=== PATIENT | male | born 1980 | race Hispanic/Latino ===

== ENCOUNTER 2017-10-07 10:11 | Inpatient (IN) | payer OTHER, MEDICAID, SELFPAY ==
[2017-10-07] VITALS (8 sets, daily range): BP systolic 117–142; BP diastolic 70–101; PULSE 75–95; RESP 16–18; TEMP 36.5–37; O2SAT 96–100; BMI 25.1
[2017-10-07 11:09] LABS: Add Manual Diff / Slide Review NO; Basophils Percent Auto 0.2 % (0-2); Hematocrit 41.3 % (41-53); Hemoglobin 14.5 g/dL (13.5-17.5); Lymphocytes Percent Auto 28.3 % (25-40); Mean Corpuscular HGB Conc 35.2 % (30-36); Mean Corpuscular Hemoglobin 31.8 PG (26-34); Mean Corpuscular Volume 90.5 fL (80-100); Monocytes Percent Auto 8.9 % (3-14); Neutrophils Absolute Auto 2800 /uL (3000-5900); Neutrophils Percent Auto 60.6 % (50-75); Platelet Count 238 X10^3/uL (150-400); Red Blood Cell Count 4.56 X10^6/uL (4.5-5.9); Red Cell Distribution Width 14.6 % (11.6-14.8); White Blood Cell Count 4.6 X10^3/uL (4.5-11.0)
[2017-10-07 11:11] LABS: INR 1.1 (0.9-1.3); Prothrombin Time 12.2 SECONDS (10.1-12.7)
[2017-10-07 11:13] LABS: PTT Partial Thromboplastin Tim 29 SECONDS (26.4-36.2)
[2017-10-07 11:15] LABS: Alanine Aminotransferase 59 IU/L (21-72); Albumin 4.3 g/dL (3.5-5.0); Albumin Globulin Ratio 1.1 (1.0-2.8); Alkaline Phosphatase 60 U/L (38-126); Aspartate Aminotransferase 73 IU/L (17-59); BUN Creatinine Ratio 15.7 (6-22); Bilirubin Total 0.4 mg/dL (0.2-1.3); Blood Urea Nitrogen 11 mg/dL (9-20); Calcium 8.6 mg/dL (8.4-10.2); Carbon Dioxide 27 mmol/L (22-32); Chloride 103 mmol/L (98-107); Estimated Glomerular Filt Rate > 60.0 mL/min (>60); Glucose 102 mg/dL (70-100); HEMOLYSIS < 15 (0-50); Lipase 55 U/L (23-300); Potassium 3.8 mmol/L (3.4-5.1); Sodium 143 mmol/L (137-145); Total Protein 8.3 g/dL (6.3-8.2)
[2017-10-07] MEDS: SODIUM CHLORIDE 0.9% 1,000 ML 1000 ML IV (11:24)
[2017-10-07] MEDS: PANTOPRAZOLE 40 MG VIAL IV (11:28)
[2017-10-07] MEDS: ONDANSETRON 4 MG/2 ML INJ IV ×2 (11:28→19:45)
[2017-10-07] MEDS: LORazepam 2 MG/ML SYRINGE IV ×4 (11:28→21:46)
[2017-10-07] MEDS: THIAMINE 100 MG in DEXTROSE 5 % IN WATER 50 ML 204 ML IV (11:37)
--- NOTE | 2017-10-07 11:59 | ED_ITS ---
HPI - Abdominal Pain General Chief Complaint: Abdominal Pain Stated Complaint: ABDOMINAL PAIN/ALCOHOL DETOX Time Seen by Provider: 10/07/17 10:20 Source: patient Mode of arrival: ambulatory Limitations: no limitations History of Present Illness HPI narrative: 37-year-old male with extensive history of alcohol abuse including DTs and seizures presents with withdrawal type symptoms and left upper quadrant pain. He denies nausea, vomiting or diarrhea. He has had no dark stool. He admits to headache with nausea and vomiting as well as generalized abdominal pain, tremors and visual hallucinations. He has been drinking heavily since the age of 19 and has currently been drinking 16 12 oz beers daily. His most recent period of sobriety was 7 months ago after detox and [place] and he was dry for 6 months until he started drinking heavily again about 1 month ago. He decided yesterday that he wanted to quit drinking and stop yesterday afternoon or evening and had 1 beer this morning to try to help his symptoms. He wants to quit, he wants detox MD complaint: abdominal pain Onset (ago): hour(s) Pain Consistency: constant Location: LUQ Severity: moderate Quality: cramping Radiation: none Migration to: no migration Relieving factors: nothing Exacerbating factors: nothing Context: other (Alcohol cessation) Associated symptoms: nausea and vomiting Related Data Home Medications Medication Instructions Recorded Confirmed No Known Home Medications 10/07/17 10/07/17 Allergies Allergy/AdvReac Type Severity Reaction Status Date / Time No Known Allergies Allergy Uncoded 08/07/17 12:42 Review of Systems Review of Systems All systems reviewed & are unremarkable except as noted in HPI and below Constitutional Reports body ache(s), Reports chills, Denies fever(s), Denies lethargy and Denies weakness Eyes Denies change in vision, Denies eye discharge, Denies irritation and Denies loss of vision ENT Ears, Nose, Mouth, and Throat: Denies change in voice, Denies neck pain, Reports disequilibrium and Denies sore throat Cardiovascular Denies chest pain, Denies irregular heart rhythm, Denies lightheadedness, Reports palpitations, Denies dyspnea, Denies dyspnea on exertion and Denies orthopnea Respiratory Denies cough, Denies dyspnea, Denies dyspnea on exertion and Denies wheezing Gastrointestinal Gastrointestinal: Reports abdominal pain, Denies change in bowel habits, Denies diarrhea, Reports nausea and Reports vomiting Genitourinary Denies hematuria, Denies flank pain, Denies urinary incontinence and Denies urinary urgency Musculoskeletal Denies neck pain Integumentary/Breasts Denies pruritus, Denies erythema, Denies rash and Denies wounds Neurologic Reports confusion, Denies loss of vision, Reports tremor(s), Reports disequilibrium and Denies weakness Psychiatric Denies anxiety, Reports confusion, Denies depression, Denies homicidal ideation and Denies suicidal ideation Endocrine Reports palpitations Hematologic/Lymphatic Denies easy bruising Allergic/Immunologic Denies wheezing PFSH Family History: Reviewed 10/07/17 by Naomi Marcum MD Social History household members: family Smoking Status: Never smoker Exam Initial Vital Signs Initial Vital Signs: Vital Signs Temperature 97.7 F 10/07/17 10:23 Pulse Rate 95 H 10/07/17 10:23 Respiratory Rate 18 10/07/17 10:23 Blood Pressure 142/101 H 10/07/17 10:23 Pulse Oximetry 96 10/07/17 10:23 Const General: cooperative, acute distress, diaphoretic and disheveled Nutritional Appearance: well nourished Orientation: alert, awake, oriented x3 and not confused [facility] Head: normocephalic and atraumatic Ears: external ears normal and TM's normal bilaterally Nose: external nose normal and No nasal discharge Face and sinus: sinuses nontender, face symmetric, no sinus tenderness and No dry mucous membranes Mouth: oral mucosae normal and moist mucous membranes Teeth and gingiva: dentition normal Throat: tonsils normal and uvula midline Eyes General: appearance normal, both eyes and all related structures Eyelids: eyelids normal Conjunctivae: conjunctivae normal Sclera: sclerae normal Pupils: PERRL EOM: EOM intact bilaterally Neck Neck: normal visual inspection, trachea midline, No lymphadenopathy, No midline deformity and No JVD Lymphatic: No lymphedema Resp Effort & Inspection: normal respiratory effort, able to speak in complete sentences, no respiratory distress and no use of accessory muscles Auscultation: clear to auscultation bilaterally, no rales, no rhonchi and no wheezes Cardio Rate: tachycardic GI Inspection: non-distended Palpation: soft, no hepatosplenomegaly, No guarding, No pulsatile mass and tender (LUQ pain) Auscultation: normal bowel sounds Back/Spine/Pelvis Back: No CVA tenderness Cervical Spine: cervical ROM normal and No pain with cervical ROM Thoracic/Lumbar Spine: thoracic and lumbar spine normal to inspection Skin General: no rashes or lesions noted, No jaundice and No petechiae Neuro General: alert, awake and oriented x3 Cognition: normal cognition Speech: speech normal Gait: normal gait Motor: tremor Sensory Exam: no sensory deficits noted Extrem General: full ROM, no clubbing, cyanosis or edema, no pedal edema and no calf tenderness Psych Appearance: disheveled Speech and Movement: agitated Mood: anxious mood Affect: irritable affect Attitude: cooperative Thought Process: normal Thought Content: hallucinations visual Other: CIWA-Ar for Alcohol Withdrawal from [facility] on 10/07/2017 All calculations should be rechecked by clinician prior to use RESULT SUMMARY: 22 points Patients with scores ?20 frequently require medication for withdrawal, and may also require admission to the ICU for observation for seizures or development of delirium tremens, and more frequent medication dosing. INPUTS: Nausea/vomiting ?> 4 = Intermittent nausea with dry heaves Tremor ?> 4 = Moderate, with patient's arms extended Paroxysmal sweats ?> 3 = (More severe symptoms) Anxiety ?> 4 = Moderately anxious, or guarded, so anxiety is inferred Agitation ?> 2 = (More severe symptoms) Tactile disturbances ?> 0 = None Auditory disturbances ?> 0 = Not present Visual disturbances ?> 3 = Moderate sensitivity Headache/fullness in head ?> 2 = Mild Orientation/clouding of sensorium ?> 0 = Oriented, can do serial additions Course Orders Ordered: ED Orders 10/07/17 10:50 Complete Blood Count AUTO DIFF Stat Comprehensive Metabolic Panel Stat Lipase Stat Partial Thromboplastin Time Stat Prothrombin Time INR Stat 10/07/17 11:01 EKG-12 Lead Stat 10/07/17 14:57 Consult to Dietitian, Adult Routine 10/08/17 05:00 Basic Metabolic Panel Routine Magnesium Routine Folic Acid (Folic Acid) 1 mg PO DAILY KAYLA Haloperidol (Haldol) 2 mg IV Q1HR PRN PRN Reason: Hallucinations Magnesium Sulfate 2 gm/ Folic Acid 1 mg/ Thiamine HCl 100 mg / Multivitamins 10 ml/ Sodium Chloride 1,015.2 mls @ 125 mls/hr IV NOW ONE Stop: 10/07/17 23:03 Last Admin: 10/07/17 17:17 Dose: 125 mls/hr Lorazepam (Ativan) 1 mg IV Q4HR PRN PRN Reason: Anxiety Last Admin: 10/07/17 15:11 Dose: 1 mg Lorazepam (Ativan) 0 mg IV CIWAPRN PRN; Protocol PRN Reason: Alcohol Withdrawal Last Admin: 10/07/17 17:49 Dose: 2 mg Morphine Sulfate (Morphine) 4 mg IV Q4H PRN PRN Reason: Pain, Severe Last Admin: 10/07/17 17:50 Dose: 4 mg Multivitamins (Tab-A-Marilou) 1 tab PO DAILY [facility] Ondansetron HCl (Zofran) 4 mg IV Q4HR PRN PRN Reason: Nausea And Vomiting Ondansetron HCl (Zofran) 4 mg IV Q6HR PRN PRN Reason: Nausea And Vomiting Ondansetron HCl (Zofran) 4 mg IV Q4HR PRN PRN Reason: Nausea And Vomiting Pantoprazole Sodium (Protonix) 40 mg IV DAILY [facility] Thiamine HCl (Vitamin B-1) 100 mg PO DAILY KAYLA Stop: 10/11/17 09:01 Discontinued Medications Thiamine HCl 100 mg/ Dextrose 51 mls @ 204 mls/hr IV NOW ONE Stop: 10/07/17 11:15 Last Infusion: 10/07/17 12:03 Dose: 0 mls/hr Admin: 10/07/17 11:37 Dose: 204 mls/hr Sodium Chloride (Normal Saline 0.9%) 1,000 mls @ 1,000 mls/hr IV BOLUS ONE Stop: 10/07/17 12:13 Last Infusion: 10/07/17 12:43 Dose: 0 mls/hr Admin: 10/07/17 11:24 Dose: 1,000 mls/hr Lorazepam (Ativan) 2 mg IV NOW ONE Stop: 10/07/17 11:15 Last Admin: 10/07/17 11:28 Dose: 2 mg Morphine Sulfate (Morphine Sulfate) 4 mg IV Q4H PRN PRN Reason: Pain, Severe Ondansetron HCl (Zofran) 4 mg IV NOW ONE Stop: 10/07/17 11:02 Last Admin: 10/07/17 11:28 Dose: 4 mg Pantoprazole Sodium (Protonix) 40 mg IV NOW ONE Stop: 10/07/17 11:15 Last Admin: 10/07/17 11:28 Dose: 40 mg Vital Signs - 8 hr 10/07/17 12:23 10/07/17 14:22 10/07/17 15:56 Temperature 97.9 F 98.5 F Pulse Rate 93 H 91 H 75 Respiratory Rate 16 18 Blood Pressure 135/89 H 128/84 H Blood Pressure [Right Arm] 135/89 H Pulse Oximetry 97 100 97 MDM - Abdominal Pain Lab Data Result diagrams: 10/07/17 10:50 10/07/17 10:50 Lab Results 10/07/17 10/07/17 10/07/17 Range/Units 10:50 10:50 10:50 WBC 4.6 (4.5-11.0) X10^3/uL RBC 4.56 (4.5-5.9) X10^6/uL Hgb 14.5 (13.5-17.5) g/dL Hct 41.3 (41-53) % MCV 90.5 (80-100) fL MCH 31.8 (26-34) PG MCHC 35.2 (30-36) % RDW 14.6 (11.6-14.8) % Plt Count 238 (150-400) X10^3/uL Neut % (Auto) 60.6 (50-75) % Lymph % (Auto) 28.3 (25-40) % [place] % (Auto) 8.9 (3-14) % Eos % (Auto) 2.0 (2-4) % Baso % (Auto) 0.2 (0-2) % Neut # (Auto) 2800 L (8342-1651) /uL PT 12.2 (10.1-12.7) SECONDS INR 1.1 (0.9-1.3) APTT 29 (26.4-36.2) SECONDS Sodium 143 (137-145) mmol/L Potassium 3.8 (3.4-5.1) mmol/L Chloride 103 (98-107) mmol/L Carbon Dioxide 27 (22-32) mmol/L BUN 11 (9-20) mg/dL Creatinine 0.70 (0.66-1.25) mg/dL Estimated GFR > 60.0 (>60) mL/min BUN/Creatinine Ratio 15.7 (6-22) Glucose 102 H (70-100) mg/dL Calcium 8.6 (8.4-10.2) mg/dL Total Bilirubin 0.4 (0.2-1.3) mg/dL AST 73 H (17-59) IU/L ALT 59 (21-72) IU/L Alkaline Phosphatase 60 (38-126) U/L Total Protein 8.3 H (6.3-8.2) g/dL Albumin 4.3 (3.5-5.0) g/dL Globulin 4.0 (1.7-4.1) g/dL Albumin/Globulin Ratio 1.1 (1.0-2.8) Lipase 55 (23-300) U/L Discharge Plan Departure Patient Disposition: Admitted As Inpatient Clinical Impression: Alcohol withdrawal Discharge Date/Time: 10/07/17 13:54 Interventions: ED Discharge Assessment Last Done: 10/07/17 13:39 Admit Date/Time: 10/07/17 13:41 Admit Provider: Naomi Marcum
[2017-10-07] MEDS: LORazepam 2 MG/ML SYRINGE 1 MG IV (15:11)
--- NOTE | 2017-10-07 15:33 | P.HP_ITS ---
History of Present Illness Date Patient Seen: 10/07/17 Time Patient Seen: 13:45 Chief complaint: Alcohol Withdrawal Narrative: 37-year-old man with history of alcohol abuse who has being drinking 12-18 beers a day in the past month. He was trying to stop alcohol drinking. His last drink was earlier this morning. He had 1 beer. He was having significant shakiness. He also had visual hallucination. He presented to the [facility] Emergency Room. His CIWA score was 20. He received IV lorazepam and thiamine. He was admitted to the medicine floor for alcohol withdrawal. He also complains of left upper quadrant abdominal pain. He rates the severity of the pain as 8/10. The pain is constant. He does have nausea and occasional vomiting. Abdominal pain has been going on for 1 day. He does have prior history of pancreatitis. His lipase at the emergency room was normal. Patient History Comment: Pancreatitis Alcohol dependency with history of withdrawal seizures, last hospitalized at [facility] for alcohol withdrawal in September of 2016 Family & Social History Family History: Reviewed 10/07/17 by Naomi Marcum MD Social History: household members family Prior Living Arrangements House Safety & Behavioral: Feels Safe in Current Yes Environment Been Physically Hurt or No Threatened By a Person Suicidal Ideation Description None Suicide Plan Description No Plan Tobacco & Substance use: Smoking Status Never smoker alcohol intake frequency 3 or more drinks per day Substance Use Type does not use Meds Home Medications Medication Instructions Recorded Confirmed Type No Known Home Medications 10/07/17 10/07/17 History Allergies Allergy/AdvReac Type Severity Reaction Status Date / Time No Known Allergies Allergy Uncoded 08/07/17 12:42 Review of Systems Constitutional Comments: Denies fevers or chills Cardiovascular Comments: He has palpitations. Denies chest pain Respiratory Comments: No shortness of breath or cough Gastrointestinal Gastrointestinal: Reports as per HPI Genitourinary Comments: No dysuria Musculoskeletal Comments: No back pain or arthralgia Neurologic Neurologic: Reports other visual disturbances Exam Vital Signs (past 8 hours): Vital Signs - 8 hr 3 10/07/17 10:23 10/07/17 12:23 10/07/17 14:22 Temperature 97.7 F 97.9 F Pulse Rate 95 H 93 H 91 H Respiratory Rate 18 16 Blood Pressure 142/101 H 135/89 H Blood Pressure [Right Arm] 135/89 H Pulse Oximetry 96 97 100 Pulse Oximetry 100 Oxygen Delivery Method Room Air Narrative Exam Narrative: GENERAL: Well-appearing, well-nourished and in no acute distress. HEENT: Head normocephalic, atraumatic. Eyes pupils equal round NECK: Supple, no JVD, CHEST: Breath sounds equal bilaterally, no wheezes rales or rhonchi. CARDIAC: Regular rhythm without murmurs, slightly tachycardic, heart rate around 100, no rubs or gallops. ABDOMEN: Soft, nontender. Normoactive bowel sounds all 4 quadrants. No guarding or rebound. EXTREMITIES: Normal range of motion, no clubbing or edema. NEUROLOGICAL: Alert and oriented; Normal muscle strength. Significant tremors in hands Psychiatric: Anxious appearing SKIN: Warm, dry, no petechiae, no rashes or lesions. Objective Labs Result Diagrams: 10/07/17 10:50 10/07/17 10:50 Labs: Laboratory Results - last 24 hr 10/07/17 10/07/17 10/07/17 10:50 10:50 10:50 WBC 4.6 RBC 4.56 Hgb 14.5 Hct 41.3 MCV 90.5 MCH 31.8 MCHC 35.2 RDW 14.6 Plt Count 238 Neut % (Auto) 60.6 Lymph % (Auto) 28.3 [place] % (Auto) 8.9 Eos % (Auto) 2.0 Baso % (Auto) 0.2 Neut # (Auto) 2800 L PT 12.2 INR 1.1 APTT 29 Sodium 143 Potassium 3.8 Chloride 103 Carbon Dioxide 27 BUN 11 Creatinine 0.70 Estimated GFR > 60.0 BUN/Creatinine Ratio 15.7 Glucose 102 H Calcium 8.6 Total Bilirubin 0.4 AST 73 H ALT 59 Alkaline Phosphatase 60 Total Protein 8.3 H Albumin 4.3 Globulin 4.0 Albumin/Globulin Ratio 1.1 Lipase 55 Assessment & Plan Plan: Assessment/Plan Narrative: 1. Acute and alcohol withdrawal with visual hallucinations: Start CIWA protocol. Use Ativan per CIWA protocol. Start thiamine and folic acid replacement. Start seizure precautions 2. Alcohol dependency: He needs alcohol treatment program. He wants to quit alcohol drinking 3. Upper abdominal pain: Possible gastritis. He does have history of pancreatitis. His lipase was normal earlier today. He received IV Protonix. We will continue IV Protonix. Continue monitor him clinically. Start clear liquid diet. Continue symptomatic control with morphine and Zofran. Quality VTE Deep Vein Thrombosis/Pulmonary Embolism Present on Admission: No
[2017-10-07] MEDS: MAGNESIUM SULFATE 2 GM, FOLIC ACID 1 MG, THIAMINE 100 MG, MULTIVITAMIN 10 ML in SODIUM ... IV (17:17)
[2017-10-07] MEDS: MORPHINE 4 MG/ML INJ IV ×2 (17:50→21:45)
--- NOTE | 2017-10-07 23:43 | PC.NURSE ---
Patient reporting intermittent nausea, abdomen pain, headache pain, pins & needles to his feel/legs, sometimes seeing things (like TV) move when I know they aren't moving. Reports anxious and really embarrased, words of support given. Moderate tremor to UE's with purposeful movement. CIWA score 21, 18 and 21, medicated with Ativan 2 mg x 3 doses since 1600. Also given Morphine 4 mg IV for c/o pain 12/06. Reports some relief from nausea and headache post med administration, able to doze intermittently. Tolerating clear liquids, no emesis. IV flushing/infusing with no difficulty, banana bag almost complete. Ambulates to BR with SBA, gait unsteady at times but he denies dizziness. Fall precautions in place, seizure pads on rails. Using call button appropriately, although when urgent gets up before staff present. Oriented to self, place, month and time but keeps thinking it is saturday. Reoriented when needed. Pt calm & appropriate. Alarm active at all times. Full patient report given to Bri OLIVEIRA.
[2017-10-08] VITALS (7 sets, daily range): BP systolic 121–141; BP diastolic 81–98; PULSE 74–95; RESP 14–16; TEMP 36.6–37.1; O2SAT 97–98; BMI 25.1
[2017-10-08] MEDS: ONDANSETRON 4 MG/2 ML INJ IV ×3 (00:24→18:23)
[2017-10-08] MEDS: LORazepam 2 MG/ML SYRINGE IV ×6 (00:25→20:21)
[2017-10-08] MEDS: MORPHINE 4 MG/ML INJ IV ×2 (01:16→09:24)
[2017-10-08 05:54] LABS: BUN Creatinine Ratio 8.6 (6-22); Blood Urea Nitrogen 6 mg/dL (9-20); Calcium 8.1 mg/dL (8.4-10.2); Carbon Dioxide 28 mmol/L (22-32); Chloride 100 mmol/L (98-107); Estimated Glomerular Filt Rate > 60.0 mL/min (>60); Glucose 87 mg/dL (70-100); HEMOLYSIS < 15 (0-50); Magnesium 2.2 mg/dL (1.6-2.3); Potassium 3.4 mmol/L (3.4-5.1); Sodium 139 mmol/L (137-145)
[2017-10-08] MEDS: FOLIC ACID 1 MG TABLET PO (10:18)
[2017-10-08] MEDS: PANTOPRAZOLE 40 MG VIAL IV (10:18)
[2017-10-08] MEDS: THIAMINE 100 MG TABLET PO (10:18)
[2017-10-08] MEDS: MULTIVITAMIN 1 TABLET 1 TAB PO (10:18)
--- NOTE | 2017-10-08 11:06 | P.PN_ITS ---
Subjective Date Patient Seen: 10/08/17 Time Patient Seen: 10:45 Interval history: Patient feels less agitated today compared to yesterday. He still has some upper abdominal pain. No nausea or vomiting. He is wondering if his diet can be advanced to full liquid diet. He had CIWA score of 4 Exam Vital Signs (past 8 hours): Vital Signs - 8 hr 3 10/08/17 04:01 10/08/17 07:17 Temperature 97.9 F 97.8 F Pulse Rate 74 Respiratory Rate 16 15 Blood Pressure 141/98 H 128/85 H Pulse Oximetry 97 98 Pulse Oximetry 98 Oxygen Delivery Method Room Air Oxygen Flow Rate 0 Narrative Exam Narrative: Gen: Young man in no acute distress. CHEST: Breath sounds equal bilaterally, no wheezes rales or rhonchi. CARDIAC: Regular rhythm without murmurs, no rubs or gallops. ABDOMEN: Soft, mild left upper quadrant tenderness. Normoactive bowel sounds all 4 quadrants. No guarding or rebound. EXTREMITIES: Normal range of motion, no clubbing or edema. NEUROLOGICAL: Alert and oriented; Normal muscle strength. Still has significant tremors in hands Psychiatric: Depressed mood, Anxious appearing SKIN: Warm, dry, no petechiae, no rashes or lesions. Objective Labs Result Diagrams: 10/07/17 10:50 10/08/17 05:14 Labs: Laboratory Results - last 24 hr 10/07/17 10/07/17 10/07/17 10:50 10:50 10:50 WBC 4.6 RBC 4.56 Hgb 14.5 Hct 41.3 MCV 90.5 MCH 31.8 MCHC 35.2 RDW 14.6 Plt Count 238 Neut % (Auto) 60.6 Lymph % (Auto) 28.3 [place] % (Auto) 8.9 Eos % (Auto) 2.0 Baso % (Auto) 0.2 Neut # (Auto) 2800 L PT 12.2 INR 1.1 APTT 29 Sodium 143 Potassium 3.8 Chloride 103 Carbon Dioxide 27 BUN 11 Creatinine 0.70 Estimated GFR > 60.0 BUN/Creatinine Ratio 15.7 Glucose 102 H Calcium 8.6 Magnesium Total Bilirubin 0.4 AST 73 H ALT 59 Alkaline Phosphatase 60 Total Protein 8.3 H Albumin 4.3 Globulin 4.0 Albumin/Globulin Ratio 1.1 Lipase 55 10/08/17 05:14 WBC RBC Hgb Hct MCV MCH MCHC RDW Plt Count Neut % (Auto) Lymph % (Auto) [place] % (Auto) Eos % (Auto) Baso % (Auto) Neut # (Auto) PT INR APTT Sodium 139 Potassium 3.4 Chloride 100 Carbon Dioxide 28 BUN 6 L Creatinine 0.70 Estimated GFR > 60.0 BUN/Creatinine Ratio 8.6 Glucose 87 Calcium 8.1 L Magnesium 2.2 Total Bilirubin AST ALT Alkaline Phosphatase Total Protein Albumin Globulin Albumin/Globulin Ratio Lipase Assessment & Plan Plan: Assessment/Plan Narrative: 1. Acute and alcohol withdrawal with visual hallucinations: Continue CIWA protocol with Ativan. Continue multivitamin, thiamine and folic acid replacement. Start seizure precautions 2. Alcohol dependency: He needs alcohol treatment program. He wants to quit alcohol drinking. 3. Upper abdominal pain: Possible gastritis. He does have history of pancreatitis. His lipase was normal on admission. Continue Protonix. We will change Protonix from IV to p.o.. Continue monitor him clinically. Continue Zofran as needed. Discontinue IV morphine. 4. Mild hypokalemia: We will give him 40 mEq of p.o. potassium chloride today. Continue monitor his electrolytes. 5. Depression and anxiety: Start Zoloft 50 mg once a day. Quality VTE Deep Vein Thrombosis/Pulmonary Embolism Present on Admission: No
[2017-10-08] MEDS: POTASSIUM CHLORIDE 20 MEQ TAB 40 MEQ PO (11:38)
--- NOTE | 2017-10-08 15:42 | CM.SWNOTE ---
Discharge Planning/Care Management Miniature Model Maker Consult Start: 10/08/17 15:34 Freq: Status: Active Protocol: Document 10/08/17 15:34 (Rec: 10/08/17 15:34 [id number]) Miniature Model Maker Consult ORTHODONTIC ASSISTANT Assessment Type Substance Abuse VOA MIS check: One evaluation appointment at [facility] on 05/08/2017. Mental Status: AxO. Flat affect. Groomed, casually dressed, appears stated age. Calm, cooperative, fair eye contact, some psychomotor slowing, no tremor or involuntary movements observed. Linear and concrete thought process. Legal: Denies. Mental Health: Denies Chemical Dependency: 37-year-old man with history of alcohol abuse who has being drinking 12-18 beers a day in the past month. Patient stated he would like to have Alcohol Detox. Family/Social: Patient resides with his supportive parents. Assessment: Patient states he has always drank alcohol since age 19, but doesn't feel it became an addiction until at 29 when he met his now ex-fiance. He was with her for 6 years. Patient reports history with IP CD in [place] for 28 days in which he did not relapse for a few months. Patient stated he also went through with detox in 04/2017 and was able to maintain sobriety till roughly a month ago. He blames his relapse on running into his ex-fiance. 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 Patient is not interested in IP CD at this time. Patient understands the resources but declined them all. Patient did state he would go back to [facility] for detox only if needed too. Plan: At this time patient is not interested in any resources but would like to complete detox. Patient stated his 3rd night of detox is always the worst and would like to be in hospital for that. Patient is aware that SW is at everyday if he wishes to talk more about options or even accept information on [facility] or brochures.
[2017-10-08] MEDS: LORazepam 2 MG/ML SYRINGE 1 MG IV (15:51)
--- NOTE | 2017-10-08 15:56 | CM.SWNOTE ---
Discharge Planning/Care Management Toll Collector Supervisor Consult Start: 10/08/17 15:34 Freq: Status: Active Protocol: Document 10/08/17 15:34 (Rec: 10/08/17 15:34 [id number]) Toll Collector Supervisor Consult REINFORCED CONCRETE INSPECTOR Assessment Type Substance Abuse Document 10/08/17 15:34 (Rec: 10/08/17 15:55 [id number]) Toll Collector Supervisor Consult REINFORCED CONCRETE INSPECTOR Assessment Type Substance Abuse Reason for REINFORCED CONCRETE INSPECTOR Referral Patient admitted for alcohol withdrawal and Pancreatitis Referred by DCP Presenting Problem Alcohol Withdrawal and Pancreatitis VOA/CMS check Yes: One evalution with [facility] 05/08/2017 Suicidal thoughts No Past Suicidal thoughts No Current Suicidal thoughts No Prior Suicide attempts No Current plan for self harm No Access to guns and weapons No Thoughts of harm to others No Past thoughts of harm to others No Current thoughts of harming others No Prior attempts to harm others No Current plan to harm others No Current Risk factors Substance abuse Marital and family difficulties Risk factor comments Patient saw ex-fiance of 6 years, roughly one month ago. Patient stated that she is a big source of his drinking. Relevant Medical History Pancreatitis Action taken Admitted to hospital 10/08/17 15:42 CM Commodities Broker Note by Pamella Avitia Discharge Planning/Care Management Toll Collector Supervisor Consult Start: 10/08/17 15:34 Freq: Status: Active Protocol: Document 10/08/17 15:34 (Rec: 10/08/17 15:34 [id number]) Toll Collector Supervisor Consult REINFORCED CONCRETE INSPECTOR Assessment Type Substance Abuse VOA MIS check: One evaluation appointment at [facility] on 05/08/2017. Mental Status: AxO. Flat affect. Groomed, casually dressed, appears stated age. Calm, cooperative, fair eye contact, some psychomotor slowing, no tremor or involuntary movements observed. Linear and concrete thought process. Legal: Denies. Mental Health: Denies Chemical Dependency: 37-year-old man with history of alcohol abuse who has being drinking 12-18 beers a day in the past month. Patient stated he would like to have Alcohol Detox. Family/Social: Patient resides with his supportive parents. Assessment: Patient states he has always drank alcohol since age 19, but doesn't feel it became an addiction until at 29 when he met his now ex-fiance. He was with her for 6 years. Patient reports history with IP CD in [place] for 28 days in which he did not relapse for a few months. Patient stated he also went through with detox in 04/2017 and was able to maintain sobriety till roughly a month ago. He blames his relapse on running into his ex-fiance. 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 Patient is not interested in IP CD at this time. Patient understands the resources but declined them all. Patient did state he would go back to [facility] for detox only if needed too. Plan: At this time patient is not interested in any resources but would like to complete detox. Patient stated his 3rd night of detox is always the worst and would like to be in hospital for that. Patient is aware that SW is at everyday if he wishes to talk more about options or even accept information on [facility] or brochures. Initialized on 10/08/17 15:42 - END OF NOTE
--- NOTE | 2017-10-08 16:47 | PC.NURSE ---
Addendum entered by Maki Lam R.N. 10/08/17 21:30: Relatively uneventful evening. Med at 2020 w/ativan w/good results. Ciwa through evening, 9 and 12. Resting quietly at this time. Call light w/in reach, bed alarm on for pt safety. Original Note: Addendum entered by Maki Lam R.N. 10/08/17 18:08: Pt awake, states he feels anxious. Ativan 1mg IV given at this time. Will assess. Original Note: Pt states he feels 'uncomfortable' some slight tremors noted. CiWa = 8, Ativan 1mg given at 1550. Pt resting quietly at this time. HL right wrist intact/patent. Seizure pads in place, bed call light w/in reach, bed alarm on for pt safety.
[2017-10-08] MEDS: SERTRALINE 50 MG TABLET PO (20:13)
[2017-10-08] MEDS: SODIUM CHLORIDE 0.9% FLUSH 10 ML IV (20:27)
[2017-10-09 01:05] VITALS: BP 133/92; PULSE 93; RESP 17; TEMP 36.9; O2SAT 97
[2017-10-09 05:26] VITALS: O2SAT 96
[2017-10-09] MEDS: LORazepam 2 MG/ML SYRINGE 1 MG IV (05:35)
[2017-10-09 05:36] VITALS: BP 133/90; PULSE 93; RESP 16; TEMP 36.6
[2017-10-09] MEDS: ONDANSETRON 4 MG/2 ML INJ IV ×2 (05:37→10:14)
[2017-10-09] MEDS: PANTOPRAZOLE 40 MG TABLET PO (06:49)
[2017-10-09 07:00] VITALS: O2SAT 97
[2017-10-09 08:50] VITALS: BP 112/69; PULSE 79; RESP 14; TEMP 36.8; O2SAT 96
[2017-10-09] MEDS: FOLIC ACID 1 MG TABLET PO (10:14)
[2017-10-09] MEDS: THIAMINE 100 MG TABLET PO (10:14)
[2017-10-09] MEDS: MULTIVITAMIN 1 TABLET 1 TAB PO (10:14)
[2017-10-09] MEDS: SODIUM CHLORIDE 0.9% FLUSH 10 ML IV ×2 (10:15→10:40)
--- NOTE | 2017-10-09 10:15 | P.DS_ITS ---
History of Present Illness Date Patient Seen: 10/09/17 Time Patient Seen: 10:13 Chief complaint: Alcohol Withdrawal Narrative: 37-year-old man with history of alcohol abuse who has being drinking 12-18 beers a day in the past month. He was trying to stop alcohol drinking. His last drink was earlier this morning. He had 1 beer. He was having significant shakiness. He also had visual hallucination. He presented to the [facility] Emergency Room. His CIWA score was 20. He received IV lorazepam and thiamine. He was admitted to the medicine floor for alcohol withdrawal. He also complains of left upper quadrant abdominal pain. He rates the severity of the pain as 8/10. The pain is constant. He does have nausea and occasional vomiting. Abdominal pain has been going on for 1 day. He does have prior history of pancreatitis. His lipase at the emergency room was normal. Discharge Providers Date of admission: 10/07/17 13:41 Primary care physician: Donal Rodgers Consults: 10/07/17 14:57 Consult to Dietitian, Adult Routine Comment: Reason For Exam: nutritional needs Discharge provider: FROILAN Scanlon Summary Discharge Diagnosis: 1. Acute alcohol withdrawal 2. Alcohol dependency 3. Possible gastritis 4. Depression and anxiety Hospital Course: This serves as a 2 day summary of the patient's hospitalization course. CIWA scores on admission were 20. He was also started on the CIWA protocol with Ativan supplementation, as needed. On the 1st day of admission he was having visual hallucinations, nausea, abdominal pain, headaches , and complaints of pins and needles to his feet and legs. He was also given IV morphine for complaints of abdominal pain, and started on Protonix as it was felt that he had possible gastritis. Mr. Lucas has a prior history of pancreatitis but his lipase in the emergency room was normal. His appetite has been poor during this hospitalization secondary to the nausea for which she was given Zofran. Throughout his hospitalization he is stated that he wants to quit drinking, but at this time does not want any inpatient or outpatient treatment plan implemented. He was also started on Zoloft for treatment of his depression and anxiety. He should be followed up with his primary care provider within 1 week. The patient is being discharged to home as this is his desire. He will be treated with outpatient medications of Zoloft for his depression, Protonix for his gastritis, Ativan for anxiety and tremors. I will also continue him on multivitamin,thiamine and folic acid for 1 month. He has been strongly encouraged to follow up with either outpatient or inpatient therapy for his alcohol dependency. Status at Discharge Functional status at discharge: independent ambulation Overall status at discharge: patient is not back to baseline Time Spent with Patient Greater than 30 minutes Exam Vital Signs (past 8 hours): Vital Signs - 8 hr 3 10/09/17 05:26 10/09/17 05:36 10/09/17 07:00 Temperature 97.9 F Pulse Rate 93 H Respiratory Rate 16 Blood Pressure 133/90 H Pulse Oximetry 96 97 3 10/09/17 08:50 Temperature 98.3 F Pulse Rate 79 Respiratory Rate 14 Blood Pressure 112/69 Pulse Oximetry 96 Pulse Oximetry 96 Oxygen Delivery Method Room Air Oxygen Flow Rate 0 Narrative Exam Narrative: Patient states he wants to leave the hospital. Const General: cooperative Nutritional Appearance: average body habitus and well nourished Orientation: alert, awake and oriented x3 HENMT Head: normal to inspection Eyes Pupils: PERRL and pupil size bilaterally (3mm) EOM: EOM intact bilaterally Neck Neck: normal visual inspection, trachea midline and supple Other: No neck vein distention or lymphadenopathy Chest Chest: normal inspection of the chest Resp Effort & Inspection: normal respiratory effort and able to speak in complete sentences Auscultation: clear to auscultation bilaterally Cardio Rate: regular rate Heart Sounds: S1 normal and S2 normal GI Inspection: normal to inspection Palpation: soft Auscultation: normal bowel sounds Other: No dysuria Back/Spine/Pelvis Back: normal to inspection Skin General: dry skin and warm Rashes: no rashes Trauma: no lacerations or abrasions Wounds: no wounds Neuro General: alert, awake and oriented x3 Cranial Nerves: CN's II-XI intact bilaterally Cognition: normal cognition Speech: speech normal Motor: muscle tone normal throughout Sensory Exam: no sensory deficits noted Other: Mild tremors upper extremities. No clonus noted. CIWA scores 4. Extrem General: normal to inspection, capillary refill normal and no pedal edema Psych Appearance: grossly normal Mental Status: mental status grossly normal Speech and Movement: speech and movement normal Mood: congruent mood Affect: normal affect Attitude: cooperative Thought Content: normal Judgment: fair Objective Labs Result Diagrams: 10/07/17 10:50 10/08/17 05:14 Discharge Plan Discharge Plan Patient Disposition: Home, Self-Care Discharge comment: Discharge home today. Provider Discharge Instructions Diet: Diet as Tolerated Activity: As tolerated Oxygen: Room air Discharge Data Primary Care Provider: Donal Rodgers Attending Provider: Naomi Marcum Admit Date/Time: 10/07/17 13:41 Quality VTE Deep Vein Thrombosis/Pulmonary Embolism Present on Admission: No
[2017-10-09] MEDS: LORazepam 2 MG/ML SYRINGE IV (10:38)
--- NOTE | 2017-10-09 13:45 | PC.NURSE ---
1335 Pt dcd to home, escorted out ambulatory per Pt request. Pt given DC instructions, prescriptions. Pt w/o tremors at dc, denies pain, nausea.
--- NOTE | 2017-10-09 14:28 | CM.DPC ---
DCP Discharge Home Per MD, pt is requesting to d/c home and finish his detox at home and pt is mostly stable. MD inquired if pt is interested in detox center, inpt tx, or outpt treatment resources and pt declined stating that he plans to d/c home with prescribed medication and start going back to AA meetings for additional support. MD wrote discharge orders for the pt home today. No further needs at this time. Plan: Patient to d/c home with prescribed meds to help with withdrawal symptoms and pt states he plans to go back to AA meeting for support and declined further CD resources. LUX Barr
== END 2017-10-09 13:35 | disposition home or self-care (01) | DRG 775 ==
LOC: ED 13:07 → AC 13:42
PROVIDERS: Admitting Provider Internal Medicine; Emergency Provider Emergency Medicine; Family Provider Family Medicine; PCP Family Medicine; Visit Provider Internal Medicine
DX: F10.231 Alcohol dependence with withdrawal delirium (principal); E87.6 Hypokalemia; F32.9 Major depressive disorder, single episode, unspecified; F41.9 Anxiety disorder, unspecified; K29.70 Gastritis, unspecified, without bleeding
CPT/HCPCS: 36415; 36591; 80048; 80053; 81003; 83690; 83735; 85025; 85610; 85730; 93005; 96361; 96365; 96375; 99283; 99284; C9113; J2060; J2270; J2405; J3475

== ENCOUNTER 2018-07-21 14:01 | Emergency (ER) | payer OTHER, MEDICAID, SELFPAY ==
[2017-10-07 14:14] VITALS: BMI 25.1
[2018-07-21 14:07] VITALS: BP 151/110; PULSE 110; RESP 18; TEMP 36.8; O2SAT 96; BMI 26.5
[2018-07-21 14:30] VITALS: BP 146/98; PULSE 96; RESP 22; O2SAT 96
--- NOTE | 2018-07-21 14:30 | DI.RAD.S_ITS ---
PROCEDURE: XR CHEST 1V INDICATIONS: fall off roof TECHNIQUE: One view of the chest was acquired. COMPARISON: None. FINDINGS: Surgical changes and devices: None. Lungs and pleura: Lungs are clear. No pleural effusions or pneumothorax. Mediastinum: Mediastinal contours appear normal. Heart size is normal. Bones and chest wall: No suspicious bony lesions. Overlying soft tissues appear unremarkable. IMPRESSION: No acute cardiopulmonary pathology. Dictated by: Caleb Nunez M.D. on 07/21/2018 at 14:55 Approved by: Caleb Nunez M.D. on 07/21/2018 at 14:55
--- NOTE | 2018-07-21 14:30 | DI.RAD.S_ITS ---
PROCEDURE: XR SHOULDER RT MIN 2V INDICATIONS: fall off roof TECHNIQUE: 3 views of the shoulder were acquired. COMPARISON: None. FINDINGS: Bones: No fractures or dislocations. No suspicious bony lesions. Visualized ribs appear intact. Soft tissues: Faint calcifications lateral to greater tuberosity of humeral head is seen. IMPRESSION: No shoulder fracture or dislocation. Faint calcification adjacent to greater tuberosity of humeral head, which may represent posttraumatic soft tissue ossification versus calcific tendinitis. Dictated by: Caleb Nunez M.D. on 07/21/2018 at 14:54 Approved by: Caleb Nunez M.D. on 07/21/2018 at 14:55
--- NOTE | 2018-07-21 14:34 | DI.CT.S_ITS ---
PROCEDURE: CT CERVICAL SPINE WO CON INDICATIONS: fall off roof TECHNIQUE: Noncontrast 3 mm thick sections acquired from the skull base to the T4 level. Sagittal and coronal reformats were then constructed. For radiation dose reduction, the following was used: automated exposure control, adjustment of mA and/or kV according to patient size. COMPARISON: [facility], CT, CT CERVICAL SPINE WITHOUT CONTRAST, 03/23/2018, 19:27. FINDINGS: Image quality: Diagnostic. Bones: The craniocervical and atlantoaxial joints are well-maintained. The odontoid is intact. The vertebral body heights and prevertebral soft tissues are within normal limits throughout the cervical spine without evidence to suggest acute compression fracture. No other fractures are evident within the cervical spine. The bone mineralization is within normal limits. Minimal/early degenerative changes of the cervical facet joints are evident. Soft tissues: No prevertebral soft tissue swelling. The imaged lung apices are clear. Imaged portions of the mediastinum are unremarkable. Otherwise, the remainder of the imaged soft tissues of the neck are within normal limits. IMPRESSION: 1. No acute osseous abnormality of the cervical spine. 2. Minimal/early degenerative changes of the cervical spine. Dictated by: Demario Douglas M.D. on 07/21/2018 at 13:58 Approved by: Demario Douglas M.D. on 07/21/2018 at 14:00
--- NOTE | 2018-07-21 14:34 | DI.CT.S_ITS ---
PROCEDURE: CT HEAD/BRAIN WO CON INDICATIONS: fall off roof TECHNIQUE: Noncontrast 4.5 mm thick angled axial sections acquired from the foramen magnum to the vertex, with coronal and sagittal reformats. For radiation dose reduction, the following was used: automated exposure control, adjustment of mA and/or kV according to patient size. COMPARISON: [facility], CT, CT HEAD WITHOUT CONTRAST, 03/23/2018, 19:27. FINDINGS: Image quality: Diagnostic. CSF spaces: Basal cisterns are patent. No extra-axial fluid collections. Ventricles are normal in size and shape. Brain: No midline shift. No intracranial masses or hemorrhage. Munoz-white matter interface is normal. Skull and face: Calvarium and visualized facial bones are intact, without suspicious lesions. Sinuses: Because of thickening versus small air fluid levels along the inferior margins of the bilateral maxillary sinuses are present. Otherwise, the imaged paranasal sinuses and mastoid air cells are clear. IMPRESSION: 1. No acute intracranial hemorrhage. 2. Mild maxillary sinus disease. Dictated by: Demario Douglas M.D. on 07/21/2018 at 14:01 Approved by: Demario Douglas M.D. on 07/21/2018 at 14:03
[2018-07-21 14:55] LABS: Alanine Aminotransferase 186 IU/L (21-72); Albumin 4.7 g/dL (3.5-5.0); Albumin Globulin Ratio 1.2 (1.0-2.8); Alkaline Phosphatase 68 U/L (38-126); Aspartate Aminotransferase 401 IU/L (17-59); BUN Creatinine Ratio 11.3 (6-22); Bilirubin Total 0.8 mg/dL (0.2-1.3); Blood Urea Nitrogen 9 mg/dL (9-20); Carbon Dioxide 28 mmol/L (22-32); Chloride 98 mmol/L (98-107); Estimated Glomerular Filt Rate > 60.0 mL/min (>60); Ethanol (ETOH) < 10 mg/dL; Globulin 3.8 g/dL (1.7-4.1); Glucose 110 mg/dL (70-100); HEMOLYSIS < 15 (0-50); Lipase 63 U/L (23-300); Potassium 3.4 mmol/L (3.4-5.1); Sodium 138 mmol/L (137-145); Total Protein 8.5 g/dL (6.3-8.2)
[2018-07-21 14:57] LABS: Add Manual Diff / Slide Review NO; Basophils Absolute Auto 0 /uL (0-100); Basophils Percent Auto 0.3 % (0-2); Eosinophils Absolute Auto 100 /uL (0-450); Eosinophils Percent Auto 2.1 % (2-4); Hematocrit 40.4 % (41-53); Hemoglobin 14.1 g/dL (13.5-17.5); Lymphocytes Absolute Auto 1100 /uL (1100-4500); Lymphocytes Percent Auto 21.4 % (25-40); Mean Corpuscular Hemoglobin 32.6 PG (26-34); Mean Corpuscular Volume 93.3 fL (80-100); Monocytes Absolute Auto 400 /uL (0-900); Monocytes Percent Auto 8.3 % (3-14); Neutrophils Absolute Auto 3600 /uL (1500-7000); Neutrophils Percent Auto 67.9 % (50-75); Platelet Count 223 X10^3/uL (150-400); Red Blood Cell Count 4.33 X10^6/uL (4.5-5.9); Red Cell Distribution Width 12.6 % (11.6-14.8); White Blood Cell Count 5.3 X10^3/uL (4.5-11.0)
[2018-07-21] MEDS: LORazepam 2 MG/ML SYRINGE 0.5 MG IV (15:12)
[2018-07-21 15:22] VITALS: BP 132/84; PULSE 95; RESP 21; O2SAT 97
[2018-07-21] MEDS: KETOROLAC 60 MG/2 ML VIAL 30 MG IV (15:25)
--- NOTE | 2018-07-21 15:46 | ED.FALL ---
HPI - Fall General Chief Complaint: Trauma Stated Complaint: ETOH withdrawls, hurt shoulder at work R side Time Seen by Provider: 07/21/18 14:30 Source: patient Mode of arrival: ambulatory Limitations: no limitations History of Present Illness HPI Narrative: Patient is a 38-year-old male who presents after falling off a 1 story roof. He is complaining of only right shoulder pain. He is going through alcohol withdrawal states that he has not had anything to drink in 2 days he feels shaky and unsteady. Denies hitting his head no neck pain or other extremity pain. Denies any other substances. MD complaint: fall Onset (ago): minute(s) Place fall occurred: work Loss of consciousness: none Prolonged down time: no Symptoms prior to fall: none Related Data Previous Rx's Medication Instructions Recorded folic acid 1 mg PO DAILY #30 tab 10/09/17 lorazepam [Ativan] 1 mg PO Q8H PRN #14 tab 10/09/17 multivitamin [Tab-A-Marilou] 1 tab PO DAILY #30 tab 10/09/17 pantoprazole [Protonix] 40 mg PO QAM #30 tab 10/09/17 sertraline [Zoloft] 50 mg PO BEDTIME #30 tab 10/09/17 thiamine HCl (vitamin B1) 100 mg PO DAILY #30 tab 10/09/17 chlordiazepoxide HCl 25 mg PO Q8H #10 cap 07/21/18 Allergies Allergy/AdvReac Type Severity Reaction Status Date / Time No Known Drug Allergies Allergy Verified 10/08/17 18:32 Review of Systems Review of Systems ROS Unobtainable: All systems reviewed & are unremarkable except as noted in HPI and below Constitutional Denies chills, Denies fever(s), Denies lethargy and Denies weakness ENT Ears, Nose, Mouth, and Throat: Denies change in voice, Denies neck pain and Denies sore throat Cardiovascular Denies chest pain, Denies irregular heart rhythm, Denies lightheadedness, Denies palpitations, Denies dyspnea, Denies dyspnea on exertion and Denies orthopnea Respiratory Denies cough, Denies dyspnea, Denies dyspnea on exertion and Denies wheezing Gastrointestinal Gastrointestinal: Denies abdominal pain, Denies change in bowel habits, Denies diarrhea, Denies nausea and Denies vomiting Genitourinary Denies hematuria, Denies flank pain, Denies urinary incontinence and Denies urinary urgency Musculoskeletal Reports as per HPI and Denies neck pain Integumentary/Breasts Denies pruritus, Denies erythema, Denies rash and Denies wounds Neurologic Reports tremor(s) and Denies weakness Comments: No LOC Endocrine Denies palpitations Allergic/Immunologic Denies wheezing Exam Initial Vital Signs Initial Vital Signs: Vital Signs Temperature 98.3 F 07/21/18 14:07 Pulse Rate 110 H 07/21/18 14:07 Respiratory Rate 18 07/21/18 14:07 Blood Pressure 151/110 H 07/21/18 14:07 Pulse Oximetry 96 07/21/18 14:07 GENERAL: Well-appearing, well-nourished and in no acute distress. HEENT: Head normocephalic,, EOMI, pupils reactive, face symmetric, moist mucous membranes, no hemotympanum, no septal hematoma NECK: Supple with slightly tender cervical C-collar placed in the ED CARDIOVASCULAR: Regular rate and rhythm without murmurs, rubs or gallops. RESPIRATORY: Breath sounds equal bilaterally, no wheezes rales or rhonchi. No crepitations, no subcutaneous air, chest is nontender, no signs of trauma ABDOMEN: Soft, nontender. Normoactive bowel sounds all 4 quadrants. No guarding or rebound. BACK: Nontender vertebrae, no step-offs, no contusions PELVIS: stable. EXTREMITIES: Normal range of motion, no clubbing or edema. Right upper extremity: Right shoulder pain no clavicle deformity neurovascularly intact Left upper extremity: Within normal limits Right lower extremity: Within normal limits Left lower extremity:Within normal limits NEUROLOGICAL: Cranial nerves II through XII grossly intact. Normal gait and speech. Small amount of tremor SKIN: Warm, dry, no petechiae, no rashes or lesions, no contusions or ecchymosis [facility] Medical History Alcoholism (Acute) Social History household members: family Smoking Status: Never smoker alcohol intake: former substance use type: does not use Social History household members: family Smoking Status: Never smoker alcohol intake: former substance use type: does not use Course Orders Ordered: ED Orders 07/21/18 14:30 XR chest 1V Stat XR shoulder RT min 2V Stat Complete Blood Count AUTO DIFF Stat Type and Screen Stat 07/21/18 14:34 CT cervical spine wo con Stat CT head/brain wo con Stat Comprehensive Metabolic Panel Stat Ethanol (ETOH) Stat Lipase Stat 07/21/18 15:15 Urine Drug Screen, Rapid Stat Discontinued Medications Ketorolac Tromethamine (Toradol) 30 mg IV NOW ONE Stop: 07/21/18 15:22 Last Admin: 07/21/18 15:25 Dose: 30 mg Lorazepam (Ativan) 0.5 mg IV NOW ONE Stop: 07/21/18 15:08 Last Admin: 07/21/18 15:12 Dose: 0.5 mg Vital Signs - 8 hr 07/21/18 14:07 07/21/18 14:30 07/21/18 15:22 Temperature 98.3 F Pulse Rate 110 H 96 H 95 H Respiratory Rate 18 22 21 Blood Pressure 151/110 H Blood Pressure [Right Arm] 146/98 H 132/84 Pulse Oximetry 96 96 97 07/21/18 16:00 07/21/18 16:22 Temperature 99.8 F H Pulse Rate 89 89 Respiratory Rate 17 20 Blood Pressure Blood Pressure [Right Arm] 129/79 130/78 Pulse Oximetry 95 97 MDM - Fall Lab Data Attestation: I reviewed the patient's lab results. Result diagrams: 07/21/18 14:30 07/21/18 14:34 Lab Results 07/21/18 07/21/18 07/21/18 Range/Units 14:30 14:30 14:34 WBC 5.3 (4.5-11.0) X10^3/uL RBC 4.33 L (4.5-5.9) X10^6/uL Hgb 14.1 (13.5-17.5) g/dL Hct 40.4 L (41-53) % MCV 93.3 (80-100) fL MCH 32.6 (26-34) PG MCHC 35.0 (30-36) % RDW 12.6 (11.6-14.8) % Plt Count 223 (150-400) X10^3/uL Neut % (Auto) 67.9 (50-75) % Lymph % (Auto) 21.4 L (25-40) % [place] % (Auto) 8.3 (3-14) % Eos % (Auto) 2.1 (2-4) % Baso % (Auto) 0.3 (0-2) % Neut # (Auto) 3600 (6587-6409) /uL Lymph # (Auto) 1100 (2833-4036) /uL [place] # (Auto) 400 (0-900) /uL Eos # (Auto) 100 (0-450) /uL Baso # (Auto) 0 (0-100) /uL Sodium 138 (137-145) mmol/L Potassium 3.4 (3.4-5.1) mmol/L Chloride 98 (98-107) mmol/L Carbon Dioxide 28 (22-32) mmol/L BUN 9 (9-20) mg/dL Creatinine 0.80 (0.66-1.25) mg/dL Estimated GFR > 60.0 (>60) mL/min BUN/Creatinine Ratio 11.3 (6-22) Glucose 110 H (70-100) mg/dL Calcium 9.0 (8.4-10.2) mg/dL Total Bilirubin 0.8 (0.2-1.3) mg/dL AST 401 H (17-59) IU/L ALT 186 H (21-72) IU/L Alkaline Phosphatase 68 (38-126) U/L Total Protein 8.5 H (6.3-8.2) g/dL Albumin 4.7 (3.5-5.0) g/dL Globulin 3.8 (1.7-4.1) g/dL Albumin/Globulin Ratio 1.2 (1.0-2.8) Lipase 63 (23-300) U/L Urine Opiates Screen (Negative) Ur Oxycodone Screen (Negative) Urine Methadone Screen (Negative) Ur Barbiturates Screen (Negative) U Tricyclic Antidepress (Negative) Ur Phencyclidine Scrn (Negative) Ur Amphetamines Screen (Negative) U Methamphetamines Scrn (Negative) Ur MDMA Scrn (Ecstasy) (Negative) U Benzodiazepines Scrn (Negative) Urine Cocaine Screen (Negative) U Marijuana (THC) Screen (Negative) Ethyl Alcohol < 10 mg/dL Blood Type A Positive Antibody Screen Negative 07/21/18 Range/Units 15:15 WBC (4.5-11.0) X10^3/uL RBC (4.5-5.9) X10^6/uL Hgb (13.5-17.5) g/dL Hct (41-53) % MCV (80-100) fL MCH (26-34) PG MCHC (30-36) % RDW (11.6-14.8) % Plt Count (150-400) X10^3/uL Neut % (Auto) (50-75) % Lymph % (Auto) (25-40) % [place] % (Auto) (3-14) % Eos % (Auto) (2-4) % Baso % (Auto) (0-2) % Neut # (Auto) (2309-9263) /uL Lymph # (Auto) (4911-2859) /uL [place] # (Auto) (0-900) /uL Eos # (Auto) (0-450) /uL Baso # (Auto) (0-100) /uL Sodium (137-145) mmol/L Potassium (3.4-5.1) mmol/L Chloride (98-107) mmol/L Carbon Dioxide (22-32) mmol/L BUN (9-20) mg/dL Creatinine (0.66-1.25) mg/dL Estimated GFR (>60) mL/min BUN/Creatinine Ratio (6-22) Glucose (70-100) mg/dL Calcium (8.4-10.2) mg/dL Total Bilirubin (0.2-1.3) mg/dL AST (17-59) IU/L ALT (21-72) IU/L Alkaline Phosphatase (38-126) U/L Total Protein (6.3-8.2) g/dL Albumin (3.5-5.0) g/dL Globulin (1.7-4.1) g/dL Albumin/Globulin Ratio (1.0-2.8) Lipase (23-300) U/L Urine Opiates Screen Negative (Negative) Ur Oxycodone Screen Negative (Negative) Urine Methadone Screen Negative (Negative) Ur Barbiturates Screen Negative (Negative) U Tricyclic Antidepress Negative (Negative) Ur Phencyclidine Scrn Negative (Negative) Ur Amphetamines Screen Negative (Negative) U Methamphetamines Scrn Negative (Negative) Ur MDMA Scrn (Ecstasy) Negative (Negative) U Benzodiazepines Scrn Negative (Negative) Urine Cocaine Screen Negative (Negative) U Marijuana (THC) Screen Negative (Negative) Ethyl Alcohol mg/dL Blood Type Antibody Screen Urine Dip Bedside Urine Glucose Negative Bedside Urine Bilirubin - Negative Bedside Urine Ketone - Negative Urine Specific [place] 1.015 Bedside Urine Occult Blood - Negative Bedside Urine pH 6.0 Bedside Urine Protein - Negative Bedside Urine Urobilinogen - Negative Bedside Urine Nitrite - Negative Bedside Urine Leukocytes - Negative Esterase Imaging Data CT scan - head: Radiologist's impression: PROCEDURE: CT HEAD/BRAIN WO CON INDICATIONS: fall off roof TECHNIQUE: Noncontrast 4.5 mm thick angled axial sections acquired from the foramen magnum to the vertex, with coronal and sagittal reformats. For radiation dose reduction, the following was used: automated exposure control, adjustment of mA and/or kV according to patient size. COMPARISON: [facility], CT, CT HEAD WITHOUT CONTRAST, 03/23/2018, 19:27. FINDINGS: Image quality: Diagnostic. CSF spaces: Basal cisterns are patent. No extra-axial fluid collections. Ventricles are normal in size and shape. Brain: No midline shift. No intracranial masses or hemorrhage. Munoz-white matter interface is normal. Skull and face: Calvarium and visualized facial bones are intact, without suspicious lesions. Sinuses: Because of thickening versus small air fluid levels along the inferior margins of the bilateral maxillary sinuses are present. Otherwise, the imaged paranasal sinuses and mastoid air cells are clear. IMPRESSION: 1. No acute intracranial hemorrhage. 2. Mild maxillary sinus disease. Dictated by: Demario Douglas M.D. on 07/21/2018 at 14:01 CT Cervical: Radiologist's impression: PROCEDURE: CT CERVICAL SPINE WO CON INDICATIONS: fall off roof TECHNIQUE: Noncontrast 3 mm thick sections acquired from the skull base to the T4 level. Sagittal and coronal reformats were then constructed. For radiation dose reduction, the following was used: automated exposure control, adjustment of mA and/or kV according to patient size. COMPARISON: [facility], CT, CT CERVICAL SPINE WITHOUT CONTRAST, 03/23/2018, 19:27. FINDINGS: Image quality: Diagnostic. Bones: The craniocervical and atlantoaxial joints are well-maintained. The odontoid is intact. The vertebral body heights and prevertebral soft tissues are within normal limits throughout the cervical spine without evidence to suggest acute compression fracture. No other fractures are evident within the cervical spine. The bone mineralization is within normal limits. Minimal/early degenerative changes of the cervical facet joints are evident. Soft tissues: No prevertebral soft tissue swelling. The imaged lung apices are clear. Imaged portions of the mediastinum are unremarkable. Otherwise, the remainder of the imaged soft tissues of the neck are within normal limits. IMPRESSION: 1. No acute osseous abnormality of the cervical spine. 2. Minimal/early degenerative changes of the cervical spine. Dictated by: Demario Douglas M.D. on 07/21/2018 at 13:58 Chest x-ray: Radiologist's impression: PROCEDURE: XR CHEST 1V INDICATIONS: fall off roof TECHNIQUE: One view of the chest was acquired. COMPARISON: None. FINDINGS: Surgical changes and devices: None. Lungs and pleura: Lungs are clear. No pleural effusions or pneumothorax. Mediastinum: Mediastinal contours appear normal. Heart size is normal. Bones and chest wall: No suspicious bony lesions. Overlying soft tissues appear unremarkable. IMPRESSION: No acute cardiopulmonary pathology. Dictated by: Caleb Nunez M.D. on 07/21/2018 at 14:55 shoulder: Radiologist's impression: PROCEDURE: XR SHOULDER RT MIN 2V INDICATIONS: fall off roof TECHNIQUE: 3 views of the shoulder were acquired. COMPARISON: None. FINDINGS: Bones: No fractures or dislocations. No suspicious bony lesions. Visualized ribs appear intact. Soft tissues: Faint calcifications lateral to greater tuberosity of humeral head is seen. IMPRESSION: No shoulder fracture or dislocation. Faint calcification adjacent to greater tuberosity of humeral head, which may represent posttraumatic soft tissue ossification versus calcific tendinitis. Dictated by: Caleb Nunez M.D. on 07/21/2018 at 14:54 MDM Narrative Medical decision making narrative: The patient has no signs of acute withdrawal syndrome. No sign of trauma he has no broken bones. He is given Librium he states that he will not be drinking anymore. He has been sober for 2 days. Discharge Plan Departure Patient Disposition: Home Clinical Impression: Alcohol withdrawal Qualifiers: Complication of substance-induced condition: uncomplicated Qualified Code(s): F10.230 - Alcohol dependence with withdrawal, uncomplicated Injury of right shoulder Qualifiers: Encounter type: initial encounter Qualified Code(s): S49.91XA - Unspecified injury of right shoulder and upper arm, initial encounter Discharge Date/Time: 07/21/18 16:26 Interventions: ED Discharge Assessment Last Done: 07/21/18 16:25 Instructions: DI for Shoulder Sprain Activity Restrictions/Additional Instructions: *You have been diagnosed with right shoulder injury, alcohol withdrawal *What to do: Increased right shoulder as tolerated, may require physical therapy *Continue to take medications as directed Librium and take as directed *Follow up with your primary care provider in 2-3 days *Return to ER if you should have increasing numbness, weakness, confusion or any new, worsening or concerning symptoms Prescriptions: New chlordiazepoxide HCl 25 mg capsule 25 mg PO Q8H Qty: 10 RF: 0 No Action multivitamin [Tab-A-Marilou] Tablet 1 tab PO DAILY Qty: 30 RF: 3 thiamine HCl (vitamin B1) 100 mg Tablet 100 mg PO DAILY Qty: 30 RF: 3 folic acid 1 mg Tablet 1 mg PO DAILY Qty: 30 RF: 3 lorazepam [Ativan] 1 mg tablet 1 mg PO Q8H PRN (Reason: alcohol withdrawal) Qty: 14 RF: 0 sertraline [Zoloft] 50 mg Tablet 50 mg PO BEDTIME Qty: 30 RF: 0 pantoprazole [Protonix] 40 mg tablet,delayed release (DR/EC) 40 mg PO QAM Qty: 30 RF: 0 Referrals: Donal Rodgers [Primary Care Provider] -
[2018-07-21 16:00] VITALS: BP 129/79; PULSE 89; RESP 17; O2SAT 95
[2018-07-21 16:22] VITALS: BP 130/78; PULSE 89; RESP 20; TEMP 37.7; O2SAT 97
[2018-07-21 16:33] LABS: Urine Tetrahydrocannabinol Negative (Negative)
[2018-07-21 16:34] LABS: Urine Amphetamines Negative (Negative); Urine Barbiturates Negative (Negative); Urine Benzodiazepines Negative (Negative); Urine Cocaine Negative (Negative); Urine MDMA Negative (Negative); Urine Methadone Negative (Negative); Urine Methamphetamines Negative (Negative); Urine Morphine/Opi cutoff 2000 Negative (Negative); Urine Oxycodone Negative (Negative); Urine Phencyclidine Negative (Negative); Urine Tricyclic Antidepressant Negative (Negative)
== END 2018-07-21 16:26 | disposition home or self-care (01) ==
PROVIDERS: Nurse Practitioner Family; Emergency Provider Emergency Medicine; Family Provider Family Medicine; PCP Family Medicine
DX: S49.91XA Unspecified injury of right shoulder and upper arm, initial encounter (principal); F10.230 Alcohol dependence with withdrawal, uncomplicated; W13.2XXA Fall from, out of or through roof, initial encounter
CPT/HCPCS: 36591; 70450; 71045; 72125; 73030; 80053; 80305; 80320; 81003; 83690; 85025; 86850; 86900; 86901; 96374; 96375; 99284; J1885; J2060

== ENCOUNTER 2018-08-15 14:32 | Emergency (ER) | payer OTHER, MEDICAID, SELFPAY ==
[2017-10-07 14:14] VITALS: BMI 25.1
[2018-08-15 14:40] VITALS: BP 157/101; PULSE 113; RESP 20; O2SAT 97
== END 2018-08-15 16:55 | disposition left against medical advice (07) ==
PROVIDERS: Emergency Provider Emergency Medicine; Family Provider Family Medicine; PCP Family Medicine
DX: Z53.21 Procedure and treatment not carried out due to patient leaving prior to being seen by health care provider (principal)
CPT/HCPCS: 99282

== ENCOUNTER 2019-03-07 10:15 | Emergency (ER) | payer OTHER, MEDICAID, SELFPAY ==
[2017-10-07 14:14] VITALS: BMI 25.1
[2019-03-07 10:28] VITALS: BP 167/107; PULSE 111; RESP 20; TEMP 36.8; O2SAT 99; BMI 28.6
--- NOTE | 2019-03-07 10:29 | ED.ALCOHOL ---
HPI - Alcohol General Chief Complaint: Toxicology Problem Stated Complaint: alcohol withdrawl/right hip injury from fall x1 dy Time Seen by Provider: 03/07/19 10:28 Source: patient and old records reviewed Mode of arrival: Ambulatory Limitations: no limitations History of Present Illness HPI narrative: Patient is a 38-year-old male with history of alcohol abuse presenting with shaking and alcohol withdrawal. He says he has not had a drink for 2 days. He has been in detox many times in the past. That is what he is requesting. He has been vomiting his abdominal pain is. He also fell down at yesterday is a contusion on his right lateral flank area. No significant pain it does not hurt when he breathes no rib pain no hip pain. MD complaint: alcohol withdrawal Last drink: days (ago) (2) Chronic alcohol use: Yes Previous visits for alcohol intoxication: Yes Associated symptoms: denies other symptoms Related Data Previous Rx's Medication Instructions Recorded folic acid 1 mg PO DAILY #30 tab 10/09/17 lorazepam [Ativan] 1 mg PO Q8H PRN #14 tab 10/09/17 multivitamin [Tab-A-Marilou] 1 tab PO DAILY #30 tab 10/09/17 pantoprazole [Protonix] 40 mg PO QAM #30 tab 10/09/17 sertraline [Zoloft] 50 mg PO BEDTIME #30 tab 10/09/17 thiamine HCl (vitamin B1) 100 mg PO DAILY #30 tab 10/09/17 chlordiazepoxide HCl 25 mg PO Q8H #10 cap 07/21/18 lorazepam [Ativan] 1 mg PO TID #6 tab 03/07/19 Allergies Allergy/AdvReac Type Severity Reaction Status Date / Time No Known Drug Allergies Allergy Verified 10/08/17 18:32 Review of Systems Review of Systems Narrative: GENERAL: Denies chills, fatigue, malaise, fever, sweats, travel HEENT: Denies sinus pain, ear pain, sore throat, difficulty swallowing, neck pain RESPIRATORY: Denies dyspnea, cough, wheezing, hemoptysis, sputum. CARDIOVASCULAR: Denies chest pain, palpitations, orthopnea, edema GASTROINTESTINAL: Denies nausea, vomiting, abdominal pain, diarrhea, constipation, melena. : Denies dysuria, frequency, incontinence, hematuria, urinary retention, flank pain. MUSCULOSKELETAL: Denies weakness, joint pain, or bony pain SKIN: No rash, no erythema, no pruritus NEUROLOGIC: + tremors shaking Denies weakness, dizziness, headache, numbness, change in speech, confusion PSYCHIATRIC: See HPI 12 point review of systems is negative except for those stated above and HPI Patient History Social History household members: family Smoking Status: Never smoker alcohol intake: former substance use type: does not use alcohol intake frequency: 3 or more drinks per day Substance Use Type: does not use Exam Initial Vital Signs Initial Vital Signs: Vital Signs Temperature 98.2 F 03/07/19 10:28 Pulse Rate 111 H 03/07/19 10:28 Respiratory Rate 20 03/07/19 10:28 Blood Pressure 167/107 H 03/07/19 10:28 Pulse Oximetry 99 03/07/19 10:28 GENERAL: Well-appearing, well-nourished and in no acute distress. HEENT: Head atraumatic,EOMI, pupils reactive, face symmetric, moist mucous membranes CARDIOVASCULAR: Regular rate and rhythm without murmurs, rubs or gallops. RESPIRATORY: Breath sounds equal bilaterally, no wheezes rales or rhonchi. ABDOMEN: Soft, nontender. Normoactive bowel sounds all 4 quadrants. No guarding or rebound. EXTREMITIES: Normal range of motion, no clubbing or edema. Neurovascularly intact NEUROLOGICAL: Alert and oriented x4.Normal gait and speech. Cranial nerves II through XII grossly intact. Minimal tremors SKIN: Right lateral contusion no erythema very mild pain to touch Course Orders Ordered: ED Orders 03/07/19 10:43 Urine Microscopic Stat 03/07/19 10:50 Comprehensive Metabolic Panel Stat Ethanol (ETOH) Stat Hepatic (Liver) Panel Stat Lipase Stat Magnesium Stat 03/07/19 10:53 Complete Blood Count AUTO DIFF Stat Urine Drug Screen, Rapid Stat 03/07/19 11:31 US abdomen limited Stat Discontinued Medications Sodium Chloride (Normal Saline 0.9%) 1,000 mls @ 1,000 mls/hr IV BOLUS ONE Stop: 03/07/19 11:39 Last Infusion: 03/07/19 12:32 Dose: 0 mls/hr Documented by: Admin: 03/07/19 10:59 Dose: 1,000 mls/hr Documented by: MESHA Lorazepam (Ativan) 2 mg IV NOW ONE Stop: 03/07/19 10:41 Last Admin: 03/07/19 10:59 Dose: 2 mg Documented by: MESHA Lorazepam (Ativan) 1 mg IV NOW ONE Stop: 03/07/19 12:44 Last Admin: 03/07/19 13:15 Dose: 1 mg Documented by: JOYCE Multivitamins (Tab-A-Marilou) 1 tab PO NOW ONE Stop: 03/07/19 10:41 Last Admin: 03/07/19 11:15 Dose: 1 tab Documented by: MESHA Ondansetron HCl (Zofran) 4 mg IV NOW ONE Stop: 03/07/19 10:41 Last Admin: 03/07/19 10:59 Dose: 4 mg Documented by: MESHA Pantoprazole Sodium (Protonix) 40 mg IV NOW ONE Stop: 03/07/19 10:41 Last Admin: 03/07/19 10:58 Dose: 40 mg Documented by: MESHA Vital Signs Vital signs: Vital Signs - 8 hr 03/07/19 10:28 03/07/19 11:14 03/07/19 12:00 Temperature 98.2 F Pulse Rate 111 H 93 H 91 H Respiratory Rate 20 18 Blood Pressure 167/107 H Blood Pressure [Right Arm] 138/92 H 127/76 Pulse Oximetry 99 100 100 03/07/19 12:41 03/07/19 13:00 03/07/19 14:28 Temperature Pulse Rate 86 105 H 88 Respiratory Rate 15 Blood Pressure Blood Pressure [Right Arm] 136/86 137/83 128/79 Pulse Oximetry 100 100 99 MDM - Alcohol Lab Data Attestation: I reviewed the patient's lab results. Result diagrams: 03/07/19 10:53 03/07/19 10:50 Labs: Lab Results 03/07/19 03/07/19 03/07/19 Range/Units 10:43 10:50 10:53 WBC 7.1 (4.5-11.0) X10^3/uL RBC 4.55 (4.5-5.9) X10^6/uL Hgb 14.7 (13.5-17.5) g/dL Hct 41.4 (41-53) % MCV 91.0 (80-100) fL MCH 32.2 (26-34) PG MCHC 35.4 (30-36) % RDW 13.0 (11.6-14.8) % Plt Count 189 (150-400) X10^3/uL Neut % (Auto) 74.1 (50-75) % Lymph % (Auto) 19.1 L (25-40) % [place] % (Auto) 6.0 (3-14) % Eos % (Auto) 0.5 L (2-4) % Baso % (Auto) 0.3 (0-2) % Neut # (Auto) 5200 (1767-8565) /uL Lymph # (Auto) 1300 (9084-5803) /uL [place] # (Auto) 400 (0-900) /uL Eos # (Auto) 0 (0-450) /uL Baso # (Auto) 0 (0-100) /uL Sodium 136 L (137-145) mmol/L Potassium 3.6 (3.4-5.1) mmol/L Chloride 100 (98-107) mmol/L Carbon Dioxide 23 (22-32) mmol/L BUN 10 (9-20) mg/dL Creatinine 0.60 L (0.66-1.25) mg/dL Estimated GFR > 60.0 (>60) mL/min BUN/Creatinine Ratio 16.7 (6-22) Glucose 133 H (70-100) mg/dL Calcium 8.1 L (8.4-10.2) mg/dL Magnesium 1.9 (1.6-2.3) mg/dL Total Bilirubin 3.1 H (0.2-1.3) mg/dL Conjugated Bilirubin 0.0 (0.0-0.3) md/dL Unconjugated Bilirubin 2.3 H (0.0-1.1) mg/dL AST 100 H (17-59) IU/L ALT 65 H (<50) IU/L Alkaline Phosphatase 109 (38-126) U/L Total Protein 8.8 H (6.3-8.2) g/dL Albumin 4.6 (3.5-5.0) g/dL Globulin 4.2 H (1.7-4.1) g/dL Albumin/Globulin Ratio 1.1 (1.0-2.8) Lipase 113 (23-300) U/L Urine RBC None seen (0-5/HPF) Urine WBC None seen (0-5/HPF) Urine Bacteria None seen (None) Ur Culture Indicated? Cult not indicated U Morph 300 ng/mL cutoff (Negative) Ur Oxycodone Screen (Negative) Urine Methadone Screen (Negative) Ur Barbiturates Screen (Negative) U Tricyclic Antidepress (Negative) Ur Phencyclidine Scrn (Negative) Ur Amphetamines Screen (Negative) U Methamphetamines Scrn (Negative) Ur MDMA Scrn (Ecstasy) (Negative) U Benzodiazepines Scrn (Negative) Urine Cocaine Screen (Negative) U Marijuana (THC) Screen (Negative) Ethyl Alcohol < 10 ( - 10) mg/dL 03/07/19 Range/Units 10:53 WBC (4.5-11.0) X10^3/uL RBC (4.5-5.9) X10^6/uL Hgb (13.5-17.5) g/dL Hct (41-53) % MCV (80-100) fL MCH (26-34) PG MCHC (30-36) % RDW (11.6-14.8) % Plt Count (150-400) X10^3/uL Neut % (Auto) (50-75) % Lymph % (Auto) (25-40) % [place] % (Auto) (3-14) % Eos % (Auto) (2-4) % Baso % (Auto) (0-2) % Neut # (Auto) (1211-1926) /uL Lymph # (Auto) (3810-6718) /uL [place] # (Auto) (0-900) /uL Eos # (Auto) (0-450) /uL Baso # (Auto) (0-100) /uL Sodium (137-145) mmol/L Potassium (3.4-5.1) mmol/L Chloride (98-107) mmol/L Carbon Dioxide (22-32) mmol/L BUN (9-20) mg/dL Creatinine (0.66-1.25) mg/dL Estimated GFR (>60) mL/min BUN/Creatinine Ratio (6-22) Glucose (70-100) mg/dL Calcium (8.4-10.2) mg/dL Magnesium (1.6-2.3) mg/dL Total Bilirubin (0.2-1.3) mg/dL Conjugated Bilirubin (0.0-0.3) md/dL Unconjugated Bilirubin (0.0-1.1) mg/dL AST (17-59) IU/L ALT (<50) IU/L Alkaline Phosphatase (38-126) U/L Total Protein (6.3-8.2) g/dL Albumin (3.5-5.0) g/dL Globulin (1.7-4.1) g/dL Albumin/Globulin Ratio (1.0-2.8) Lipase (23-300) U/L Urine RBC (0-5/HPF) Urine WBC (0-5/HPF) Urine Bacteria (None) Ur Culture Indicated? U Morph 300 ng/mL cutoff Negative (Negative) Ur Oxycodone Screen Negative (Negative) Urine Methadone Screen Negative (Negative) Ur Barbiturates Screen Negative (Negative) U Tricyclic Antidepress Negative (Negative) Ur Phencyclidine Scrn Negative (Negative) Ur Amphetamines Screen Negative (Negative) U Methamphetamines Scrn Negative (Negative) Ur MDMA Scrn (Ecstasy) Negative (Negative) U Benzodiazepines Scrn Positive H (Negative) Urine Cocaine Screen Negative (Negative) U Marijuana (THC) Screen Negative (Negative) Ethyl Alcohol ( - 10) mg/dL Urine Dip Bedside Urine Glucose Negative Bedside Urine Bilirubin - Negative Bedside Urine Ketone +/- 5 Urine Specific [place] 1.015 Bedside Urine Occult Blood - Negative Bedside Urine pH 7.0 Bedside Urine Protein +/- 15 Bedside Urine Urobilinogen 2+ 4mg Bedside Urine Nitrite - Negative Bedside Urine Leukocytes +/- 15 Esterase Imaging Data US - abdomen: Radiologist's impression: PROCEDURE: US ABDOMEN LIMITED INDICATIONS: ELEVATED BILIRUBIN; ETOH ABUSE TECHNIQUE: Real-time focused scanning was performed of the abdomen, with image documentation. COMPARISON: Renal ultrasound 12/21/18, CT and pelvis 12/16/18, upon ultrasound 12/25/16. FINDINGS: The liver demonstrates normal size. The liver demonstrates generalized increased echogenicity. This decreases ultrasound sensitivity for detection of hepatic masses. The gallbladder is prominent in size. No findings of gallstones or sludge are seen. The gallbladder wall is not thickened, measuring 3 mm or less. No specific pericholecystic fluid is seen. The sonographic Wilcox sign is negative. There is no biliary dilatation, the common bile duct measures 4 mm. The pancreas is not well-seen. IMPRESSION: The liver demonstrates increased echogenicity. This finding is nonspecific, yet it is most commonly attributed to fatty infiltration. Prominent size of the gallbladder, without additional sonographic signs of cholecystitis. Dictated by: José Miguel Pearce M.D. on 03/07/2019 at 11:28 Approved by: José Miguel Pearce M.D. on 03/07/2019 at 11:31 MDM Narrative Medical decision making narrative: The patient is has shaking initially which resolved with 2 mg of Ativan. He is noted to have elevated bilirubin ultrasound ordered no gallstones or significant abnormality has very minimal tenderness in his right upper quadrant. He is not tachycardic or hypertensive no sign of acute withdrawal. We have called multiple places for detox unavailable. At this time patient is comfortable not hallucinating or anxious no active seizures. Initial CIWA score of 13 which improved to 2. At this time patient is given a prescription for Ativan taper and discharged home. CIWA-Ar for Alcohol Withdrawal from [employer] on 03/07/2019 All calculations should be rechecked by clinician prior to use RESULT SUMMARY: 13 points Patients with scores ?9 may require medication for withdrawal. INPUTS: Nausea/vomiting ?> 2 = (More severe symptoms) Tremor ?> 3 = (More severe symptoms) Paroxysmal sweats ?> 2 = (More severe symptoms) Anxiety ?> 2 = (More severe symptoms) Agitation ?> 1 = Somewhat more activity than normal activty Tactile disturbances ?> 0 = None Auditory disturbances ?> 0 = Not present Visual disturbances ?> 0 = Not present Headache/fullness in head ?> 3 = Moderate Orientation/clouding of sensorium ?> 0 = Oriented, can do serial additions Discharge Plan Departure Patient Disposition: Home Clinical Impression: Alcohol withdrawal Qualifiers: Complication of substance-induced condition: uncomplicated Qualified Code(s): F10.230 - Alcohol dependence with withdrawal, uncomplicated Discharge Date/Time: 03/07/19 15:04 Instructions: Delirium Tremens Activity Restrictions/Additional Instructions: *You have been diagnosed with alcohol withdrawal *What to do: *Continue to take medications as directed Day 1 Ativan 3 times a day Day 2 Ativan 2 times a day Day 3 Ativan x1 *Follow up with your primary care provider in 2-3 days [and follow up with ortho, urology etc] *Return to ER if you should have [such as] [or] any new, worsening or concerning symptoms Prescriptions: New lorazepam [Ativan] 1 mg tablet 1 mg PO TID Qty: 6 RF: 0 No Action multivitamin [Tab-A-Marilou] Tablet 1 tab PO DAILY Qty: 30 RF: 3 thiamine HCl (vitamin B1) 100 mg Tablet 100 mg PO DAILY Qty: 30 RF: 3 folic acid 1 mg Tablet 1 mg PO DAILY Qty: 30 RF: 3 lorazepam [Ativan] 1 mg tablet 1 mg PO Q8H PRN (Reason: alcohol withdrawal) Qty: 14 RF: 0 sertraline [Zoloft] 50 mg Tablet 50 mg PO BEDTIME Qty: 30 RF: 0 pantoprazole [Protonix] 40 mg tablet,delayed release (DR/EC) 40 mg PO QAM Qty: 30 RF: 0 chlordiazepoxide HCl 25 mg capsule 25 mg PO Q8H Qty: 10 RF: 0 Referrals: Donal Rodgers [Primary Care Provider] -
[2019-03-07 10:45] LABS: Bacteria Urine None Seen; RBC Urine None Seen (0-5/HPF); WBC Urine None Seen (0-5/HPF)
[2019-03-07 10:56] LABS: Add Manual Diff / Slide Review NO; Basophils Absolute Auto 0 /uL (0-100); Basophils Percent Auto 0.3 % (0-2); Eosinophils Absolute Auto 0 /uL (0-450); Eosinophils Percent Auto 0.5 % (2-4); Hematocrit 41.4 % (41-53); Hemoglobin 14.7 g/dL (13.5-17.5); Lymphocytes Absolute Auto 1300 /uL (1100-4500); Lymphocytes Percent Auto 19.1 % (25-40); Mean Corpuscular HGB Conc 35.4 % (30-36); Mean Corpuscular Hemoglobin 32.2 PG (26-34); Monocytes Absolute Auto 400 /uL (0-900); Neutrophils Absolute Auto 5200 /uL (1500-7000); Neutrophils Percent Auto 74.1 % (50-75); Platelet Count 189 X10^3/uL (150-400); Red Blood Cell Count 4.55 X10^6/uL (4.5-5.9); White Blood Cell Count 7.1 X10^3/uL (4.5-11.0)
[2019-03-07] MEDS: PANTOPRAZOLE 40 MG VIAL IV (10:58)
[2019-03-07 10:59] LABS: UR Morphine/Opiate cutoff 300 Negative (Negative); Ur Creatinine Normal (Normal); Ur Specific Gravity Normal (Normal); Urine Amphetamines Negative (Negative); Urine Barbiturates Negative (Negative); Urine Benzodiazepines Positive (Negative); Urine Cocaine Negative (Negative); Urine MDMA Negative (Negative); Urine Methadone Negative (Negative); Urine Methamphetamines Negative (Negative); Urine Oxycodone Negative (Negative); Urine Phencyclidine Negative (Negative); Urine Tetrahydrocannabinol Negative (Negative); Urine Tricyclic Antidepressant Negative (Negative); Urine pH Normal (Normal)
[2019-03-07] MEDS: LORazepam 2 MG/ML INJ IV (10:59)
[2019-03-07] MEDS: ONDANSETRON 4 MG/2 ML INJ IV (10:59)
[2019-03-07] MEDS: SODIUM CHLORIDE 0.9% 1,000 ML 1000 ML IV (10:59)
[2019-03-07 11:00] LABS: Culture Indicated Urine Cult Not Indicated
[2019-03-07 11:14] VITALS: BP 138/92; PULSE 93; O2SAT 100
[2019-03-07] MEDS: MULTIVITAMIN 1 TABLET 1 TAB PO (11:15)
[2019-03-07 11:27] LABS: Alanine Aminotransferase 65 IU/L (<50); Albumin 4.6 g/dL (3.5-5.0); Albumin Globulin Ratio 1.1 (1.0-2.8); Alkaline Phosphatase 109 U/L (38-126); Aspartate Aminotransferase 100 IU/L (17-59); BUN Creatinine Ratio 16.7 (6-22); Bilirubin Total 3.1 mg/dL (0.2-1.3); Bilirubin Unconjugated 2.3 mg/dL (0.0-1.1); Blood Urea Nitrogen 10 mg/dL (9-20); Calcium 8.1 mg/dL (8.4-10.2); Carbon Dioxide 23 mmol/L (22-32); Chloride 100 mmol/L (98-107); Estimated Glomerular Filt Rate > 60.0 mL/min (>60); Ethanol (ETOH) < 10 mg/dL; Globulin 4.2 g/dL (1.7-4.1); Glucose 133 mg/dL (70-100); HEMOLYSIS 16 (0-50); Lipase 113 U/L (23-300); Magnesium 1.9 mg/dL (1.6-2.3); Potassium 3.6 mmol/L (3.4-5.1); Sodium 136 mmol/L (137-145); Total Protein 8.8 g/dL (6.3-8.2)
--- NOTE | 2019-03-07 11:31 | DI.US.S_ITS ---
PROCEDURE: US ABDOMEN LIMITED INDICATIONS: ELEVATED BILIRUBIN; ETOH ABUSE TECHNIQUE: Real-time focused scanning was performed of the abdomen, with image documentation. COMPARISON: Renal ultrasound 12/21/18, CT and pelvis 12/16/18, upon ultrasound 12/25/16. FINDINGS: The liver demonstrates normal size. The liver demonstrates generalized increased echogenicity. This decreases ultrasound sensitivity for detection of hepatic masses. The gallbladder is prominent in size. No findings of gallstones or sludge are seen. The gallbladder wall is not thickened, measuring 3 mm or less. No specific pericholecystic fluid is seen. The sonographic Wilcox sign is negative. There is no biliary dilatation, the common bile duct measures 4 mm. The pancreas is not well-seen. IMPRESSION: The liver demonstrates increased echogenicity. This finding is nonspecific, yet it is most commonly attributed to fatty infiltration. Prominent size of the gallbladder, without additional sonographic signs of cholecystitis. Dictated by: José Miguel Pearce M.D. on 03/07/2019 at 11:28 Approved by: José Miguel Pearce M.D. on 03/07/2019 at 11:31
[2019-03-07 12:00] VITALS: BP 127/76; PULSE 91; RESP 18; O2SAT 100
[2019-03-07 12:41] VITALS: BP 136/86; PULSE 86; O2SAT 100
[2019-03-07 13:00] VITALS: BP 137/83; PULSE 105; RESP 15; O2SAT 100
[2019-03-07] MEDS: LORazepam 2 MG/ML INJ 1 MG IV (13:15)
[2019-03-07 14:28] VITALS: BP 128/79; PULSE 88; O2SAT 99
== END 2019-03-07 15:04 | disposition home or self-care (01) ==
PROVIDERS: Emergency Provider Emergency Medicine; PCP Family Medicine
DX: F10.230 Alcohol dependence with withdrawal, uncomplicated (principal); E80.7 Disorder of bilirubin metabolism, unspecified
CPT/HCPCS: 36415; 76705; 80053; 80076; 80305; 80320; 81003; 81015; 83690; 83735; 85025; 96361; 96374; 96375; 96376; 99283; 99284; C9113; J2060; J2405

== ENCOUNTER 2020-01-20 18:02 | Inpatient (IN) | payer OTHER, MEDICAID, SELFPAY ==
[2017-10-07 14:14] VITALS: BMI 25.1
[2020-01-20] VITALS (8 sets, daily range): BP systolic 104–140; BP diastolic 61–86; PULSE 83–96; RESP 13–18; TEMP 36.8–37.1; O2SAT 91–96; BMI 32.5
--- NOTE | 2020-01-20 18:31 | PC.NURSE ---
2 unsuccessful attempts at IV
--- NOTE | 2020-01-20 18:34 | ED_ITS ---
HPI - Alcohol General Chief Complaint: Toxicology Problem Stated Complaint: withdrawls from alcohol Time Seen by Provider: 01/20/20 18:11 Source: patient Mode of arrival: Ambulatory Limitations: no limitations History of Present Illness HPI narrative: Patient here for alcohol withdrawals. History of alcohol drugs w ith seizures and DTs in the past. Most recently to her 4 weeks ago at [facility]. Awaiting medical records to be faxed. Patient continues to drink malt liquor daily. Last drink 1 hour ago. Has had tremors nausea and vomiting headache as well as visual hallucinations, seeing silhouettes. Denies denies fall or injury. No seizures at this time. None in the last 2 weeks. CIWA score 19. complaint: alcohol withdrawal Related Data Home Medications Medication Instructions Recorded Confirmed quetiapine 50 mg PO BEDTIME 01/20/20 01/20/20 Previous Rx's Medication Instructions Recorded multivitamin [Tab-A-Marilou] 1 tab PO DAILY #30 tab 10/09/17 sertraline [Zoloft] 50 mg PO BEDTIME #30 tab 10/09/17 Allergies Allergy/AdvReac Type Severity Reaction Status Date / Time No Known Drug Allergies Allergy Verified 10/08/17 18:32 Review of Systems Review of Systems Narrative: GENERAL: Denies chills, fatigue, malaise, fever, sweats. HEENT: Denies sinus pain, ear pain, sore throat, difficulty swallowing, dizziness. RESPIRATORY: Denies dyspnea, cough, wheezing, hemoptysis, sputum. CARDIOVASCULAR: Denies chest pain, palpitations, orthopnea, edema, GASTROINTESTINAL: Denies nausea, vomiting, abdominal pain, diarrhea, constipa tion, melena. : Denies dysuria, frequency, incontinence, hematuria, urinary retention. MUSCULOSKELETAL: denies weakness, joint pain, or bony pain SKIN: Denies rash, skin lesions NEUROLOGIC: Denies weakness, complains of headache, and tremors, denies numbness, change in speech, confusion, seizures, incoordination. PSYCHIATRIC: Denies SI or HI. Has visual and auditory hallucinations. No tangential thoughts, no flight of ideas. ROS Unobtainable: All systems reviewed & are unremarkable except as noted in HPI and below Patient History Medical History Alcoholism (Acute) Social History household members: family Smoking Status: Current some day smoker alcohol intake: current substance use type: does not use Smoking Status: Never smoker alcohol intake frequency: 3 or more drinks per day Alcohol type: beer Substance Use Type: does not use Exam Narrative Exam Narrative: GENERAL: patient appears stated age. Well-nourished, well- developed patient, in no distress, not toxic HEAD: Atraumatic. Normocephalic. EYES: Pupils equal round and reactive. Extraocular motions intact. No scleral icterus. No injection or drainage. ENT: Nose without bleeding, purulent drainage. Throat without erythema, tonsillar hypertrophy or exudate. Airway patent. NECK: Trachea midline. Non tender CARDIOVASCULAR: Regular rate and rhythm without murmurs, gallops, or rubs. RESPIRATORY: Clear to auscultation. Breath sounds equal bilaterally. No wheezes, rales, or rhonchi. GASTROINTESTINAL: Abdomen soft, non-tender, nondistended. EXTREMITIES: No edema or joint tenderness. BACK: Nontender without deformity or crepitance. No flank tenderness. NEURO: AOx4. Clear speech no facial droop SKIN: No rash or erythema of visible areas PSYCH: Not anxious, is cooperative, desires help for alcohol withdrawal. No hallucinations at this time. Initial Vital Signs Initial Vital Signs: Vital Signs Temperature 98.2 F 01/20/20 18:15 Pulse Rate 95 H 01/20/20 18:15 Respiratory Rate 18 01/20/20 18:15 Blood Pressure 130/86 01/20/20 18:15 Pulse Oximetry 96 01/20/20 18:15 Course Course Course Narrative: Patient having withdrawal symptoms. Patient desires admission. Decision to Admit Date: 01/20/20 Decision to Admit time: 20:03 Orders Ordered: ED Orders 01/20/20 18:22 Acetaminophen Stat Complete Blood Count AUTO DIFF Stat Comprehensive Metabolic Panel Stat Ethanol (ETOH) Stat Free T4, Direct Thyroxine Stat Salicylate Stat Thyroid Stimulating Hormone Stat Urine Drug Screen, Rapid Stat 01/20/20 18:36 EKG-12 Lead Stat 01/20/20 20:22 COVID19 -ED/INPAT/OR/L&D Stat Enoxaparin Sodium (Lovenox) 40 mg SUBCUT DAILY KAYLA Folic Acid (Folic Acid) 1 mg PO DAILY KAYLA Magnesium Sulfate 2 gm/ Folic Acid 1 mg/ Thiamine HCl 100 mg / Multivitamins 10 ml/ Sodium Chloride 1,015.2 mls @ 125 mls/hr IV NOW ONE Stop: 01/21/20 02:40 Last Infusion: 01/20/20 22:26 Dose: 125 mls/hr Documented by: Infusion: 01/20/20 21:57 Dose: 0 mls/hr Documented by: Admin: 01/20/20 19:21 Dose: 125 mls/hr Documented by: DONALD Sodium Chloride (Normal Saline 0.9%) 1,000 mls @ 100 mls/hr IV CONT [facility] Ibuprofen (Advil) 600 mg PO Q6HR PRN PRN Reason: Fever/Mild Pain (1-3) Ketorolac Tromethamine (Toradol) 30 mg IV Q6HR PRN PRN Reason: Pain, Severe (7-10) Stop: 01/26/20 00:07 Lorazepam (Ativan) 0 mg IV CIWAPRN PRN; Protocol PRN Reason: Alcohol Withdrawal Multivitamins (Tab-A-Marilou) 1 tab PO DAILY [facility] Naloxone HCl (Narcan) 0.2 mg IV Q2MIN PRN PRN Reason: Opiate Reversal Ondansetron HCl (Zofran) 4 mg IV Q8HR PRN PRN Reason: Nausea And Vomiting Thiamine HCl (Vitamin B-1) 100 mg PO DAILY [facility] Stop: 01/24/20 09:01 Discontinued Medications Lorazepam (Ativan) 1 mg IV NOW ONE Stop: 01/20/20 18:34 Last Admin: 01/20/20 19:20 Dose: 1 mg Documented by: DONALD Lorazepam (Ativan) 1 mg IV NOW ONE Stop: 01/20/20 21:35 Last Admin: 01/20/20 21:41 Dose: 1 mg Documented by: DONALD Ondansetron HCl (Zofran) 4 mg IV NOW ONE Stop: 01/20/20 18:35 Last Admin: 01/20/20 19:20 Dose: 4 mg Documented by: DONALD Reevaluation(s) Reevaluation #1: No seizures at this time. Patient much more calm after Ativan. Not hypertensive no seizures no altered mental status at this time Time: 20:03 Consultations Consultation #1: Spoke with Irina, hospitalist, will admit Time: 20:03 Vital Signs Vital signs: Vital Signs - 8 hr 01/20/20 18:15 01/20/20 19:47 01/20/20 19:58 Temperature 98.2 F Pulse Rate 95 H 94 H 95 H Respiratory Rate 18 Blood Pressure 130/86 126/80 Pulse Oximetry 96 92 93 01/20/20 20:00 Temperature Pulse Rate 96 H Respiratory Rate Blood Pressure 140/69 Pulse Oximetry 95 MDM - Alcohol Differential Diagnosis Differential diagnosis: Likely alcohol withdrawal delirium, alcohol intoxication and alcohol withdrawal syndrome Lab Data Attestation: I reviewed the patient's lab results. Result diagrams: 01/20/20 18:22 01/20/20 18:22 Labs: Lab Results 01/20/20 01/20/20 01/20/20 Range/Units 18:22 18:22 18:22 WBC 7.7 (4.5-11.0) X10^3/uL RBC 4.18 L (4.5-5.9) X10^6/uL Hgb 13.8 (13.5-17.5) g/dL Hct 39.5 L (41-53) % MCV 94.4 (80-100) fL MCH 33.0 (26-34) PG MCHC 35.0 (30-36) % RDW 13.4 (11.6-14.8) % Plt Count 253 (150-400) X10^3/uL Neut % (Auto) 72.9 (50-75) % Lymph % (Auto) 19.9 L (25-40) % [place] % (Auto) 4.9 (3-14) % Eos % (Auto) 1.8 L (2-4) % Baso % (Auto) 0.5 (0-2) % Neut # (Auto) 5600 (0387-2037) /uL Lymph # (Auto) 1500 (2316-7320) /uL [place] # (Auto) 400 (0-900) /uL Eos # (Auto) 100 (0-450) /uL Baso # (Auto) 0 (0-100) /uL Sodium 142 (137-145) mmol/L Potassium 4.0 (3.4-5.1) mmol/L Chloride 101 (98-107) mmol/L Carbon Dioxide 26 (22-32) mmol/L BUN 6 L (9-20) mg/dL Creatinine 0.63 L (0.66-1.25) mg/dL Estimated GFR > 60.0 (>60) mL/min BUN/Creatinine Ratio 9.5 (6-22) Glucose 143 H (70-100) mg/dL Calcium 9.3 (8.4-10.2) mg/dL Magnesium (1.6-2.3) mg/dL Total Bilirubin 0.7 (0.2-1.3) mg/dL AST 263 H (17-59) IU/L ALT 130 H (<50) IU/L Alkaline Phosphatase 97 (38-126) U/L Total Protein 10.0 H* (6.3-8.2) g/dL Albumin 4.7 (3.5-5.0) g/dL Globulin 5.3 H (1.7-4.1) g/dL Albumin/Globulin Ratio 0.9 L (1.0-2.8) Lipase (23-300) U/L TSH 2.17 (0.47-4.68) uIU/mL Free T4 1.00 (0.78-2.19) ng/dL Salicylates < 1.0 (<20) mg/dL U Opiates 300ng/mL cut (Negative) Ur Oxycodone Screen (Negative) Urine Methadone Screen (Negative) Acetaminophen < 10 L (10-30) ug/mL Ur Barbiturates Screen (Negative) U Tricyclic Antidepress (Negative) Ur Phencyclidine Scrn (Negative) Ur Amphetamines Screen (Negative) U Methamphetamines Scrn (Negative) Ur MDMA Scrn (Ecstasy) (Negative) U Benzodiazepines Scrn (Negative) Urine Cocaine Screen (Negative) U Marijuana (THC) Screen (Negative) Ethyl Alcohol 220 H ( - 10) mg/dL 01/20/20 01/20/20 Range/Units 18:22 18:22 WBC (4.5-11.0) X10^3/uL RBC (4.5-5.9) X10^6/uL Hgb (13.5-17.5) g/dL Hct (41-53) % MCV (80-100) fL MCH (26-34) PG MCHC (30-36) % RDW (11.6-14.8) % Plt Count (150-400) X10^3/uL Neut % (Auto) (50-75) % Lymph % (Auto) (25-40) % [place] % (Auto) (3-14) % Eos % (Auto) (2-4) % Baso % (Auto) (0-2) % Neut # (Auto) (2705-2093) /uL Lymph # (Auto) (1511-2226) /uL [place] # (Auto) (0-900) /uL Eos # (Auto) (0-450) /uL Baso # (Auto) (0-100) /uL Sodium (137-145) mmol/L Potassium (3.4-5.1) mmol/L Chloride (98-107) mmol/L Carbon Dioxide (22-32) mmol/L BUN (9-20) mg/dL Creatinine (0.66-1.25) mg/dL Estimated GFR (>60) mL/min BUN/Creatinine Ratio (6-22) Glucose (70-100) mg/dL Calcium (8.4-10.2) mg/dL Magnesium 2.0 (1.6-2.3) mg/dL Total Bilirubin (0.2-1.3) mg/dL AST (17-59) IU/L ALT (<50) IU/L Alkaline Phosphatase (38-126) U/L Total Protein (6.3-8.2) g/dL Albumin (3.5-5.0) g/dL Globulin (1.7-4.1) g/dL Albumin/Globulin Ratio (1.0-2.8) Lipase 76 (23-300) U/L TSH (0.47-4.68) uIU/mL Free T4 (0.78-2.19) ng/dL Salicylates (<20) mg/dL U Opiates 300ng/mL cut Negative (Negative) Ur Oxycodone Screen Negative (Negative) Urine Methadone Screen Negative (Negative) Acetaminophen (10-30) ug/mL Ur Barbiturates Screen Negative (Negative) U Tricyclic Antidepress Negative (Negative) Ur Phencyclidine Scrn Negative (Negative) Ur Amphetamines Screen Negative (Negative) U Methamphetamines Scrn Negative (Negative) Ur MDMA Scrn (Ecstasy) Negative (Negative) U Benzodiazepines Scrn Positive H (Negative) Urine Cocaine Screen Negative (Negative) U Marijuana (THC) Screen Negative (Negative) Ethyl Alcohol ( - 10) mg/dL Urine Dip Bedside Urine Glucose Negative Bedside Urine Bilirubin - Negative Bedside Urine Ketone - Negative Urine Specific [place] 1.005 Bedside Urine Occult Blood - Negative Bedside Urine pH 6.0 Bedside Urine Protein - Negative Bedside Urine Urobilinogen - Negative Bedside Urine Nitrite - Negative Bedside Urine Leukocytes - Negative Esterase ECG Data Attestation: I personally reviewed and interpreted this ECG as follows: Interpretation: Normal sinus rhythm rate [address] elevation or depression MDM Narrative Medical decision making narrative: Appropriate for admission. Patient CIWA score of 19 with symptoms of withdrawal and has past history of DTs and seizures. Discharge Plan Departure Patient Disposition: Admitted as Observation Clinical Impression: Alcohol withdrawal Qualifiers: Complication of substance-induced condition: with unspecified complication Qualified Code(s): F10.239 - Alcohol dependence with withdrawal, unspecified Discharge Date/Time: 01/20/20 21:58 Referrals: Donal Rodgers [Primary Care Provider] - Admit Date/Time: 01/20/20 20:02 Admit Provider: Lori Smith
[2020-01-20 18:52] LABS: Add Manual Diff / Slide Review NO; Basophils Absolute Auto 0 /uL (0-100); Basophils Percent Auto 0.5 % (0-2); Eosinophils Absolute Auto 100 /uL (0-450); Eosinophils Percent Auto 1.8 % (2-4); Hematocrit 39.5 % (41-53); Hemoglobin 13.8 g/dL (13.5-17.5); Lymphocytes Absolute Auto 1500 /uL (1100-4500); Lymphocytes Percent Auto 19.9 % (25-40); Mean Corpuscular Volume 94.4 fL (80-100); Monocytes Absolute Auto 400 /uL (0-900); Monocytes Percent Auto 4.9 % (3-14); Neutrophils Absolute Auto 5600 /uL (1500-7000); Neutrophils Percent Auto 72.9 % (50-75); Platelet Count 253 X10^3/uL (150-400); Red Blood Cell Count 4.18 X10^6/uL (4.5-5.9); Red Cell Distribution Width 13.4 % (11.6-14.8); White Blood Cell Count 7.7 X10^3/uL (4.5-11.0)
[2020-01-20 19:06] LABS: UR Morphine/Opiate cutoff 300 Negative (Negative); Ur Creatinine Normal (Normal); Ur Specific Gravity Normal (Normal); Urine Amphetamines Negative (Negative); Urine Barbiturates Negative (Negative); Urine Benzodiazepines Positive (Negative); Urine Cocaine Negative (Negative); Urine MDMA Negative (Negative); Urine Methadone Negative (Negative); Urine Methamphetamines Negative (Negative); Urine Oxycodone Negative (Negative); Urine Phencyclidine Negative (Negative); Urine Tetrahydrocannabinol Negative (Negative); Urine Tricyclic Antidepressant Negative (Negative); Urine pH Normal (Normal)
[2020-01-20] MEDS: LORazepam 2 MG/ML INJ 1 MG IV ×2 (19:20→21:41)
[2020-01-20] MEDS: ONDANSETRON 4 MG/2 ML INJ IV (19:20)
[2020-01-20] MEDS: MAGNESIUM SULFATE 2 GM, FOLIC ACID 1 MG, THIAMINE 100 MG, MULTIVITAMIN 10 ML in SODIUM ... IV (19:21)
[2020-01-20 19:23] LABS: Acetaminophen < 10 ug/mL (10-30); Alanine Aminotransferase 130 IU/L (<50); Albumin 4.7 g/dL (3.5-5.0); Albumin Globulin Ratio 0.9 (1.0-2.8); Alkaline Phosphatase 97 U/L (38-126); Aspartate Aminotransferase 263 IU/L (17-59); BUN Creatinine Ratio 9.5 (6-22); Bilirubin Total 0.7 mg/dL (0.2-1.3); Blood Urea Nitrogen 6 mg/dL (9-20); Calcium 9.3 mg/dL (8.4-10.2); Carbon Dioxide 26 mmol/L (22-32); Chloride 101 mmol/L (98-107); Estimated Glomerular Filt Rate > 60.0 mL/min (>60); Ethanol (ETOH) 220 mg/dL; Globulin 5.3 g/dL (1.7-4.1); Glucose 143 mg/dL (70-100); Salicylate < 1.0 mg/dL (<20); Sodium 142 mmol/L (137-145)
[2020-01-20 19:25] LABS: HEMOLYSIS 75 (0-50)
--- NOTE | 2020-01-20 19:45 | PC.NURSE ---
Pt states, I am too drunk. Has hx of DT's. Assisted with IV start, Pt able to hold arm still, held an extensive conversation during IV start. Very oriented to situation and time. Pleasant and cooperative with this RN.
[2020-01-20 20:40] LABS: COVID19 -Nasal RAPID Negative (Negative)
[2020-01-20 20:52] LABS: Thyroid Stimulating Hormone 2.17 uIU/mL (0.47-4.68)
--- NOTE | 2020-01-20 22:21 | PC.NURSE ---
2200- Patient arrived to room 231. Patient is admitted for ETOH withdrawl. Patient is alert and can follow commands. Patient verbalizes feeling anxious, tremulous, has a headache, and reports having some hallucinations but none currently. Patient is cooperative with care. IVF infusing per order at 125cc/hr. Patient oriented to his room, advised to remain in bed and or call for assist if he needs to get oob. Patient verbalizes understanding. Last drink was today. Will monitor closely.
[2020-01-21] VITALS (13 sets, daily range): BP systolic 106–138; BP diastolic 65–91; PULSE 75–84; RESP 10–26; TEMP 36.3–37.6; O2SAT 93–97
[2020-01-21 00:28] LABS: Lipase 76 U/L (23-300)
[2020-01-21] MEDS: ONDANSETRON 4 MG/2 ML INJ IV ×3 (00:39→18:26)
[2020-01-21] MEDS: KETOROLAC 30 MG/ML VIAL IV ×3 (00:39→20:57)
[2020-01-21] MEDS: LORazepam 2 MG/ML INJ IV ×4 (00:40→05:53)
[2020-01-21] MEDS: HYDROMORPHONE 2 MG INJ 1 MG IV (02:17)
--- NOTE | 2020-01-21 02:48 | PC.NURSE ---
Addendum entered by Anel Johnston R.N. 01/21/20 05:30: Orders received for Dilaudid 2 mg IV Q3H for pain. Addendum entered by Anel Johnston R.N. 01/21/20 05:25: Pt continues to C/O pain 8-9/10 to left abd and headache. Pt states pain down to 7/10 with Dilaudid 1 mg. Continues to be tremulous, and having visual and auditory hallucinations. Zofran relieved nausea for short period of time. Lori MCGOVERN notified of patients continued complaint of headache and left side abd pain 8-9/10. Discussed that patient has had Lorazepam approximately every two hours with continued symptoms. Last CIWA 18. Original Note: Pt is alert and oriented x3. Pt C/O L side abd pain and headache 8-9/10. Medicated with Toradol with no relief within an hour. Irina MCGOVERN notified. Dilaudid ordered and given per EMAR. Pt medicated for C/O nausea and Zofran given with relief. Pt has been medicated for CIWA 17 2 mg/with Lorazepam
--- NOTE | 2020-01-21 02:50 | P.HP_ITS ---
History of Present Illness History of Present Illness Date Patient Seen: 01/20/20 Time Patient Seen: 23:30 Chief complaint: Alcohol withdrawal Narrative: Ishmael Lucas is a 39-year-old male with no stated medical history except for depression who presented to the emergency department in alcohol withdrawal. He was seen and admitted at [facility] for the same on January 04 then apparently left against medical advice on January 12. At that time he was found to have early developing acute pancreatitis with diverticulitis seen on CT. He has also been seen here at [facility] in 2017 and 2018. He does state he has a history of depression and anxiety. He self medicates alcohol and is currently stating that his pancreas and liver hurts. He has once prior gone into inpatient rehab with a 3 year period of sobriety afterwards. He states that currently he is having sweats, slow urinary stream, has alternating diarrhea and constipation, and is actively hallucinating both visually and auditory. He denies shortness of breath or chest pain. Patient presented afebrile, blood pressure 114/82, heart rate 79, respiratory rate of 12, oxygen saturation 97% on room air, he weighs 99.7 kg with a BMI of 32.5. WBC is 7.7, RBC 4.18, hemoglobin 13.8, hematocrit 39.5, platelet count of 253, coag studies are pending, sodium 142, potassium 4.0, chloride 101, bicarb 26, creatinine 0.63, BUN of 6, with a GFR of greater than 60, his glucose is 1 43, calcium 9.3, magnesium 2.0, total bilirubin is 0.7, AST 263, ALT 130, alk- phos 97, total protein is 10, no BUN is 4.7, globulin 5.3, is a normal lipase 76, TSH is 2.17, free T4 is 1, he had presence of alcohol and benzodiazepine in his urine and his alcohol level was elevated at 220. COVID-19 was negative Patient History Medical History (Updated 01/21/20 @ 03:09 by FROILAN Gómez) Alcohol withdrawal (Acute) Alcoholism (Acute) Anxiety (Acute) Depression (Acute) Surgical History (Updated 01/21/20 @ 03:10 by FROILAN Gómez) No history of previous surgery (Chronic) Family & Social History Family History (Updated 01/21/20 @ 03:10 by FROILAN Gómez) Other No significant past medical history Social History: household members family Prior Living Arrangements Apartment/Condo Safety & Behavioral: Feels Safe in Current Yes Environment Been Physically Hurt or No Threatened By a Person Suicidal Ideation Description None Suicide Plan Description No Plan Tobacco & Substance use: Tobacco type cannabis/marijuana Smoking Status Current some day smoker alcohol intake current alcohol intake frequency 6 pack of 24 oz 8% beers daily Substance Use Type does not use,marijuana Meds Home Medications and Allergies Home Medications Medication Instructions Recorded Confirmed Type multivitamin [Tab-A-Marilou] 1 tab PO DAILY #30 tab 10/09/17 01/20/20 Rx sertraline [Zoloft] 50 mg PO BEDTIME #30 tab 10/09/17 01/20/20 Rx quetiapine 50 mg PO BEDTIME 01/20/20 01/20/20 History Allergies Allergy/AdvReac Type Severity Reaction Status Date / Time No Known Drug Allergies Allergy Verified 10/08/17 18:32 Review of Systems Review of Systems ROS: Yes All systems reviewed with the patient and are negative except as otherwise documented Exam Vital Signs (past 8 hours): - 01/20/20 19:47 01/20/20 19:58 01/20/20 20:00 Temperature Pulse Rate 94 H 95 H 96 H Respiratory Rate Blood Pressure 126/80 140/69 Pulse Oximetry 92 93 95 01/20/20 20:30 01/20/20 21:00 01/20/20 21:30 Temperature Pulse Rate 90 92 H 93 H Respiratory Rate 13 13 15 Blood Pressure 123/71 121/73 127/71 Pulse Oximetry 91 91 95 01/20/20 22:00 01/21/20 00:08 01/21/20 01:00 Temperature 98.7 F 97.8 F Pulse Rate 83 83 79 Respiratory Rate 16 14 20 Blood Pressure 104/61 125/75 125/75 Pulse Oximetry 95 97 01/21/20 02:20 Temperature Pulse Rate 79 Respiratory Rate 12 Blood Pressure 114/82 Pulse Oximetry Oxygen Delivery Method Room Air Narrative Exam Narrative: Gen: Alert, oriented, well-developed 39 y.o. male, mildly lethargic HEENT: normocephalic, atraumatic, conjunctiva clear, sclera non-icteric, oral mucosa pink and moist Neck: supple, full ROM, no JVD, trachea is midline Resp: Lungs CTA, non-labored breathing CV: RRR, no murmur or rubs Abd: soft, non-tender, normoactive BTs Skin: no lesions or rashes, dry and intact Neuro: Alert and oriented X 4 w/no focal deficits. Speech clear and coherent. Extremities: moves all 4 extremities, is ambulatory, negative [place]?s sign Psyche: anxious Objective Labs Result Diagrams: 01/20/20 18:22 01/20/20 18:22 Labs: Laboratory Results - last 24 hr 01/20/20 01/20/20 01/20/20 18:22 18:22 18:22 WBC 7.7 RBC 4.18 L Hgb 13.8 Hct 39.5 L MCV 94.4 MCH 33.0 MCHC 35.0 RDW 13.4 Plt Count 253 Neut % (Auto) 72.9 Lymph % (Auto) 19.[address] [place] % (Auto) 4.9 Eos % (Auto) 1.8 L Baso % (Auto) 0.5 Neut # (Auto) 5600 Lymph # (Auto) 1500 [place] # (Auto) 400 Eos # (Auto) 100 Baso # (Auto) 0 Sodium 142 Potassium 4.0 Chloride 101 Carbon Dioxide 26 BUN 6 L Creatinine 0.63 L Estimated GFR > 60.0 BUN/Creatinine Ratio 9.5 Glucose 143 H Calcium 9.3 Magnesium Total Bilirubin 0.7 AST 263 H ALT 130 H Alkaline Phosphatase 97 Total Protein 10.0 H* Albumin 4.7 Globulin 5.3 H Albumin/Globulin Ratio 0.9 L Lipase TSH 2.17 Free T4 1.00 Salicylates < 1.0 U Opiates 300ng/mL cut Ur Oxycodone Screen Urine Methadone Screen Acetaminophen < 10 L Ur Barbiturates Screen U Tricyclic Antidepress Ur Phencyclidine Scrn Ur Amphetamines Screen U Methamphetamines Scrn Ur MDMA Scrn (Ecstasy) U Benzodiazepines Scrn Urine Cocaine Screen U Marijuana (THC) Screen Ethyl Alcohol 220 H COVID-19 PCR 01/20/20 01/20/20 01/20/20 18:22 18:22 20:22 WBC RBC Hgb Hct MCV MCH MCHC RDW Plt Count Neut % (Auto) Lymph % (Auto) [place] % (Auto) Eos % (Auto) Baso % (Auto) Neut # (Auto) Lymph # (Auto) [place] # (Auto) Eos # (Auto) Baso # (Auto) Sodium Potassium Chloride Carbon Dioxide BUN Creatinine Estimated GFR BUN/Creatinine Ratio Glucose Calcium Magnesium 2.0 Total Bilirubin AST ALT Alkaline Phosphatase Total Protein Albumin Globulin Albumin/Globulin Ratio Lipase 76 TSH Free T4 Salicylates U Opiates 300ng/mL cut Negative Ur Oxycodone Screen Negative Urine Methadone Screen Negative Acetaminophen Ur Barbiturates Screen Negative U Tricyclic Antidepress Negative Ur Phencyclidine Scrn Negative Ur Amphetamines Screen Negative U Methamphetamines Scrn Negative Ur MDMA Scrn (Ecstasy) Negative U Benzodiazepines Scrn Positive H Urine Cocaine Screen Negative U Marijuana (THC) Screen Negative Ethyl Alcohol COVID-19 PCR Negative Assessment & Plan Assessment & Plan narrative: Ishmael Lucas is 39-year-old impaired male will be admitted inpatient for active alcohol withdrawal with a presenting CIWA score of 19. He will be admitted to the ICU for further management of alcohol withdrawal and seizure prevention. Alcohol withdrawal with a CIWA score of 19 acute, present on admission -after he arrive to the floor his CIWA is now 17 -Ativan as needed per CIWA protocol -Dilaudid 1 mg IV as needed for pain -he has a high risk of an Against Medical Advice discharge given that he did the same at [facility] during his last hospitalization. -his liver enzymes seem to have worsened since he was at [facility] 2 weeks ago and I have ordered an acute hepatitis panel Suspected pancreatitis given previous hospitalization at [facility] -I have ordered a CT with contrast of the abdomen and pelvis to see if there has been any progression of what it initially been thought to be a mild panc reatitis -PT INR is pending -lipase is normal at this time however the was not one done while he was at [facility] -initiate folic acid, multivitamin and thiamine p.o. tomorrow Severe depression, acute, present on admission -continue home dose of sertraline 50 mg p.o. daily and quetiapine 50 mg p.o. da gurdeep VTE prophylaxis: Wells risk score: 0 Enoxaparin 40 mg subQ daily Consults: none Patient is admitted under inpatient status with expected length of stay greater than 2 midnights due to severity of presenting symptoms, risk of adverse event, and complexity of treatment plan. FEN: Currently receiving a banana bag, NPO except meds, CMP and magnesium in the am. Dispo: unknown at this time. He would like to go into inpatient rehab Code Status: Full code as discussed with patient Scores Wells' Criteria for PE Clinical signs and symptoms of DVT: No PE is #1 Dx or equally likely: No Heart rate > 100: No Immobilization at least 3 days or surg in previous 4 weeks: No History of PE or DVT: No Hemoptysis: No Malignancy w/Treatment within 6 months or palliative: No Wells' PE Score total: 0 Quality VTE Deep Vein Thrombosis/Pulmonary Embolism Present on Admission: No
[2020-01-21] MEDS: SODIUM CHLORIDE 0.9% 1,000 ML 100 ML IV ×3 (03:25→22:29)
[2020-01-21 04:29] LABS: Add Manual Diff / Slide Review NO; Basophils Absolute Auto 0 /uL (0-100); Basophils Percent Auto 0.4 % (0-2); Eosinophils Absolute Auto 200 /uL (0-450); Eosinophils Percent Auto 3.5 % (2-4); Hematocrit 37.3 % (41-53); Hemoglobin 12.7 g/dL (13.5-17.5); Lymphocytes Absolute Auto 1200 /uL (1100-4500); Lymphocytes Percent Auto 23.6 % (25-40); Mean Corpuscular HGB Conc 34.1 % (30-36); Mean Corpuscular Hemoglobin 32.3 PG (26-34); Mean Corpuscular Volume 94.9 fL (80-100); Monocytes Absolute Auto 300 /uL (0-900); Monocytes Percent Auto 5.2 % (3-14); Neutrophils Absolute Auto 3400 /uL (1500-7000); Neutrophils Percent Auto 67.3 % (50-75); Platelet Count 221 X10^3/uL (150-400); Red Blood Cell Count 3.93 X10^6/uL (4.5-5.9); Red Cell Distribution Width 13.4 % (11.6-14.8); White Blood Cell Count 5.1 X10^3/uL (4.5-11.0)
[2020-01-21 04:32] LABS: INR 1.2 (0.9-1.3); Prothrombin Time 13.8 SECONDS (10.1-12.7)
[2020-01-21 04:39] LABS: Alanine Aminotransferase 113 IU/L (<50); Albumin 4.3 g/dL (3.5-5.0); Alkaline Phosphatase 92 U/L (38-126); Aspartate Aminotransferase 236 IU/L (17-59); BUN Creatinine Ratio 10.8 (6-22); Bilirubin Total 0.5 mg/dL (0.2-1.3); Blood Urea Nitrogen 7 mg/dL (9-20); Calcium 8.3 mg/dL (8.4-10.2); Carbon Dioxide 27 mmol/L (22-32); Chloride 106 mmol/L (98-107); Estimated Glomerular Filt Rate > 60.0 mL/min (>60); Globulin 4.1 g/dL (1.7-4.1); Glucose 115 mg/dL (70-100); HEMOLYSIS < 15 (0-50); Magnesium 2.5 mg/dL (1.6-2.3); Sodium 142 mmol/L (137-145); Total Protein 8.4 g/dL (6.3-8.2)
[2020-01-21] MEDS: HYDROMORPHONE 2 MG INJ IV (05:56)
--- NOTE | 2020-01-21 09:01 | DI.CT.S_ITS ---
PROCEDURE: CT ABDOMEN PELVIS W CON INDICATIONS: recent hx of pancreatitis TECHNIQUE: After the administration of intravenous contrast, 5 mm thick sections acquired from the diaphragm to the symphysis. 5 mm coronal and sagittal reformats were acquired. For radiation dose reduction, the following was used: automated exposure control, adjustment of mA and/or kV according to patient size. COMPARISON: [facility], CT, CT ABD PELVIS W CON, 09/22/2015, 12:14. [facility], CT, ABD/PELVIS W/CON (PNL), 10/15/2011, 18:07. [facility], CT, CT ABDOMEN PELVIS WITH CONTRAST, 03/10/2018, 12:44. [facility], CT, CT ABDOMEN PELVIS WITH CONTRAST, 02/20/2018, 10:27. [facility], CT, CT ABDOMEN PELVIS WITH CONTRAST, 12/23/2017, 21:19. [facility], CT, CT CHEST ABDOMEN PELVIS WITH CONTRAST, 03/23/2018, 19:27. [facility], CT, CT ABDOMEN PELVIS WITH CONTRAST, 12/16/2018, 1:00. [facility], CT, CT ABDOMEN PELVIS WITH CONTRAST, 03/13/2019, 20:13. [facility], CT, CT ABDOMEN PELVIS WITH CONTRAST, 01/05/2020, 20:06. FINDINGS: Image quality: Excellent. ABDOMEN: Lung bases: Mild dependent atelectasis at lung bases. Heart size is normal. There is gynecomastia. Solid organs: There is narrowing and decreased enhancement in the pancreatic body appears unchanged. There is severe and inhomogeneous hepatic steatosis. Liver is normal in size and enhancement. Gallbladder is mildly distended. Biliary system is non dilated. Pancreas enhances normally. Spleen is normal in size and enhancement. No adrenal nodules. Kidneys demonstrate normal size and enhancement, without hydronephrosis. Peritoneum and bowel: Bowel loops demonstrate normal wall thickness and caliber. There are scattered diverticula in colon. No findings to suggest acute diverticulitis. No free fluid or air. Nodes and vessels: No retroperitoneal or mesenteric adenopathy by size criteria. Aorta and inferior vena cava are normal in size. Miscellaneous: No ventral hernias. PELVIS: Genitourinary: Bladder wall thickness is normal. Miscellaneous: No inguinal hernias or adenopathy. Bones: No suspicious bony lesions. No vertebral body compression fractures. IMPRESSION: 1. There is narrowing and focal decreased enhancement involving the pancreatic body, unchanged in appearance since 2016, most likely sequelae of pancreatitis. No definitive mass is visualized. 2. Severe hepatic steatosis. 3. Diverticulosis without diverticulitis. Dictated by: Arlyn Garza M.D. on 01/21/2020 at 10:21 Approved by: Arlyn Garza M.D. on 01/21/2020 at 11:15
[2020-01-21] MEDS: THIAMINE 100 MG TABLET PO (09:59)
[2020-01-21] MEDS: MULTIVITAMIN 1 TABLET 1 TAB PO (09:59)
[2020-01-21] MEDS: ENOXAPARIN 40 MG/0.4 ML SYRINGE SUBCUT (09:59)
[2020-01-21] MEDS: FOLIC ACID 1 MG TABLET PO (09:59)
[2020-01-21] MEDS: chlordiazePOXIDE 25 MG CAPSULE 50 MG PO ×2 (11:09→16:54)
[2020-01-21] MEDS: LORazepam 1 MG TABLET PO ×3 (12:04→20:57)
--- NOTE | 2020-01-21 12:50 | PM.PN.1 ---
Subjective Subjective Date Patient Seen: 01/21/20 Interval history: Ishmael Lucas is a 39-year-old male with past medical history significant for depression, anxiety, and alcohol abuse with history of alcohol withdrawal, delirium tremens and seizure who presented to the ED intoxicated and requesting to be treated for alcohol withdrawal. The patient is resting in bed comfortably. He is mildly sedated. He complains of epigastric abdominal pain and reports his ?liver and pancreas hurt.? He is requesting specifically IV pain medication for his pancreas and liver pain and states he would rather have IV ativan rather than PO for his alcohol. withdrawal. He reports he wants to quit drinking alcohol and is requesting inpatient alcohol treatment when medically stable. He endorses tactile sensation/formication, visual hallucinations, and nausea. The patient is not exhibiting tremors, anxiety, agitation, active hallucinations, seizure activity and does not appear nauseous. His last CIWA score was 10. Plan to start Librium taper. He does not appear to be significant alcohol withdrawal currently. He has no other complaints and denies headache, chest pain, shortness of breath, vomiting, dysuria, diarrhea or constipation. He is voiding without difficulty. He is up ambulating with assistance. Exam Vital Signs (past 8 hours): - 01/21/20 12:00 01/21/20 12:45 01/21/20 16:00 Temperature 97.3 F L 98.0 F Pulse Rate 82 79 78 Respiratory Rate 10 L 10 L 16 Blood Pressure 116/79 133/91 H 134/89 Pulse Oximetry 93 96 Oxygen Delivery Method Room Air Oxygen Flow Rate 0 Narrative Exam Narrative: General: Middle-aged male sitting in bed and in no acute distress, well-developed, well-nourished, appropriately interactive. HEENT: Normocephalic, atraumatic. External ears without defect. Pupils equal, round, and reactive to light. Anicteric sclerae, moist conjunctivae, and no lid lag. Oropharynx free of erythema and cobble stoning with moist mucosa. Neck: Supple with full range of motion. No lymphadenopathy or thyromegaly. Cardiovascular: Regular rate and rhythm without murmurs, rubs, or gallops appreciated Pulmonary: Clear to auscultation bilaterally without crackles, wheezes, or rhonchi. Normal respiratory effort with no use of accessory muscles. Abdomen: Soft, mild tenderness in epigastrium, nondistended, bowel sounds present. Hepatosplenomegaly present. Extremities: No clubbing, cyanosis, or edema. Skin: Normal temperature, turgor, and texture; no rash, ulcers, or subcutaneous nodules appreciated. Neurological: Cranial nerves grossly intact. Psychiatric: Mildly somnolent but arousable. Depressed mood and flat affect. Mild horizontal nystagmus. Alert and oriented to person, place, and time. Poor insight. Objective Labs Result Diagrams: 01/21/20 04:00 01/21/20 04:00 Labs: Laboratory Results - last 24 hr 01/20/20 01/20/20 01/20/20 18:22 18:22 18:22 WBC 7.7 RBC 4.18 L Hgb 13.8 Hct 39.5 L MCV 94.4 MCH 33.0 MCHC 35.0 RDW 13.4 Plt Count 253 Neut % (Auto) 72.9 Lymph % (Auto) 19.9 L [place] % (Auto) 4.9 Eos % (Auto) 1.8 L Baso % (Auto) 0.5 Neut # (Auto) 5600 Lymph # (Auto) 1500 [place] # (Auto) 400 Eos # (Auto) 100 Baso # (Auto) 0 PT INR Sodium 142 Potassium 4.0 Chloride 101 Carbon Dioxide 26 BUN 6 L Creatinine 0.63 L Estimated GFR > 60.0 BUN/Creatinine Ratio 9.5 Glucose 143 H Calcium 9.3 Magnesium Total Bilirubin 0.7 AST 263 H ALT 130 H Alkaline Phosphatase 97 Total Protein 10.0 H* Albumin 4.7 Globulin 5.3 H Albumin/Globulin Ratio 0.9 L Lipase TSH 2.17 Free T4 1.00 Salicylates < 1.0 U Opiates 300ng/mL cut Ur Oxycodone Screen Urine Methadone Screen Acetaminophen < 10 L Ur Barbiturates Screen U Tricyclic Antidepress Ur Phencyclidine Scrn Ur Amphetamines Screen U Methamphetamines Scrn Ur MDMA Scrn (Ecstasy) U Benzodiazepines Scrn Urine Cocaine Screen U Marijuana (THC) Screen Ethyl Alcohol 220 H COVID-19 PCR 01/20/20 01/20/20 01/20/20 18:22 18:22 20:22 WBC RBC Hgb Hct MCV MCH MCHC RDW Plt Count Neut % (Auto) Lymph % (Auto) [place] % (Auto) Eos % (Auto) Baso % (Auto) Neut # (Auto) Lymph # (Auto) [place] # (Auto) Eos # (Auto) Baso # (Auto) PT INR Sodium Potassium Chloride Carbon Dioxide BUN Creatinine Estimated GFR BUN/Creatinine Ratio Glucose Calcium Magnesium 2.0 Total Bilirubin AST ALT Alkaline Phosphatase Total Protein Albumin Globulin Albumin/Globulin Ratio Lipase 76 TSH Free T4 Salicylates U Opiates 300ng/mL cut Negative Ur Oxycodone Screen Negative Urine Methadone Screen Negative Acetaminophen Ur Barbiturates Screen Negative U Tricyclic Antidepress Negative Ur Phencyclidine Scrn Negative Ur Amphetamines Screen Negative U Methamphetamines Scrn Negative Ur MDMA Scrn (Ecstasy) Negative U Benzodiazepines Scrn Positive H Urine Cocaine Screen Negative U Marijuana (THC) Screen Negative Ethyl Alcohol COVID-19 PCR Negative 01/21/20 01/21/20 01/21/20 04:00 04:00 04:00 WBC 5.1 RBC 3.93 L Hgb 12.7 L Hct 37.3 L MCV 94.9 MCH 32.3 MCHC 34.1 RDW 13.4 Plt Count 221 Neut % (Auto) 67.3 Lymph % (Auto) 23.6 L [place] % (Auto) 5.2 Eos % (Auto) 3.5 Baso % (Auto) 0.4 Neut # (Auto) 3400 Lymph # (Auto) 1200 [place] # (Auto) 300 Eos # (Auto) 200 Baso # (Auto) 0 PT 13.8 H INR 1.2 Sodium 142 Potassium 4.0 Chloride 106 Carbon Dioxide 27 BUN 7 L Creatinine 0.65 L Estimated GFR > 60.0 BUN/Creatinine Ratio 10.8 Glucose 115 H Calcium 8.3 L Magnesium 2.5 H Total Bilirubin 0.5 AST 236 H ALT 113 H Alkaline Phosphatase 92 Total Protein 8.4 H Albumin 4.3 Globulin 4.1 Albumin/Globulin Ratio 1.0 Lipase TSH Free T4 Salicylates U Opiates 300ng/mL cut Ur Oxycodone Screen Urine Methadone Screen Acetaminophen Ur Barbiturates Screen U Tricyclic Antidepress Ur Phencyclidine Scrn Ur Amphetamines Screen U Methamphetamines Scrn Ur MDMA Scrn (Ecstasy) U Benzodiazepines Scrn Urine Cocaine Screen U Marijuana (THC) Screen Ethyl Alcohol COVID-19 PCR Assessment & Plan Assessment & Plan narrative: Ishmael Lucas is a 39-year-old male with past medical history significant for depression, anxiety, and alcohol abuse with history of alcohol withdrawal, delirium tremens and seizure who presented to the ED intoxicated and requesting to be treated for alcohol withdrawal. 1. Acute alcohol withdrawal in setting of chronic alcohol dependence, present on admission. Active. -Patient's last drink of alcohol was 1 hour prior to admission. Patient reports history of alcohol withdrawal, delirium tremens and alcohol withdrawal seizure. The patient reports he would like to stop drinking and receive inpatient alcohol treatment. -Initial CIWA score 19. Continue CIWA protocol with lorazepam as needed per CIWA score. Started Librium 50 mg every 6 hours and will plan to slowly titrate down over the next several days. Continue multivitamin daily, folic acid 1 mg daily and thiamine 100 mg daily. Continue seizure precautions. -Received banana bag and continue normal saline at 100 mL/hr. -Patient is high risk of leaving Against Medical Advice discharge given recently leaving [facility] Against Medical Advice during his last hospitalization. -Consulted WORK CHECKER and appreciate her time and recommendations. 2. Severe alcohol induced steatohepatitis, acute on chronic, present on admission. Active. -Initial LFTs total bilirubin 0.5, AST 263, ALT 130, and alkaline phosphatase 97. LFTs improving with abstinence from alcohol. -Continue to monitor LFTs daily. 3. Ruled out pancreatitis. -CT abdomen and pelvis with contrast demonstrated focal decreased enhancement involving pancreatic body unchanged appearance since 2016 most likely sequelae of pancreatitis. No definitive visualized mass. -Lipase normal at 76. 4. Depression and anxiety, present on admission. Stable. -Continue home sertraline 50 mg daily and quetiapine 50 mg daily. Code status: Full code VTE prophylaxis: Enoxaparin Disposition: Patient likely to discharge in several days once alcohol withdrawal treated and stable possibly to inpatient alcohol treatment facility. Quality VTE Deep Vein Thrombosis/Pulmonary Embolism Present on Admission: No
--- NOTE | 2020-01-21 13:07 | PC.NURSE ---
Addendum entered by Flex Leal R.N. 01/21/20 15:20: Please note that f/u VS post ativan administration for CIWA 10 was delayed due to patient request. He asked me to leave the room while he was on an important phone call. Original Note: Rec'd pt sitting up at edge of bed. Drowsy, Oriented x4 and making his needs known with somewhat slurred speech. He drifts to sleep mid sentence and is noted to snore RR 8-12/shallow SPO2 91%. Pt easily awakens to verbal stimuli but does not sustain eye opening. He reports left abd pain around my liver and pancreas. Subjectively, pt endorses anxiety, tremors, hallucination, headache, nausea. Reviewed assessment findings with Dr. Noyola on rounds. Orders received for librium taper. Pt was given toradol/zofran for c/o abd pain and nausea. Still noted to be quite somnolent and slept after receiving meds. Pt awoke and reported withdrawal symptoms. Administered PO librium as ordered. Pt placed call light on ~ 1200. I am exhibiting alcohol withdrawal symptoms. Pt states he is tremulous, seeing lights, experiencing anxiety and headache. He is also requesting food. Educated to clear liquid diet. Administered PO ativan. Pt asks Why am I getting a pill now instead of a shot? Explained rationale for PO ativan given clear liquid diet and able to take PO meds without significant nausea. No emesis. Pt now reports nausea but is agreeable to PO ativan at this time. He is requesting pain medication for left abd pain which he rates 9/10 and describes as pokey. Reviewed with Dr. Noyola via phone who initially instructed to monitor but on f/u call rec'd verbal order for PO oxycodone. Educated pt to med regimen and administered oxycodone. Bed alarm, seizure precautions, call light use reinforced and in easy reach.
[2020-01-21] MEDS: OXYCODONE IR 5 MG TABLET PO ×2 (13:29→18:26)
[2020-01-21] MEDS: PANTOPRAZOLE 40 MG TABLET PO (13:29)
--- NOTE | 2020-01-21 17:07 | CM.SWNOTE ---
PREPRESS PROOFER assessment/note PREPRESS PROOFER - Mingle Operator Assessment PREPRESS PROOFER - Mingle Operator Assessment Start: 01/21/20 16:51 Freq: Status: Active Protocol: Document 01/21/20 16:51 JOHN (Rec: 01/21/20 17:07 JONH [id number]) PREPRESS PROOFER/Mingle Operator Assessment Time Spent with Patient Start date 01/21/20 Visit Start Time 16:00 End date 01/21/20 Visit End Time 16:45 Total time Care Management spent on 45 patient visit-in minutes Substance Abuse Screening Include Onset, Duration, Intensity Presenting Problem Patient is hospitalized after presenting to ED for ETOH and detox. Patient had ETOH of 220 mg/dL upon presentation to ED previous evening. Patient does have hx of seizures due to detox. Patient reports starting his drinking in the morning My parents are having coffee and I'll have a beer, sometimes continues throughout the day, with the bulk of his drinking occurring during evening hours . Patient reports drinking between 5 and 14 beers daily. Patient denies regular use of any other substances, states he had 1 joint the other day, but did not like it. Precipitating Event(s) Patient has been seen at [facility] earlier in month due to ETOH/ detox, and pancreatitis. Patient reports he came to ED previous evening because he has had enough. Patient Strengths Patient uses humor during assessment, and is polite throughout meeting. Patient is insightful about his current needs for recovery, and motivated to discontinue his alcohol use. Current Behavioral Health Provider(s) None. Patient reports he had Include Facility, Provider, Ph. # an appointment with a counselor through [facility] in April,, butt hat he did not make this appointment. Family Hx of Behavioral Abuse None reported. Rehab Facilities? ((Date(s), Location(s) Patient attended treatment for ) alcohol use in 2009 at [facility] in [place], [place]. History of Withdrawal? Seizures? Patient does experience severe withdrawal symptoms including anxiety, feeling itchy, seizures, and tremors. Longest Period of Sobriety Patient was sober for 3 years after completing inpatient treatment in 2009. 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 Patient and his ex- got a divorce 2 years prior, and patient describes life since the divorce as hell. Patient currently lives in a room in his parents' house and states that they are sick of me being drunk all the time. 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 Patient reports he finds the job easy. Legal Concerns Legal Matters - Outstanding Issues None reported. Mental Status Orientation (Person/Place/Time) Oriented x3 Stated Mood bad Affect (Congruent with Mood?) euthymic, stable, full range, appropriately congruent with mood. Thought Content - Specify/Describe Patient endorses audio Obsessions, Delusions, Hallucinations hallucinations in the form of voices during assessment. Patient reports the voices are not malicious or commanding. Patient denies obsessions, paranoia or delusions. Patient denies hallucinations when not experiencing withdrawals Thought Processes (Gcobheq-Haivitby-Ukrp Coherent, goal directed Fhbamkcm-Zgbufmmd-Vcqoprwvpq- Tqofwuueisgbbx-Sjrniml-Ztacqaopgkwy- Thought Blocking) Speech (Ksqxkw-Mumb-Ggedczg-Rapid-Soft- Slight slurring Loud-Pressured) Motor (Xvavkb-Ozpzophyy-Sxwv-Other) slow Insight (Txqn-Nivm-Ifox/Limited) Good Judgement (Iape-Nitj-Qsyi/Limited) Good Impulse Control (Adequate-Impaired) Adequate Memory (Sjdrkccgt-Jbpxby-Ikwmmr, Intact x3 Impaired-Intact) Concentration (Intact-Impaired) Intact Attention (Intact-Impaired) Intact Behavior (Appropriate-Inappropriate) Appropriate Additional Comment Patient calm, polite, and cooperative throughout visit. Risk Assessment Suicidal Ideation (Plan) No Homicidal Ideation (Plan) No Comment Patient actively denies SI/HI. Patient states he has no plan to kill himself and does not want to kill himself, but does endorse sometimes wanting to go to sleep and not wake up . Intervention Intervention ED PREPRESS PROOFER meets with patient in room 231. PREPRESS PROOFER and patient discuss patient's alcohol use. Patient states he wants to go to inpatient treatment after leaving , and explains to PREPRESS PROOFER the steps he is going to take to accomplish this. Patient is familiar with [facility] assessment process for accessing treatment, and is planning to attend AA meetings to help him stay sober while waiting for inpatient. Plan RA Plan Care Management team to follow patient during stay at ED to offer additional support and resources as needed. LUX Higuera
--- NOTE | 2020-01-21 17:26 | PC.NURSE ---
Addendum entered by Karissa Dowell R.N. 01/21/20 19:07: 1900- I want to see the doctor now, Patient advised that the doctors were in report and would see him after they were done. Patient states he is withdrawing bad and shaking. Will monitor. Addendum entered by Karissa Dowell R.N. 01/21/20 18:30: 1830- Patient medicated for pain. Patient when observed is resting quietly in bed, hands folded on his abdomen. When asked to give his pain level he states it is 10 plus. Why are you just giving me pills? I explained again that his clinical findings do not warrant IV medication at this time. Patient is angry and says he doesn't want to feel his withdrawl symptoms. Patient advised that over medicating him is not an option. Will monitor. Original Note: [id number]- Patient states he would rather have the IV medication for his withdrawl symptoms. I explained that he was being medicated based on his assessment score and he is not scoring at a level that requires IV. Patient is unhappy with this and expressed that he wants to not feel the withdrawl. I explained that medicating him to the point of oversedation was not an option. Will monitor.
[2020-01-21] MEDS: QUETIAPINE 25 MG TABLET 50 MG PO (20:50)
[2020-01-21] MEDS: SERTRALINE 50 MG TABLET PO (20:50)
[2020-01-22 00:02] VITALS: BP 112/74; PULSE 86; RESP 12; TEMP 37.2; O2SAT 98
[2020-01-22] MEDS: chlordiazePOXIDE 25 MG CAPSULE 50 MG PO ×2 (00:10→05:12)
[2020-01-22] MEDS: LORazepam 1 MG TABLET PO ×2 (00:10→06:29)
[2020-01-22 00:50] VITALS: BP 121/74; PULSE 80; RESP 12
[2020-01-22 03:36] LABS: HBsAg Screen Negative (Negative); Hepatitis A Antibody IgM Negative (Negative); Hepatitis B Core Antibody IgM Negative (Negative); Hepatitis C Antibody <0.1 s/co ratio (0.0-0.9)
[2020-01-22] MEDS: OXYCODONE IR 5 MG TABLET PO (04:18)
[2020-01-22] MEDS: ONDANSETRON 4 MG/2 ML INJ IV (04:18)
[2020-01-22 04:43] VITALS: BP 132/86; PULSE 83; RESP 11; TEMP 36.5; O2SAT 97
[2020-01-22] MEDS: PANTOPRAZOLE 40 MG TABLET PO (06:21)
--- NOTE | 2020-01-22 06:41 | PC.NURSE ---
sterile process tech note: Patient medicated throughout the shift x2 for CIWA scores of 10 & 9. Patient also requesting PRN oxycodone for abdominal pain (patient states it is his liver and pancreas hurting). Patient slept well, voiding and tolerating clear liquids. Patient with VSS and afebrile throughout the night. Patient currently resting in bed, on RA, IVF infusing. No distress noted.
[2020-01-22 07:00] VITALS: BP 132/86; PULSE 73; RESP 13
[2020-01-22 08:00] VITALS: BP 123/78; PULSE 80; RESP 16; TEMP 37; O2SAT 96
[2020-01-22] MEDS: ENOXAPARIN 40 MG/0.4 ML SYRINGE SUBCUT (08:29)
[2020-01-22] MEDS: MULTIVITAMIN 1 TABLET 1 TAB PO (08:29)
[2020-01-22] MEDS: FOLIC ACID 1 MG TABLET PO (08:30)
[2020-01-22] MEDS: THIAMINE 100 MG TABLET PO (08:31)
[2020-01-22 08:36] LABS: Alanine Aminotransferase 112 IU/L (<50); Albumin 3.9 g/dL (3.5-5.0); Alkaline Phosphatase 97 U/L (38-126); Aspartate Aminotransferase 281 IU/L (17-59); BUN Creatinine Ratio 7.5 (6-22); Bilirubin Total 0.8 mg/dL (0.2-1.3); Blood Urea Nitrogen 5 mg/dL (9-20); Calcium 7.7 mg/dL (8.4-10.2); Carbon Dioxide 28 mmol/L (22-32); Chloride 104 mmol/L (98-107); Estimated Glomerular Filt Rate > 60.0 mL/min (>60); Glucose 119 mg/dL (70-100); HEMOLYSIS < 15 (0-50); Potassium 3.6 mmol/L (3.4-5.1); Sodium 140 mmol/L (137-145); Total Protein 7.9 g/dL (6.3-8.2)
[2020-01-22] MEDS: SODIUM CHLORIDE 0.9% 1,000 ML 100 ML IV (08:38)
--- NOTE | 2020-01-22 09:37 | PC.NURSE ---
Pt states he would like to leave the hospital today. He states that is abdominal pain is much better and feels he can handle any residual etoh w/d symptoms at home. His CIWA is currently 0 and only notable for some mild anxiety. He is requesting a work excuse. He states he has to bring it to his work by 1100 today to keep his job. Discussed ETOH treatment goals with pt who states he has an appointment next week at [facility] in to assist him in finding inpatient treatment. He is not interested in seeking inpatient treatment directly from hospital as he already has this appt set up. Spoke with Dr. Noyola and reported pt request as well as assessment findings. Plan is for pt to dc today with librium taper.
--- NOTE | 2020-01-22 09:43 | PM.DS.1 ---
History of Present Illness History of Present Illness Date Patient Seen: 01/21/20 Chief complaint: Alcohol withdrawal Narrative: Written by Lori MCGOVERN: Ishmael Lucas is a 39-year-old male with no stated medical history except for depression who presented to the emergency department in alcohol withdrawal. He was seen and admitted at [facility] for the same on January 04 then apparently left against medical advice on January 12. At that time he was found to have early developing acute pancreatitis with diverticulitis seen on CT. He has also been seen here at [facility] in 2017 and 2018. He does state he has a history of depression and anxiety. He self medicates alcohol and is currently stating that his pancreas and liver hurts. He has once prior gone into inpatient rehab with a 3 year period of sobriety afterwards. He states that currently he is having sweats, slow urinary stream, has alternating diarrhea and constipation, and is actively hallucinating both visually and auditory. He denies shortness of breath or chest pain. Patient presented afebrile, blood pressure 114/82, heart rate 79, respiratory rate of 12, oxygen saturation 97% on room air, he weighs 99.7 kg with a BMI of 32.5. WBC is 7.7, RBC 4.18, hemoglobin 13.8, hematocrit 39.5, platelet count of 253, coag studies are pending, sodium 142, potassium 4.0, chloride 101, bicarb 26, creatinine 0.63, BUN of 6, with a GFR of greater than 60, his glucose is 143, calcium 9.3, magnesium 2.0, total bilirubin is 0.7, AST 263, ALT 130, alk-phos 97, total protein is 10, no BUN is 4.7, globulin 5.3, is a normal lipase 76, TSH is 2.17, free T4 is 1, he had presence of alcohol and benzodiazepine in his urine and his alcohol level was elevated at 220. COVID-19 was negative. Discharge Providers Provider Date of admission: 01/20/20 20:02 Discharge Date: 01/22/20 Primary care physician: Donal Rodgers Consults: 01/21/20 11:29 Consult to Dietitian, Adult Routine Comment: Reason For Exam: EtOH Discharge provider: Funmi Noyola DO Summary Hospital Course Discharge Diagnosis: 1. Acute alcohol withdrawal in setting of chronic alcohol dependence, present on admission. Resolving. 2. Severe alcohol induced steatohepatitis, acute on chronic, present on admission. Improving. 3. Ruled out pancreatitis. 4. Depression and anxiety, present on admission. Stable. Hospital Course: Ishmael Lucas is a 39-year-old male with past medical history significant for depression, anxiety, and alcohol abuse with history of alcohol withdrawal, delirium tremens and seizure who presented to the ED intoxicated and requesting to be treated for alcohol withdrawal. 1. Acute alcohol withdrawal in setting of chronic alcohol dependence, present on admission. Resolving. -Patient's last drink of alcohol was 1 hour prior to admission. Patient reports history of alcohol withdrawal, delirium tremens and alcohol withdrawal seizure. The patient reports he would like to stop drinking and receive inpatient alcohol treatment. -Initial CIWA score 19. Continued CIWA protocol with lorazepam as needed per CIWA score. CIWA scores slowly decreased with current CIWA 1. Continued Librium 50 mg every 6 hours then decreased to 50 mg twice daily today. Discharge with short Librium taper 01/22 25 mg twice daily and 01/23 25 mg daily then stop. Continued multivitamin daily, folic acid 1 mg daily and thiamine 100 mg daily. Continue seizure precautions. -Received banana bag and continued IV fluid hydration with normal saline at 100 mL/hr until adequately hydrated then discontinued. -Consulted [facility] and provided resources regarding inpatient and outpatient alcohol treatment. 2. Severe alcohol induced steatohepatitis, acute on chronic, present on admission. Improving. -Initial LFTs total bilirubin 0.5, AST 263, ALT 130, and alkaline phosphatase 97. LFTs improving with abstinence from alcohol. -Continued to monitor LFTs daily. 3. Ruled out pancreatitis. -CT abdomen and pelvis with contrast demonstrated focal decreased enhancement involving pancreatic body unchanged appearance since 2016 most likely sequelae of pancreatitis. No definitive visualized mass. -Lipase normal at 76. -Discontinued IV and PO pain medications. 4. Depression and anxiety, present on admission. Stable. -Continued home sertraline 50 mg daily and quetiapine 50 mg daily. Exam Vital Signs (past 8 hours): - 01/22/20 04:43 01/22/20 07:00 01/22/20 08:00 Temperature 97.7 F 98.6 F Pulse Rate 83 73 80 Respiratory Rate 11 L 13 16 Blood Pressure 132/86 132/86 123/78 Pulse Oximetry 97 96 Oxygen Delivery Method Room Air Oxygen Flow Rate 0 Narrative Exam Narrative: General: Middle-aged male sitting in bed and in no acute distress, well-developed, well-nourished, appropriately interactive. HEENT: Normocephalic, atraumatic. External ears without defect. Pupils equal, round, and reactive to light. Anicteric sclerae, moist conjunctivae, and no lid lag. Oropharynx free of erythema and cobble stoning with moist mucosa. Neck: Supple with full range of motion. No lymphadenopathy or thyromegaly. Cardiovascular: Regular rate and rhythm without murmurs, rubs, or gallops appreciated Pulmonary: Clear to auscultation bilaterally without crackles, wheezes, or rhonchi. Normal respiratory effort with no use of accessory muscles. Abdomen: Soft, nontender, mild distension, bowel sounds present. Hepatosplenomegaly present. Extremities: No clubbing, cyanosis, or edema. Skin: Normal temperature, turgor, and texture; no rash, ulcers, or subcutaneous nodules appreciated. Neurological: Cranial nerves grossly intact. Psychiatric: Mildly somnolent but arousable. Depressed mood and flat affect. Mild horizontal nystagmus. Alert and oriented to person, place, and time. Poor insight. Objective Labs Result Diagrams: 01/21/20 04:00 01/22/20 08:16 Labs: Laboratory Results - last 24 hr 01/21/20 01/22/20 04:00 08:16 Sodium 140 Potassium 3.6 Chloride 104 Carbon Dioxide 28 BUN 5 L Creatinine 0.67 Estimated GFR > 60.0 BUN/Creatinine Ratio 7.5 Glucose 119 H Calcium 7.7 L Magnesium 2.0 Total Bilirubin 0.8 AST 281 H ALT 112 H Alkaline Phosphatase 97 Total Protein 7.9 Albumin 3.9 Globulin 4.0 Albumin/Globulin Ratio 1.0 Hepatitis A IgM Ab Negative Hep Bs Antigen Negative Hep B Core IgM Ab Negative Hepatitis C Antibody <0.1 Hep C Ab Signal/Cutoff Comment Discharge Plan Discharge Plan Patient Disposition: Home Discharge comment: You are being discharged home. You have been treated for alcohol withdrawal. You were prescribed Librium taper over the next 3 days to finish treatment. Please abstain from alcohol indefinitely. You have also been prescribed thiamine 100 mg daily and folic acid 1 mg daily which are depleted when you drink alcohol excessively. You have been prescribed Protonix 40 mg daily to help heal inflammation of the GI tract caused by alcohol use. Please follow-up with your primary care physician, Dr. Rodgers, next week at your scheduled appointment regarding your hospitalization. You were provided a work use letter. Discharge orders & Medications Prescriptions: New thiamine HCl (vitamin B1) [Vitamin B-1] 100 mg Tablet 100 mg PO DAILY Qty: 30 RF: 0 folic acid 1 mg Tablet 1 mg PO DAILY Qty: 30 RF: 0 chlordiazepoxide HCl 25 mg Capsule 50 mg PO BID Qty: 5 RF: 0 pantoprazole 40 mg Tablet,Delayed Release (Dr/Ec) 40 mg PO 0700 Qty: 30 RF: 0 Continued multivitamin [Tab-A-Marilou] Tablet 1 tab PO DAILY Qty: 30 RF: 3 sertraline [Zoloft] 50 mg Tablet 50 mg PO BEDTIME Qty: 30 RF: 0 quetiapine 50 mg Tablet 50 mg PO BEDTIME RF: 0 Follow up/Referrals: Donal Rodgers [Primary Care Provider] - As previously scheduled Diet/Activity/Treatments Diet: Diet as Tolerated and Regular Activity: Activity as tolerated Visit Report/Discharge Packet Instructions: Alcohol and Stress: There are Safer Ways to Susan, Delirium Tremens, Alcohol Use Disorder, Chlordiazepoxide Discharge Data Primary Care Provider: Donal Rodgers Quality VTE Deep Vein Thrombosis/Pulmonary Embolism Present on Admission: No
--- NOTE | 2020-01-22 09:50 | DIET.PN ---
Dietary Progress Note Assessment: 39y M admitted for acute etoh withdrawl c abd px referred to nutrition for sobriety nutrition education. HT: 175.2cm WT: 99.7kg BMI: 32.5 Pt very drowsy when visiting to do education, this RD kept it brief and to the point. Interventions: 1. Discussed importance of maintaining structured intake of 3 meals per day to ensure adequate nourishment and to support structured sobriety plan. Encouraged pt to consume protein (lean meats, beans) with each meal to support immune system and tissue repair. Emphasized drinking plenty of fresh water to stay hydrated. Diet Order: general
--- NOTE | 2020-01-22 10:41 | PC.NURSE ---
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 Reviewed d/c material, medications. Provided education regarding etoh abuse, s/s of etoh w/d, when to seek emergency medical treatment, importance of keeping f/u appt. Reviewed librium taper schedule, dose, side effects. Pt verbalizes understanding. He dressed himself and gathered all his belongings. He was escorted by [facility] to ER entrance and requested to wait on the bench for his friend to pick him up at 1035.
== END 2020-01-22 10:35 | disposition home or self-care (01) | DRG 775 ==
LOC: ED 20:03 → ICU 01-21 02:50 → AC 01-21 12:59
PROVIDERS: Internal Medicine; Admitting Provider Nurse Practitioner Family; Emergency Provider Emergency Medicine; PCP Family Medicine; Referring Provider Emergency Medicine; Visit Provider Nurse Practitioner Family
DX: F10.239 Alcohol dependence with withdrawal, unspecified (principal); F32.9 Major depressive disorder, single episode, unspecified; K70.10 Alcoholic hepatitis without ascites; F41.9 Anxiety disorder, unspecified; F17.210 Nicotine dependence, cigarettes, uncomplicated; Z11.59 Encounter for screening for other viral diseases
CPT/HCPCS: 36415; 74177; 80053; 80074; 80305; 80320; 80329; 81003; 82962; 83690; 83735; 84439; 84443; 85025; 85610; 87635; 93005; 93010; 96361; 96374; 96375; 96376; 99284; G0480; J1170; J1650; J1885; J2060; J2405; J3475; Q9967

== ENCOUNTER 2020-06-17 17:07 | Emergency (ER) | payer OTHER, MEDICAID, SELFPAY ==
[2020-01-20 20:07] VITALS: BMI 32.5
[2020-06-17] VITALS (9 sets, daily range): BP systolic 104–139; BP diastolic 60–80; PULSE 90–99; RESP 11–20; TEMP 37; O2SAT 92–96; BMI 29.9
--- NOTE | 2020-06-17 19:28 | ED_ITS ---
HPI - General Adult General Chief complaint: Toxicology Problem Stated complaint: ETOH withdrawals, says needs a detox Time Seen by Provider: 06/17/20 19:24 Source: patient Mode of arrival: Ambulatory Limitations: no limitations History of Present Illness HPI narrative: Patient is a 39-year-old male with a history of alcohol abuse. He states he has been drinking on a daily basis for the past year. He states that 1 year ago he did spend some time in a inpatient rehab but as soon as he got out he started drinking again. He does drink on a daily basis. His last drink was approximately 5 hours prior to arrival here in the ER. He states he has withdrawn from alcohol in the past to include shakes. He does states he has had 2 seizures in the past he denies any other drug abuse. Has a history of depression and reflux disease and takes medications for this. He states he does have a inpatient rehab bed available to him on Saturday but he needs detox. Related Data Home Medications Medication Instructions Recorded Confirmed quetiapine 50 mg PO BEDTIME 01/20/20 01/20/20 Previous Rx's Medication Instructions Recorded multivitamin [Tab-A-Marilou] 1 tab PO DAILY #30 tab 10/09/17 sertraline [Zoloft] 50 mg PO BEDTIME #30 tab 10/09/17 chlordiazepoxide HCl 50 mg PO BID #5 cap 01/22/20 folic acid 1 mg PO DAILY #30 tab 01/22/20 pantoprazole 40 mg PO 0700 #30 tab 01/22/20 thiamine HCl (vitamin B1) [Vitamin 100 mg PO DAILY #30 tab 01/22/20 B-1] lorazepam [Ativan] 1 mg PO Q4-6H PRN #6 tab 06/18/20 Allergies Allergy/AdvReac Type Severity Reaction Status Date / Time No Known Drug Allergies Allergy Verified 06/17/20 17:29 Review of Systems Constitutional Constitutional: Denies fever(s) and Denies headache(s) ENT Ears, Nose, Mouth, and Throat: Denies headache(s) Cardiovascular Cardiovascular: Denies chest pain and Denies dyspnea Respiratory Respiratory: Denies dyspnea Gastrointestinal Gastrointestinal: Denies abdominal pain and Denies nausea Integumentary/Breasts Skin/Breast: Denies rash Neurologic Neurologic: Denies headache(s) and Denies seizure-like activity Psychiatric Psychiatric: Denies anxiety Hematologic/Lymphatic On Anticoagulants: No Patient History Medical History Alcohol withdrawal Alcoholism Anxiety Depression Surgical History (Updated 01/21/20 @ 03:10 by FROILAN Gómez) No history of previous surgery Family History (Updated 01/21/20 @ 03:10 by FROILAN Gómez) Other No significant past medical history Social History household members: family Smoking Status: Current some day smoker alcohol intake: current substance use type: does not use Smoking Status: Current some day smoker alcohol intake frequency: 3 or more drinks per day Alcohol type: beer Substance Use Type: does not use Exam Initial Vital Signs Initial Vital Signs: Vital Signs Temperature 98.6 F 06/17/20 17:27 Pulse Rate 99 H 06/17/20 17:27 Respiratory Rate 12 06/17/20 17:27 Blood Pressure 139/80 06/17/20 17:27 Pulse Oximetry 96 06/17/20 17:27 Const General: cooperative, comfortable and well developed Limitations: mental status not altered [facility] Head: normal to inspection and normocephalic Resp Effort & Inspection: normal respiratory effort Auscultation: clear to auscultation bilaterally Cardio Rate: regular rate Rhythm: regular rhythm GI Inspection: non-distended Palpation: soft Skin Lesions: no lesions Rashes: no rashes Neuro General: patient alert and patient awake Cognition: normal cognition Speech: speech normal Extrem General: capillary refill normal Psych Appearance: grossly normal and well kempt Scores GCS Trini coma scale eye opening: Spontaneous Trini coma scale verbal response: Orientated Trini coma scale motor response: Obey commands Trini coma scale total score: 15 Course Orders Ordered: Discontinued Medications Magnesium Sulfate 2 gm/ Folic Acid 1 mg/ Thiamine HCl 100 mg / Multivitamins 10 ml/ Sodium Chloride 1,015.2 mls @ 125 mls/hr IV NOW ONE Stop: 06/18/20 03:36 Last Infusion: 06/18/20 04:10 Dose: 0 mls/hr Documented by: Admin: 06/17/20 20:09 Dose: 125 mls/hr Documented by: FER Lorazepam (Lorazepam 2 Mg/Ml Inj) 1 mg IV NOW ONE Stop: 06/18/20 02:57 Last Admin: 06/18/20 03:01 Dose: 1 mg Documented by: FER Ondansetron HCl (Ondansetron 4 Mg/2 Ml Inj) 4 mg IV NOW ONE Stop: 06/17/20 20:43 Last Admin: 06/17/20 20:48 Dose: 4 mg Documented by: FER Ondansetron HCl (Ondansetron 4 Mg/2 Ml Inj) 4 mg IV NOW ONE Stop: 06/18/20 04:10 Last Admin: 06/18/20 04:16 Dose: 4 mg Documented by: FER Phenobarbital (Phenobarbital 65 Mg/Ml Vial) 130 mg IV NOW ONE Stop: 06/17/20 19:30 Last Admin: 06/17/20 20:09 Dose: 130 mg Documented by: FER Phenobarbital (Phenobarbital 65 Mg/Ml Vial) 130 mg IV NOW ONE Stop: 06/18/20 05:28 Last Admin: 06/18/20 05:37 Dose: 130 mg Documented by: Vital Signs Vital signs: Vital Signs - 8 hr 06/17/20 22:30 06/17/20 23:00 06/17/20 23:30 Pulse Rate 91 H 90 90 Respiratory Rate 14 13 15 Blood Pressure 105/67 106/71 107/67 Pulse Oximetry 93 92 93 06/18/20 00:00 06/18/20 00:30 06/18/20 01:00 Pulse Rate 94 H 94 H 92 H Respiratory Rate 16 15 27 H Blood Pressure 120/73 111/75 120/80 Pulse Oximetry 94 94 94 06/18/20 01:30 06/18/20 02:00 06/18/20 02:30 Pulse Rate 94 H 93 H 94 H Respiratory Rate 33 H 15 15 Blood Pressure 121/78 120/79 130/83 Pulse Oximetry 94 94 95 06/18/20 03:00 06/18/20 03:30 06/18/20 04:00 Pulse Rate 96 H 94 H 97 H Respiratory Rate 20 18 20 Blood Pressure 134/90 123/82 Pulse Oximetry 95 93 94 06/18/20 04:17 06/18/20 04:30 06/18/20 05:00 Pulse Rate 98 H 97 H 101 H Respiratory Rate 14 16 15 Blood Pressure 131/86 124/80 118/79 Pulse Oximetry 95 93 95 06/18/20 05:30 06/18/20 06:00 Pulse Rate 100 H 95 H Respiratory Rate 16 17 Blood Pressure 126/81 Pulse Oximetry 95 95 Medical Decision Making Lab Data Lab results reviewed: Yes I reviewed the patient's lab results. Result diagrams: 06/17/20 20:05 06/17/20 20:05 Labs: Lab Results 06/17/20 06/17/20 06/17/20 Range/Units 20:05 20:05 20:05 WBC 6.8 (4.5-11.0) X10^3/uL RBC 3.97 L (4.5-5.9) X10^6/uL Hgb 12.4 L (13.5-17.5) g/dL Hct 36.5 L (41-53) % MCV 91.9 (80-100) fL MCH 31.1 (26-34) PG MCHC 33.9 (30-36) % RDW 14.1 (11.6-14.8) % Plt Count 149 L (150-400) X10^3/uL Neut % (Auto) 71.7 (50-75) % Lymph % (Auto) 19.6 L (25-40) % Kenton % (Auto) 6.4 (3-14) % Eos % (Auto) 2.0 (2-4) % Baso % (Auto) 0.3 (0-2) % Neut # (Auto) 4900 (7788-7495) /uL Lymph # (Auto) 1300 (0986-3960) /uL Kenton # (Auto) 400 (0-900) /uL Eos # (Auto) 100 (0-450) /uL Baso # (Auto) 0 (0-100) /uL Sodium 138 (137-145) mmol/L Potassium 3.4 (3.4-5.1) mmol/L Chloride 101 (98-107) mmol/L Carbon Dioxide 25 (22-32) mmol/L BUN 5 L (9-20) mg/dL Creatinine 0.50 L (0.66-1.25) mg/dL Estimated GFR > 60.0 (>60) mL/min BUN/Creatinine Ratio 10.0 (6-22) Glucose 192 H (70-100) mg/dL Calcium 8.7 (8.4-10.2) mg/dL Total Bilirubin 0.6 (0.2-1.3) mg/dL AST 107 H (17-59) IU/L ALT 48 (<50) IU/L Alkaline Phosphatase 146 H (38-126) U/L Total Protein 9.3 H (6.3-8.2) g/dL Albumin 4.3 (3.5-5.0) g/dL Globulin 5.0 H (1.7-4.1) g/dL Albumin/Globulin Ratio 0.9 L (1.0-2.8) Lipase 508 H (23-300) U/L U Opiates 300ng/mL cut (Negative) Ur Oxycodone Screen (Negative) Urine Methadone Screen (Negative) Ur Barbiturates Screen (Negative) U Tricyclic Antidepress (Negative) Ur Phencyclidine Scrn (Negative) Ur Amphetamines Screen (Negative) U Methamphetamines Scrn (Negative) Ur MDMA Scrn (Ecstasy) (Negative) U Benzodiazepines Scrn (Negative) Urine Cocaine Screen (Negative) U Marijuana (THC) Screen (Negative) Ethyl Alcohol 156 H ( - 10) mg/dL SARS-CoV-2 (PCR) Negative (Negative) 06/17/20 Range/Units 21:04 WBC (4.5-11.0) X10^3/uL RBC (4.5-5.9) X10^6/uL Hgb (13.5-17.5) g/dL Hct (41-53) % MCV (80-100) fL MCH (26-34) PG MCHC (30-36) % RDW (11.6-14.8) % Plt Count (150-400) X10^3/uL Neut % (Auto) (50-75) % Lymph % (Auto) (25-40) % Kenton % (Auto) (3-14) % Eos % (Auto) (2-4) % Baso % (Auto) (0-2) % Neut # (Auto) (7153-8841) /uL Lymph # (Auto) (8193-6795) /uL Kenton # (Auto) (0-900) /uL Eos # (Auto) (0-450) /uL Baso # (Auto) (0-100) /uL Sodium (137-145) mmol/L Potassium (3.4-5.1) mmol/L Chloride (98-107) mmol/L Carbon Dioxide (22-32) mmol/L BUN (9-20) mg/dL Creatinine (0.66-1.25) mg/dL Estimated GFR (>60) mL/min BUN/Creatinine Ratio (6-22) Glucose (70-100) mg/dL Calcium (8.4-10.2) mg/dL Total Bilirubin (0.2-1.3) mg/dL AST (17-59) IU/L ALT (<50) IU/L Alkaline Phosphatase (38-126) U/L Total Protein (6.3-8.2) g/dL Albumin (3.5-5.0) g/dL Globulin (1.7-4.1) g/dL Albumin/Globulin Ratio (1.0-2.8) Lipase (23-300) U/L U Opiates 300ng/mL cut Negative (Negative) Ur Oxycodone Screen Negative (Negative) Urine Methadone Screen Negative (Negative) Ur Barbiturates Screen Negative (Negative) U Tricyclic Antidepress Negative (Negative) Ur Phencyclidine Scrn Negative (Negative) Ur Amphetamines Screen Negative (Negative) U Methamphetamines Scrn Negative (Negative) Ur MDMA Scrn (Ecstasy) Negative (Negative) U Benzodiazepines Scrn Positive H (Negative) Urine Cocaine Screen Negative (Negative) U Marijuana (THC) Screen Negative (Negative) Ethyl Alcohol ( - 10) mg/dL SARS-CoV-2 (PCR) (Negative) MDM Narrative Medical decision making narrative: Patient has been in the emergency department for several hours and his highest CIWA score has been 11. His most recent score was 6. Patient has not seizure activity. Patient is medically cleared. Patient did have positive benzodiazepines in his UDS and he states that he took Librium yesterday from a prior prescription. Patient is alert and oriented x3. He has very minimal objective withdrawal symptoms. We did discuss the case with [facility] who did a phone interview with the patient who accepts him for detox. Will sent with a prescription for Ativan. I did discuss this with the patient and he agrees with plan of care.. Discharge Plan Departure Patient Disposition: Home Clinical Impression: Alcoholic intoxication, Alcohol withdrawal Instructions: DI for Alcohol Use Disorder Activity Restrictions/Additional Instructions: No driving for the next 24 hours or in the future if you drink alcohol. The prescription that you were given is to be used only under the care of the [facility] during your alcohol detox treatment. Prescriptions: New lorazepam [Ativan] 1 mg tablet 1 mg PO Q4-6H PRN (Reason: alcohol withdrawal) Qty: 6 RF: 0 No Action multivitamin [Tab-A-Marilou] Tablet 1 tab PO DAILY Qty: 30 RF: 3 sertraline [Zoloft] 50 mg Tablet 50 mg PO BEDTIME Qty: 30 RF: 0 quetiapine 50 mg Tablet 50 mg PO BEDTIME RF: 0 thiamine HCl (vitamin B1) [Vitamin B-1] 100 mg Tablet 100 mg PO DAILY Qty: 30 RF: 0 folic acid 1 mg Tablet 1 mg PO DAILY Qty: 30 RF: 0 chlordiazepoxide HCl 25 mg Capsule 50 mg PO BID Qty: 5 RF: 0 pantoprazole 40 mg Tablet,Delayed Release (Dr/Ec) 40 mg PO 0700 Qty: 30 RF: 0 Referrals: Donal Rodgers MD [Primary Care Provider] -
[2020-06-17] MEDS: MAGNESIUM SULFATE 2 GM, FOLIC ACID 1 MG, THIAMINE 100 MG, MULTIVITAMIN 10 ML in SODIUM ... IV (20:09)
[2020-06-17] MEDS: PHENobarbital 65 MG/ML VIAL 130 MG IV (20:09)
[2020-06-17 20:14] LABS: Add Manual Diff / Slide Review NO; Basophils Absolute Auto 0 /uL (0-100); Basophils Percent Auto 0.3 % (0-2); Eosinophils Absolute Auto 100 /uL (0-450); Hematocrit 36.5 % (41-53); Hemoglobin 12.4 g/dL (13.5-17.5); Lymphocytes Absolute Auto 1300 /uL (1100-4500); Lymphocytes Percent Auto 19.6 % (25-40); Mean Corpuscular HGB Conc 33.9 % (30-36); Mean Corpuscular Hemoglobin 31.1 PG (26-34); Mean Corpuscular Volume 91.9 fL (80-100); Monocytes Absolute Auto 400 /uL (0-900); Monocytes Percent Auto 6.4 % (3-14); Neutrophils Absolute Auto 4900 /uL (1500-7000); Neutrophils Percent Auto 71.7 % (50-75); Platelet Count 149 X10^3/uL (150-400); Red Blood Cell Count 3.97 X10^6/uL (4.5-5.9); Red Cell Distribution Width 14.1 % (11.6-14.8); White Blood Cell Count 6.8 X10^3/uL (4.5-11.0)
[2020-06-17 20:25] LABS: Alanine Aminotransferase 48 IU/L (<50); Albumin 4.3 g/dL (3.5-5.0); Albumin Globulin Ratio 0.9 (1.0-2.8); Alkaline Phosphatase 146 U/L (38-126); Aspartate Aminotransferase 107 IU/L (17-59); Bilirubin Total 0.6 mg/dL (0.2-1.3); Blood Urea Nitrogen 5 mg/dL (9-20); Calcium 8.7 mg/dL (8.4-10.2); Carbon Dioxide 25 mmol/L (22-32); Chloride 101 mmol/L (98-107); Estimated Glomerular Filt Rate > 60.0 mL/min (>60); Ethanol (ETOH) 156 mg/dL; Glucose 192 mg/dL (70-100); HEMOLYSIS < 15 (0-50); Lipase 508 U/L (23-300); Potassium 3.4 mmol/L (3.4-5.1); Sodium 138 mmol/L (137-145); Total Protein 9.3 g/dL (6.3-8.2)
[2020-06-17 20:46] LABS: COVID19 -Nasal RAPID Negative (Negative)
[2020-06-17] MEDS: ONDANSETRON 4 MG/2 ML INJ IV (20:48)
[2020-06-17 21:15] LABS: Ur Creatinine Normal (Normal); Ur Specific Gravity Normal (Normal); Urine Tetrahydrocannabinol Negative (Negative); Urine pH Normal (Normal)
[2020-06-17 21:16] LABS: UR Morphine/Opiate cutoff 300 Negative (Negative); Urine Amphetamines Negative (Negative); Urine Barbiturates Negative (Negative); Urine Benzodiazepines Positive (Negative); Urine Cocaine Negative (Negative); Urine MDMA Negative (Negative); Urine Methadone Negative (Negative); Urine Methamphetamines Negative (Negative); Urine Oxycodone Negative (Negative); Urine Phencyclidine Negative (Negative); Urine Tricyclic Antidepressant Negative (Negative)
[2020-06-18] VITALS (17 sets, daily range): BP systolic 111–134; BP diastolic 73–90; PULSE 92–101; RESP 14–33; O2SAT 93–95
[2020-06-18] MEDS: LORazepam 2 MG/ML INJ 1 MG IV (03:01)
[2020-06-18] MEDS: ONDANSETRON 4 MG/2 ML INJ IV (04:16)
[2020-06-18] MEDS: PHENobarbital 65 MG/ML VIAL 130 MG IV (05:37)
--- NOTE | 2020-06-18 06:14 | PC.NURSE ---
Talked to [facility], pt accepted at this time.
== END 2020-06-18 08:01 | disposition home or self-care (01) ==
PROVIDERS: Emergency Provider Emergency Medicine; PCP Family Medicine
DX: F10.229 Alcohol dependence with intoxication, unspecified (principal); F10.239 Alcohol dependence with withdrawal, unspecified; Y90.6 Blood alcohol level of 120-199 mg/100 ml; Z20.822 Contact with and (suspected) exposure to COVID-19
CPT/HCPCS: 36415; 80053; 80305; 80320; 83690; 85025; 87635; 96361; 96374; 96375; 96376; 99281; 99284; C9803; J2060; J2405; J2560; J3475

== ENCOUNTER 2020-09-13 13:54 | Inpatient (IN) | payer OTHER, MEDICAID, SELFPAY ==
[2020-01-20 20:07] VITALS: BMI 32.5
[2020-09-13] VITALS (10 sets, daily range): BP systolic 117–151; BP diastolic 90–109; PULSE 110–120; RESP 18–20; TEMP 37–37.7; O2SAT 94–96; BMI 35.6
--- NOTE | 2020-09-13 16:01 | PM.HP.1 ---
History of Present Illness History of Present Illness Date Patient Seen: 09/13/20 Time Patient Seen: 16:01 Chief complaint: ETOH WITHDRAWAL Narrative: This is a 40-year-old male with a past medical history of alcohol abuse with severe features including DTs and prior seizures, pancreatitis, and anxiety depression who initially presented to the [facility] Emergency Room after being directed there when he attempted to go to inpatient alcohol rehab. When trying to check in after trying to stop alcohol he reported sweatiness, anxiety, tremors, and sensations of things crawling on his skin. He currently denies any hallucinations or seizures. He states he drinks about 12 beers a day, but no hard liquor. He denies any other substance use. His last admission to [facility] was last year. His last presentation to [facility] appears to be in December. At [facility] he received approximately 10 mg of Ativan and 50 mg of Librium. There were no available beds near so the patient was transferred to [facility] as a direct admission for alcohol withdrawal. Upon arrival to the hospital floor, the patient was mildly tachycardic, mildly hypertensive, and had an initial CIWA score of 16. He does complain of mild nausea and mild abdominal pain, but is currently hungry Laboratory evaluation at [facility] shows a negative urinalysis, negative urine drug screen, negative COVID-19 testing. CBC shows a WBC of 5.0, hemoglobin of 12.5, hematocrit 36.8, and platelet count of 106. Chemistries showed a lactate of 1.9, negative alcohol level, negative troponin, sodium was 133, potassium 3.3, chloride 95, CO2 26, glucose was 226, creatinine was 0.85. Lipase was not checked. His total protein was 9.7 with an albumin of 3.6, T bili was 1.2, alk-phos was 107, ALT 49, AST 88 EKG showed at [facility] states sinus tachycardia with no evidence of acute ischemia. CT scan of his abdomen showed no acute abnormality except for severe diffuse fatty infiltration of the liver and splenomegaly and diverticulosis. Patient History Medical History (Updated 09/13/20 @ 16:26 by Nelson Grace DO) Alcohol withdrawal Alcoholism Anxiety Depression Pancreatitis Surgical History No history of previous surgery Family & Social History Family History Other No significant past medical history Social History: household members family Tobacco & Substance use: Tobacco type cannabis/marijuana Smoking Status Reports Former alcohol intake current alcohol intake frequency 3 or more drinks per day Substance Use Type does not use Meds Home Medications and Allergies Home Medications Medication Instructions Recorded Confirmed Type multivitamin [Tab-A-Marilou] 1 tab PO DAILY #30 tab 10/09/17 01/20/20 Rx sertraline [Zoloft] 50 mg PO BEDTIME #30 tab 10/09/17 01/20/20 Rx quetiapine 50 mg PO BEDTIME 01/20/20 01/20/20 History chlordiazepoxide HCl 50 mg PO BID #5 cap 01/22/20 Rx folic acid 1 mg PO DAILY #30 tab 01/22/20 Rx pantoprazole 40 mg PO 0700 #30 tab 01/22/20 Rx thiamine HCl (vitamin B1) [Vitamin 100 mg PO DAILY #30 tab 01/22/20 Rx B-1] lorazepam [Ativan] 1 mg PO Q4-6H PRN #6 tab 06/18/20 Rx Allergies Allergy/AdvReac Type Severity Reaction Status Date / Time No Known Drug Allergies Allergy Verified 06/17/20 17:29 Review of Systems Review of Systems Narrative: All other systems reviewed with the patient and are negative unless otherwise stated. Exam Vital Signs (past 8 hours): - 09/13/20 15:56 Temperature 99.9 F H Pulse Rate 119 H Respiratory Rate 20 Blood Pressure 144/92 H Pulse Oximetry 94 Narrative Exam Narrative: GENERAL APPEARANCE: Well developed, well nourished, mildly anxious appearing and mildly diaphoretic SKIN: Inspection of the skin reveals no rashes, ulcerations or petechiae. HEENT: Normocephalic atraumatic, extraocular muscles are intact, oropharynx is clear and mucous membranes are moist, neck is supple without adenopathy NECK: Supple and symmetric. There was no thyroid enlargement, and no tenderness, or masses were felt. CHEST: Normal AP diameter and normal contour without any kyphoscoliosis. LUNGS: Auscultation of the lungs revealed no wheezes, rhonchi, or rales. CARDIOVASCULAR: Tachycardic rate and regular rhythm without any murmurs, gallops, rubs. Peripheral pulses were 2+ and symmetric. ABDOMEN: Soft, but mildly distended and minimally tender in the epigastrium. MUSCULOSKELETAL: There was no tenderness or effusions noted. Muscle strength and tone were normal. EXTREMITIES: No cyanosis, clubbing or edema. NEUROLOGIC: Alert and oriented x 3. Normal affect. Gait was normal. Strength is +5/5 in the Upper Extremities and Lower Extremities Bilaterally. Sensation to touch was normal. + tremulousness and tongue fasciculations. Assessment & Plan Assessment & Plan narrative: Ishmael Lucas is a 40-year-old male with past medical history significant for depression, anxiety, and alcohol abuse with history of alcohol withdrawal, delirium tremens and seizure who is admitted with alcohol withdrawal. 1. Acute alcohol withdrawal in setting of chronic alcohol dependence, present on admission. Active. -Patient's last drink of alcohol was 2 days prior to admission. Patient reports history of alcohol withdrawal, delirium tremens and alcohol withdrawal seizure. The patient reports he would like to stop drinking and receive inpatient alcohol treatment. -Initial CIWA score 16 here. Continue CIWA protocol with lorazepam as needed per CIWA score. Started librium q6 hours, mild improvement with 4 mg ativan soon after admission here and will give phenobarbitol 130 mg x1 given continued symptoms. -Continue NS @ 150. MVI, folate, thiamine ordered. -MOBILE HOME INSTALLER consultation 2. Alcohol induced steatohepatitis, acute on chronic, present on admission. Active. -Continue to monitor LFTs daily, only mildly elevated at [facility]. 3. Rule out pancreatitis. -Patient reports mild abdominal pain, has history of pancreatitis, but is hungry. No lipase at [facility], will check here. CT abdomen at [facility] without pancreatic inflammation. 4. Depression and anxiety, present on admission. Stable. -Continue home medications 5. Hypokalemia, acute, present on admission - low potassium repleted at [facility], will recheck and replete as needed. Code status: Full code VTE prophylaxis: Enoxaparin Disposition: Patient likely to discharge in several days once alcohol withdrawal treated and stable possibly to inpatient alcohol treatment facility. He is admitted as an inpatient as his stay is expected to exceed two midnights. COVID-19 COVID-19 status: Negative Result date/Date tested (Pos, Neg/Pending): 09/13/20
[2020-09-13] MEDS: ONDANSETRON 4 MG ODT PO ×2 (16:06→21:15)
[2020-09-13] MEDS: chlordiazePOXIDE 25 MG CAPSULE 50 MG PO ×3 (16:06→23:31)
[2020-09-13] MEDS: LORazepam 2 MG/ML INJ 4 MG IV (16:07)
[2020-09-13] MEDS: THIAMINE 100 MG TABLET PO (16:11)
[2020-09-13] MEDS: SODIUM CHLORIDE 0.9% 1,000 ML 150 ML IV ×2 (16:22→22:21)
[2020-09-13] MEDS: PHENobarbital 65 MG/ML VIAL 130 MG IV (16:39)
[2020-09-13] MEDS: LORazepam 2 MG/ML INJ IV ×4 (18:23→23:31)
[2020-09-13 19:08] LABS: Alanine Aminotransferase 41 IU/L (<50); Albumin 4.2 g/dL (3.5-5.0); Albumin Globulin Ratio 0.9 (1.0-2.8); Alkaline Phosphatase 107 U/L (38-126); Aspartate Aminotransferase 116 IU/L (17-59); BUN Creatinine Ratio 12.7 (6-22); Bilirubin Total 1.2 mg/dL (0.2-1.3); Bilirubin Unconjugated 0.9 mg/dL (0.0-1.1); Blood Urea Nitrogen 7 mg/dL (9-20); Calcium 8.8 mg/dL (8.4-10.2); Carbon Dioxide 24 mmol/L (22-32); Chloride 97 mmol/L (98-107); Estimated Glomerular Filt Rate > 60.0 mL/min (>60); Globulin 4.8 g/dL (1.7-4.1); Glucose 281 mg/dL (70-100); HEMOLYSIS 24 (0-50); Lipase 294 U/L (23-300); Potassium 4.4 mmol/L (3.4-5.1); Sodium 131 mmol/L (137-145)
[2020-09-13 19:09] LABS: Cholesterol 159 mg/dL (140-199); HDL Cholesterol 33 mg/dL (40-60); LDL Cholesterol Calculated 79 mg/dL (<100); Triglycerides 234 mg/dL (35-150)
[2020-09-13] MEDS: LORazepam 1 MG TABLET PO (19:11)
[2020-09-13] MEDS: SERTRALINE 50 MG TABLET PO (20:51)
[2020-09-13] MEDS: QUETIAPINE 25 MG TABLET 50 MG PO (20:51)
--- NOTE | 2020-09-13 21:50 | PC.NURSE ---
Admit/Evening Shift Note- Patient arrive via EMS from [facility]. Patient able to walker fwith steady gait from stretcher to bed without assistance. Patient alert and oriented and able to make needs known to staff. Admit questions done, medications reviewed, physical assessment done, and skin check completed. Patient oriented to bed and bed controls, room, lights, phone, menu, bathroom, and call paulson/tv remote. Patient agrees to call for assistance. Bed alarm activated. Safety measures in place. Call Paulson and phoen within reach. Will continue to monitor.
[2020-09-13] MEDS: ACETAMINOPHEN 325 MG TABLET 650 MG PO (22:21)
[2020-09-14] VITALS (19 sets, daily range): BP systolic 130–151; BP diastolic 87–108; PULSE 87–114; RESP 14–22; TEMP 36.2–37.3; O2SAT 94–97
[2020-09-14] MEDS: LORazepam 2 MG/ML INJ IV ×5 (00:36→22:10)
[2020-09-14] MEDS: SODIUM CHLORIDE 0.9% 1,000 ML 150 ML IV (05:08)
[2020-09-14 06:03] LABS: Alanine Aminotransferase 39 IU/L (<50); Albumin 3.9 g/dL (3.5-5.0); Albumin Globulin Ratio 0.8 (1.0-2.8); Alkaline Phosphatase 100 U/L (38-126); Aspartate Aminotransferase 93 IU/L (17-59); Bilirubin Total 1.1 mg/dL (0.2-1.3); Blood Urea Nitrogen 9 mg/dL (9-20); Calcium 8.5 mg/dL (8.4-10.2); Carbon Dioxide 26 mmol/L (22-32); Chloride 102 mmol/L (98-107); Estimated Glomerular Filt Rate > 60.0 mL/min (>60); Globulin 4.7 g/dL (1.7-4.1); Glucose 204 mg/dL (70-100); HEMOLYSIS 20 (0-50); Magnesium 1.9 mg/dL (1.6-2.3); Potassium 3.8 mmol/L (3.4-5.1); Sodium 136 mmol/L (137-145); Total Protein 8.6 g/dL (6.3-8.2)
[2020-09-14 06:06] LABS: Basophils Absolute Auto 0 /uL (0-100); Basophils Percent Auto 0.4 % (0-2); Eosinophils Absolute Auto 100 /uL (0-450); Eosinophils Percent Auto 2.7 % (2-4); Hematocrit 37.4 % (41-53); Hemoglobin 12.6 g/dL (13.5-17.5); Lymphocytes Absolute Auto 800 /uL (1100-4500); Lymphocytes Percent Auto 22.9 % (25-40); Mean Corpuscular HGB Conc 33.7 % (30-36); Mean Corpuscular Hemoglobin 31.2 PG (26-34); Mean Corpuscular Volume 92.6 fL (80-100); Monocytes Absolute Auto 300 /uL (0-900); Monocytes Percent Auto 8.5 % (3-14); Neutrophils Absolute Auto 2400 /uL (1500-7000); Neutrophils Percent Auto 65.5 % (50-75); Red Blood Cell Count 4.03 X10^6/uL (4.5-5.9); Red Cell Distribution Width 14.4 % (11.6-14.8); White Blood Cell Count 3.7 X10^3/uL (4.5-11.0)
[2020-09-14 06:30] LABS: Add Manual Diff / Slide Review SLIDE REVIEW
[2020-09-14 06:38] LABS: Platelet Count 46 X10^3/uL (150-400); Platelet Estimate Decreased on smear; RBC Morphology Normal Morphology
[2020-09-14 06:40] LABS: Platelet Morphology Comment FEW GIANT PLATELETS
--- NOTE | 2020-09-14 06:42 | PC.NURSE ---
Nurse went into to give pts scheduled librium and protonics prior to shift change and pt was too groggy to take PO meds, Nurse sat pt up and spoke to him several times, pt opened his eyes and sat up and then immediately went back to snoring, vitals stable, after several tries meds were not given and passed on to day shift waisted meds with 2nd nurse per protocol
--- NOTE | 2020-09-14 07:47 | PC.NURSE ---
Per international manager nurse patient was too sleepy with snoring to wake up and take his pills safely this morning. webfocus developer nurse reports she attempted but held at this time. Will continue to follow.
--- NOTE | 2020-09-14 09:29 | P.PN_ITS ---
Subjective Subjective Date Patient Seen: 09/14/20 Time Patient Seen: 09:29 Interval history: This is a 40-year-old male admitted with alcohol withdrawal. Yesterday he was given 4 mg of Ativan and 130 mg of phenobarb. This morning, the patient complains of shakiness and anxiety but falls asleep quite easily. He is arousable to voice. He has had no vomiting, has no complaints of abdominal pain or chest pain this morning. He is tolerating a diet. Glucose is mildly elevated at 204 this morning and will check an A1c. Exam Vital Signs (past 8 hours): - 09/14/20 01:35 09/14/20 01:39 09/14/20 05:15 Temperature 97.6 F Pulse Rate 104 H 87 Respiratory Rate 20 16 Blood Pressure 151/108 H 139/88 Pulse Oximetry 97 97 09/14/20 06:38 Temperature Pulse Rate Respiratory Rate Blood Pressure Pulse Oximetry 97 Oxygen Delivery Method Room Air Oxygen Flow Rate 0 Narrative Exam Narrative: GENERAL APPEARANCE: Well developed, well nourished, asleep but arousable to voice. SKIN: Inspection of the skin reveals no rashes, ulcerations or petechiae. HEENT: Normocephalic atraumatic, extraocular muscles are intact, oropharynx is clear and mucous membranes are moist, neck is supple without adenopathy NECK: Supple and symmetric. There was no thyroid enlargement, and no tenderness, or masses were felt. CHEST: Normal AP diameter and normal contour without any kyphoscoliosis. LUNGS: Auscultation of the lungs revealed no wheezes, rhonchi, or rales. CARDIOVASCULAR: Regular rate and regular rhythm without any murmurs, gallops, rubs. Peripheral pulses were 2+ and symmetric. ABDOMEN: Soft, non distended, nontender MUSCULOSKELETAL: There was no tenderness or effusions noted. Muscle strength and tone were normal. EXTREMITIES: No cyanosis, clubbing or edema. NEUROLOGIC: Arousable to voice, falls asleep easily. oriented x 3 Strength is +5/5 in the Upper Extremities and Lower Extremities Bilaterally. Sensation to touch was normal. no tongue fasciculations, forced tremulousness. No resting tremor. Objective Labs Result Diagrams: 09/14/20 05:17 09/14/20 05:17 Labs: Laboratory Results - last 24 hr 09/13/20 09/13/2021 18:25 18:25 05:17 WBC 3.7 L RBC 4.03 L Hgb 12.6 L Hct 37.4 L MCV 92.6 MCH 31.2 MCHC 33.7 RDW 14.4 Plt Count 46 L Neut % (Auto) 65.5 Lymph % (Auto) 22.9 L Isabela % (Auto) 8.5 Eos % (Auto) 2.7 Baso % (Auto) 0.4 Neut # (Auto) 2400 Lymph # (Auto) 800 L Isabela # (Auto) 300 Eos # (Auto) 100 Baso # (Auto) 0 Platelet Estimate Decreased on smear Plt Morphology Comment Few giant platelets RBC Morphology Normal morphology Sodium 131 L Potassium 4.4 Chloride 97 L Carbon Dioxide 24 BUN 7 L Creatinine 0.55 L Estimated GFR > 60.0 BUN/Creatinine Ratio 12.7 Glucose 281 H Calcium 8.8 Magnesium Total Bilirubin 1.2 Conjugated Bilirubin 0.0 Unconjugated Bilirubin 0.9 AST 116 H ALT 41 Alkaline Phosphatase 107 Total Protein 9.0 H Albumin 4.2 Globulin 4.8 H Albumin/Globulin Ratio 0.9 L Triglycerides 234 H Cholesterol 159 LDL Cholesterol, Calc 79 HDL Cholesterol 33 L Lipase 294 09/14/20 05:17 WBC RBC Hgb Hct MCV MCH MCHC RDW Plt Count Neut % (Auto) Lymph % (Auto) Isabela % (Auto) Eos % (Auto) Baso % (Auto) Neut # (Auto) Lymph # (Auto) Isabela # (Auto) Eos # (Auto) Baso # (Auto) Platelet Estimate Plt Morphology Comment RBC Morphology Sodium 136 L Potassium 3.8 Chloride 102 Carbon Dioxide 26 BUN 9 Creatinine 0.53 L Estimated GFR > 60.0 BUN/Creatinine Ratio 17.0 Glucose 204 H Calcium 8.5 Magnesium 1.9 Total Bilirubin 1.1 Conjugated Bilirubin Unconjugated Bilirubin AST 93 H ALT 39 Alkaline Phosphatase 100 Total Protein 8.6 H Albumin 3.9 Globulin 4.7 H Albumin/Globulin Ratio 0.8 L Triglycerides Cholesterol LDL Cholesterol, Calc HDL Cholesterol Lipase [facility] Medical History (Updated 09/13/20 @ 16:26 by Nelson Grace DO) Alcohol withdrawal Alcoholism Anxiety Depression Pancreatitis Surgical History No history of previous surgery Family History Other No significant past medical history Social History household members: family Smoking Status: Current some day smoker alcohol intake: current substance use type: does not use Assessment & Plan Assessment & Plan narrative: Ishmael Lucas is a 40-year-old male with past medical history significant for depression, anxiety, and alcohol abuse with history of alcohol withdrawal, delirium tremens and seizure who is admitted with alcohol withdrawal. 1. Acute alcohol withdrawal in setting of chronic alcohol dependence, present on admission. Active. -Patient's last drink of alcohol was 2 days prior to admission. Patient reports history of alcohol withdrawal, delirium tremens and alcohol withdrawal seizure. The patient reports he would like to stop drinking and receive inpatient alcohol treatment. -Initial CIWA score 16 here. mild improvement on admission with 4 mg ativan soon after admission and then gave phenobarbitol 130 mg x1 with marked improvement. -Continue CIWA protocol with lorazepam as needed per CIWA score. Started librium q6 hours and will decrease to q8 today given somnolence this AM. -Continue NS @ 150. MVI, folate, thiamine ordered. -HOOP FLARING MACHINE OPERATOR consultation 2. Alcohol induced steatohepatitis, acute on chronic, present on admission. Active. -Continue to monitor LFTs daily, only mildly elevated at [facility] and improved today. 3. Ruled out pancreatitis. -Patient reports mild abdominal pain, has history of pancreatitis, but is hungry. Lipase was 294, no evidence of pancreatic inflammation on CT at [facility]. 4. Depression and anxiety, present on admission. Stable. -Continue home medications 5. Hypokalemia, acute, present on admission - low potassium repleted at [facility], now normal. Will continue to follow.0 Code status: Full code VTE prophylaxis: Enoxaparin Disposition: Anticipate discharge to inpatient rehab ideally when stable from alcohol withdrawal perspective, probably in 2-3 days. COVID-19 COVID-19 status: Negative Quality VTE Deep Vein Thrombosis/Pulmonary Embolism Present on Admission: No
[2020-09-14] MEDS: ONDANSETRON 4 MG ODT PO ×2 (09:54→17:10)
[2020-09-14] MEDS: ENOXAPARIN 40 MG/0.4 ML SYRINGE SUBCUT (09:54)
[2020-09-14] MEDS: PANTOPRAZOLE DR 40 MG TABLET PO (09:54)
[2020-09-14] MEDS: chlordiazePOXIDE 25 MG CAPSULE 50 MG PO ×2 (13:41→21:30)
[2020-09-14] MEDS: LORazepam 1 MG TABLET PO (15:55)
--- NOTE | 2020-09-14 17:32 | CM.DANOTE ---
DCP/Brief Assessment: Reviewed chart. Patient is a 40yr old male transferred to .. from [facility] for alcohol detox. PCP listed is at [place] (Dr. Mansfield). Primary payor is 1)[facility]. Met with patient this AM with provider and RN. Patient reports that he is in active detox. Patient believes that he has bed at [facility] once medical detox completed. CAMPUS RECRUITING INTERN placed call to [facility] and left message requesting call back. Provider reports that patient can d/c within the next 24-48hrs if PCN agreeable to Librium taper? If not provider reports patient will most likely need extra day for medical detox. P: CAMPUS RECRUITING INTERN to follow up on 09-15-20 re: whether or not patient has bed at [facility]? Message left today. LUX Fernandez Discharge Planning/Care Management CM Discharge Assessment Start: 09/14/20 17:27 Freq: Status: Active Protocol: Document 09/14/20 17:27 KJS (Rec: 09/14/20 17:32 KJS [id number]) Discharge Planning Assessment Assigned Mat Sewer LUX Fernandez Contact Information None listed Advance Directives? No History Provided By Patient,Medical Record Prior Living Arrangements Apartment/Condo Household Members family Independent with ADL's Yes Is patient alert and oriented? Yes Patient/Family Preference Drug/Alcohol Rehab Comment Patient requesting bed at [facility] after medical detox completed. CAMPUS RECRUITING INTERN left vm message with N today. Patient transferred from [facility] for ETOH detox. Discharge Plan Drug Rehabilitation Transportation Arrangement TBD Additional Comment Patient seen by ED CAMPUS RECRUITING INTERN within the last year (please see notes for details). Review Status In Process Next Review Type Continued Stay Review
[2020-09-14] MEDS: ACETAMINOPHEN 325 MG TABLET 650 MG PO (20:49)
[2020-09-14] MEDS: SERTRALINE 50 MG TABLET PO (21:30)
[2020-09-14] MEDS: SODIUM CHLORIDE 0.9% FLUSH 10 ML IV (21:30)
[2020-09-15] VITALS (18 sets, daily range): BP systolic 128–152; BP diastolic 85–105; PULSE 97–114; RESP 16–21; TEMP 36.3–37.4; O2SAT 94–97
[2020-09-15] MEDS: LORazepam 2 MG/ML INJ IV ×4 (00:39→14:25)
[2020-09-15] MEDS: ONDANSETRON 4 MG ODT PO ×2 (00:40→17:20)
--- NOTE | 2020-09-15 00:45 | PC.NURSE ---
When nurse went into do assessment at begining of shift, pt was lying comfortably in bed, with no visual tremors, pt reports that he is having tremors and back ache, head ache and requested ativan, original CIWA score was 7 and then as nurse was finishing assessment, the pt got up to use the bathroom and said he thought he might throw up, so CIWA score went up to 10 and 1mg IV ativan was administered per protocol along with zofran prn per order, pt agreeable and now lying comfortably in bed.
[2020-09-15] MEDS: PANTOPRAZOLE DR 40 MG TABLET PO (06:18)
[2020-09-15] MEDS: chlordiazePOXIDE 25 MG CAPSULE 50 MG PO (06:18)
--- NOTE | 2020-09-15 06:41 | PC.NURSE ---
Nurse went in to give morning meds and assess CIWA. Nurse and aid found bottles of medication in room prescribed to pt, one bottle on top of open bag at chair next to bed and the other bottle at bedside table. Nurse asked pt if he has taken any today or last night and pt denied taking any. Sertraline 50mg and Quetapine 50mg bottles both taken to charge nurse to send to pharmacy, pt agreeable and notified that bottles will be returned to pt at discharge. Upon morning assessment, pt had beading sweat over face and pt complains of head ache 8/10 pain and nausea real bad, slight tremors noticed with raise of hand, not at rest and pt states that he does see things on and off. CIWA score =11 and 2mg Iv ativan was administered at about 0640. pt lying comfortably in bed.
[2020-09-15 06:43] LABS: Alanine Aminotransferase 51 IU/L (<50); Albumin 4.2 g/dL (3.5-5.0); Albumin Globulin Ratio 0.9 (1.0-2.8); Alkaline Phosphatase 111 U/L (38-126); Aspartate Aminotransferase 136 IU/L (17-59); BUN Creatinine Ratio 19.6 (6-22); Bilirubin Total 0.9 mg/dL (0.2-1.3); Blood Urea Nitrogen 10 mg/dL (9-20); Calcium 8.7 mg/dL (8.4-10.2); Carbon Dioxide 26 mmol/L (22-32); Chloride 101 mmol/L (98-107); Estimated Glomerular Filt Rate > 60.0 mL/min (>60); Globulin 4.8 g/dL (1.7-4.1); Glucose 177 mg/dL (70-100); HEMOLYSIS 31 (0-50); Magnesium 2.1 mg/dL (1.6-2.3); Sodium 134 mmol/L (137-145)
[2020-09-15 06:48] LABS: Hemoglobin A1C% w Est Avg Glu 8.6 % (4.0-6.0)
[2020-09-15] MEDS: MULTIVITAMIN 1 TABLET 1 TAB PO (09:39)
[2020-09-15] MEDS: FOLIC ACID 1 MG TABLET PO (09:39)
[2020-09-15] MEDS: THIAMINE 100 MG TABLET PO (09:39)
[2020-09-15] MEDS: SODIUM CHLORIDE 0.9% FLUSH 10 ML IV ×3 (09:52→21:09)
[2020-09-15 11:37] LABS: Lipase 629 U/L (23-300)
--- NOTE | 2020-09-15 13:16 | CM.DPNOTE ---
DCP Note Reviewed chart. Placed call to PCN and spoke w/Lexus P# [phone] f# [phone]. Communicated throughout the morning about Qs from Dr Grace- can patient DC on Librium taper and prn ativan? Faxed med list to PCN for review. Librium taper was okay but ativan prn was being reviewed. Lexus explained that patient's bed date was scheduled 09.13.20 and patient still had a bed secured upon DC, however, [facility] does not do weekend admissions. Later spoke w/TEE Robins who explained patient's medical status had changed, possible pancreatitis flare, and patient would not DC today. Updated Lexus at N. Patient not feeling per RN so held bedside visit for now. Following closely for coordination of DCP JW
[2020-09-15] MEDS: chlordiazePOXIDE 25 MG CAPSULE PO ×2 (13:37→21:09)
--- NOTE | 2020-09-15 14:37 | P.PN_ITS ---
Subjective Subjective Date Patient Seen: 09/15/20 Time Patient Seen: 14:37 Interval history: This is a 40-year-old male admitted with alcohol withdrawal. He was a bit more alert this morning after decreasing his Librium taper yesterday. This morning he complained of epigastric pain radiating to the back with his morning meal. Lipase was checked and it was elevated compared to admission. His A1c also returned at 8.6. His diet was reduced to clear liquids. He still complains of anxiety, is sleeping much of the day, mild nausea. Exam Vital Signs (past 8 hours): - 09/15/20 08:00 09/15/20 10:00 09/15/20 10:14 Temperature 97.4 F L Pulse Rate 114 H Respiratory Rate 18 Blood Pressure 143/88 H 152/97 H Pulse Oximetry 96 96 09/15/20 10:16 09/15/20 13:24 Temperature 97.5 F L Pulse Rate 114 H 107 H Respiratory Rate 16 18 Blood Pressure 152/97 H 137/85 Pulse Oximetry 95 Oxygen Delivery Method Room Air Oxygen Flow Rate 0 Narrative Exam Narrative: GENERAL APPEARANCE: Well developed, well nourished, asleep but more alert and awake after arousal. SKIN: Inspection of the skin reveals no rashes, ulcerations or petechiae. HEENT: Normocephalic atraumatic, extraocular muscles are intact, oropharynx is clear and mucous membranes are moist, neck is supple without adenopathy NECK: Supple and symmetric. There was no thyroid enlargement, and no tenderness, or masses were felt. CHEST: Normal AP diameter and normal contour without any kyphoscoliosis. LUNGS: Auscultation of the lungs revealed no wheezes, rhonchi, or rales. CARDIOVASCULAR: Regular rate and regular rhythm without any murmurs, gallops, rubs. Peripheral pulses were 2+ and symmetric. ABDOMEN: Soft, mildly tender epigastrium, non-distended. MUSCULOSKELETAL: There was no tenderness or effusions noted. Muscle strength and tone were normal. EXTREMITIES: No cyanosis, clubbing or edema. NEUROLOGIC: Arousable to voice and more alert today, oriented x 3 Strength is +5/5 in the Upper Extremities and Lower Extremities Bilaterally. Sensation to touch was normal. no tongue fasciculations, seemingly intentional tremulousness. No resting tremor. Objective Labs Result Diagrams: 09/14/20 05:17 09/15/20 06:16 Labs: Laboratory Results - last 24 hr 09/15/20 09/15/20 09/15/20 06:16 06:16 06:16 Sodium 134 L Potassium 4.0 Chloride 101 Carbon Dioxide 26 BUN 10 Creatinine 0.51 L Estimated GFR > 60.0 BUN/Creatinine Ratio 19.6 Glucose 177 H Hemoglobin A1c 8.6 H Calcium 8.7 Magnesium 2.1 Total Bilirubin 0.9 AST 136 H ALT 51 H Alkaline Phosphatase 111 Total Protein 9.0 H Albumin 4.2 Globulin 4.8 H Albumin/Globulin Ratio 0.9 L Lipase 629 H D [facility] Medical History (Updated 09/13/20 @ 16:26 by Nelson Grace DO) Alcohol withdrawal Alcoholism Anxiety Depression Pancreatitis Surgical History No history of previous surgery Family History Other No significant past medical history Social History household members: family Smoking Status: Current some day smoker alcohol intake: current substance use type: does not use Assessment & Plan Assessment & Plan narrative: Ishmael Lucas is a 40-year-old male with past medical history significant for depression, anxiety, and alcohol abuse with history of alcohol withdrawal, delirium tremens and seizure who is admitted with alcohol withdrawal. 1. Acute alcohol withdrawal in setting of chronic alcohol dependence, present on admission. Active. -Patient's last drink of alcohol was 2 days prior to admission. Patient reports history of alcohol withdrawal, delirium tremens and alcohol withdrawal seizure. The patient reports he would like to stop drinking and receive inpatient alcohol treatment. -Initial CIWA score 16 here. mild improvement on admission with 4 mg ativan soon after admission and then gave phenobarbitol 130 mg x1 with marked improvement. -Continue CIWA protocol with lorazepam as needed per CIWA score. Started librium q6 hours and now tapered to q12. -Continue MVI, folate, thiamine ordered. -QUANTITATIVE STRATEGY ANALYST consultation appreciated. 2. Alcohol induced steatohepatitis, acute on chronic, present on admission. Active. -Continue to monitor LFTs daily, only mildly elevated at [facility]. Slightly increased today will check US as noted below. 3. Acute pancreatitis. -Patient reports worsening pain today with meals. Repeat lipase at 629. Triglycerides 234. Sertraline has been reported as possible cause of pancreatitis (isolated case report), however this is highly unlikely. Probably alcoholic induced however has not had any etoh for now 5 days and did not present with pancreatitis symptoms. - will eval with RUQ US given LFT increase. Previous ultrasound without gallstones. - CLD and pain control today. Restart low fat diet likely tomorrow if improved. 4. Depression and anxiety, present on admission. Stable. -Continue home medications 5. Hypokalemia, acute, present on admission, resolved - low potassium repleted at [facility], now normal. Will continue to follow. 6. Type 2 DM, new diagnosis, present on admission - A1c 8.6%. Will start lantus 5 tonight with sliding scale coverage. Discharge on oral metformin. Code status: Full code VTE prophylaxis: Enoxaparin Disposition: Anticipate discharge to inpatient rehab ideally when stable from alcohol withdrawal perspective. If unable to discharge tomorrow, plan would have to be for Saturday as they do not accept admissions on weekends. Quality VTE Deep Vein Thrombosis/Pulmonary Embolism Present on Admission: No
--- NOTE | 2020-09-15 14:40 | DI.US.S_ITS ---
PROCEDURE: US ABDOMEN LIMITED INDICATIONS: ETOH; ACUTE PANCREATITIS TECHNIQUE: Real-time focused scanning was performed of the abdomen, with image documentation. COMPARISON: [facility], , US ABDOMEN LIMITED, 03/07/2019, 12:01. FINDINGS: Hepatomegaly is present the liver measures 23.0 cm length. Echogenic echotexture without discrete lesion. Main portal vein measures 14 mm and appears patent. Gallbladder unremarkable. No gallbladder wall thickening. No sonographic Wilcox sign. No bile duct dilatation. The pancreas is obscured by shadowing bowel gas. IMPRESSION: Pancreas not sonographically visible therefore not evaluated. Hepatomegaly. Coarse echogenic liver suggesting diffuse hepatocellular disease/fatty infiltration. Please correlate with LFTs. Dictated by: Flex Smith M.D. on 09/15/2020 at 17:20 Approved by: Flex Smith M.D. on 09/15/2020 at 17:22
--- NOTE | 2020-09-15 15:30 | PC.NURSE ---
Addendum entered by Aruna Rodriguez R.N. 09/15/20 19:22: 1820:Called into patients room by patient, again requesting IV ativan. Notified Dr Grace that patient is requesting IV ativan specifically and asked for orders regarding administration d/t patients stated complaints are inconsistent with presentation. New orders for IV ativan to be discontinued. 1920: went to perform 2 hr post PO ativan CIWA scale, patient appears to be resting comfortably. In JUN CIWA reassessment, score is a 0 d/t patient sleeping. Addendum entered by Aruna Rodriguez R.N. 09/15/20 17:32: Called into patients room at patient's request to discuss medications. Patient wanted to know when he could get more ativan. Educated patient to patient that it was dependent on CIWA assessment and patient reported I'm ready, educated patient that assessment was already taking place to which patient replied oh. Educated patient the difference between oral ativan and IV ativan and its function and dosing schedule. Patient requesting IV ativan because it's quicker and feels better. Educated patient that preference of onset of medication by the patient is not a valid reason when nursing staff chooses between IV and PO ativan. Educated patient that tapering of ativan is necessary part of recovery prior to discharge to rehab facility. Patient acknowledge all teaching, asked questions throughout and verbalized understanding. CIWA at time of assessment was 8, medicated per JUN. Original Note: Shift note: 1530: went to assess patient for CIWA protocol and patient appears to be resting comfortably.
[2020-09-15] MEDS: INSULIN LISPRO 100 UNIT/ML 3ML VIAL SUBCUT (16:55)
[2020-09-15] MEDS: LORazepam 1 MG TABLET PO (17:20)
[2020-09-15] MEDS: ACETAMINOPHEN 325 MG TABLET 650 MG PO (18:27)
[2020-09-15] MEDS: INSULIN GLARGINE 100 UNIT/ML 3ML PEN SUBCUT (21:09)
[2020-09-15] MEDS: SERTRALINE 50 MG TABLET PO (21:09)
[2020-09-16] MEDS: ONDANSETRON 4 MG ODT PO ×2 (00:01→06:12)
[2020-09-16] MEDS: ACETAMINOPHEN 325 MG TABLET 650 MG PO ×2 (00:02→06:12)
[2020-09-16 01:00] VITALS: O2SAT 97
[2020-09-16 04:33] VITALS: BP 133/81; PULSE 100; RESP 18; TEMP 36.4; O2SAT 95
--- NOTE | 2020-09-16 04:36 | PC.NURSE ---
Patient had 2-3 on CIWA scoring. No ativan given. Did c/o slight nausea, received zofran. Received tylenol for generalized abdominal pain. Spoke with provider and inquired about possible po ativan prn for CIWA less than 8 score. No order at this time. Stated do not check blood glucose during the middle of the night.
[2020-09-16 05:00] VITALS: O2SAT 95
[2020-09-16] MEDS: chlordiazePOXIDE 25 MG CAPSULE PO (06:10)
[2020-09-16] MEDS: PANTOPRAZOLE DR 40 MG TABLET PO (06:10)
[2020-09-16 06:30] LABS: Add Manual Diff / Slide Review NO; Basophils Absolute Auto 0 /uL (0-100); Basophils Percent Auto 0.2 % (0-2); Eosinophils Absolute Auto 200 /uL (0-450); Eosinophils Percent Auto 2.8 % (2-4); Hemoglobin 12.9 g/dL (13.5-17.5); Lymphocytes Absolute Auto 1000 /uL (1100-4500); Lymphocytes Percent Auto 16.5 % (25-40); Mean Corpuscular HGB Conc 33.9 % (30-36); Mean Corpuscular Hemoglobin 31.1 PG (26-34); Mean Corpuscular Volume 91.8 fL (80-100); Monocytes Absolute Auto 500 /uL (0-900); Monocytes Percent Auto 8.2 % (3-14); Neutrophils Absolute Auto 4200 /uL (1500-7000); Neutrophils Percent Auto 72.3 % (50-75); Platelet Count 87 X10^3/uL (150-400); Red Blood Cell Count 4.13 X10^6/uL (4.5-5.9); Red Cell Distribution Width 14.4 % (11.6-14.8); White Blood Cell Count 5.8 X10^3/uL (4.5-11.0)
[2020-09-16 06:44] LABS: Alanine Aminotransferase 54 IU/L (<50); Albumin 4.2 g/dL (3.5-5.0); Albumin Globulin Ratio 0.9 (1.0-2.8); Alkaline Phosphatase 108 U/L (38-126); Aspartate Aminotransferase 125 IU/L (17-59); BUN Creatinine Ratio 17.3 (6-22); Blood Urea Nitrogen 9 mg/dL (9-20); Calcium 8.6 mg/dL (8.4-10.2); Carbon Dioxide 25 mmol/L (22-32); Chloride 101 mmol/L (98-107); Estimated Glomerular Filt Rate > 60.0 mL/min (>60); Globulin 4.9 g/dL (1.7-4.1); Glucose 164 mg/dL (70-100); HEMOLYSIS 43 (0-50); Magnesium 2.2 mg/dL (1.6-2.3); Potassium 3.3 mmol/L (3.4-5.1); Sodium 137 mmol/L (137-145); Total Protein 9.1 g/dL (6.3-8.2)
[2020-09-16 08:00] VITALS: BP 141/98; PULSE 97; RESP 20; TEMP 36.7; O2SAT 95
[2020-09-16] MEDS: THIAMINE 100 MG TABLET PO (08:26)
[2020-09-16] MEDS: INSULIN LISPRO 100 UNIT/ML 3ML VIAL SUBCUT (08:26)
[2020-09-16] MEDS: FOLIC ACID 1 MG TABLET PO (08:26)
[2020-09-16] MEDS: MULTIVITAMIN 1 TABLET 1 TAB PO (08:26)
[2020-09-16] MEDS: SODIUM CHLORIDE 0.9% FLUSH 10 ML IV (08:27)
--- NOTE | 2020-09-16 10:24 | PM.DS.1 ---
History of Present Illness History of Present Illness Date Patient Seen: 09/16/20 Time Patient Seen: 10:24 Chief complaint: ETOH WITHDRAWAL Narrative: This is a 40-year-old male with a past medical history of alcohol abuse with severe features including DTs and prior seizures, pancreatitis, and anxiety depression who initially presented to the [facility] Emergency Room after being directed there when he attempted to go to inpatient alcohol rehab. When trying to check in after trying to stop alcohol he reported sweatiness, anxiety, tremors, and sensations of things crawling on his skin. He currently denies any hallucinations or seizures. He states he drinks about 12 beers a day, but no hard liquor. He denies any other substance use. His last admission to [facility] was last year. His last presentation to [facility] appears to be in December. At [facility] he received approximately 10 mg of Ativan and 50 mg of Librium. There were no available beds near so the patient was transferred to [facility] as a direct admission for alcohol withdrawal. Upon arrival to the hospital floor, the patient was mildly tachycardic, mildly hypertensive, and had an initial CIWA score of 16. He does complain of mild nausea and mild abdominal pain, but is currently hungry Laboratory evaluation at [facility] shows a negative urinalysis, negative urine drug screen, negative COVID-19 testing. CBC shows a WBC of 5.0, hemoglobin of 12.5, hematocrit 36.8, and platelet count of 106. Chemistries showed a lactate of 1.9, negative alcohol level, negative troponin, sodium was 133, potassium 3.3, chloride 95, CO2 26, glucose was 226, creatinine was 0.85. Lipase was not checked. His total protein was 9.7 with an albumin of 3.6, T bili was 1.2, alk-phos was 107, ALT 49, AST 88 EKG showed at [facility] states sinus tachycardia with no evidence of acute ischemia. CT scan of his abdomen showed no acute abnormality except for severe diffuse fatty infiltration of the liver and splenomegaly and diverticulosis. Discharge Providers Provider Date of admission: 09/13/20 13:54 Discharge Date: 09/16/20 Primary care physician: Donal Rodgers MD Discharge provider: Nelson Grace DO Summary Hospital Course Hospital Course: Ishmael Lucas is a 40-year-old male with past medical history significant for depression, anxiety, and alcohol abuse with history of alcohol withdrawal, delirium tremens and seizure who is admitted with alcohol withdrawal. 1. Acute alcohol withdrawal in setting of chronic alcohol dependence, present on admission. Active. -Patient's last drink of alcohol was 2 days prior to admission. Patient reports history of alcohol withdrawal, delirium tremens and alcohol withdrawal seizure. The patient reports he would like to stop drinking and receive inpatient alcohol treatment. -Initial CIWA score 16 here. mild improvement on admission with 4 mg ativan soon after admission and then gave phenobarbitol 130 mg x1 with marked improvement. -Continued CIWA protocol with lorazepam as needed per CIWA score. Started librium q6 hours and now tapered to q12. As an outpatient in alcoholic rehab will continue librium taper x2 more doses, continue ativan 2 mg PO q4hr prn, prescribed 20 tabs. Please note that patient told nursing staff he liked the feeling of IV ativan and was requesting IV ativan from nursing staff. He was also noted to be feigning symptoms of withdrawal (shaking, anxiety, etc) in attempts to increase his CIWA score. -Continue MVI, folate, thiamine ordered. -SERVICE ADMINISTRATOR consultation appreciated. 2. Alcohol induced steatohepatitis, acute on chronic, present on admission. Active. -Continued to monitor with stable transaminase levels. Abdominal ultrasound and CT imaging showing steatosis only. 3. Acute pancreatitis. -Patient reports worsening pain today with meals on HD#2, improved with reducing diet to clears and tolerated low fat breakfast. Repeat lipase at 629 on HD#2 up from <300 on admission. Triglycerides 234. Sertraline has been reported as possible cause of pancreatitis (isolated case report), however this is highly unlikely. Probably alcoholic induced however has not had any etoh for now 5 days and did not present with pancreatitis symptoms. - Abdominal ultrasound without gallstones. 4. Depression and anxiety, present on admission. Stable. -Continue home medications 5. Hypokalemia, acute, present on admission, resolved - low potassium repleted at [facility], now normal. 6. Type 2 DM, new diagnosis, present on admission - A1c 8.6%. Started lantus 5 units with sliding scale coverage. Discharge on oral metformin. PCP follow up recommended for continued titration. 7. Thrombocytopenia, acute on chronic - Plt dropped to <50 with subsequent improvemnt to near baseline around 100. no bleeding noted. likely due to etoh use Exam Vital Signs (past 8 hours): - 09/16/20 04:33 09/16/20 05:00 09/16/20 08:00 Temperature 97.5 F L 98.1 F Pulse Rate 100 H 97 H Respiratory Rate 18 20 Blood Pressure 133/81 141/98 H Pulse Oximetry 95 95 95 Oxygen Delivery Method Room Air Oxygen Flow Rate 0 Narrative Exam Narrative: GENERAL APPEARANCE: Well developed, well nourished, asleep but more alert and awake after arousal. SKIN: Inspection of the skin reveals no rashes, ulcerations or petechiae. HEENT: Normocephalic atraumatic, extraocular muscles are intact, oropharynx is clear and mucous membranes are moist, neck is supple without adenopathy NECK: Supple and symmetric. There was no thyroid enlargement, and no tenderness, or masses were felt. CHEST: Normal AP diameter and normal contour without any kyphoscoliosis. LUNGS: Auscultation of the lungs revealed no wheezes, rhonchi, or rales. CARDIOVASCULAR: Regular rate and regular rhythm without any murmurs, gallops, rubs. Peripheral pulses were 2+ and symmetric. ABDOMEN: Soft, non-tender, non-distended. MUSCULOSKELETAL: There was no tenderness or effusions noted. Muscle strength and tone were normal. EXTREMITIES: No cyanosis, clubbing or edema. NEUROLOGIC: Arousable to voice and more alert today, oriented x 3 Strength is +5/5 in the Upper Extremities and Lower Extremities Bilaterally. Sensation to touch was normal. no tongue fasciculations, seemingly intentional tremulousness. No resting tremor. Objective Labs Result Diagrams: 09/16/20 06:02 09/16/20 06:02 Labs: Laboratory Results - last 24 hr 09/15/20 09/16/20 09/16/20 06:16 06:02 06:02 WBC 5.8 RBC 4.13 L Hgb 12.9 L Hct 38.0 L MCV 91.8 MCH 31.1 MCHC 33.9 RDW 14.4 Plt Count 87 L Neut % (Auto) 72.3 Lymph % (Auto) 16.5 L Harris % (Auto) 8.2 Eos % (Auto) 2.8 Baso % (Auto) 0.2 Neut # (Auto) 4200 Lymph # (Auto) 1000 L Harris # (Auto) 500 Eos # (Auto) 200 Baso # (Auto) 0 Sodium 137 Potassium 3.3 L Chloride 101 Carbon Dioxide 25 BUN 9 Creatinine 0.52 L Estimated GFR > 60.0 BUN/Creatinine Ratio 17.3 Glucose 164 H Calcium 8.6 Magnesium 2.2 Total Bilirubin 1.0 AST 125 H ALT 54 H Alkaline Phosphatase 108 Total Protein 9.1 H Albumin 4.2 Globulin 4.9 H Albumin/Globulin Ratio 0.9 L Lipase 629 H D PFSH Medical History (Updated 09/13/20 @ 16:26 by Nelson Grace DO) Alcohol withdrawal Alcoholism Anxiety Depression Pancreatitis Surgical History No history of previous surgery Family History Other No significant past medical history Social History household members: family Smoking Status: Current some day smoker alcohol intake: current substance use type: does not use Discharge Plan Discharge Plan Patient Disposition: Home Provider Discharge Comment: You were admitted to the hospital with alcohol withdrawal and mild pancreatitis. Please follow a low fat diet. You are being discharged to inpatient rehab with as needed ativan. 2 more doses of librium as well prescribed. You have a new diagnosis of diabtetes. You are being started on a daily medication. Please follow up with a primary care provider for continued medications as there may need to be adjustments as an outpatient. Discharge orders & Medications Prescriptions: New chlordiazepoxide HCl 25 mg capsule 25 mg PO Q12H 1 Days Qty: 2 RF: 0 lorazepam 2 mg tablet 2 mg PO Q4HR PRN (Reason: alcohol withdrawal) 7 Days Qty: 20 RF: 0 metformin 500 mg tablet 500 mg PO BID 30 Days Qty: 60 RF: 0 Continued sertraline [Zoloft] 50 mg Tablet 50 mg PO BEDTIME Qty: 30 RF: 0 quetiapine 50 mg Tablet 50 mg PO BEDTIME RF: 0 thiamine HCl (vitamin B1) [Vitamin B-1] 100 mg Tablet 100 mg PO DAILY Qty: 30 RF: 0 pantoprazole 40 mg Tablet,Delayed Release (Dr/Ec) 40 mg PO 0700 Qty: 30 RF: 0 Follow up/Referrals: Donal Rodgers MD [Primary Care Provider] - Diet/Activity/Treatments Diet: Diet as Tolerated and Low-fat Diet comment: Low fat diet for pancreatitis Activity: As tolerated Discharge Data Primary Care Provider: Donal Rodgers Quality VTE Deep Vein Thrombosis/Pulmonary Embolism Present on Admission: No MIPS - Admit I confirm the patient?s Advance Care Plan is present, Code status is documented, Surrogate decision maker is in patient?s record [If Yes, STOP here]: Yes MIPS - DC The patient has current or prior documentation of left ventricular ejection fraction (LVEF) less than 40%, or moderate or severely depressed left ventricular systolic function.: No
[2020-09-16 13:00] VITALS: O2SAT 97
[2020-09-16 13:30] LABS: COVID19 -Nasal RAPID Negative (Negative)
--- NOTE | 2020-09-17 08:33 | CM.SWNOTE ---
RIM TURNING MACHINE OPERATOR Note- Late Entry According to Dr Grace, patient medically ready to DC 5.21.21. Patient agreeable to discharging to [facility]. However, according to TEE Cruz, patient had been asking to go home so I can buy a new glucometer. This RIM TURNING MACHINE OPERATOR educated RN: Patient will DC from and be secured a taxi directly to [facility], no stops. Placed call to Lexus at [facility] yesterday morning, LM. Placed another call at approx. 1300 and spoke w/Lexus re: coordination of this DC. Lexus alerted this RIM TURNING MACHINE OPERATOR that I received an email from our provider yesterday stating patient needs to be off IV meds, and po ativan and librium which was contradictory to the information she had provided on . Requested a doc to doc to discuss, and Lexus suggested Dr Grace contact FROILAN Gonzalez by email at [email or web address]. No contact number provided Discussed w/Dr Grace who suggested patient could DC w/o ativan and librium and stressed that patient was medically stable to DC. Updated Lexus who agreed that patient could come yesterday afternoon for admission. Meanwhile, this RIM TURNING MACHINE OPERATOR awaiting f/u from [facility] transport to schedule a taxi to [facility]. Patient's Rx for Metoprolol was sent to [facility] so that he could p/u and take with him. Entered patient's room to update on progress and patient was agitated, patient wanted to go home to get $ in order to buy a new glucometer, patient discussed his new dx of Diabetes. This RIM TURNING MACHINE OPERATOR suggested he could go w/o this device for now and ask for help in obtaining once he was at [facility]; reminded patient that he was at risk of losing his bed date if he did not admit to [facility] today. Patient continued to be agitated and stated I have been waiting to leave for 3 hours, I am just going to leave patient told this RIM TURNING MACHINE OPERATOR he would get his Rx from [facility] and have one of my brothers give me a ride (to [facility]). This RIM TURNING MACHINE OPERATOR strongly encouraged patient to wait for a secured taxi ride from to [facility] to assist in goal of sobriety and ALBINO treatment...patient refused. TEE Cruz updated and patient was given DC instructions for home DC KAREN Yang placed call to [facility] transport to update and this RIM TURNING MACHINE OPERATOR placed call to Lexus at [facility], had to LM updating on above. [phone]: Checked a msg from FROILAN Gonzalez this AM and she explained that she wanted to see this patient off his librium and ativan x24 hrs to confirm he was safe enough for admission to [facility]. P# [phone]. LUX Cisneros
== END 2020-09-16 13:43 | disposition other institution (70) | DRG 775 ==
PROVIDERS: Admitting Provider Internal Medicine; PCP Family Medicine; Referring Provider Internal Medicine; Visit Provider Internal Medicine
DX: F10.239 Alcohol dependence with withdrawal, unspecified (principal); E87.6 Hypokalemia; K70.10 Alcoholic hepatitis without ascites; K85.20 Alcohol induced acute pancreatitis without necrosis or infection; D69.59 Other secondary thrombocytopenia; F41.9 Anxiety disorder, unspecified; F32.9 Major depressive disorder, single episode, unspecified; K76.0 Fatty (change of) liver, not elsewhere classified; E11.9 Type 2 diabetes mellitus without complications; Z20.822 Contact with and (suspected) exposure to COVID-19
CPT/HCPCS: 36415; 76705; 80048; 80053; 80061; 80076; 82962; 83036; 83690; 83735; 85025; 87635; C9803; J1650; J1815; J2060; J2560

== ENCOUNTER 2022-01-10 10:27 | Inpatient (IN) | payer OTHER, MEDICAID, SELFPAY ==
[2020-09-13 16:16] VITALS: BMI 35.6
[2022-01-10] VITALS (14 sets, daily range): BP systolic 120–169; BP diastolic 76–99; PULSE 73–117; RESP 16–22; TEMP 36.2–36.8; O2SAT 92–99; BMI 28.5
[2022-01-10] MEDS: ONDANSETRON 4 MG ODT SL (11:09)
[2022-01-10] MEDS: HYDROMORPHONE 1 MG INJ IM (11:09)
[2022-01-10 12:02] LABS: Add Manual Diff / Slide Review NO; Basophils Absolute Auto 0 /uL (0-100); Basophils Percent Auto 0.2 % (0-2); Eosinophils Absolute Auto 0 /uL (0-450); Eosinophils Percent Auto 0.6 % (2-4); Hematocrit 34.2 % (41-53); Lymphocytes Absolute Auto 400 /uL (1100-4500); Lymphocytes Percent Auto 8.4 % (25-40); Mean Corpuscular HGB Conc 35.1 % (30-36); Mean Corpuscular Hemoglobin 31.3 PG (26-34); Mean Corpuscular Volume 89.1 fL (80-100); Monocytes Absolute Auto 500 /uL (0-900); Monocytes Percent Auto 8.8 % (3-14); Neutrophils Absolute Auto 4300 /uL (1500-7000); Platelet Count 133 X10^3/uL (150-400); Red Blood Cell Count 3.84 X10^6/uL (4.5-5.9); Red Cell Distribution Width 14.1 % (11.6-14.8); White Blood Cell Count 5.3 X10^3/uL (4.5-11.0)
[2022-01-10 12:13] LABS: Alanine Aminotransferase 23 IU/L (<50); Albumin 3.7 g/dL (3.5-5.0); Albumin Globulin Ratio 0.8 (1.0-2.8); Alkaline Phosphatase 85 U/L (38-126); Aspartate Aminotransferase 31 IU/L (17-59); BUN Creatinine Ratio 14.8 (6-22); Bilirubin Total 1.2 mg/dL (0.2-1.3); Blood Urea Nitrogen 8 mg/dL (9-20); Calcium 8.7 mg/dL (8.4-10.2); Carbon Dioxide 26 mmol/L (22-32); Chloride 100 mmol/L (98-107); Estimated Glomerular Filt Rate > 60 mL/min (>60); Globulin 4.7 g/dL (1.7-4.1); Glucose 169 mg/dL (70-100); HEMOLYSIS < 15 (0-50); Lipase 1925 U/L (23-300); Potassium 3.3 mmol/L (3.4-5.1); Sodium 139 mmol/L (137-145); Total Protein 8.4 g/dL (6.3-8.2)
[2022-01-10 12:18] LABS: INR 1.5 (0.9-1.3); Prothrombin Time 16.9 SECONDS (10.1-12.7)
[2022-01-10 12:20] LABS: PTT Partial Thromboplastin Tim 29 SECONDS (26-36)
--- NOTE | 2022-01-10 12:53 | ED.ABDPAIN ---
HPI - Abdominal Pain General Chief Complaint: Abdominal Pain Stated Complaint: Pancreatitis flare up x 5 days Time Seen by Provider: 01/10/22 11:36 Source: patient Mode of arrival: Ambulatory History of Present Illness HPI narrative: Patient is a 41-year-old male history of pancreatitis presenting today with pancreatitis, he says he actually was seen and evaluated at [facility] last week about 6 days ago for the same. He said his lipase was 900 at the time he was given home prescriptions. He went home he took the medication he was unable to keep any fluids down he feels like his pain has gone worse. He was a hard IV stick and he was given a shot of Dilaudid which has seemed to help. He is no longer vomiting. However pain seems to be worse. He does have a history of alcohol abuse. He knows that he is trying to stop. Related Data Home Medications Medication Instructions Recorded Confirmed quetiapine 50 mg tablet 50 mg PO BEDTIME 01/20/20 01/10/22 clonidine HCl 0.2 mg tablet 0.2 mg PO DAILY 01/10/22 01/10/22 Previous Rx's Medication Instructions Recorded sertraline 50 mg tablet (Zoloft) 50 mg PO BEDTIME #30 tabs 10/09/17 Allergies Allergy/AdvReac Type Severity Reaction Status Date / Time No Known Drug Allergies Allergy Verified 01/10/22 10:47 Review of Systems Review of Systems Narrative: GENERAL: Denies chills, fatigue, malaise, fever, sweats, travel HEENT: Denies sinus pain, ear pain, sore throat, difficulty swallowing, neck pain RESPIRATORY: Denies dyspnea, cough, wheezing, hemoptysis, sputum. CARDIOVASCULAR: Denies chest pain, palpitations, orthopnea, edema GASTROINTESTINAL: See HPI : Denies dysuria, frequency, incontinence, hematuria, urinary retention, flank pain. MUSCULOSKELETAL: Denies weakness, joint pain, or bony pain SKIN: No rash, no erythema, no pruritus NEUROLOGIC: Denies weakness, dizziness, headache, numbness, change in speech, confusion PSYCHIATRIC: No concerning psychosocial issues. 12 point review of systems is negative except for those stated above and HPI Patient History Medical History Alcohol withdrawal Alcoholism Anxiety Depression Pancreatitis Surgical History No history of previous surgery Family History Other No significant past medical history Social History household members: family Smoking Status: Never smoker alcohol intake: current substance use type: does not use Smoking Status: Never smoker alcohol intake frequency: 3 or more drinks per day Alcohol type: beer Substance Use Type: does not use Exam Initial Vital Signs Initial Vital Signs: Vital Signs Temperature 98.2 F 01/10/22 10:43 Pulse Rate 117 H 01/10/22 10:43 Respiratory Rate 22 01/10/22 10:43 Blood Pressure 169/99 H 01/10/22 10:43 Pulse Oximetry 98 01/10/22 10:43 Oxygen Delivery Method 01/10/22 10:43 GENERAL: Alert pleasant 41-year-old male and in no acute distress. HEENT: Head atraumatic,EOMI, pupils reactive, face symmetric, moist mucous membranes CARDIOVASCULAR: Regular rate and rhythm without murmurs, rubs or gallops. RESPIRATORY: Breath sounds equal bilaterally, no wheezes rales or rhonchi. ABDOMEN: Tender periumbilical no distension minimal guarding no right upper quadrant pain EXTREMITIES: Normal range of motion, no clubbing or edema. Neurovascularly intact NEUROLOGICAL: Alert and oriented x4.Normal gait and speech. SKIN: Warm, dry, no laceration, no petechiae, no rashes or lesions. Course Orders Ordered: ED Orders 01/10/22 10:48 EKG-12 Lead Stat 01/10/22 11:45 Complete Blood Count AUTO DIFF Stat Comprehensive Metabolic Panel Stat Lipase Stat Partial Thromboplastin Time Stat Prothrombin Time INR Stat 01/10/22 12:56 Ictotest Urine Stat Urinalysis and Microscopic Stat 01/10/22 13:16 COVID19 -Nasal RAPID/Pre-Proc Stat Enoxaparin Sodium (Enoxaparin 40 Mg/0.4 Ml Syringe) 40 mg SUBCUT DAILY KAYLA Hydromorphone HCl (Hydromorphone 1 Mg Inj) 1 mg IV Q3H PRN PRN Reason: Pain, Severe (7-10) Last Admin: 01/10/22 16:32 Dose: 1 mg Documented By: BT Lactated Ringer's (Lactated Ringers) 1,000 mls @ 250 mls/hr IV CONT KAYLA Last Admin: 01/10/22 16:31 Dose: 250 mls/hr Documented By: FLAKITA Ondansetron HCl (Ondansetron 4 Mg/2 Ml Inj) 4 mg IV Q6HR PRN PRN Reason: Nausea And Vomiting Quetiapine Fumarate (Quetiapine 25 Mg Tablet) 50 mg PO BEDTIME KAYLA Sertraline HCl (Sertraline 50 Mg Tablet) 50 mg PO BEDTIME KAYLA Discontinued Medications Hydromorphone HCl (Hydromorphone 1 Mg Inj) 1 mg IM NOW ONE Stop: 01/10/22 11:03 Last Admin: 01/10/22 11:09 Dose: 1 mg Documented By: DMITRY Hydromorphone HCl (Hydromorphone 1 Mg Inj) 1 mg IV NOW ONE Stop: 01/10/22 13:59 Last Admin: 01/10/22 14:00 Dose: 1 mg Documented By: JADON Sodium Chloride (Normal Saline 0.9%) 1,000 mls @ 1,000 mls/hr IV BOLUS ONE Stop: 01/10/22 12:01 Last Infusion: 01/10/22 14:10 Dose: 0 mls/hr Documented By: Admin: 01/10/22 13:08 Dose: 1,000 mls/hr Documented By: JADON Sodium Chloride (Normal Saline 0.9%) 1,000 mls @ 1,000 mls/hr IV BOLUS ONE Stop: 01/10/22 16:39 Last Infusion: 01/10/22 15:59 Dose: 1,000 mls/hr Documented By: Admin: 01/10/22 15:42 Dose: 1,000 mls/hr Documented By: AMANDEEP Ondansetron HCl (Ondansetron 4 Mg/2 Ml Inj) 4 mg IV NOW ONE Stop: 01/10/22 10:49 Last Admin: 01/10/22 11:08 Dose: Not Given Documented By: DMITRY Ondansetron HCl (Ondansetron 4 Mg Odt) 4 mg SL NOW ONE Stop: 01/10/22 11:03 Last Admin: 01/10/22 11:09 Dose: 4 mg Documented By: DMITRY Ondansetron HCl (Ondansetron 4 Mg/2 Ml Inj) 4 mg IV NOW ONE Stop: 01/10/22 14:05 Last Admin: 01/10/22 14:09 Dose: 4 mg Documented By: JADON Phenobarbital (Phenobarbital 65 Mg/Ml Vial) 130 mg IV NOW ONE Stop: 01/10/22 15:45 Last Admin: 01/10/22 15:51 Dose: 130 mg Documented By: [facility] Vital Signs Vital signs: Vital Signs - 8 hr 01/10/22 12:57 01/10/22 12:58 01/10/22 12:58 Pulse Rate 96 H 92 H Blood Pressure 133/83 Pulse Oximetry 97 96 01/10/22 13:00 01/10/22 13:00 01/10/22 13:30 Pulse Rate 97 H Blood Pressure 140/88 131/81 Pulse Oximetry 97 01/10/22 13:30 01/10/22 14:00 01/10/22 14:01 Pulse Rate 85 88 Blood Pressure Pulse Oximetry 95 97 92 01/10/22 14:30 01/10/22 14:30 01/10/22 14:57 Pulse Rate 82 77 Blood Pressure 128/81 Pulse Oximetry 95 95 01/10/22 15:00 01/10/22 15:01 01/10/22 15:30 Pulse Rate 76 Blood Pressure 131/80 132/90 Pulse Oximetry 96 01/10/22 15:30 Pulse Rate 77 Blood Pressure Pulse Oximetry 97 MDM - Abdominal Pain Lab Data Result diagrams: 01/10/22 11:45 01/10/22 11:45 Labs: Lab Results 01/10/22 01/10/22 01/10/22 Range/Units 11:45 11:45 11:45 WBC 5.3 (4.5-11.0) X10^3/uL RBC 3.84 L (4.5-5.9) X10^6/uL Hgb 12.0 L (13.5-17.5) g/dL Hct 34.2 L (41-53) % MCV 89.1 (80-100) fL MCH 31.3 (26-34) PG MCHC 35.1 (30-36) % RDW 14.1 (11.6-14.8) % Plt Count 133 L (150-400) X10^3/uL Neut % (Auto) 82.0 H (50-75) % Lymph % (Auto) 8.4 L (25-40) % [place] % (Auto) 8.8 (3-14) % Eos % (Auto) 0.6 L (2-4) % Baso % (Auto) 0.2 (0-2) % Neut # (Auto) 4300 (0309-7080) /uL Lymph # (Auto) 400 L (1240-1286) /uL [place] # (Auto) 500 (0-900) /uL Eos # (Auto) 0 (0-450) /uL Baso # (Auto) 0 (0-100) /uL PT 16.9 H (10.1-12.7) SECONDS INR 1.5 H (0.9-1.3) APTT 29 (26-36) SECONDS Sodium 139 (137-145) mmol/L Potassium 3.3 L (3.4-5.1) mmol/L Chloride 100 (98-107) mmol/L Carbon Dioxide 26 (22-32) mmol/L BUN 8 L (9-20) mg/dL Creatinine 0.54 L (0.66-1.25) mg/dL Estimated GFR > 60 (>60) mL/min BUN/Creatinine Ratio 14.8 (6-22) Glucose 169 H (70-100) mg/dL Calcium 8.7 (8.4-10.2) mg/dL Total Bilirubin 1.2 (0.2-1.3) mg/dL AST 31 (17-59) IU/L ALT 23 (<50) IU/L Alkaline Phosphatase 85 (38-126) U/L Total Protein 8.4 H (6.3-8.2) g/dL Albumin 3.7 (3.5-5.0) g/dL Globulin 4.7 H (1.7-4.1) g/dL Albumin/Globulin Ratio 0.8 L (1.0-2.8) Lipase 1925 H (23-300) U/L Urine Color Urine Appearance Urine pH (4.5-8.0) Ur Specific [place] (1.000-1.035) Urine Protein (Negative) Urine Glucose (UA) (Negative) g/dL Urine Ketones (NEGATIVE) Urine Occult Blood (Negative) Urine Nitrate (Negative) Urine Bilirubin (NEGATIVE) Ur Bilirubin Confirm (Negative) Urine Urobilinogen (0.2) E.U./dL Ur Leukocyte Esterase (NEGATIVE) Urine RBC (0-5/HPF) Urine WBC (0-5/HPF) Amorphous Sediment Urine Bacteria (None) Urine Mucus (Negative) Ur Culture Indicated? SARS-CoV-2 (PCR) (Negative) 01/10/22 01/10/22 Range/Units 12:56 13:16 WBC (4.5-11.0) X10^3/uL RBC (4.5-5.9) X10^6/uL Hgb (13.5-17.5) g/dL Hct (41-53) % MCV (80-100) fL MCH (26-34) PG MCHC (30-36) % RDW (11.6-14.8) % Plt Count (150-400) X10^3/uL Neut % (Auto) (50-75) % Lymph % (Auto) (25-40) % [place] % (Auto) (3-14) % Eos % (Auto) (2-4) % Baso % (Auto) (0-2) % Neut # (Auto) (9391-8688) /uL Lymph # (Auto) (9120-7749) /uL [place] # (Auto) (0-900) /uL Eos # (Auto) (0-450) /uL Baso # (Auto) (0-100) /uL PT (10.1-12.7) SECONDS INR (0.9-1.3) APTT (26-36) SECONDS Sodium (137-145) mmol/L Potassium (3.4-5.1) mmol/L Chloride (98-107) mmol/L Carbon Dioxide (22-32) mmol/L BUN (9-20) mg/dL Creatinine (0.66-1.25) mg/dL Estimated GFR (>60) mL/min BUN/Creatinine Ratio (6-22) Glucose (70-100) mg/dL Calcium (8.4-10.2) mg/dL Total Bilirubin (0.2-1.3) mg/dL AST (17-59) IU/L ALT (<50) IU/L Alkaline Phosphatase (38-126) U/L Total Protein (6.3-8.2) g/dL Albumin (3.5-5.0) g/dL Globulin (1.7-4.1) g/dL Albumin/Globulin Ratio (1.0-2.8) Lipase (23-300) U/L Urine Color Yellow Urine Appearance Clear Urine pH 7.0 (4.5-8.0) Ur Specific [place] 1.010 (1.000-1.035) Urine Protein 1+ H (Negative) Urine Glucose (UA) Trace H (Negative) g/dL Urine Ketones 1+ H (NEGATIVE) Urine Occult Blood Negative (Negative) Urine Nitrate Negative (Negative) Urine Bilirubin 1+ H (NEGATIVE) Ur Bilirubin Confirm Negative (Negative) Urine Urobilinogen 2.0 H (0.2) E.U./dL Ur Leukocyte Esterase Trace H (NEGATIVE) Urine RBC None seen (0-5/HPF) Urine WBC None seen (0-5/HPF) Amorphous Sediment 1+ Urine Bacteria None seen (None) Urine Mucus 1+ H (Negative) Ur Culture Indicated? Cult not indicated SARS-CoV-2 (PCR) Negative (Negative) MDM Narrative Medical decision making narrative: Patient does have pancreatitis lipase is more elevated today at 1900 He was already given prescriptions for home treatment and that seems to have failed. He is extremely hard IV start I was able to do a peripheral IV ultrasound guided. He is having pain he is not actually vomiting here in the ED. However was previously sent home with medications and has not been able to keep things down. Blood work is overall reassuring not significantly dehydrated, potassium minimally low at 3.3. He is given IV fluids. He has no right upper quadrant pain no elevated bilirubin or liver enzymes. He does have an elevated INR of 1.5 probably from alcohol abuse. He also states that he is having some hallucinations now. At this time the patient has failed outpatient treatment he is having some mild hallucination possible alcohol withdrawal in mild pancreatitis. Dr. Rosenberg accepts patient Discharge Plan Departure Patient Disposition: Admitted as Observation Clinical Impression: Pancreatitis Admit Date/Time: 01/10/22 15:57 Admit Provider: Keysha Rosenberg
[2022-01-10] MEDS: SODIUM CHLORIDE 0.9% 1,000 ML 1000 ML IV ×2 (13:08→15:42)
[2022-01-10 13:09] LABS: Appearance Urine UA CLEAR; Bilirubin Urine UA 1+ (NEGATIVE); Color Urine UA YELLOW; Glucose Urine UA TRACE g/dL (Negative); Ketones Urine UA 1+ (NEGATIVE); Leukocyte Esterase Urine UA TRACE (NEGATIVE); Nitrite Urine UA NEGATIVE (Negative); Occult Blood Urine UA NEGATIVE (Negative); Protein Urine UA 1+ (Negative)
[2022-01-10 13:15] LABS: Ictotest Urine Negative (Negative)
[2022-01-10 13:43] LABS: Amorphous Sediment Urine 1+; RBC Urine None Seen (0-5/HPF); WBC Urine None Seen (0-5/HPF)
[2022-01-10 13:44] LABS: Bacteria Urine None Seen; Culture Indicated Urine Cult Not Indicated; Mucus Urine 1+ (Negative)
[2022-01-10] MEDS: HYDROMORPHONE 1 MG INJ IV ×3 (14:00→19:46)
[2022-01-10 14:08] LABS: COVID19 -Nasal RAPID Negative (Negative)
[2022-01-10] MEDS: ONDANSETRON 4 MG/2 ML INJ IV ×2 (14:09→19:55)
[2022-01-10] MEDS: PHENobarbital 65 MG/ML VIAL 130 MG IV (15:51)
--- NOTE | 2022-01-10 16:21 | PM.HP.1 ---
History of Present Illness History of Present Illness Chief complaint: Pancreatitis flare up x 5 days Narrative: 41yo male with an extensive hx of EtOH abuse/dependence that presents with abd pain. He reports this is an achy, dull pain that is mostly located to the epigastrum, and radiates to his back. He states this is just like when he's had pancreatitis in the past. He's aware that this is EtOH-related and that he needs to stop imbibing EtOH in order to get better. Associated sxs include nausea, decreased PO intake. The patient admits to drinking a 12-pack of 8.1% malt liquor daily. His last drink was January 04. The patient denies any EtOH withdrawal symptoms. He denies needing to be intubated in the past for EtOH withdrawal. However, he does endorse having had withdrawal seizures in the past, a long time ago. He went through a divorce 2 years ago, and he states that's when his drinking really picked up. He denies smoking tobacco, using illicit drugs, or any new medications. He endorses taking Seroquel and Zoloft daily, and was prescribed colnidine recently, but states his BP always normalizes when he stops drinking EtOH. He denies any abd surgical hx. He denies any relevant family hx. 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 Patient History Medical History Alcohol withdrawal Alcoholism Anxiety Depression Pancreatitis Surgical History No history of previous surgery Family & Social History Family History Other No significant past medical history Social History: household members family Safety & Behavioral: Feels Safe in Current Yes Environment Been Physically Hurt or No Threatened By a Person Tobacco & Substance use: Tobacco type cannabis/marijuana Smoking Status Never smoker alcohol intake current alcohol intake frequency 3 or more drinks per day Substance Use Type marijuana Meds Home Medications and Allergies Home Medications Medication Instructions Recorded Confirmed Type sertraline 50 mg tablet (Zoloft) 50 mg PO BEDTIME #30 tabs 10/09/17 01/10/22 Rx quetiapine 50 mg tablet 50 mg PO BEDTIME 01/20/20 01/10/22 History clonidine HCl 0.2 mg tablet 0.2 mg PO DAILY 01/10/22 01/10/22 History Allergies Allergy/AdvReac Type Severity Reaction Status Date / Time No Known Drug Allergies Allergy Verified 01/10/22 10:47 Review of Systems Constitutional Comments: Denies fever/chills, night sweats, weight loss. Eyes Comments: Denies vision changes. ENT Comments: Denies rhinorrhea, sinus pain. Cardiovascular Comments: Denies CP, palpitations, peripheral edema. Respiratory Comments: Denies SOB, cough. Gastrointestinal Comments: Endorses abd pain, nausea. Denies emesis, diarrhea. Integumentary/Breasts Comments: Denies any skin changes. Neurologic Comments: Denies tremulousness, seizure-like sxs. Exam Vital Signs (past 8 hours): - 01/10/22 10:43 01/10/22 12:57 01/10/22 12:58 Temperature 98.2 F Pulse Rate 117 H 96 H 92 H Respiratory Rate 22 Blood Pressure 169/99 H Pulse Oximetry 98 97 96 Oxygen Delivery Method Room Air Oxygen Flow Rate 01/10/22 12:58 01/10/22 13:00 01/10/22 13:00 Temperature Pulse Rate 97 H Respiratory Rate Blood Pressure 133/83 140/88 Pulse Oximetry 97 Oxygen Delivery Method Oxygen Flow Rate 01/10/22 13:30 01/10/22 13:30 01/10/22 14:00 Temperature Pulse Rate 85 Respiratory Rate Blood Pressure 131/81 Pulse Oximetry 95 97 Oxygen Delivery Method Oxygen Flow Rate 01/10/22 14:01 01/10/22 14:30 01/10/22 14:30 Temperature Pulse Rate 88 82 Respiratory Rate Blood Pressure 128/81 Pulse Oximetry 92 95 Oxygen Delivery Method Oxygen Flow Rate 01/10/22 14:57 01/10/22 15:00 01/10/22 15:01 Temperature Pulse Rate 77 76 Respiratory Rate Blood Pressure 131/80 Pulse Oximetry 95 96 Oxygen Delivery Method Oxygen Flow Rate 01/10/22 15:30 01/10/22 15:30 01/10/22 16:15 Temperature 97.7 F Pulse Rate 77 77 Respiratory Rate 16 Blood Pressure 132/90 128/85 Pulse Oximetry 97 97 Oxygen Delivery Method Oxygen Flow Rate 0 Oxygen Delivery Method Room Air Oxygen Flow Rate 0 Const Other: Patient laying in bed comfortably upon my entering the room, in no apparent acute distress. Eyes Other: No scleral icterus appreciated. Resp Other: Clear to auscultation bilaterally. Cardio Other: RRR, with normal S1 and S2, and no extra heart sounds or murmurs appreciated. GI Other: Soft, slightly distended, not tympanitic, with tenderness to palpation diffusely with moderate pressure, bowel sounds present. Skin Other: No grossly abnormal skin changes noted. Neuro Other: No tremulousness appreciated. Extrem Other: No peripheral edema noted, with palpable dorsalis pedis pulses bilaterally. Objective Labs Result Diagrams: 01/10/22 11:45 01/10/22 11:45 Labs: Laboratory Results - last 24 hr 01/10/22 01/10/22 01/10/22 11:45 11:45 11:45 WBC 5.3 RBC 3.84 L Hgb 12.0 L Hct 34.2 L MCV 89.1 MCH 31.3 MCHC 35.1 RDW 14.1 Plt Count 133 L Neut % (Auto) 82.0 H Lymph % (Auto) 8.4 L [place] % (Auto) 8.8 Eos % (Auto) 0.6 L Baso % (Auto) 0.2 Neut # (Auto) 4300 Lymph # (Auto) 400 L [place] # (Auto) 500 Eos # (Auto) 0 Baso # (Auto) 0 PT 16.9 H INR 1.5 H APTT 29 Sodium 139 Potassium 3.3 L Chloride 100 Carbon Dioxide 26 BUN 8 L Creatinine 0.54 L Estimated GFR > 60 BUN/Creatinine Ratio 14.8 Glucose 169 H Calcium 8.7 Total Bilirubin 1.2 AST 31 ALT 23 Alkaline Phosphatase 85 Total Protein 8.4 H Albumin 3.7 Globulin 4.7 H Albumin/Globulin Ratio 0.8 L Lipase 1925 H Urine Color Urine Appearance Urine pH Ur Specific [place] Urine Protein Urine Glucose (UA) Urine Ketones Urine Occult Blood Urine Nitrate Urine Bilirubin Ur Bilirubin Confirm Urine Urobilinogen Ur Leukocyte Esterase Urine RBC Urine WBC Amorphous Sediment Urine Bacteria Urine Mucus Ur Culture Indicated? SARS-CoV-2 (PCR) 01/10/22 01/10/22 12:56 13:16 WBC RBC Hgb Hct MCV MCH MCHC RDW Plt Count Neut % (Auto) Lymph % (Auto) [place] % (Auto) Eos % (Auto) Baso % (Auto) Neut # (Auto) Lymph # (Auto) [place] # (Auto) Eos # (Auto) Baso # (Auto) PT INR APTT Sodium Potassium Chloride Carbon Dioxide BUN Creatinine Estimated GFR BUN/Creatinine Ratio Glucose Calcium Total Bilirubin AST ALT Alkaline Phosphatase Total Protein Albumin Globulin Albumin/Globulin Ratio Lipase Urine Color Yellow Urine Appearance Clear Urine pH 7.0 Ur Specific [place] 1.010 Urine Protein 1+ H Urine Glucose (UA) Trace H Urine Ketones 1+ H Urine Occult Blood Negative Urine Nitrate Negative Urine Bilirubin 1+ H Ur Bilirubin Confirm Negative Urine Urobilinogen 2.0 H Ur Leukocyte Esterase Trace H Urine RBC None seen Urine WBC None seen Amorphous Sediment 1+ Urine Bacteria None seen Urine Mucus 1+ H Ur Culture Indicated? Cult not indicated SARS-CoV-2 (PCR) Negative Assessment & Plan Assessment & Plan narrative: Assessment: 1. Pancreatitis, moderate, acute, likely EtOH-related 2. Hx of EtOH dependence, chronic 3. Severe hepatic steatosis, likely secondary to EtOH 4. Hypokalemia, likely EtOH-related 5. Thrombocytopenia, likely EtOH-related bone marrow suppression 6. Elevated INR, likely due to nutritional vitamin K deficiency 7. Hx of anxiety disorder Plan: 1. IV lactated ringer's at 250 cc/hr. NPO for now, although patient can have clear liquids, if tolerated. IV Dilaudid for pain control. No need for abdominal imaging for now. 2. Patient reports drinking 12-pack of 8.1% malt liquor daily. Last drink on January 04. Denies any hx of needing intubation for EtOH withdrawals. 3. As demonstrated by imaging at this institution and outside hospitals. Patient extensively counseled on need to stop drinking EtOH. 4. IV lactated ringer's should help with slightly low potassium. 5. No signs of bleeding currently, and hemodynamically stable. Will continue to monitor. 6. No indication to give vitamin K for now. Nutrition consult in place. 7. Will continue home sertraline 50 mg daily, and quetiapine 50 mg nightly. VTE prophylaxis: Lovenox 40 mg daily Code Status: Full Code I confirm that the patient's advance care plan is present, code status is documented and listed in the patient's medical record. I have utilized all available immediate resources to obtain, update, or review the patient's current medications. Time Spent With Patient Critical Care time: I spent a total of [] minutes of critical care time on this patient's care today; this time is exclusive of procedural time. Quality VTE Deep Vein Thrombosis/Pulmonary Embolism Present on Admission: No MIPS - Admit I confirm the patient?s Advance Care Plan is present, Code status is documented, Surrogate decision maker is in patient?s record [If Yes, STOP here]: Yes
[2022-01-10] MEDS: LACTATED RINGERS 1,000 ML 250 ML IV ×2 (16:31→20:47)
[2022-01-10] MEDS: SERTRALINE 50 MG TABLET PO (20:01)
[2022-01-10] MEDS: QUETIAPINE 25 MG TABLET 50 MG PO (20:01)
[2022-01-11] MEDS: LACTATED RINGERS 1,000 ML 250 ML IV ×6 (00:50→20:55)
[2022-01-11] MEDS: HYDROMORPHONE 1 MG INJ IV ×5 (00:55→19:50)
[2022-01-11 04:00] VITALS: BP 130/83; PULSE 71; RESP 16; TEMP 36.6; O2SAT 100
[2022-01-11] MEDS: ONDANSETRON 4 MG/2 ML INJ IV ×2 (06:23→22:00)
[2022-01-11 07:58] LABS: BUN Creatinine Ratio 10.2 (6-22); Blood Urea Nitrogen 5 mg/dL (9-20); Calcium 7.9 mg/dL (8.4-10.2); Carbon Dioxide 23 mmol/L (22-32); Chloride 104 mmol/L (98-107); Cholesterol 86 mg/dL (140-199); Estimated Glomerular Filt Rate > 60 mL/min (>60); Glucose 122 mg/dL (70-100); HDL Cholesterol 16 mg/dL (40-60); HEMOLYSIS 30 (0-50); LDL Cholesterol Calculated 50 mg/dL (<100); Magnesium 1.6 mg/dL (1.6-2.3); Sodium 137 mmol/L (137-145); Triglycerides 98 mg/dL (35-150)
[2022-01-11 08:25] VITALS: BP 129/89; PULSE 77; RESP 16; TEMP 36.3; O2SAT 98
[2022-01-11 08:36] LABS: Add Manual Diff / Slide Review NO; Basophils Absolute Auto 0 /uL (0-100); Basophils Percent Auto 0.7 % (0-2); Eosinophils Absolute Auto 100 /uL (0-450); Eosinophils Percent Auto 2.1 % (2-4); Hematocrit 32.7 % (41-53); Hemoglobin 11.4 g/dL (13.5-17.5); Lymphocytes Absolute Auto 1000 /uL (1100-4500); Lymphocytes Percent Auto 22.4 % (25-40); Mean Corpuscular HGB Conc 34.9 % (30-36); Mean Corpuscular Hemoglobin 31.1 PG (26-34); Mean Corpuscular Volume 89.1 fL (80-100); Monocytes Absolute Auto 300 /uL (0-900); Monocytes Percent Auto 7.7 % (3-14); Neutrophils Absolute Auto 3100 /uL (1500-7000); Neutrophils Percent Auto 67.1 % (50-75); Platelet Count 144 X10^3/uL (150-400); Red Blood Cell Count 3.67 X10^6/uL (4.5-5.9); White Blood Cell Count 4.5 X10^3/uL (4.5-11.0)
[2022-01-11] MEDS: ENOXAPARIN 40 MG/0.4 ML SYRINGE SUBCUT (08:58)
--- NOTE | 2022-01-11 09:13 | PC.NURSE ---
Patient complains of MARUQEZ, Diaphoresis, tremor, hallucinations, nausea, mild itching, mild auditory sensitivity, CIWA 19, notified MD. Patients last drink was 01/04, 7 days ago and was given Phenobarbitol IV in ED on 01/10/22 at 1551. Patient reports he is still having withdraw symptoms and has a hx of detoxing, I am aware of how my body feels. MD at bedside.
[2022-01-11 12:10] VITALS: BP 133/82; PULSE 73; RESP 16; TEMP 36.2; O2SAT 97
--- NOTE | 2022-01-11 13:47 | PM.PN.1 ---
Subjective Subjective Interval history: Patient reports improved abd pain, and is tolerating some PO intake, clear liquids. Exam Vital Signs (past 8 hours): - 01/11/22 08:25 01/11/22 07:00 01/11/22 12:10 Temperature 97.3 F L 97.1 F L Pulse Rate 77 73 Respiratory Rate 16 16 Blood Pressure 129/89 133/82 Pulse Oximetry 98 97 Oxygen Delivery Method Room Air Oxygen Flow Rate 0 0 Oxygen Delivery Method Room Air Oxygen Flow Rate 0 Const Other: Patient laying in bed comfortably upon my entering the room, in no apparent acute distress. Eyes Other: No scleral icterus appreciated. Resp Other: Clear to auscultation bilaterally. Cardio Other: RRR, with normal S1 and S2, and no extra heart sounds or murmurs appreciated. GI Other: Soft, slightly distended, not tympanitic, with tenderness to palpation diffusely with moderate pressure, bowel sounds present. Skin Other: No grossly abnormal skin changes noted. Neuro Other: Faint hand tremor appreciated. Extrem Other: No peripheral edema noted, with palpable dorsalis pedis pulses bilaterally. Objective Labs Result Diagrams: 01/11/22 08:19 01/11/22 06:52 Labs: Laboratory Results - last 24 hr 01/10/22 01/11/22 01/11/22 13:16 06:52 08:19 WBC 4.5 RBC 3.67 L Hgb 11.4 L Hct 32.7 L MCV 89.1 MCH 31.1 MCHC 34.9 RDW 14.0 Plt Count 144 L Neut % (Auto) 67.1 Lymph % (Auto) 22.4 L [place] % (Auto) 7.7 Eos % (Auto) 2.1 Baso % (Auto) 0.7 Neut # (Auto) 3100 Lymph # (Auto) 1000 L [place] # (Auto) 300 Eos # (Auto) 100 Baso # (Auto) 0 Sodium 137 Potassium 4.0 Chloride 104 Carbon Dioxide 23 BUN 5 L Creatinine 0.49 L Estimated GFR > 60 BUN/Creatinine Ratio 10.2 Glucose 122 H Calcium 7.9 L Magnesium 1.6 Triglycerides 98 Cholesterol 86 L LDL Cholesterol, Calc 50 HDL Cholesterol 16 L SARS-CoV-2 (PCR) Negative [facility] Medical History Alcohol withdrawal Alcoholism Anxiety Depression Pancreatitis Surgical History No history of previous surgery Family History Other No significant past medical history Social History household members: family Smoking Status: Never smoker alcohol intake: current substance use type: does not use Assessment & Plan Assessment & Plan narrative: Assessment: 1. Pancreatitis, moderate, acute, likely EtOH-related 2. Hx of EtOH dependence, chronic, possible withdrawal 3. Severe hepatic steatosis, likely secondary to EtOH 4. Hypokalemia, likely EtOH-related 5. Thrombocytopenia, likely EtOH-related bone marrow suppression 6. Elevated INR, likely due to nutritional vitamin K deficiency 7. Hx of anxiety disorder Plan: 1. IV lactated ringer's at 250 cc/hr. Patient can have clear liquids, if tolerated, and advance as tolerated. IV Dilaudid for pain control. No need for abdominal imaging for now. 2. Patient reports drinking 12-pack of 8.1% malt liquor daily. Last drink on January 04. Denies any hx of needing intubation for EtOH withdrawals. [facility] protocol on-board. 3. As demonstrated by imaging at this institution and outside hospitals. Patient extensively counseled on need to stop drinking EtOH. 4. IV lactated ringer's should help with slightly low potassium. 5. No signs of bleeding currently, and hemodynamically stable. Will continue to monitor. 6. No indication to give vitamin K for now. Nutrition consult in place. 7. Will continue home sertraline 50 mg daily, and quetiapine 50 mg nightly. VTE prophylaxis: Lovenox 40 mg daily Code Status: Full Code Time Spent With Patient Critical Care time: I spent a total of [] minutes of critical care time on this patient's care today; this time is exclusive of procedural time. Quality VTE Deep Vein Thrombosis/Pulmonary Embolism Present on Admission: No
--- NOTE | 2022-01-11 15:53 | CM.DANOTE ---
Initial DCP Assessment Note Pt is a 41 yo male, resident of [place], presents with a pancreatitis flare up x 5 days, hx ETOH abuse, current everyday use and placed on CIWA protocol; 19 at 0900 this morning PCP: Ana Maria Payer: David [employer] Reviewed chart, pt discussed in multidisciplinary rounds this morning. 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 No History Provided By Patient,Medical Record Has Patient been admitted in last 30 No days? Prior Living Arrangements House Household Members family Comment Parents Type of transporation used prior to Drives own vehicle admit Independent with ADL's Yes Is patient alert and oriented? 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
[2022-01-11 16:30] VITALS: BP 131/94; PULSE 81; RESP 16; TEMP 36.4; O2SAT 98
--- NOTE | 2022-01-11 17:11 | DIET.CONS2 ---
Dietary Inpatient Consultation Note Admission Date: 01/10/2022 15:57 41y M admitted c etoh pancreatitis referred to nutrition for pancreatitis MNT. Pt states he has not had a flare in quite some time, states this one was definitely etoh related. Pt tolerating clear liquids, had general diet meal with only small amount of pain. Discussed MNT for pancreatitis including avoiding etoh and following low fat diet until inflammation subsides. Pt understands information and agrees to plan. Pt unhappy with pain associated c this condition, not interested in repeating it. Diet: 01/11/22 Lunch General (Regular) Diet Diet Modifications: low fat Nutrition Percent Meal Consumed 100% 01/11/22 10:00 Percent Meal Consumed 100% 01/10/22 18:00 Electronically Signed by: Stacy Osborne 01/11/22 17:11 Clinical Dietitian [address] [address]
[2022-01-11] MEDS: QUETIAPINE 25 MG TABLET 50 MG PO (20:53)
[2022-01-11] MEDS: SERTRALINE 50 MG TABLET PO (20:53)
[2022-01-11] MEDS: LORazepam 2 MG/ML INJ IV (20:53)
[2022-01-11 21:18] VITALS: BP 141/95; PULSE 90; RESP 16; TEMP 36.4; O2SAT 100
[2022-01-11 21:20] VITALS: BP 141/95; PULSE 90; RESP 16
[2022-01-12] MEDS: LACTATED RINGERS 1,000 ML 250 ML IV ×2 (01:31→05:26)
[2022-01-12] MEDS: HYDROMORPHONE 1 MG INJ IV ×2 (01:48→07:01)
[2022-01-12 04:09] VITALS: BP 125/88; PULSE 77; RESP 16; TEMP 36.7; O2SAT 96
[2022-01-12 07:43] VITALS: BP 128/79; PULSE 78; RESP 16; TEMP 36.6; O2SAT 97
[2022-01-12 07:55] LABS: BUN Creatinine Ratio 13.1 (6-22); Blood Urea Nitrogen 8 mg/dL (9-20); Carbon Dioxide 30 mmol/L (22-32); Chloride 97 mmol/L (98-107); Estimated Glomerular Filt Rate > 60 mL/min (>60); Glucose 136 mg/dL (70-100); HEMOLYSIS < 15 (0-50); Magnesium 1.7 mg/dL (1.6-2.3); Potassium 3.6 mmol/L (3.4-5.1); Sodium 139 mmol/L (137-145)
[2022-01-12 08:08] LABS: Add Manual Diff / Slide Review NO; Basophils Absolute Auto 0 /uL (0-100); Basophils Percent Auto 0.5 % (0-2); Eosinophils Absolute Auto 100 /uL (0-450); Hematocrit 33.2 % (41-53); Hemoglobin 11.6 g/dL (13.5-17.5); Lymphocytes Absolute Auto 800 /uL (1100-4500); Lymphocytes Percent Auto 26.4 % (25-40); Mean Corpuscular HGB Conc 34.9 % (30-36); Mean Corpuscular Hemoglobin 31.3 PG (26-34); Mean Corpuscular Volume 89.8 fL (80-100); Monocytes Absolute Auto 300 /uL (0-900); Monocytes Percent Auto 9.3 % (3-14); Neutrophils Absolute Auto 1800 /uL (1500-7000); Neutrophils Percent Auto 60.8 % (50-75); Platelet Count 145 X10^3/uL (150-400)
[2022-01-12] MEDS: ENOXAPARIN 40 MG/0.4 ML SYRINGE SUBCUT (08:20)
[2022-01-12] MEDS: MULTIVITAMIN 1 TABLET 1 TAB PO (08:20)
[2022-01-12] MEDS: THIAMINE 100 MG TABLET PO (08:20)
[2022-01-12] MEDS: FOLIC ACID 1 MG TABLET PO (08:20)
[2022-01-12] MEDS: LORazepam 1 MG TABLET PO (08:21)
[2022-01-12] MEDS: ONDANSETRON 4 MG/2 ML INJ IV (08:28)
[2022-01-12 09:20] VITALS: BP 147/88; PULSE 98; RESP 20
[2022-01-12 10:02] VITALS: BP 146/88; PULSE 86
[2022-01-12] MEDS: OXYCODONE IR 5 MG TABLET PO (10:22)
--- NOTE | 2022-01-12 10:54 | PC.NURSE ---
Pt. is a&o,ambulatory on discharge. Coordinator informed and ok with pt. being discharge without ride but pt. will take the bus.
--- NOTE | 2022-01-12 10:57 | CM.DPNOTE ---
DC Note Patient discharged from the hospital this morning; states no need for ETOH/ALBINO resources. Spoke w/ RN Coordinator Brian as patient was leaving; patient eager to leave the hospital and states he will take the bus to get home Patient is A+Ox4, ambulating independently, steady, so this FEED IN WORKER suggested patient be allowed to take the bus home if that is what he has chosen JW
--- NOTE | 2022-01-12 16:52 | P.DS_ITS ---
History of Present Illness History of Present Illness Chief complaint: Pancreatitis flare up x 5 days Narrative: Per admitting provider: 41yo male with an extensive hx of EtOH abuse/dependence that presents with abd pain. He reports this is an achy, dull pain that is mostly located to the epigastrum, and radiates to his back. He states this is just like when he's had pancreatitis in the past. He's aware that this is EtOH-related and that he needs to stop imbibing EtOH in order to get better. Associated sxs include nausea, decreased PO intake. The patient admits to drinking a 12-pack of 8.1% malt liquor daily. His last drink was January 04. The patient denies any EtOH withdrawal symptoms. He denies needing to be intubated in the past for EtOH withdrawal. However, he does endorse having had withdrawal seizures in the past, a long time ago. He went through a divorce 2 years ago, and he states that's when his drinking really picked up. He denies smoking tobacco, using illicit drugs, or any new medications. He endorses taking Seroquel and Zoloft daily, and was prescribed colnidine recently, but states his BP always normalizes when he stops drinking EtOH. He denies any abd surgical hx. He denies any relevant family hx. 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 Discharge Providers Provider Date of admission: 01/10/22 15:57 Discharge Date: 01/12/22 Primary care physician: Donal Rodgers MD Consults: 01/10/22 16:18 Consult to Dietitian, Adult Routine Comment: Reason For Exam: Pancreatitis diet education Discharge provider: Juan Villalobos MD Summary Hospital Course Discharge Diagnosis: 1. Acute pancreatitis 2. Alcohol depdendence and abuse 3. Hepatic steatosis 4. Thrombocytopenia 5. Anxiety disorder Hospital Course: Mr. Lucas was admitted with abdominal pain from acute pancreatitis from alcohol use. His last drink was a week prior to arrival. He was feeling anxious in the hospital and improved with benzos. As he was over a week out from his last alcoholic drink he was at low risk of severe alcoholic withdrawal. His diet was advanced and he was able to tolerate regular diet. He was encouraged to abstain from alcohol. He was seen by social work, he declined rehab, and wanted to go to AA meetings. He declined medication to reduce alcohol cravings. Exam Vital Signs (past 8 hours): - 01/12/22 10:02 01/12/22 09:20 Pulse Rate 86 98 H Respiratory Rate 20 Blood Pressure 146/88 H 147/88 H Oxygen Delivery Method Room Air Oxygen Flow Rate 0 Narrative Exam Narrative: GEN: no acute distress CV: regular rate and rhythm PULM: clear ABD: soft, nontender Objective Labs Result Diagrams: 01/12/22 06:58 01/12/22 06:58 Labs: Laboratory Results - last 24 hr 01/12/22 01/12/22 06:58 06:58 WBC 3.0 L RBC 3.70 L Hgb 11.6 L Hct 33.2 L MCV 89.8 MCH 31.3 MCHC 34.9 RDW 14.0 Plt Count 145 L Neut % (Auto) 60.8 Lymph % (Auto) 26.4 Sioux % (Auto) 9.3 Eos % (Auto) 3.0 Baso % (Auto) 0.5 Neut # (Auto) 1800 Lymph # (Auto) 800 L Sioux # (Auto) 300 Eos # (Auto) 100 Baso # (Auto) 0 Sodium 139 Potassium 3.6 Chloride 97 L Carbon Dioxide 30 BUN 8 L Creatinine 0.61 L Estimated GFR > 60 BUN/Creatinine Ratio 13.1 Glucose 136 H Calcium 9.0 Magnesium 1.7 PFSH Medical History Alcohol withdrawal Alcoholism Anxiety Depression Pancreatitis Surgical History No history of previous surgery Family History Other No significant past medical history Social History household members: family Smoking Status: Never smoker alcohol intake: current substance use type: does not use Discharge Plan Discharge Plan Patient Disposition: Home Provider Discharge Comment: Mr. Lucas came in to the hospital with abdominal pain. He had pancreatitis and improved with treatment. He should avoid alcohol as this caused the pancreatitis. Discharge orders & Medications Prescriptions: New folic acid 1 mg Tablet 1 mg PO DAILY Qty: 30 0RF thiamine mononitrate (vit B1) 100 mg Tablet 100 mg PO DAILY Qty: 30 0RF multivitamin with folic acid [Tab-A-Marilou] 400 mcg Tablet 1 tab PO DAILY Qty: 30 0RF chlordiazepoxide HCl 25 mg capsule 25 mg PO TID Qty: 6 0RF Rx Instructions: Take 3 pills day 1, 2 pills day 2, 1 pill day 3 oxycodone 5 mg tablet 5 mg PO Q6H PRN (Reason: pain) Qty: 10 0RF Continued sertraline [Zoloft] 50 mg Tablet 50 mg PO BEDTIME Qty: 30 0RF clonidine HCl 0.2 mg tablet 0.2 mg PO DAILY quetiapine 50 mg Tablet 50 mg PO BEDTIME Follow up/Referrals: Donal Rodgers MD [Primary Care Provider] - Discharge Data Primary Care Provider: Donal Rodgers Quality VTE Deep Vein Thrombosis/Pulmonary Embolism Present on Admission: No
== END 2022-01-12 10:54 | disposition home or self-care (01) | DRG 282 ==
LOC: ED 15:15 → AC 16:00
PROVIDERS: Admitting Provider Student in an Organized Health Care Education/Training Program; Emergency Provider Emergency Medicine; PCP Family Medicine; Referring Provider Emergency Medicine; Visit Provider Student in an Organized Health Care Education/Training Program
DX: K85.20 Alcohol induced acute pancreatitis without necrosis or infection (principal); F10.20 Alcohol dependence, uncomplicated; K76.0 Fatty (change of) liver, not elsewhere classified; K70.9 Alcoholic liver disease, unspecified; E87.6 Hypokalemia; D69.59 Other secondary thrombocytopenia; F41.9 Anxiety disorder, unspecified; F32.A Depression, unspecified; Z20.822 Contact with and (suspected) exposure to COVID-19
CPT/HCPCS: 36415; 80048; 80053; 80061; 81001; 83690; 83735; 85025; 85610; 85730; 87635; 93005; 96372; 96374; 96375; 99284; C9803; J1170; J1650; J2060; J2405; J2560

== ENCOUNTER 2022-02-17 12:44 | Inpatient (IN) | payer OTHER, MEDICAID, SELFPAY ==
[2022-01-10 16:03] VITALS: BMI 28.5
[2022-02-17] VITALS (17 sets, daily range): BP systolic 144–187; BP diastolic 92–104; PULSE 71–102; RESP 13–28; TEMP 36.2; O2SAT 94–99; BMI 30.5
--- NOTE | 2022-02-17 12:52 | ED_ITS ---
HPI - Abdominal Pain <DO Mercedes Garrison Last Filed: 02/24/22 07:06> General Chief Complaint: Toxicology Problem Stated Complaint: Abd pain, alcohol withdraw Time Seen by Provider: 02/17/22 12:52 History of Present Illness HPI narrative: 41-year-old male with history of extensive alcohol use including prior withdrawals, DTs and even seizures with recent hospitalization for pancreatitis presents with a chief complaint of a few days of severe epigastric pain with radiation to his back. He has nausea but denies any vomiting. He states that his pain is quite severe and is worsened by eating, drinking and moving and improves with rest. He states it is sharp and stabbing and reminds him of prior episodes of pancreatitis. He does have an outpatient bed for detox set up for Saturday. He states his last drink was night. He is got a mild headache, abdominal pain and some nausea feels slightly agitated but denies any tremors, auditory or visual hallucinations, unexplained sweating or other concerning symptoms. He drinks 4-24 oz cans of 8-10% beer daily Related Data Home Medications Medication Instructions Recorded Confirmed quetiapine 50 mg tablet 50 mg PO BEDTIME 01/20/20 02/18/22 clonidine HCl 0.2 mg tablet 0.2 mg PO DAILY PRN Anxiety 01/10/22 02/18/22 sertraline 50 mg tablet (Zoloft) 50 mg PO DAILY 02/18/22 02/18/22 Allergies Allergy/AdvReac Type Severity Reaction Status Date / Time No Known Drug Allergies Allergy Verified 02/17/22 12:57 Review of Systems <DO Mercedes Garrison Last Filed: 02/24/22 07:06> Review of Systems Narrative: GENERAL: See HPI HEENT: Denies sinus pain, ear pain, sore throat, difficulty swallowing, dizziness. RESPIRATORY: Denies dyspnea, cough, wheezing, hemoptysis, sputum. CARDIOVASCULAR: Denies chest pain, palpitations, orthopnea, edema, GASTROINTESTINAL: See HPI : Denies dysuria, frequency, incontinence, hematuria, urinary retention. MUSCULOSKELETAL: denies weakness, joint pain, or bony pain SKIN: Denies rash, skin lesions, or other NEUROLOGIC: See HPI PSYCHIATRIC: No concerning psychosocial issues. 12 point review of systems is negative except for those stated above Patient History <DO Mercedes Garrison Last Filed: 02/24/22 07:06> Medical History Alcohol withdrawal Alcoholism Anxiety Depression Pancreatitis Surgical History No history of previous surgery Family History (Updated 02/18/22 @ 15:24 by Nelson Grace DO) Mother No significant past medical history Father Alcohol abuse Social History household members: family Smoking Status: Never smoker alcohol intake: current substance use type: does not use Smoking Status: Never smoker alcohol intake frequency: 3 or more drinks per day Alcohol type: beer Substance Use Type: marijuana Exam <Hu Fairchild DO - Last Filed: 02/24/22 07:06> Narrative Exam Narrative: GENERAL: [41] year old patient appears stated age. Well-developed patient, in mild distress. HEAD: Atraumatic. Normocephalic. EYES: Pupils equal round and reactive. Extraocular motions intact. No scleral icterus. No injection or drainage. ENT: Nose without bleeding, purulent drainage. Throat without erythema, tonsillar hypertrophy or exudate. Airway patent. NECK: Trachea midline. Non tender CARDIOVASCULAR: Regular rate and rhythm without murmurs, gallops, or rubs. RESPIRATORY: Clear to auscultation. Breath sounds equal bilaterally. No wheezes, rales, or rhonchi. GASTROINTESTINAL: Abdomen soft, significant epigastric tenderness, nondistended. EXTREMITIES: No edema or joint tenderness. BACK: Nontender without deformity or crepitance. No flank tenderness. NEURO: AOx3. Cranial nerves 2-12 grossly intact, patient is speaking clearly with steady gait, no obvious tremors SKIN: No rash or erythema of visible areas Initial Vital Signs Initial Vital Signs: Vital Signs Temperature 97.2 F L 02/17/22 12:57 Pulse Rate 85 02/17/22 12:57 Respiratory Rate 20 02/17/22 12:57 Blood Pressure 144/93 H 02/17/22 12:57 Pulse Oximetry 98 02/17/22 12:57 Oxygen Delivery Method 02/17/22 12:57 <Edin Tapia DO - Last Filed: 02/18/22 18:20> Initial Vital Signs Initial Vital Signs: Vital Signs Temperature 97.2 F L 02/17/22 12:57 Pulse Rate 85 02/17/22 12:57 Respiratory Rate 20 02/17/22 12:57 Blood Pressure 144/93 H 02/17/22 12:57 Pulse Oximetry 98 02/17/22 12:57 Oxygen Delivery Method 02/17/22 12:57 <Pily Lara, DO - Last Filed: 02/18/22 14:36> Initial Vital Signs Initial Vital Signs: Vital Signs Temperature 97.2 F L 02/17/22 12:57 Pulse Rate 85 02/17/22 12:57 Respiratory Rate 20 02/17/22 12:57 Blood Pressure 144/93 H 02/17/22 12:57 Pulse Oximetry 98 02/17/22 12:57 Oxygen Delivery Method 02/17/22 12:57 Course <Hu Fairchild, DO - Last Filed: 02/24/22 07:06> Orders Ordered: Discontinued Medications Chlordiazepoxide HCl (Chlordiazepoxide 25 Mg Capsule) 50 mg PO Q6H PENDING SALE TO [facility] Last Admin: 02/19/22 12:49 Dose: 50 mg Documented By: Admin: 02/19/22 06:41 Dose: 50 mg Documented By: Admin: 02/19/22 00:49 Dose: 50 mg Documented By: Admin: 02/18/22 18:50 Dose: 50 mg Documented By: Admin: 02/18/22 13:42 Dose: 50 mg Documented By: BT Chlordiazepoxide HCl (Chlordiazepoxide 25 Mg Capsule) 50 mg PO Q8H PENDING SALE TO [facility] Last Admin: 02/20/22 08:07 Dose: 50 mg Documented By: Admin: 02/20/22 00:14 Dose: 50 mg Documented By: Admin: 02/19/22 17:21 Dose: 50 mg Documented By: LDV Clonidine HCl (Clonidine 0.1 Mg Tablet) 0.2 mg PO DAILY PRN PRN Reason: Anxiety Last Admin: 02/19/22 09:50 Dose: 0.2 mg Documented By: LDV Al Hydrox/Mg Hydrox/Simethicone 20 ml/ Lidocaine HCl 15 ml 0 ml PO NOW ONE Stop: 02/17/22 14:29 Last Admin: 02/17/22 15:22 Dose: 35 ml Documented By: BT Enoxaparin Sodium (Enoxaparin 40 Mg/0.4 Ml Syringe) 40 mg SUBCUT DAILY PENDING SALE TO [facility] Last Admin: 02/20/22 08:07 Dose: Not Given Documented By: Admin: 02/19/22 09:48 Dose: 40 mg Documented By: LDV Folic Acid (Folic Acid 1 Mg Tablet) 1 mg PO DAILY PENDING SALE TO [facility] Last Admin: 02/19/22 09:48 Dose: 1 mg Documented By: Admin: 02/18/22 11:40 Dose: 1 mg Documented By: FLAKITA Hydromorphone HCl (Hydromorphone 0.5 Mg Inj) 0.5 mg IV NOW ONE Stop: 02/17/22 12:58 Last Admin: 02/17/22 14:10 Dose: 0.5 mg Documented By: FLAKITA Hydromorphone HCl (Hydromorphone 0.5 Mg Inj) 0.5 mg IV NOW ONE Stop: 02/17/22 15:50 Last Admin: 02/17/22 16:05 Dose: 0.5 mg Documented By: FLAKITA Hydromorphone HCl (Hydromorphone 0.5 Mg Inj) 0.5 mg IV NOW ONE Stop: 02/17/22 19:06 Last Admin: 02/17/22 19:32 Dose: 0.5 mg Documented By: DELVIN Hydromorphone HCl (Hydromorphone 1 Mg Inj) 1 mg IV NOW ONE Stop: 02/17/22 21:45 Last Admin: 02/17/22 21:51 Dose: 1 mg Documented By: DELVIN Hydromorphone HCl (Hydromorphone 0.5 Mg Inj) 0.5 mg IV Q2HR PRN PRN Reason: Pain, Mild (1-3) Last Admin: 02/18/22 13:42 Dose: 0.5 mg Documented By: Admin: 02/18/22 11:40 Dose: 0.5 mg Documented By: Admin: 02/18/22 08:51 Dose: 0.5 mg Documented By: Admin: 02/18/22 06:44 Dose: 0.5 mg Documented By: MLKeturah Admin: 02/18/22 03:37 Dose: 0.5 mg Documented By: MLKeturah Admin: 02/18/22 00:49 Dose: 0.5 mg Documented By: DELVIN Hydromorphone HCl (Hydromorphone 1 Mg Inj) 1 mg IV Q4H PRN PRN Reason: Breakthrough Pain Last Admin: 02/19/22 12:50 Dose: 1 mg Documented By: Admin: 02/19/22 08:45 Dose: 1 mg Documented By: Admin: 02/19/22 05:05 Dose: 1 mg Documented By: Admin: 02/18/22 21:46 Dose: 1 mg Documented By: AMH Hydromorphone HCl (Hydromorphone 1 Mg Inj) 0.5 mg IV Q2H PRN PRN Reason: Breakthrough Pain Hydromorphone HCl (Hydromorphone 0.5 Mg Inj) 0.5 mg IV Q2H PRN PRN Reason: Breakthrough Pain Last Admin: 02/20/22 11:55 Dose: 0.5 mg Documented By: Admin: 02/20/22 09:39 Dose: 0.5 mg Documented By: Admin: 02/20/22 06:36 Dose: 0.5 mg Documented By: Admin: 02/20/22 03:16 Dose: 0.5 mg Documented By: Admin: 02/20/22 00:14 Dose: 0.5 mg Documented By: AGDeana Admin: 02/19/22 22:12 Dose: 0.5 mg Documented By: Admin: 02/19/22 20:43 Dose: 0.5 mg Documented By: AGeDana Admin: 02/19/22 18:27 Dose: 0.5 mg Documented By: Admin: 02/19/22 15:44 Dose: 0.5 mg Documented By: Admin: 02/19/22 14:03 Dose: 0.5 mg Documented By: ELANV Sodium Chloride (Normal Saline 0.9%) 1,000 mls @ 1,000 mls/hr IV BOLUS ONE Stop: 02/17/22 13:55 Last Infusion: 02/17/22 16:06 Dose: 0 mls/hr Documented By: Admin: 02/17/22 14:09 Dose: 1,000 mls/hr Documented By: BT Sodium Chloride (Normal Saline 0.9%) 1,000 mls @ 1,000 mls/hr IV BOLUS ONE Stop: 02/17/22 20:04 Last Infusion: 02/17/22 21:24 Dose: 0 mls/hr Documented By: Admin: 02/17/22 20:00 Dose: 1,000 mls/hr Documented By: KH Sodium Chloride (Normal Saline 0.9%) 1,000 mls @ 200 mls/hr IV CONT KAYLA Last Admin: 02/20/22 04:27 Dose: 200 mls/hr Documented By: Infusion: 02/19/22 23:27 Dose: 200 mls/hr Documented By: Admin: 02/19/22 18:27 Dose: 200 mls/hr Documented By: Infusion: 02/19/22 17:52 Dose: 200 mls/hr Documented By: Admin: 02/19/22 12:52 Dose: 200 mls/hr Documented By: Infusion: 02/19/22 10:42 Dose: 200 mls/hr Documented By: Admin: 02/19/22 05:42 Dose: 200 mls/hr Documented By: Infusion: 02/19/22 05:42 Dose: 200 mls/hr Documented By: Admin: 02/19/22 00:49 Dose: 200 mls/hr Documented By: Infusion: 02/19/22 00:49 Dose: 200 mls/hr Documented By: Admin: 02/18/22 20:00 Dose: 200 mls/hr Documented By: Infusion: 02/18/22 20:00 Dose: 200 mls/hr Documented By: Infusion: 02/18/22 17:41 Dose: 200 mls/hr Documented By: Infusion: 02/18/22 14:54 Dose: 0 mls/hr Documented By: Admin: 02/18/22 13:48 Dose: 200 mls/hr Documented By: Infusion: 02/18/22 04:57 Dose: 0 mls/hr Documented By: Admin: 02/17/22 21:51 Dose: 125 mls/hr Documented By: KH Magnesium Sulfate (Magnesium Sulfate) 2 gm in 50 mls @ 25 mls/hr IV NOW ONE Stop: 02/19/22 11:12 Last Admin: 02/19/22 09:54 Dose: 25 mls/hr Documented By: LDV Co-signed By: CLL Lorazepam (Lorazepam 2 Mg/Ml Inj) 1 mg IV NOW ONE Stop: 02/17/22 20:30 Last Admin: 02/17/22 20:34 Dose: 1 mg Documented By: DELVIN Lorazepam (Lorazepam 2 Mg/Ml Inj) 1 mg IV NOW ONE Stop: 02/17/22 23:57 Last Admin: 02/18/22 00:01 Dose: 1 mg Documented By: ALL Lorazepam (Lorazepam 2 Mg/Ml Inj) 1 mg IV NOW ONE Stop: 02/18/22 07:55 Last Admin: 02/18/22 08:26 Dose: 1 mg Documented By: RAFIA Lorazepam (Lorazepam 2 Mg/Ml Inj) 0 mg IV CIWAPRN PRN; Protocol PRN Reason: Alcohol Withdrawal Last Admin: 02/20/22 08:07 Dose: 1 mg Documented By: Admin: 02/20/22 04:33 Dose: 2 mg Documented By: Admin: 02/20/22 01:46 Dose: 2 mg Documented By: Admin: 02/19/22 22:12 Dose: 2 mg Documented By: Admin: 02/19/22 17:21 Dose: 2 mg Documented By: Admin: 02/19/22 13:40 Dose: 2 mg Documented By: Admin: 02/19/22 09:58 Dose: 2 mg Documented By: Admin: 02/19/22 07:54 Dose: 2 mg Documented By: Admin: 02/19/22 03:01 Dose: 2 mg Documented By: Admin: 02/18/22 23:26 Dose: 2 mg Documented By: Admin: 02/18/22 19:56 Dose: 2 mg Documented By: EARNESTINE Lorazepam (Lorazepam 1 Mg Tablet) 0 mg PO CIWAPRN PRN; Protocol PRN Reason: Alcohol Withdrawal Metoclopramide HCl (Metoclopramide 10 Mg/2 Ml Inj) 10 mg IV Q6HR PRN PRN Reason: Nausea And Vomiting Last Admin: 02/19/22 16:11 Dose: 10 mg Documented By: JOHNNA Multivitamins (Multivitamin 1 Tablet) 1 tab PO DAILY KAYLA Last Admin: 02/19/22 09:48 Dose: 1 tab Documented By: Admin: 02/18/22 11:40 Dose: 1 tab Documented By: BT Naloxone HCl (Naloxone 0.4 Mg/Ml Vial) 0.2 mg IV Q2MIN PRN PRN Reason: Opiate Reversal Ondansetron HCl (Ondansetron 4 Mg/2 Ml Inj) 4 mg IV NOW ONE Stop: 02/17/22 12:57 Last Admin: 02/17/22 14:10 Dose: 4 mg Documented By: BT Ondansetron HCl (Ondansetron 4 Mg/2 Ml Inj) 4 mg IV NOW ONE Stop: 02/18/22 03:38 Last Admin: 02/18/22 03:40 Dose: 4 mg Documented By: MLM Ondansetron HCl (Ondansetron 4 Mg/2 Ml Inj) 4 mg IV Q6HR PRN PRN Reason: Nausea And Vomiting Last Admin: 02/20/22 09:39 Dose: 4 mg Documented By: Admin: 02/19/22 20:48 Dose: 4 mg Documented By: Admin: 02/19/22 12:53 Dose: 4 mg Documented By: Admin: 02/19/22 05:38 Dose: 4 mg Documented By: Admin: 02/18/22 23:20 Dose: 4 mg Documented By: Admin: 02/18/22 17:06 Dose: 4 mg Documented By: Admin: 02/18/22 08:54 Dose: 4 mg Documented By: RAFIA Oxycodone HCl (Oxycodone Ir 5 Mg Tablet) 5 mg PO Q3H PRN PRN Reason: Pain, Moderate (4-6) Oxycodone HCl (Oxycodone Ir 10 Mg Tablet) 10 mg PO Q3H PRN PRN Reason: Pain, Severe (7-10) Last Admin: 02/19/22 03:01 Dose: 10 mg Documented By: Admin: 02/18/22 23:20 Dose: 10 mg Documented By: Admin: 02/18/22 19:29 Dose: 10 mg Documented By: Admin: 02/18/22 16:20 Dose: 10 mg Documented By: Pantoprazole Sodium (Pantoprazole 40 Mg Vial) 40 mg IV NOW ONE Stop: 02/17/22 12:57 Last Admin: 02/17/22 14:10 Dose: 40 mg Documented By: BT Potassium Chloride (Potassium Chloride 20 Meq Tab) 40 meq PO NOW ONE Stop: 02/19/22 09:14 Last Admin: 02/19/22 09:58 Dose: 40 meq Documented By: LDV Quetiapine Fumarate (Quetiapine 25 Mg Tablet) 50 mg PO BEDTIME PENDING SALE TO [facility] Sertraline HCl (Sertraline 50 Mg Tablet) 50 mg PO DAILY PENDING SALE TO [facility] Last Admin: 02/19/22 09:50 Dose: 50 mg Documented By: LDV Sodium Chloride (Sodium Chloride 0.9% Flush) 10 ml IV BID PENDING SALE TO [facility] Last Admin: 02/20/22 08:07 Dose: 10 ml Documented By: Admin: 02/19/22 20:44 Dose: 10 ml Documented By: Admin: 02/19/22 09:01 Dose: 10 ml Documented By: LDV Sodium Chloride (Sodium Chloride 0.9% Flush) 10 ml IV PRN PRN PRN Reason: Flush Thiamine HCl (Thiamine 100 Mg Tablet) 100 mg PO DAILY PENDING SALE TO [facility] Stop: 02/21/22 09:01 Last Admin: 02/20/22 08:07 Dose: 100 mg Documented By: Admin: 02/19/22 09:48 Dose: 100 mg Documented By: Admin: 02/18/22 11:41 Dose: 100 mg Documented By: BT Vital Signs Vital signs: Vital Signs - 8 hr 02/18/22 11:12 02/18/22 11:13 02/18/22 11:13 Pulse Rate 102 H 95 H Respiratory Rate 20 Blood Pressure 173/94 H Pulse Oximetry 97 99 02/18/22 11:30 02/18/22 11:47 02/18/22 11:47 Pulse Rate 88 90 Respiratory Rate Blood Pressure 165/96 H Pulse Oximetry 97 97 02/18/22 12:00 02/18/22 12:00 02/18/22 12:30 Pulse Rate 92 H Respiratory Rate Blood Pressure 159/91 H 163/95 H Pulse Oximetry 94 02/18/22 12:30 02/18/22 13:00 02/18/22 13:00 Pulse Rate 91 H 85 Respiratory Rate Blood Pressure 166/96 H Pulse Oximetry 96 96 <Edin Tapia DO - Last Filed: 02/18/22 18:20> Orders Ordered: Discontinued Medications Chlordiazepoxide HCl (Chlordiazepoxide 25 Mg Capsule) 50 mg PO Q6H PENDING SALE TO [facility] Last Admin: 02/19/22 12:49 Dose: 50 mg Documented By: Admin: 02/19/22 06:41 Dose: 50 mg Documented By: Admin: 02/19/22 00:49 Dose: 50 mg Documented By: Admin: 02/18/22 18:50 Dose: 50 mg Documented By: Admin: 02/18/22 13:42 Dose: 50 mg Documented By: FLAKITA Chlordiazepoxide HCl (Chlordiazepoxide 25 Mg Capsule) 50 mg PO Q8H PENDING SALE TO [facility] Last Admin: 02/20/22 08:07 Dose: 50 mg Documented By: Admin: 02/20/22 00:14 Dose: 50 mg Documented By: Admin: 02/19/22 17:21 Dose: 50 mg Documented By: LDV Clonidine HCl (Clonidine 0.1 Mg Tablet) 0.2 mg PO DAILY PRN PRN Reason: Anxiety Last Admin: 02/19/22 09:50 Dose: 0.2 mg Documented By: JOHNNA Al Hydrox/Mg Hydrox/Simethicone 20 ml/ Lidocaine HCl 15 ml 0 ml PO NOW ONE Stop: 02/17/22 14:29 Last Admin: 02/17/22 15:22 Dose: 35 ml Documented By: FLAKITA Enoxaparin Sodium (Enoxaparin 40 Mg/0.4 Ml Syringe) 40 mg SUBCUT DAILY PENDING SALE TO [facility] Last Admin: 02/20/22 08:07 Dose: Not Given Documented By: LDCaden Admin: 02/19/22 09:48 Dose: 40 mg Documented By: JOHNNA Folic Acid (Folic Acid 1 Mg Tablet) 1 mg PO DAILY PENDING SALE TO [facility] Last Admin: 02/19/22 09:48 Dose: 1 mg Documented By: Admin: 02/18/22 11:40 Dose: 1 mg Documented By: FLAKITA Hydromorphone HCl (Hydromorphone 0.5 Mg Inj) 0.5 mg IV NOW ONE Stop: 02/17/22 12:58 Last Admin: 02/17/22 14:10 Dose: 0.5 mg Documented By: FLAKITA Hydromorphone HCl (Hydromorphone 0.5 Mg Inj) 0.5 mg IV NOW ONE Stop: 02/17/22 15:50 Last Admin: 02/17/22 16:05 Dose: 0.5 mg Documented By: FLAKITA Hydromorphone HCl (Hydromorphone 0.5 Mg Inj) 0.5 mg IV NOW ONE Stop: 02/17/22 19:06 Last Admin: 02/17/22 19:32 Dose: 0.5 mg Documented By: KH Hydromorphone HCl (Hydromorphone 1 Mg Inj) 1 mg IV NOW ONE Stop: 02/17/22 21:45 Last Admin: 02/17/22 21:51 Dose: 1 mg Documented By: DELVIN Hydromorphone HCl (Hydromorphone 0.5 Mg Inj) 0.5 mg IV Q2HR PRN PRN Reason: Pain, Mild (1-3) Last Admin: 02/18/22 13:42 Dose: 0.5 mg Documented By: Admin: 02/18/22 11:40 Dose: 0.5 mg Documented By: Admin: 02/18/22 08:51 Dose: 0.5 mg Documented By: Admin: 02/18/22 06:44 Dose: 0.5 mg Documented By: MLKeturah Admin: 02/18/22 03:37 Dose: 0.5 mg Documented By: Admin: 02/18/22 00:49 Dose: 0.5 mg Documented By: DELVIN Hydromorphone HCl (Hydromorphone 1 Mg Inj) 1 mg IV Q4H PRN PRN Reason: Breakthrough Pain Last Admin: 02/19/22 12:50 Dose: 1 mg Documented By: Admin: 02/19/22 08:45 Dose: 1 mg Documented By: Admin: 02/19/22 05:05 Dose: 1 mg Documented By: Admin: 02/18/22 21:46 Dose: 1 mg Documented By: EARNESTINE Hydromorphone HCl (Hydromorphone 1 Mg Inj) 0.5 mg IV Q2H PRN PRN Reason: Breakthrough Pain Hydromorphone HCl (Hydromorphone 0.5 Mg Inj) 0.5 mg IV Q2H PRN PRN Reason: Breakthrough Pain Last Admin: 02/20/22 11:55 Dose: 0.5 mg Documented By: Admin: 02/20/22 09:39 Dose: 0.5 mg Documented By: Admin: 02/20/22 06:36 Dose: 0.5 mg Documented By: Admin: 02/20/22 03:16 Dose: 0.5 mg Documented By: Admin: 02/20/22 00:14 Dose: 0.5 mg Documented By: Admin: 02/19/22 22:12 Dose: 0.5 mg Documented By: Admin: 02/19/22 20:43 Dose: 0.5 mg Documented By: Admin: 02/19/22 18:27 Dose: 0.5 mg Documented By: Admin: 02/19/22 15:44 Dose: 0.5 mg Documented By: Admin: 02/19/22 14:03 Dose: 0.5 mg Documented By: LDV Sodium Chloride (Normal Saline 0.9%) 1,000 mls @ 1,000 mls/hr IV BOLUS ONE Stop: 02/17/22 13:55 Last Infusion: 02/17/22 16:06 Dose: 0 mls/hr Documented By: Admin: 02/17/22 14:09 Dose: 1,000 mls/hr Documented By: BT Sodium Chloride (Normal Saline 0.9%) 1,000 mls @ 1,000 mls/hr IV BOLUS ONE Stop: 02/17/22 20:04 Last Infusion: 02/17/22 21:24 Dose: 0 mls/hr Documented By: Admin: 02/17/22 20:00 Dose: 1,000 mls/hr Documented By: KH Sodium Chloride (Normal Saline 0.9%) 1,000 mls @ 200 mls/hr IV CONT KAYLA Last Admin: 02/20/22 04:27 Dose: 200 mls/hr Documented By: Infusion: 02/19/22 23:27 Dose: 200 mls/hr Documented By: Admin: 02/19/22 18:27 Dose: 200 mls/hr Documented By: Infusion: 02/19/22 17:52 Dose: 200 mls/hr Documented By: Admin: 02/19/22 12:52 Dose: 200 mls/hr Documented By: Infusion: 02/19/22 10:42 Dose: 200 mls/hr Documented By: Admin: 02/19/22 05:42 Dose: 200 mls/hr Documented By: Infusion: 02/19/22 05:42 Dose: 200 mls/hr Documented By: Admin: 02/19/22 00:49 Dose: 200 mls/hr Documented By: Infusion: 02/19/22 00:49 Dose: 200 mls/hr Documented By: Admin: 02/18/22 20:00 Dose: 200 mls/hr Documented By: Infusion: 02/18/22 20:00 Dose: 200 mls/hr Documented By: Infusion: 02/18/22 17:41 Dose: 200 mls/hr Documented By: Infusion: 02/18/22 14:54 Dose: 0 mls/hr Documented By: Admin: 02/18/22 13:48 Dose: 200 mls/hr Documented By: Infusion: 02/18/22 04:57 Dose: 0 mls/hr Documented By: Admin: 02/17/22 21:51 Dose: 125 mls/hr Documented By: DELVIN Magnesium Sulfate (Magnesium Sulfate) 2 gm in 50 mls @ 25 mls/hr IV NOW ONE Stop: 02/19/22 11:12 Last Admin: 02/19/22 09:54 Dose: 25 mls/hr Documented By: JOHNNA Co-signed By: MARVIN Lorazepam (Lorazepam 2 Mg/Ml Inj) 1 mg IV NOW ONE Stop: 02/17/22 20:30 Last Admin: 02/17/22 20:34 Dose: 1 mg Documented By: DELVIN Lorazepam (Lorazepam 2 Mg/Ml Inj) 1 mg IV NOW ONE Stop: 02/17/22 23:57 Last Admin: 02/18/22 00:01 Dose: 1 mg Documented By: ALL Lorazepam (Lorazepam 2 Mg/Ml Inj) 1 mg IV NOW ONE Stop: 02/18/22 07:55 Last Admin: 02/18/22 08:26 Dose: 1 mg Documented By: RAFIA Lorazepam (Lorazepam 2 Mg/Ml Inj) 0 mg IV CIWAPRN PRN; Protocol PRN Reason: Alcohol Withdrawal Last Admin: 02/20/22 08:07 Dose: 1 mg Documented By: Admin: 02/20/22 04:33 Dose: 2 mg Documented By: Admin: 02/20/22 01:46 Dose: 2 mg Documented By: Admin: 02/19/22 22:12 Dose: 2 mg Documented By: Admin: 02/19/22 17:21 Dose: 2 mg Documented By: Admin: 02/19/22 13:40 Dose: 2 mg Documented By: Admin: 02/19/22 09:58 Dose: 2 mg Documented By: Admin: 02/19/22 07:54 Dose: 2 mg Documented By: Admin: 02/19/22 03:01 Dose: 2 mg Documented By: Admin: 02/18/22 23:26 Dose: 2 mg Documented By: Admin: 02/18/22 19:56 Dose: 2 mg Documented By: AMH Lorazepam (Lorazepam 1 Mg Tablet) 0 mg PO CIWAPRN PRN; Protocol PRN Reason: Alcohol Withdrawal Metoclopramide HCl (Metoclopramide 10 Mg/2 Ml Inj) 10 mg IV Q6HR PRN PRN Reason: Nausea And Vomiting Last Admin: 02/19/22 16:11 Dose: 10 mg Documented By: JOHNNA Multivitamins (Multivitamin 1 Tablet) 1 tab PO DAILY KAYLA Last Admin: 02/19/22 09:48 Dose: 1 tab Documented By: Admin: 02/18/22 11:40 Dose: 1 tab Documented By: FALKITA Naloxone HCl (Naloxone 0.4 Mg/Ml Vial) 0.2 mg IV Q2MIN PRN PRN Reason: Opiate Reversal Ondansetron HCl (Ondansetron 4 Mg/2 Ml Inj) 4 mg IV NOW ONE Stop: 02/17/22 12:57 Last Admin: 02/17/22 14:10 Dose: 4 mg Documented By: BT Ondansetron HCl (Ondansetron 4 Mg/2 Ml Inj) 4 mg IV NOW ONE Stop: 02/18/22 03:38 Last Admin: 02/18/22 03:40 Dose: 4 mg Documented By: MLKeturah Ondansetron HCl (Ondansetron 4 Mg/2 Ml Inj) 4 mg IV Q6HR PRN PRN Reason: Nausea And Vomiting Last Admin: 02/20/22 09:39 Dose: 4 mg Documented By: Admin: 02/19/22 20:48 Dose: 4 mg Documented By: Admin: 02/19/22 12:53 Dose: 4 mg Documented By: Admin: 02/19/22 05:38 Dose: 4 mg Documented By: Admin: 02/18/22 23:20 Dose: 4 mg Documented By: Admin: 02/18/22 17:06 Dose: 4 mg Documented By: Admin: 02/18/22 08:54 Dose: 4 mg Documented By: RAFIA Oxycodone HCl (Oxycodone Ir 5 Mg Tablet) 5 mg PO Q3H PRN PRN Reason: Pain, Moderate (4-6) Oxycodone HCl (Oxycodone Ir 10 Mg Tablet) 10 mg PO Q3H PRN PRN Reason: Pain, Severe (7-10) Last Admin: 02/19/22 03:01 Dose: 10 mg Documented By: Admin: 02/18/22 23:20 Dose: 10 mg Documented By: Admin: 02/18/22 19:29 Dose: 10 mg Documented By: Admin: 02/18/22 16:20 Dose: 10 mg Documented By: Pantoprazole Sodium (Pantoprazole 40 Mg Vial) 40 mg IV NOW ONE Stop: 02/17/22 12:57 Last Admin: 02/17/22 14:10 Dose: 40 mg Documented By: BT Potassium Chloride (Potassium Chloride 20 Meq Tab) 40 meq PO NOW ONE Stop: 02/19/22 09:14 Last Admin: 02/19/22 09:58 Dose: 40 meq Documented By: JOHNNA Quetiapine Fumarate (Quetiapine 25 Mg Tablet) 50 mg PO BEDTIME PENDING SALE TO [facility] Sertraline HCl (Sertraline 50 Mg Tablet) 50 mg PO DAILY PENDING SALE TO [facility] Last Admin: 02/19/22 09:50 Dose: 50 mg Documented By: JOHNNA Sodium Chloride (Sodium Chloride 0.9% Flush) 10 ml IV BID PENDING SALE TO [facility] Last Admin: 02/20/22 08:07 Dose: 10 ml Documented By: Admin: 02/19/22 20:44 Dose: 10 ml Documented By: Admin: 02/19/22 09:01 Dose: 10 ml Documented By: LDV Sodium Chloride (Sodium Chloride 0.9% Flush) 10 ml IV PRN PRN PRN Reason: Flush Thiamine HCl (Thiamine 100 Mg Tablet) 100 mg PO DAILY KAYLA Stop: 02/21/22 09:01 Last Admin: 02/20/22 08:07 Dose: 100 mg Documented By: Admin: 02/19/22 09:48 Dose: 100 mg Documented By: Admin: 02/18/22 11:41 Dose: 100 mg Documented By: BT Vital Signs Vital signs: Vital Signs - 8 hr 02/18/22 11:12 02/18/22 11:13 02/18/22 11:13 Pulse Rate 102 H 95 H Respiratory Rate 20 Blood Pressure 173/94 H Pulse Oximetry 97 99 02/18/22 11:30 02/18/22 11:47 02/18/22 11:47 Pulse Rate 88 90 Respiratory Rate Blood Pressure 165/96 H Pulse Oximetry 97 97 02/18/22 12:00 02/18/22 12:00 02/18/22 12:30 Pulse Rate 92 H Respiratory Rate Blood Pressure 159/91 H 163/95 H Pulse Oximetry 94 02/18/22 12:30 02/18/22 13:00 02/18/22 13:00 Pulse Rate 91 H 85 Respiratory Rate Blood Pressure 166/96 H Pulse Oximetry 96 96 <Pily Lara, DO - Last Filed: 02/18/22 14:36> Orders Ordered: Discontinued Medications Chlordiazepoxide HCl (Chlordiazepoxide 25 Mg Capsule) 50 mg PO Q6H PENDING SALE TO [facility] Last Admin: 02/19/22 12:49 Dose: 50 mg Documented By: Admin: 02/19/22 06:41 Dose: 50 mg Documented By: Admin: 02/19/22 00:49 Dose: 50 mg Documented By: Admin: 02/18/22 18:50 Dose: 50 mg Documented By: Admin: 02/18/22 13:42 Dose: 50 mg Documented By: BT Chlordiazepoxide HCl (Chlordiazepoxide 25 Mg Capsule) 50 mg PO Q8H PENDING SALE TO [facility] Last Admin: 02/20/22 08:07 Dose: 50 mg Documented By: Admin: 02/20/22 00:14 Dose: 50 mg Documented By: Admin: 02/19/22 17:21 Dose: 50 mg Documented By: LDV Clonidine HCl (Clonidine 0.1 Mg Tablet) 0.2 mg PO DAILY PRN PRN Reason: Anxiety Last Admin: 02/19/22 09:50 Dose: 0.2 mg Documented By: LDV Al Hydrox/Mg Hydrox/Simethicone 20 ml/ Lidocaine HCl 15 ml 0 ml PO NOW ONE Stop: 02/17/22 14:29 Last Admin: 02/17/22 15:22 Dose: 35 ml Documented By: BT Enoxaparin Sodium (Enoxaparin 40 Mg/0.4 Ml Syringe) 40 mg SUBCUT DAILY PENDING SALE TO [facility] Last Admin: 02/20/22 08:07 Dose: Not Given Documented By: Admin: 02/19/22 09:48 Dose: 40 mg Documented By: JOHNNA Folic Acid (Folic Acid 1 Mg Tablet) 1 mg PO DAILY KAYLA Last Admin: 02/19/22 09:48 Dose: 1 mg Documented By: Admin: 02/18/22 11:40 Dose: 1 mg Documented By: FLAKITA Hydromorphone HCl (Hydromorphone 0.5 Mg Inj) 0.5 mg IV NOW ONE Stop: 02/17/22 12:58 Last Admin: 02/17/22 14:10 Dose: 0.5 mg Documented By: FLAKITA Hydromorphone HCl (Hydromorphone 0.5 Mg Inj) 0.5 mg IV NOW ONE Stop: 02/17/22 15:50 Last Admin: 02/17/22 16:05 Dose: 0.5 mg Documented By: FLAKITA Hydromorphone HCl (Hydromorphone 0.5 Mg Inj) 0.5 mg IV NOW ONE Stop: 02/17/22 19:06 Last Admin: 02/17/22 19:32 Dose: 0.5 mg Documented By: DELVIN Hydromorphone HCl (Hydromorphone 1 Mg Inj) 1 mg IV NOW ONE Stop: 02/17/22 21:45 Last Admin: 02/17/22 21:51 Dose: 1 mg Documented By: DELVIN Hydromorphone HCl (Hydromorphone 0.5 Mg Inj) 0.5 mg IV Q2HR PRN PRN Reason: Pain, Mild (1-3) Last Admin: 02/18/22 13:42 Dose: 0.5 mg Documented By: Admin: 02/18/22 11:40 Dose: 0.5 mg Documented By: Admin: 02/18/22 08:51 Dose: 0.5 mg Documented By: Admin: 02/18/22 06:44 Dose: 0.5 mg Documented By: Admin: 02/18/22 03:37 Dose: 0.5 mg Documented By: Admin: 02/18/22 00:49 Dose: 0.5 mg Documented By: DELVIN Hydromorphone HCl (Hydromorphone 1 Mg Inj) 1 mg IV Q4H PRN PRN Reason: Breakthrough Pain Last Admin: 02/19/22 12:50 Dose: 1 mg Documented By: Admin: 02/19/22 08:45 Dose: 1 mg Documented By: Admin: 02/19/22 05:05 Dose: 1 mg Documented By: Admin: 02/18/22 21:46 Dose: 1 mg Documented By: AMH Hydromorphone HCl (Hydromorphone 1 Mg Inj) 0.5 mg IV Q2H PRN PRN Reason: Breakthrough Pain Hydromorphone HCl (Hydromorphone 0.5 Mg Inj) 0.5 mg IV Q2H PRN PRN Reason: Breakthrough Pain Last Admin: 02/20/22 11:55 Dose: 0.5 mg Documented By: Admin: 02/20/22 09:39 Dose: 0.5 mg Documented By: Admin: 02/20/22 06:36 Dose: 0.5 mg Documented By: Admin: 02/20/22 03:16 Dose: 0.5 mg Documented By: Admin: 02/20/22 00:14 Dose: 0.5 mg Documented By: Admin: 02/19/22 22:12 Dose: 0.5 mg Documented By: Admin: 02/19/22 20:43 Dose: 0.5 mg Documented By: Admin: 02/19/22 18:27 Dose: 0.5 mg Documented By: Admin: 02/19/22 15:44 Dose: 0.5 mg Documented By: Admin: 02/19/22 14:03 Dose: 0.5 mg Documented By: LDV Sodium Chloride (Normal Saline 0.9%) 1,000 mls @ 1,000 mls/hr IV BOLUS ONE Stop: 02/17/22 13:55 Last Infusion: 02/17/22 16:06 Dose: 0 mls/hr Documented By: Admin: 02/17/22 14:09 Dose: 1,000 mls/hr Documented By: BT Sodium Chloride (Normal Saline 0.9%) 1,000 mls @ 1,000 mls/hr IV BOLUS ONE Stop: 02/17/22 20:04 Last Infusion: 02/17/22 21:24 Dose: 0 mls/hr Documented By: Admin: 02/17/22 20:00 Dose: 1,000 mls/hr Documented By: KH Sodium Chloride (Normal Saline 0.9%) 1,000 mls @ 200 mls/hr IV CONT KAYLA Last Admin: 02/20/22 04:27 Dose: 200 mls/hr Documented By: Infusion: 02/19/22 23:27 Dose: 200 mls/hr Documented By: Admin: 02/19/22 18:27 Dose: 200 mls/hr Documented By: Infusion: 02/19/22 17:52 Dose: 200 mls/hr Documented By: Admin: 02/19/22 12:52 Dose: 200 mls/hr Documented By: Infusion: 02/19/22 10:42 Dose: 200 mls/hr Documented By: Admin: 02/19/22 05:42 Dose: 200 mls/hr Documented By: Infusion: 02/19/22 05:42 Dose: 200 mls/hr Documented By: Admin: 02/19/22 00:49 Dose: 200 mls/hr Documented By: Infusion: 02/19/22 00:49 Dose: 200 mls/hr Documented By: Admin: 02/18/22 20:00 Dose: 200 mls/hr Documented By: Infusion: 02/18/22 20:00 Dose: 200 mls/hr Documented By: Infusion: 02/18/22 17:41 Dose: 200 mls/hr Documented By: Infusion: 02/18/22 14:54 Dose: 0 mls/hr Documented By: Admin: 02/18/22 13:48 Dose: 200 mls/hr Documented By: Infusion: 02/18/22 04:57 Dose: 0 mls/hr Documented By: Admin: 02/17/22 21:51 Dose: 125 mls/hr Documented By: DELVIN Magnesium Sulfate (Magnesium Sulfate) 2 gm in 50 mls @ 25 mls/hr IV NOW ONE Stop: 02/19/22 11:12 Last Admin: 02/19/22 09:54 Dose: 25 mls/hr Documented By: LDV Co-signed By: MARVIN Lorazepam (Lorazepam 2 Mg/Ml Inj) 1 mg IV NOW ONE Stop: 02/17/22 20:30 Last Admin: 02/17/22 20:34 Dose: 1 mg Documented By: DELVIN Lorazepam (Lorazepam 2 Mg/Ml Inj) 1 mg IV NOW ONE Stop: 02/17/22 23:57 Last Admin: 02/18/22 00:01 Dose: 1 mg Documented By: ALL Lorazepam (Lorazepam 2 Mg/Ml Inj) 1 mg IV NOW ONE Stop: 02/18/22 07:55 Last Admin: 02/18/22 08:26 Dose: 1 mg Documented By: RAFIA Lorazepam (Lorazepam 2 Mg/Ml Inj) 0 mg IV CIWAPRN PRN; Protocol PRN Reason: Alcohol Withdrawal Last Admin: 02/20/22 08:07 Dose: 1 mg Documented By: Admin: 02/20/22 04:33 Dose: 2 mg Documented By: Admin: 02/20/22 01:46 Dose: 2 mg Documented By: Admin: 02/19/22 22:12 Dose: 2 mg Documented By: Admin: 02/19/22 17:21 Dose: 2 mg Documented By: Admin: 02/19/22 13:40 Dose: 2 mg Documented By: Admin: 02/19/22 09:58 Dose: 2 mg Documented By: Admin: 02/19/22 07:54 Dose: 2 mg Documented By: Admin: 02/19/22 03:01 Dose: 2 mg Documented By: Admin: 02/18/22 23:26 Dose: 2 mg Documented By: Admin: 02/18/22 19:56 Dose: 2 mg Documented By: EARNESTINE Lorazepam (Lorazepam 1 Mg Tablet) 0 mg PO CIWAPRN PRN; Protocol PRN Reason: Alcohol Withdrawal Metoclopramide HCl (Metoclopramide 10 Mg/2 Ml Inj) 10 mg IV Q6HR PRN PRN Reason: Nausea And Vomiting Last Admin: 02/19/22 16:11 Dose: 10 mg Documented By: JOHNNA Multivitamins (Multivitamin 1 Tablet) 1 tab PO DAILY KAYLA Last Admin: 02/19/22 09:48 Dose: 1 tab Documented By: Admin: 02/18/22 11:40 Dose: 1 tab Documented By: FLAKITA Naloxone HCl (Naloxone 0.4 Mg/Ml Vial) 0.2 mg IV Q2MIN PRN PRN Reason: Opiate Reversal Ondansetron HCl (Ondansetron 4 Mg/2 Ml Inj) 4 mg IV NOW ONE Stop: 02/17/22 12:57 Last Admin: 02/17/22 14:10 Dose: 4 mg Documented By: BT Ondansetron HCl (Ondansetron 4 Mg/2 Ml Inj) 4 mg IV NOW ONE Stop: 02/18/22 03:38 Last Admin: 02/18/22 03:40 Dose: 4 mg Documented By: MLKeturah Ondansetron HCl (Ondansetron 4 Mg/2 Ml Inj) 4 mg IV Q6HR PRN PRN Reason: Nausea And Vomiting Last Admin: 02/20/22 09:39 Dose: 4 mg Documented By: Admin: 02/19/22 20:48 Dose: 4 mg Documented By: Admin: 02/19/22 12:53 Dose: 4 mg Documented By: Admin: 02/19/22 05:38 Dose: 4 mg Documented By: Admin: 02/18/22 23:20 Dose: 4 mg Documented By: Admin: 02/18/22 17:06 Dose: 4 mg Documented By: Admin: 02/18/22 08:54 Dose: 4 mg Documented By: RAFIA Oxycodone HCl (Oxycodone Ir 5 Mg Tablet) 5 mg PO Q3H PRN PRN Reason: Pain, Moderate (4-6) Oxycodone HCl (Oxycodone Ir 10 Mg Tablet) 10 mg PO Q3H PRN PRN Reason: Pain, Severe (7-10) Last Admin: 02/19/22 03:01 Dose: 10 mg Documented By: Admin: 02/18/22 23:20 Dose: 10 mg Documented By: Admin: 02/18/22 19:29 Dose: 10 mg Documented By: Admin: 02/18/22 16:20 Dose: 10 mg Documented By: Pantoprazole Sodium (Pantoprazole 40 Mg Vial) 40 mg IV NOW ONE Stop: 02/17/22 12:57 Last Admin: 02/17/22 14:10 Dose: 40 mg Documented By: BT Potassium Chloride (Potassium Chloride 20 Meq Tab) 40 meq PO NOW ONE Stop: 02/19/22 09:14 Last Admin: 02/19/22 09:58 Dose: 40 meq Documented By: LDV Quetiapine Fumarate (Quetiapine 25 Mg Tablet) 50 mg PO BEDTIME KAYLA Sertraline HCl (Sertraline 50 Mg Tablet) 50 mg PO DAILY KAYLA Last Admin: 02/19/22 09:50 Dose: 50 mg Documented By: LDV Sodium Chloride (Sodium Chloride 0.9% Flush) 10 ml IV BID KAYLA Last Admin: 02/20/22 08:07 Dose: 10 ml Documented By: Admin: 02/19/22 20:44 Dose: 10 ml Documented By: Admin: 02/19/22 09:01 Dose: 10 ml Documented By: LDV Sodium Chloride (Sodium Chloride 0.9% Flush) 10 ml IV PRN PRN PRN Reason: Flush Thiamine HCl (Thiamine 100 Mg Tablet) 100 mg PO DAILY KAYLA Stop: 02/21/22 09:01 Last Admin: 02/20/22 08:07 Dose: 100 mg Documented By: Admin: 02/19/22 09:48 Dose: 100 mg Documented By: Admin: 02/18/22 11:41 Dose: 100 mg Documented By: BT Consultations Consultation #1: Dr. Vaughan, gastroenterology [facility]. Reviewed patient's findings, labs as well as MRCP they state if patient is dropping hemoglobin consider hemorrhagic pancreatitis but if stable does not require transfer. Would recommend [facility] as outpatient for follow up Time: 13:06 Consultation #2: Dr. Grace, hospitalist accepts for inpatient after review with GI. Time: 13:07 Vital Signs Vital signs: Vital Signs - 8 hr 02/18/22 11:12 02/18/22 11:13 02/18/22 11:13 Pulse Rate 102 H 95 H Respiratory Rate 20 Blood Pressure 173/94 H Pulse Oximetry 97 99 02/18/22 11:30 02/18/22 11:47 02/18/22 11:47 Pulse Rate 88 90 Respiratory Rate Blood Pressure 165/96 H Pulse Oximetry 97 97 02/18/22 12:00 02/18/22 12:00 02/18/22 12:30 Pulse Rate 92 H Respiratory Rate Blood Pressure 159/91 H 163/95 H Pulse Oximetry 94 02/18/22 12:30 02/18/22 13:00 02/18/22 13:00 Pulse Rate 91 H 85 Respiratory Rate Blood Pressure 166/96 H Pulse Oximetry 96 96 MDM - Abdominal Pain <Hu Fairchild DO - Last Filed: 02/24/22 07:06> Lab Data Result diagrams: 02/20/22 07:15 02/20/22 07:15 Labs: Lab Results 02/17/22 02/17/22 02/17/22 Range/Units 13:30 13:35 13:35 WBC 6.1 (4.5-11.0) X10^3/uL RBC 3.91 L (4.5-5.9) X10^6/uL Hgb 12.1 L (13.5-17.5) g/dL Hct 35.4 L (41-53) % MCV 90.6 (80-100) fL MCH 31.0 (26-34) PG MCHC 34.2 (30-36) % RDW 15.0 H (11.6-14.8) % Plt Count 129 L (150-400) X10^3/uL Neut % (Auto) 80.8 H (50-75) % Lymph % (Auto) 10.8 L (25-40) % Tyrrell % (Auto) 7.4 (3-14) % Eos % (Auto) 0.8 L (2-4) % Baso % (Auto) 0.2 (0-2) % Neut # (Auto) 5000 (2980-6857) /uL Lymph # (Auto) 700 L (2902-4431) /uL Tyrrell # (Auto) 500 (0-900) /uL Eos # (Auto) 0 (0-450) /uL Baso # (Auto) 0 (0-100) /uL PT (10.1-12.7) SECONDS INR (0.9-1.3) Sodium (137-145) mmol/L Potassium (3.4-5.1) mmol/L Chloride (98-107) mmol/L Carbon Dioxide (22-32) mmol/L BUN (9-20) mg/dL Creatinine (0.66-1.25) mg/dL Estimated GFR (>60) mL/min BUN/Creatinine Ratio (6-22) Glucose (70-100) mg/dL Calcium (8.4-10.2) mg/dL Magnesium (1.6-2.3) mg/dL Total Bilirubin (0.2-1.3) mg/dL AST (17-59) IU/L ALT (<50) IU/L Alkaline Phosphatase (38-126) U/L Total Protein (6.3-8.2) g/dL Albumin (3.5-5.0) g/dL Globulin (1.7-4.1) g/dL Albumin/Globulin Ratio (1.0-2.8) Lipase (23-300) U/L Urine RBC None seen (0-5/HPF) Urine WBC 0-1/hpf (0-5/HPF) Amorphous Sediment 1+ Urine Bacteria None seen (None) Urine Mucus 1+ H (Negative) Ur Culture Indicated? Specimen cultured Ethyl Alcohol < 10 ( - 10) mg/dL SARS-CoV-2 (PCR) (Negative) 02/17/22 02/17/22 02/17/22 Range/Units 13:35 13:35 15:25 WBC (4.5-11.0) X10^3/uL RBC (4.5-5.9) X10^6/uL Hgb (13.5-17.5) g/dL Hct (41-53) % MCV (80-100) fL MCH (26-34) PG MCHC (30-36) % RDW (11.6-14.8) % Plt Count (150-400) X10^3/uL Neut % (Auto) (50-75) % Lymph % (Auto) (25-40) % Tyrrell % (Auto) (3-14) % Eos % (Auto) (2-4) % Baso % (Auto) (0-2) % Neut # (Auto) (1143-6076) /uL Lymph # (Auto) (9311-7764) /uL Tyrrell # (Auto) (0-900) /uL Eos # (Auto) (0-450) /uL Baso # (Auto) (0-100) /uL PT 16.1 H (10.1-12.7) SECONDS INR 1.4 H (0.9-1.3) Sodium 138 (137-145) mmol/L Potassium 3.4 (3.4-5.1) mmol/L Chloride 101 (98-107) mmol/L Carbon Dioxide 25 (22-32) mmol/L BUN 9 (9-20) mg/dL Creatinine 0.55 L (0.66-1.25) mg/dL Estimated GFR > 60 (>60) mL/min BUN/Creatinine Ratio 16.4 (6-22) Glucose 165 H (70-100) mg/dL Calcium 8.7 (8.4-10.2) mg/dL Magnesium 1.7 (1.6-2.3) mg/dL Total Bilirubin 1.3 (0.2-1.3) mg/dL AST 33 (17-59) IU/L ALT 25 (<50) IU/L Alkaline Phosphatase 94 (38-126) U/L Total Protein 9.2 H (6.3-8.2) g/dL Albumin 4.0 (3.5-5.0) g/dL Globulin 5.2 H (1.7-4.1) g/dL Albumin/Globulin Ratio 0.8 L (1.0-2.8) Lipase 176 (23-300) U/L Urine RBC (0-5/HPF) Urine WBC (0-5/HPF) Amorphous Sediment Urine Bacteria (None) Urine Mucus (Negative) Ur Culture Indicated? Ethyl Alcohol ( - 10) mg/dL SARS-CoV-2 (PCR) Negative (Negative) Point of care testing: Urine Dip Bedside Urine Glucose Negative Bedside Urine Bilirubin + 1 Bedside Urine Ketone +/- 5 Urine Specific Beatty 1.03 Bedside Urine Occult Blood - Negative Bedside Urine pH 6 Bedside Urine Protein ++ 100 Bedside Urine Urobilinogen +/- 1mg Bedside Urine Leukocytes +/- [address] scan - abdomen/pelvis: Radiologist's Impression: [address] [id number] ReportSigned Patient: Milly Woods#: [id number]: 02/10/1943cct:[id number]/Sex: 79 / FDate of Service: 02/17/22Loc: EDAccession Number: [id number] Procedure: XR chest 1V Ordering Provider: Hu Fairchild D.O. PROCEDURE: XR CHEST 1V INDICATIONS: chest pain TECHNIQUE: One view of the chest was acquired. COMPARISON: None. FINDINGS: Surgical changes and devices: None. Lungs and pleura: Lungs are clear. No pleural effusions or pneumothorax. Mediastinum: Mediastinal contours appear normal. Heart size is normal. Bones and chest wall: No suspicious bony lesions. Overlying soft tissues appear unremarkable. IMPRESSION: No acute cardiopulmonary disease. Dictated by: Nilsa Chahal M.D. on 02/17/2022 at 16:18 Approved by: Nilsa Chahal M.D. on 02/17/2022 at 16:19 <Edin Tapia, DO - Last Filed: 02/18/22 18:20> Lab Data Labs: Lab Results 02/17/22 02/17/22 02/17/22 Range/Units 13:30 13:35 13:35 WBC 6.1 (4.5-11.0) X10^3/uL RBC 3.91 L (4.5-5.9) X10^6/uL Hgb 12.1 L (13.5-17.5) g/dL Hct 35.4 L (41-53) % MCV 90.6 (80-100) fL MCH 31.0 (26-34) PG MCHC 34.2 (30-36) % RDW 15.0 H (11.6-14.8) % Plt Count 129 L (150-400) X10^3/uL Neut % (Auto) 80.8 H (50-75) % Lymph % (Auto) 10.8 L (25-40) % Tyrrell % (Auto) 7.4 (3-14) % Eos % (Auto) 0.8 L (2-4) % Baso % (Auto) 0.2 (0-2) % Neut # (Auto) 5000 (7295-3210) /uL Lymph # (Auto) 700 L (0023-6830) /uL Tyrrell # (Auto) 500 (0-900) /uL Eos # (Auto) 0 (0-450) /uL Baso # (Auto) 0 (0-100) /uL PT (10.1-12.7) SECONDS INR (0.9-1.3) Sodium (137-145) mmol/L Potassium (3.4-5.1) mmol/L Chloride (98-107) mmol/L Carbon Dioxide (22-32) mmol/L BUN (9-20) mg/dL Creatinine (0.66-1.25) mg/dL Estimated GFR (>60) mL/min BUN/Creatinine Ratio (6-22) Glucose (70-100) mg/dL Calcium (8.4-10.2) mg/dL Magnesium (1.6-2.3) mg/dL Total Bilirubin (0.2-1.3) mg/dL AST (17-59) IU/L ALT (<50) IU/L Alkaline Phosphatase (38-126) U/L Total Protein (6.3-8.2) g/dL Albumin (3.5-5.0) g/dL Globulin (1.7-4.1) g/dL Albumin/Globulin Ratio (1.0-2.8) Lipase (23-300) U/L Urine RBC None seen (0-5/HPF) Urine WBC 0-1/hpf (0-5/HPF) Amorphous Sediment 1+ Urine Bacteria None seen (None) Urine Mucus 1+ H (Negative) Ur Culture Indicated? Specimen cultured Ethyl Alcohol < 10 ( - 10) mg/dL SARS-CoV-2 (PCR) (Negative) 02/17/22 02/17/22 02/17/22 Range/Units 13:35 13:35 15:25 WBC (4.5-11.0) X10^3/uL RBC (4.5-5.9) X10^6/uL Hgb (13.5-17.5) g/dL Hct (41-53) % MCV (80-100) fL MCH (26-34) PG MCHC (30-36) % RDW (11.6-14.8) % Plt Count (150-400) X10^3/uL Neut % (Auto) (50-75) % Lymph % (Auto) (25-40) % Tyrrell % (Auto) (3-14) % Eos % (Auto) (2-4) % Baso % (Auto) (0-2) % Neut # (Auto) (6721-0070) /uL Lymph # (Auto) (2431-9761) /uL Tyrrell # (Auto) (0-900) /uL Eos # (Auto) (0-450) /uL Baso # (Auto) (0-100) /uL PT 16.1 H (10.1-12.7) SECONDS INR 1.4 H (0.9-1.3) Sodium 138 (137-145) mmol/L Potassium 3.4 (3.4-5.1) mmol/L Chloride 101 (98-107) mmol/L Carbon Dioxide 25 (22-32) mmol/L BUN 9 (9-20) mg/dL Creatinine 0.55 L (0.66-1.25) mg/dL Estimated GFR > 60 (>60) mL/min BUN/Creatinine Ratio 16.4 (6-22) Glucose 165 H (70-100) mg/dL Calcium 8.7 (8.4-10.2) mg/dL Magnesium 1.7 (1.6-2.3) mg/dL Total Bilirubin 1.3 (0.2-1.3) mg/dL AST 33 (17-59) IU/L ALT 25 (<50) IU/L Alkaline Phosphatase 94 (38-126) U/L Total Protein 9.2 H (6.3-8.2) g/dL Albumin 4.0 (3.5-5.0) g/dL Globulin 5.2 H (1.7-4.1) g/dL Albumin/Globulin Ratio 0.8 L (1.0-2.8) Lipase 176 (23-300) U/L Urine RBC (0-5/HPF) Urine WBC (0-5/HPF) Amorphous Sediment Urine Bacteria (None) Urine Mucus (Negative) Ur Culture Indicated? Ethyl Alcohol ( - 10) mg/dL SARS-CoV-2 (PCR) Negative (Negative) Point of care testing: Urine Dip Bedside Urine Glucose Negative Bedside Urine Bilirubin + 1 Bedside Urine Ketone +/- 5 Urine Specific Beatty 1.03 Bedside Urine Occult Blood - Negative Bedside Urine pH 6 Bedside Urine Protein ++ 100 Bedside Urine Urobilinogen +/- 1mg Bedside Urine Leukocytes +/- 15 Esterase MDM Narrative Medical decision making narrative: Dr tapia: overnight 02/17-02/18 received turned over. Reviewed patient's history and physical exam. Introduce myself to the patient. Plan is for an MRI in the morning to further evaluate his pancreas. If MRI shows no indication for transfer the patient will be admitted for acute pancreatitis. Care turned over to day provider to obtain MRI and disposition. <Pily Lara, DO - Last Filed: 02/18/22 14:36> Lab Data Labs: Lab Results 02/17/22 02/17/22 02/17/22 Range/Units 13:30 13:35 13:35 WBC 6.1 (4.5-11.0) X10^3/uL RBC 3.91 L (4.5-5.9) X10^6/uL Hgb 12.1 L (13.5-17.5) g/dL Hct 35.4 L (41-53) % MCV 90.6 (80-100) fL MCH 31.0 (26-34) PG MCHC 34.2 (30-36) % RDW 15.0 H (11.6-14.8) % Plt Count 129 L (150-400) X10^3/uL Neut % (Auto) 80.8 H (50-75) % Lymph % (Auto) 10.8 L (25-40) % Tyrrell % (Auto) 7.4 (3-14) % Eos % (Auto) 0.8 L (2-4) % Baso % (Auto) 0.2 (0-2) % Neut # (Auto) 5000 (7957-7862) /uL Lymph # (Auto) 700 L (8083-8209) /uL Tyrrell # (Auto) 500 (0-900) /uL Eos # (Auto) 0 (0-450) /uL Baso # (Auto) 0 (0-100) /uL PT (10.1-12.7) SECONDS INR (0.9-1.3) Sodium (137-145) mmol/L Potassium (3.4-5.1) mmol/L Chloride (98-107) mmol/L Carbon Dioxide (22-32) mmol/L BUN (9-20) mg/dL Creatinine (0.66-1.25) mg/dL Estimated GFR (>60) mL/min BUN/Creatinine Ratio (6-22) Glucose (70-100) mg/dL Calcium (8.4-10.2) mg/dL Magnesium (1.6-2.3) mg/dL Total Bilirubin (0.2-1.3) mg/dL AST (17-59) IU/L ALT (<50) IU/L Alkaline Phosphatase (38-126) U/L Total Protein (6.3-8.2) g/dL Albumin (3.5-5.0) g/dL Globulin (1.7-4.1) g/dL Albumin/Globulin Ratio (1.0-2.8) Lipase (23-300) U/L Urine RBC None seen (0-5/HPF) Urine WBC 0-1/hpf (0-5/HPF) Amorphous Sediment 1+ Urine Bacteria None seen (None) Urine Mucus 1+ H (Negative) Ur Culture Indicated? Specimen cultured Ethyl Alcohol < 10 ( - 10) mg/dL SARS-CoV-2 (PCR) (Negative) 02/17/22 02/17/22 02/17/22 Range/Units 13:35 13:35 15:25 WBC (4.5-11.0) X10^3/uL RBC (4.5-5.9) X10^6/uL Hgb (13.5-17.5) g/dL Hct (41-53) % MCV (80-100) fL MCH (26-34) PG MCHC (30-36) % RDW (11.6-14.8) % Plt Count (150-400) X10^3/uL Neut % (Auto) (50-75) % Lymph % (Auto) (25-40) % Tyrrell % (Auto) (3-14) % Eos % (Auto) (2-4) % Baso % (Auto) (0-2) % Neut # (Auto) (9408-7937) /uL Lymph # (Auto) (8314-9467) /uL Tyrrell # (Auto) (0-900) /uL Eos # (Auto) (0-450) /uL Baso # (Auto) (0-100) /uL PT 16.1 H (10.1-12.7) SECONDS INR 1.4 H (0.9-1.3) Sodium 138 (137-145) mmol/L Potassium 3.4 (3.4-5.1) mmol/L Chloride 101 (98-107) mmol/L Carbon Dioxide 25 (22-32) mmol/L BUN 9 (9-20) mg/dL Creatinine 0.55 L (0.66-1.25) mg/dL Estimated GFR > 60 (>60) mL/min BUN/Creatinine Ratio 16.4 (6-22) Glucose 165 H (70-100) mg/dL Calcium 8.7 (8.4-10.2) mg/dL Magnesium 1.7 (1.6-2.3) mg/dL Total Bilirubin 1.3 (0.2-1.3) mg/dL AST 33 (17-59) IU/L ALT 25 (<50) IU/L Alkaline Phosphatase 94 (38-126) U/L Total Protein 9.2 H (6.3-8.2) g/dL Albumin 4.0 (3.5-5.0) g/dL Globulin 5.2 H (1.7-4.1) g/dL Albumin/Globulin Ratio 0.8 L (1.0-2.8) Lipase 176 (23-300) U/L Urine RBC (0-5/HPF) Urine WBC (0-5/HPF) Amorphous Sediment Urine Bacteria (None) Urine Mucus (Negative) Ur Culture Indicated? Ethyl Alcohol ( - 10) mg/dL SARS-CoV-2 (PCR) Negative (Negative) Point of care testing: Urine Dip Bedside Urine Glucose Negative Bedside Urine Bilirubin + 1 Bedside Urine Ketone +/- 5 Urine Specific Beatty 1.03 Bedside Urine Occult Blood - Negative Bedside Urine pH 6 Bedside Urine Protein ++ 100 Bedside Urine Urobilinogen +/- 1mg Bedside Urine Leukocytes +/- 15 Esterase MDM Narrative Medical decision making narrative: Dr tapia: overnight 02/17-02/18 received turned over. Reviewed patient's history and physical exam. Introduce myself to the patient. Plan is for an MRI in the morning to further evaluate his pancreas. If MRI shows no indication for transfer the patient will be admitted for acute pancreatitis. Care turned over to day provider to obtain MRI and disposition. 02/18/22 [facility] 0755: Patient seen and evaluated independently by myself. Patient was turned over by Dr. Tapia to myself. Patient is having a little bit of withdrawal feeling a little shaky. He is not have any vomiting. He states he has had seizures and hallucinations in the past. He states last drink was . Had CT which showed recurrent pancreatitis changes with increased prominence and hyper attenuating pancreatic mass involving the lateral head and uncinate process may be residual dermal tissue in presence of diffusely hypoenhancing pancreas. Areas gradually increased in prominence over several studies some evidence of developing portal hypertension and, hepatosplenomegaly and mild hepatic steatosis with reactive inflammation of distal stomach, duodenum and gallbladder. Reportedly Dr. Fairchild from yesterday's day shift had discussed with the hospitalist they asked to have us obtain an MR pancreatic protocol to evaluate if patient needs transfer versus can stay here locally for admission. Patient has had multiple doses of pain medication overnight, altho ugh he is quite alert and appropriate in the room. Spoke with MR cerna who states they should have availability this morning, updated patient. Spoke with gastroenterology who recommends endoscopic ultrasound as outpatient, if he is dropping hemoglobin would evaluate for hemorrhagic pancreatitis which might necessitate transfer but this seems unlikely based on patient's vitals and labs. Spoke with Dr. Azul in the hospitalist who accepts for inpatient. Patient has been tolerating orals he recommends adding Librium on top of his as needed Ativan. Patient has not had any hallucinations, no seizure activity CIWA has been between 6 and 8 in the department. Discharge Plan Departure Patient Disposition: Admitted As Inpatient Clinical Impression: Pancreatitis, Alcohol abuse with withdrawal Admit Date/Time: 02/18/22 13:24 Admit Provider: Nelson Grace
--- NOTE | 2022-02-17 12:57 | DI.US.S_ITS ---
PROCEDURE: US ABDOMEN LIMITED INDICATIONS: severe epigastric pain with radiation to back TECHNIQUE: Real-time focused scanning was performed of the abdomen, with image documentation. COMPARISON: None. FINDINGS: The gallbladder is distended and contains some dependent sludge. The wall is measured normal thickness at 1.6 mm. There is no pericholecystic fluid, however there was a sonographic Wilcox sign. The common duct is normal caliber at 5.9 mm. There is no visible intrahepatic biliary dilatation. The visible liver is at the upper limits of normal in size measuring 18.1 cm and demonstrates slight pa renchymal hyperechogenicity.. the pancreas was not well seen. The visible portion of the kidney is within normal limits and there is no free fluid in Briscoe's pouch. IMPRESSION: 1. There is a distended, tender gallbladder containing sludge. An obstructing stone is not visible. Acalculous cholecystitis may be present although there is also no wall thickening. 2. Possible mild hepatic steatosis. 3. Pancreas was not well seen by ultrasound. If there is continued concern for pancreatitis, CT imaging is recommended. Dictated by: Nilsa Chahal M.D. on 02/17/2022 at 13:24 Approved by: Nilsa Chahal M.D. on 02/17/2022 at 13:26
[2022-02-17 13:51] LABS: Add Manual Diff / Slide Review NO; Basophils Absolute Auto 0 /uL (0-100); Basophils Percent Auto 0.2 % (0-2); Eosinophils Absolute Auto 0 /uL (0-450); Eosinophils Percent Auto 0.8 % (2-4); Hematocrit 35.4 % (41-53); Hemoglobin 12.1 g/dL (13.5-17.5); Lymphocytes Absolute Auto 700 /uL (1100-4500); Lymphocytes Percent Auto 10.8 % (25-40); Mean Corpuscular HGB Conc 34.2 % (30-36); Mean Corpuscular Volume 90.6 fL (80-100); Monocytes Absolute Auto 500 /uL (0-900); Monocytes Percent Auto 7.4 % (3-14); Neutrophils Absolute Auto 5000 /uL (1500-7000); Neutrophils Percent Auto 80.8 % (50-75); Platelet Count 129 X10^3/uL (150-400); Red Blood Cell Count 3.91 X10^6/uL (4.5-5.9); White Blood Cell Count 6.1 X10^3/uL (4.5-11.0)
[2022-02-17 13:58] LABS: INR 1.4 (0.9-1.3); Prothrombin Time 16.1 SECONDS (10.1-12.7)
[2022-02-17 14:03] LABS: Alanine Aminotransferase 25 IU/L (<50); Albumin Globulin Ratio 0.8 (1.0-2.8); Alkaline Phosphatase 94 U/L (38-126); Aspartate Aminotransferase 33 IU/L (17-59); BUN Creatinine Ratio 16.4 (6-22); Bilirubin Total 1.3 mg/dL (0.2-1.3); Blood Urea Nitrogen 9 mg/dL (9-20); Calcium 8.7 mg/dL (8.4-10.2); Carbon Dioxide 25 mmol/L (22-32); Chloride 101 mmol/L (98-107); Estimated Glomerular Filt Rate > 60 mL/min (>60); Ethanol (ETOH) < 10 mg/dL; Globulin 5.2 g/dL (1.7-4.1); Glucose 165 mg/dL (70-100); HEMOLYSIS 17 (0-50); Lipase 176 U/L (23-300); Magnesium 1.7 mg/dL (1.6-2.3); Potassium 3.4 mmol/L (3.4-5.1); Sodium 138 mmol/L (137-145); Total Protein 9.2 g/dL (6.3-8.2)
[2022-02-17] MEDS: SODIUM CHLORIDE 0.9% 1,000 ML 1000 ML IV ×2 (14:09→20:00)
[2022-02-17] MEDS: HYDROMORPHONE 0.5 MG INJ IV ×3 (14:10→19:32)
[2022-02-17] MEDS: PANTOPRAZOLE 40 MG VIAL IV (14:10)
[2022-02-17] MEDS: ONDANSETRON 4 MG/2 ML INJ IV (14:10)
--- NOTE | 2022-02-17 14:28 | DI.CT.S_ITS ---
PROCEDURE: CT ABDOMEN PELVIS W CON INDICATIONS: severe upper abdominal pain TECHNIQUE: After the administration of intravenous contrast, axial sections acquired from the lung bases to the pubic symphysis. Coronal and sagittal reformats were performed. For radiation dose reduction, the following was used: automated exposure control, adjustment of mA and/or kV according to patient size. COMPARISON: [facility], CT, CT ABDOMEN PELVIS WITH CONTRAST, 04/17/2021, 18:50[facility], CT, CT ABDOMEN PELVIS WITH CONTRAST, 08/24/2021, 1:41. FINDINGS: Image quality: Excellent. Lung bases: Clear lung bases. Mild symmetric gynecomastia. Heart: No significant findings. ABDOMEN: Liver: Hepatomegaly and mild hepatic steatosis. No suspicious mass. There is recanalization of the umbilical vein. Gallbladder: Distended. No calcifications. Mild wall thickening in the fundus, likely reactive. Biliary ducts: Nondilated. Pancreas: Mild enlargement of pancreas and diffuse moderate peripancreatic inflammation extending to the david hepatis and along the lesser curvature of the stomach. The tail is diminutive. The head and uncinate process are relatively enlarged. And there is a relatively hyperdense mass in the pancreatic head and uncinate process as seen on prior exam. A small cyst in the uncinate process has decreased size, potentially a prior pseudocyst. Spleen: Diffusely enlarged measuring 17.5 cm in length. Adrenal Glands: No masses. Kidneys and Ureters: Symmetric enhancement. No nephrolithiasis or hydronephrosis. No hydroureter. There is slight symmetric prominence of the collecting systems bilaterally. Stomach and Bowel: The stomach is decompressed. Diffuse mural edema and haziness involving the gastric antrum and duodenum. No duodenal dilatation. Small bowel is otherwise decompressed. There is diverticular disease in the descending and sigmoid colon. Peritoneum: There is trace fluid in the pelvis. Inflammation and fascial thickening layer dependently along the pararenal fascia Ventral Wall: No hernias. Abdominal Nodes: Numerous small retroperitoneal lymph nodes are present. There are several peripancreatic. No suspicious abdominal masses. Vessels: Aorta and vena cava are normal. The splenic vein and portal vein are enlarged but patent. There is attenuation of the superior mesenteric vein and there are early upper abdominal varices. PELVIS: Pelvic Organs: Mild prostatomegaly. Bladder: No wall thickening. Pelvic Nodes: No enlarged lymph nodes. Miscellaneous: No hernias are seen. Bones: Unremarkable. IMPRESSION: 1. Recurrent acute pancreatitis. 2. Increased prominence relatively hyperattenuating pancreatic mass involving the lateral head and uncinate process. This otherwise may be residual normal pancreatic tissue in the presence of diffusely hypoenhancing pancreas. This area has gradually increased in prominence over several studies. 3. Hepatosplenomegaly and mild hepatic steatosis. 4. Evidence of developing portal hypertension. 5. Reactive inflammation involving the distal stomach, duodenum, and gallbladder. Dictated by: Nilsa Chahal M.D. on 02/17/2022 at 14:18 Approved by: Nilsa Chahal M.D. on 02/17/2022 at 14:33
[2022-02-17] MEDS: MAG HYDROX/ALUMINUM/SIMETH SUS 20 ML, LIDOCAINE VISCOUS 2% 15 ML PO (15:22)
[2022-02-17 15:50] LABS: COVID19 -Nasal RAPID Negative (Negative)
[2022-02-17 16:29] LABS: Amorphous Sediment Urine 1+; Bacteria Urine None Seen; Culture Indicated Urine Specimen Cultured; Mucus Urine 1+ (Negative); RBC Urine None Seen (0-5/HPF); WBC Urine 0-1/HPF (0-5/HPF)
--- NOTE | 2022-02-17 19:05 | CM.DANOTE ---
Pt is 41-year-old male with history of extensive alcohol use including prior withdrawals, DTs and even seizures with recent hospitalization for pancreatitis presents with a chief complaint of a few days of severe epigastric pain with radiation to his back. Pt has [facility] [employer] Medicaid and current PCP is Donal Rodgers. SW met with pt at bedside to complete initial assessment. Pt reports that he just wants to get his pain managed so that he can go to rehab at [facility] on Friday 02/23. Pt denies any CM needs at this time. Plan: Pt is awaiting medical imaging for medical clearance. No further CM at this time. SW will continue to follow in case needs arise. LUX Almanzar Discharge Planning/Care Management CM Discharge Assessment Start: 02/17/22 19:02 Freq: Status: Active Protocol: Document 02/17/22 19:02 (Rec: 02/17/22 19:05 [id number]) Discharge Planning Assessment Assigned Swine Genetics Researcher LUX Almanzar Advance Directives? No History Provided By Patient,Medical Record Has Patient been admitted in last 30 No days? Prior Living Arrangements Apartment/Condo Household Members none Type of transporation used prior to Drives own vehicle admit Independent with ADL's Yes Is patient alert and oriented? Yes Caregiver for Another No Comment No DME. Pt fully independent with ADLs. Patient/Family Preference Drug/Alcohol Rehab Comment Pt reports that he got himself into [facility] in [place] and he is expected to go there on Friday 02/23. Barriers to Discharge Yes Comment ETOH w/d, CIWA, pancreatitis, awaiting imaging. Discharge Plan Home Transportation Arrangement Family Referrals Initiated None needed Additional Comment Patient seen by ED SAFETY RISK LEAD within the last year (please see notes for details). Whiteboard Updated in Patient Room with Yes name and ext. # of Swine Genetics Researcher Please Provide Date Initial DC 02/17/22 Assessment Was Performed
[2022-02-17] MEDS: LORazepam 2 MG/ML INJ 1 MG IV (20:34)
[2022-02-17] MEDS: SODIUM CHLORIDE 0.9% 1,000 ML 125 ML IV (21:51)
[2022-02-17] MEDS: HYDROMORPHONE 1 MG INJ IV (21:51)
[2022-02-18] VITALS (39 sets, daily range): BP systolic 143–179; BP diastolic 77–100; PULSE 77–111; RESP 16–28; TEMP 36.5–36.9; O2SAT 94–100; BMI 30.5
[2022-02-18] MEDS: LORazepam 2 MG/ML INJ 1 MG IV ×2 (00:01→08:26)
[2022-02-18] MEDS: HYDROMORPHONE 0.5 MG INJ IV ×6 (00:49→13:42)
[2022-02-18] MEDS: ONDANSETRON 4 MG/2 ML INJ IV ×4 (03:40→23:20)
--- NOTE | 2022-02-18 11:14 | PC.NURSE ---
pt back from MRI, pt requested medication for his stomach. pt states all the banging noises made my stomach hurt
[2022-02-18] MEDS: MULTIVITAMIN 1 TABLET 1 TAB PO (11:40)
[2022-02-18] MEDS: FOLIC ACID 1 MG TABLET PO (11:40)
[2022-02-18] MEDS: THIAMINE 100 MG TABLET PO (11:41)
--- NOTE | 2022-02-18 11:57 | DI.MRI.S_ITS ---
PROCEDURE: MR AB PANCREATIC/MRCP PROTOCOL COMPARISON: [facility], CT, CT ABDOMEN PELVIS WITH CONTRAST, 03/13/2019, 20:13. [facility], MR, MR ABDOMEN WITH CONTRAST, 06/28/2021, 15:19. [facility], MR, MR ABDOMEN MRCP, 06/28/2021, 11:51. [facility], CT, CT ABDOMEN PELVIS W CON, 02/17/2022, 14:34. INDICATIONS: mid adb pain hx etoh TECHNIQUE: Pre and post-contrast MR imaging including MRCP sequences, axial and coronal T1, T2, and diffusion imaging was performed. Contrast: 20 mL ProHance IV. FINDINGS: Trace basal pleural effusions. Normal size heart. No hiatal hernia. The gallbladder is distended but demonstrates a normal wall thickness. No visible obstructing stone. The cystic duct is seen and appears normal. No focal pericholecystic inflammation. There may be trace pericholecystic fluid. No intrahepatic biliary dilatation. The extrahepatic common duct is normal caliber measuring 6 mm at the common hepatic duct and 4 mm in the proximal common bile duct. Bile duct tapers to the level of the pancreatic head mass. Distal common duct is not well seen. In the lateral aspect of the pancreatic head and uncinate process, there is an irregular, somewhat curvilinear mass with T1 hyperintense, homogeneous soft tissue partially encircling the uncinate process and abutting the medial duodenum. This area measures roughly 4.3 x 2.6 x 4.3 cm, stable to slightly decreased size compared to 06/28/21. No definite enhancement postcontrast. The remainder of the pancreas is relatively T1 hypointense and demonstrates irregular ductal dilatation. A few ovoid cystic areas are present in the medial uncinate process, probably dilated side branches or small pseudocysts. Surrounding the entire pancreas, there is mild peripancreatic edema and trace fluid along the right and left retroperitoneal surface is, and surrounding 2nd portion of the duodenum. Mild edema is seen extending into the david hepatis. The liver and spleen are enlarged. Trace perisplenic and perihepatic ascites. Adrenal glands and kidneys are normal. There are several borderline david hepatis, peripancreatic, and aortocaval retroperitoneal nodes. Aorta and inferior vena cava are patent and of normal caliber. Splenic and portal vein are patent. There is recannulization of the umbilical vein. The stomach and visible bowel loops are unremarkable. Osseous structures demonstrate normal signal without suspicious enhancement. IMPRESSION: 1. The T1 hyperintense solid soft tissue along the lateral aspect of the pancreatic head and uncinate process has been present since 03/13/19, and may have slightly decreased in size. This may reflect proteinaceous or hemorrhagic pancreatic tissue given recurrent pancreatitis. It may also represent an indolent neuroendocrine tumor. Characteristics are atypical for adenocarcinoma. 2. There are findings acute on chronic pancreatitis. 3. No biliary obstruction, cholelithiasis, or choledocholithiasis. 4. Chronic hepatosplenomegaly and developing portal hypertension. Dictated by: Nilsa Chahal M.D. on 02/18/2022 at 10:49 Approved by: Nilsa Chahal M.D. on 02/18/2022 at 11:21
[2022-02-18] MEDS: chlordiazePOXIDE 25 MG CAPSULE 50 MG PO ×2 (13:42→18:50)
[2022-02-18] MEDS: SODIUM CHLORIDE 0.9% 1,000 ML 200 ML IV ×2 (13:48→20:00)
--- NOTE | 2022-02-18 14:49 | PC.NURSE ---
no sign of seizure activity.
--- NOTE | 2022-02-18 14:51 | P.HP_ITS ---
History of Present Illness History of Present Illness Date Patient Seen: 02/18/22 Chief complaint: Abd pain, alcohol withdraw Narrative: ?This is a 41-year-old male with a past medical history of alcohol abuse with severe features including DTs and prior seizures, pancreatitis, and anxiety depression who presented yesterday to the ER with 2 days of sharp epigastric pain, with radiation to the back. His last drink was at 10 AM. He drinks 4-6 24oz 8% beers a day on average. His abdominal pain started the evening before he stopped drinking. It has been worse with liquid and food intake. He was nauseous but denied vomiting. He may have had a dark stool, but nothing recent and denies hematochezia or hematemesis. He denies fever, chills, rash. In the emergency room, his imaging showed evidence of acute pancreatitis though his lipase was normal. There was a hyperdense lesion noted on initial CT. Recommended MRI and GI consultation prior to admission. He underwent MRI which again showed hyperdense lesion on the pancreas, GI was consulted who recommended outpatient follow up for EUS. FamHx: denies significant PMH in mother or father other than alcoholism in his father. After MRI, patient was admitted for alcohol withdrawal and acute pancreatitis. Currently, his pain improves with medications. He is mildly diaphoretic and shaky. He was started on librium this morning and is on CIWA protocol for EtOH withdrawal. He has mild pain with fluids but will continue clears on admission to the floor for now. Patient History Medical History Alcohol withdrawal Alcoholism Anxiety Depression Pancreatitis Surgical History No history of previous surgery Family & Social History Family History (Updated 02/18/22 @ 15:24 by Nelson Grace DO) Mother No significant past medical history Father Alcohol abuse Social History: household members none Prior Living Arrangements Apartment/Condo Safety & Behavioral: Feels Safe in Current Yes Environment Been Physically Hurt or No Threatened By a Person Suicidal Ideation Description None Suicide Plan Description No Plan Tobacco & Substance use: Tobacco type cannabis/marijuana Smoking Status Never smoker alcohol intake current alcohol intake frequency 3 or more drinks per day Substance Use Type marijuana Meds Home Medications and Allergies Home Medications Medication Instructions Recorded Confirmed Type quetiapine 50 mg tablet 50 mg PO BEDTIME 09/23/20 10/23/22 History clonidine HCl 0.2 mg tablet 0.2 mg PO DAILY PRN Anxiety 01/10/22 02/18/22 History sertraline 50 mg tablet (Zoloft) 50 mg PO DAILY 02/18/22 02/18/22 History Allergies Allergy/AdvReac Type Severity Reaction Status Date / Time No Known Drug Allergies Allergy Verified 02/17/22 12:57 Review of Systems Review of Systems Narrative: All other systems reviewed with the patient and are negative unless otherwise stated. Exam Vital Signs (past 8 hours): - 02/18/22 07:00 02/18/22 07:00 02/18/22 07:30 Pulse Rate 88 Respiratory Rate 19 Blood Pressure 149/89 H 147/89 H Pulse Oximetry 95 02/18/22 07:30 02/18/22 08:00 02/18/22 08:00 Pulse Rate 89 90 Respiratory Rate 19 20 Blood Pressure 150/87 H Pulse Oximetry 94 94 02/18/22 08:30 02/18/22 08:30 02/18/22 09:00 Pulse Rate 102 H Respiratory Rate 20 Blood Pressure 143/92 H 147/91 H Pulse Oximetry 97 02/18/22 09:00 02/18/22 09:30 02/18/22 09:30 Pulse Rate 101 H 100 H Respiratory Rate 23 17 Blood Pressure 157/92 H Pulse Oximetry 94 98 02/18/22 10:00 02/18/22 10:00 02/18/22 11:12 Pulse Rate 91 H 102 H Respiratory Rate 23 Blood Pressure 161/93 H Pulse Oximetry 96 97 02/18/22 11:13 02/18/22 11:13 02/18/22 11:30 Pulse Rate 95 H 88 Respiratory Rate 20 Blood Pressure 173/94 H Pulse Oximetry 99 97 02/18/22 11:47 02/18/22 11:47 02/18/22 12:00 Pulse Rate 90 Respiratory Rate Blood Pressure 165/96 H 159/91 H Pulse Oximetry 97 02/18/22 12:00 02/18/22 12:30 02/18/22 12:30 Pulse Rate 92 H 91 H Respiratory Rate Blood Pressure 163/95 H Pulse Oximetry 94 96 02/18/22 13:00 02/18/22 13:00 02/18/22 13:29 Pulse Rate 85 94 H Respiratory Rate Blood Pressure 166/96 H Pulse Oximetry 96 98 02/18/22 13:30 02/18/22 13:33 02/18/22 14:00 Pulse Rate 92 H Respiratory Rate Blood Pressure 163/98 H 156/89 H Pulse Oximetry 96 02/18/22 14:00 02/18/22 14:26 Pulse Rate 100 H Respiratory Rate 18 Blood Pressure Pulse Oximetry 95 Oxygen Delivery Method Room Air Narrative Exam Narrative: General:? Patient is well developed and well nourished, mildly ill appearing and pale. Slightly diaphoretic. HEENT:? Normocephalic, atraumatic, extraocular muscles intact, oral pharynx is clear and mucous membranes are moist. Neck: supple and symmetric, trachea is midline, no cervical adenopathy. Negative for JVD Chest:? Normal AP diameter and contour without kyphoscoliosis, no tachypnea, equal chest rise bilaterally. Lungs:? CTA b/l no wheezing rhonchi or rales. Cardio:?RRR no m/r/g. Abdomen: Soft, moderate tenderness most prominent in the epigastrium, mild distension. Musculoskeletal:? Muscle strength and tone are equal within normal limits, no deformity. Extremities: No edema or joint effusions. No cyanosis or clubbing. Skin:? Pale,? Warm to touch,dry and intact without rashes, ulcerations or petechiae.? Neuro:? Alert and orientated x3,? sensation to touch intact in all extremities, no gross deficits noted of cranial nerves. Mild tremulousness and tongue fasciculations. Psych:? Patient has a well-kept appearance, appropriate affect, mental status attitude thought context and judgment are appropriate for age. Objective Labs Result Diagrams: 02/17/22 13:35 02/17/22 13:35 Labs: Laboratory Results - last 24 hr 02/17/22 02/17/22 13:30 15:25 Urine RBC None seen Urine WBC 0-1/hpf Amorphous Sediment 1+ Urine Bacteria None seen Urine Mucus 1+ H Ur Culture Indicated? Specimen cultured SARS-CoV-2 (PCR) Negative Assessment & Plan Assessment & Plan narrative: Ishmael Lucas is a 41-year-old male with past medical history significant for depr ession, anxiety, and alcohol abuse with history of alcohol withdrawal, delirium tremens and seizure who is admitted with alcohol withdrawal and acute pancreatitis. 1. Acute alcohol withdrawal in setting of chronic alcohol dependence, present on admission.? Active. -Patient's last drink of alcohol was 4 days ago now. Patient reports history of alcohol withdrawal, delirium tremens and alcohol withdrawal seizure. - Continue CIWA protocol with lorazepam as needed per CIWA score. Started on librium 50 q6 hours and plan for taper over the next few days. Consider phenobarbital depending on progress, did well on prior admissions with phenobarbital as well. -Continue NS for now. MVI, folate, thiamine ordered. -[facility]ER consultation 2. Acute on chronic alcoholic pancreatitis. - can start clears for now, continue symptom control with pain medications - make NPO if worsening symptoms while on clears - continue IV fluids for now - MRI shows findings consistent with acute and chronic pancreatitis. 3. Alcohol induced steatohepatitis, chronic, present on admission.? Active. - counseled on cessation 4. Depression and anxiety, present on admission.? Stable. 5. Hyperdense pancreatic lesion - outpatient follow up recommended., unclear etiology but has been present since 2019 with slight decrease in size. May represent proteinaceous or hemorrhagic tissue in pancreatitis, or less likely indolent neuroendocrine tumor per radiology interpretation. Outpatient follow up for possible EUS recommended after GI consulted in the emergency room. Code status:? Full code VTE prophylaxis:? Enoxaparin Disposition: He is admitted as an inpatient as his stay is expected to exceed two midnights. Probable discharge to home, less likely alcoholic rehab, once pancreatitis and withdrawal improve. I have utilized all available immediate resources to obtain, update, or review the patient's current medications. COVID-19 COVID-19 status: Negative Time Spent With Patient Critical Care time: I spent a total of [] minutes of critical care time on this patient's care today; this time is exclusive of procedural time. Quality MIPS - Admit I confirm the patient?s Advance Care Plan is present, Code status is documented, Surrogate decision maker is in patient?s record [If Yes, STOP here]: Yes
[2022-02-18] MEDS: OXYCODONE IR 10 MG TABLET PO ×3 (16:20→23:20)
[2022-02-18] MEDS: LORazepam 2 MG/ML INJ IV ×2 (19:56→23:26)
--- NOTE | 2022-02-18 21:18 | PC.NURSE ---
Patient is alert and oriented. Breath sounds CTA with RA sat of 97%. HRR w/elevated BP of 179/97; telemetry reading was SR w/premature atrial contractions. Complains of mild nausea and had CIWA of 11 at time of assessment so was medicated with Ativan which resolved the nausea and brought CIWA score down to 6. BT present and abdomen is soft but does complain of pain in abdomen (worse in upper quads) radiating to back and is tender with palpation; was medicated with oxycodone and pain level went from 8 down to 4. Is able to turn himself in bed. Gait not assessed at this time but denies weakness. Bilateral calf SCD's were on at shift change but now requested they be removed so that he can sleep. Seizure pads are on bed. Fall risk score is moderate and bed alarm is activated.
[2022-02-18] MEDS: HYDROMORPHONE 1 MG INJ IV (21:46)
[2022-02-19] VITALS (12 sets, daily range): BP systolic 146–174; BP diastolic 91–101; PULSE 92–108; RESP 13–20; TEMP 37–37.2; O2SAT 93–97
[2022-02-19] MEDS: SODIUM CHLORIDE 0.9% 1,000 ML 200 ML IV ×4 (00:49→18:27)
[2022-02-19] MEDS: chlordiazePOXIDE 25 MG CAPSULE 50 MG PO ×4 (00:49→17:21)
[2022-02-19] MEDS: LORazepam 2 MG/ML INJ IV ×6 (03:01→22:12)
[2022-02-19] MEDS: OXYCODONE IR 10 MG TABLET PO (03:01)
[2022-02-19] MEDS: HYDROMORPHONE 1 MG INJ IV ×3 (05:05→12:50)
[2022-02-19] MEDS: ONDANSETRON 4 MG/2 ML INJ IV ×3 (05:38→20:48)
[2022-02-19 07:39] LABS: Add Manual Diff / Slide Review NO; Basophils Absolute Auto 0 /uL (0-100); Basophils Percent Auto 0.2 % (0-2); Eosinophils Absolute Auto 100 /uL (0-450); Eosinophils Percent Auto 1.7 % (2-4); Hematocrit 32.8 % (41-53); Hemoglobin 11.6 g/dL (13.5-17.5); Lymphocytes Absolute Auto 1000 /uL (1100-4500); Lymphocytes Percent Auto 17.3 % (25-40); Mean Corpuscular HGB Conc 35.4 % (30-36); Mean Corpuscular Hemoglobin 31.6 PG (26-34); Mean Corpuscular Volume 89.2 fL (80-100); Monocytes Absolute Auto 600 /uL (0-900); Monocytes Percent Auto 10.3 % (3-14); Neutrophils Absolute Auto 4300 /uL (1500-7000); Neutrophils Percent Auto 70.5 % (50-75); Platelet Count 142 X10^3/uL (150-400); Red Blood Cell Count 3.67 X10^6/uL (4.5-5.9); Red Cell Distribution Width 14.4 % (11.6-14.8); White Blood Cell Count 6.1 X10^3/uL (4.5-11.0)
[2022-02-19 07:48] LABS: Alanine Aminotransferase 24 IU/L (<50); Albumin 3.8 g/dL (3.5-5.0); Albumin Globulin Ratio 0.8 (1.0-2.8); Alkaline Phosphatase 82 U/L (38-126); Aspartate Aminotransferase 33 IU/L (17-59); Bilirubin Total 1.1 mg/dL (0.2-1.3); Blood Urea Nitrogen 5 mg/dL (9-20); Carbon Dioxide 24 mmol/L (22-32); Chloride 99 mmol/L (98-107); Estimated Glomerular Filt Rate > 60 mL/min (>60); Globulin 4.7 g/dL (1.7-4.1); Glucose 96 mg/dL (70-100); HEMOLYSIS < 15 (0-50); Magnesium 1.6 mg/dL (1.6-2.3); Potassium 3.3 mmol/L (3.4-5.1); Sodium 135 mmol/L (137-145); Total Protein 8.5 g/dL (6.3-8.2)
[2022-02-19] MEDS: SODIUM CHLORIDE 0.9% FLUSH 10 ML IV ×2 (09:01→20:44)
--- NOTE | 2022-02-19 09:09 | P.PN_ITS ---
Subjective Subjective Date Patient Seen: 02/19/22 Time Patient Seen: 12:00 Interval history: Patient still not able to tolerate much po intake other than water and having abd pain from his pancreatitis. Anxious to get home but willing to stay another day to advance his diet and improve his belly pain. Exam Vital Signs (past 8 hours): - 02/19/22 03:31 02/19/22 05:00 02/19/22 05:00 Temperature 99.0 F Pulse Rate 102 H 97 H Respiratory Rate 16 20 Blood Pressure 151/91 H 161/94 H Pulse Oximetry 97 97 Oxygen Delivery Method Room Air Oxygen Flow Rate 0 0 02/19/22 08:14 Temperature Pulse Rate 99 H Respiratory Rate 14 Blood Pressure Pulse Oximetry Oxygen Delivery Method Oxygen Flow Rate Oxygen Delivery Method Room Air Oxygen Flow Rate 0 Narrative Exam Narrative: General:? Patient is well developed and well nourished, mildly ill appearing and pale. Slightly diaphoretic. HEENT:? Normocephalic, atraumatic, extraocular muscles intact, oral pharynx is clear and mucous membranes are moist. Neck: supple and symmetric, trachea is midline, no cervical adenopathy. Negative for JVD Chest:? Normal AP diameter and contour without kyphoscoliosis, no tachypnea, equal chest rise bilaterally. Lungs:? CTA b/l no wheezing rhonchi or rales. Cardio:?RRR no m/r/g. Abdomen: Soft, moderate tenderness most prominent in the epigastrium, mild d istension. Musculoskeletal:? Muscle strength and tone are equal within normal limits, no deformity. Extremities: No edema or joint effusions. No cyanosis or clubbing. Skin:? Pale,? Warm to touch,dry and intact without rashes, ulcerations or petechiae.? Neuro:? Alert and orientated x3,? sensation to touch intact in all extremities, no gross deficits noted of cranial nerves. Mild tremulousness. Psych:? Patient has a well-kept appearance, appropriate affect, mental status attitude thought context and judgment are appropriate for age. Objective Labs Result Diagrams: 02/19/22 07:15 02/19/22 07:15 Labs: Laboratory Results - last 24 hr 02/19/22 02/19/22 07:15 07:15 WBC 6.1 RBC 3.67 L Hgb 11.6 L Hct 32.8 L MCV 89.2 MCH 31.6 MCHC 35.4 RDW 14.4 Plt Count 142 L Neut % (Auto) 70.5 Lymph % (Auto) 17.3 L [place] % (Auto) 10.3 Eos % (Auto) 1.7 L Baso % (Auto) 0.2 Neut # (Auto) 4300 Lymph # (Auto) 1000 L [place] # (Auto) 600 Eos # (Auto) 100 Baso # (Auto) 0 Sodium 135 L Potassium 3.3 L Chloride 99 Carbon Dioxide 24 BUN 5 L Creatinine 0.50 L Estimated GFR > 60 BUN/Creatinine Ratio 10.0 Glucose 96 Calcium 8.0 L Magnesium 1.6 Total Bilirubin 1.1 AST 33 ALT 24 Alkaline Phosphatase 82 Total Protein 8.5 H Albumin 3.8 Globulin 4.7 H Albumin/Globulin Ratio 0.8 L PFSH Medical History Alcohol withdrawal Alcoholism Anxiety Depression Pancreatitis Surgical History No history of previous surgery Family History (Updated 02/18/22 @ 15:24 by Nelson Grace DO) Mother No significant past medical history Father Alcohol abuse Social History household members: family Smoking Status: Never smoker alcohol intake: current substance use type: does not use Assessment & Plan Assessment & Plan narrative: Ishmael Lucas is a 41-year-old male with past medical history significant for depression, anxiety, and alcohol abuse with history of alcohol withdrawal, delirium tremens and seizure who is admitted with alcohol withdrawal and acute pancreatitis. 1. Acute alcohol withdrawal in setting of chronic alcohol dependence, present on admission.? Active. -Patient's last drink of alcohol was 4 days ago now. Patient reports history of alcohol withdrawal, delirium tremens and alcohol withdrawal seizure. -Continue CIWA protocol with lorazepam as needed per CIWA score. Started on librium 50 q6 hours and plan for taper over the next few days. Consider phenobarbital depending on progress, did well on prior admissions with phenobarbital as well. -Continue NS for now. IV thiamine ordered. -still requiring IV ativan and on librium 50mg q6h, will taper 2. Acute on chronic alcoholic pancreatitis. -MRI shows findings consistent with acute and chronic pancreatitis. -can start clears for now, continue symptom control with IV pain medications -continue IV fluids at 200cc/hr 3. Alcohol induced steatohepatitis, chronic, present on admission.? Active. -counseled on cessation 4. Depression and anxiety, present on admission. Continue home sertraline and seroquel nightly. 5. Hyperdense pancreatic lesion -outpatient follow up recommended. unclear etiology but has been present since 2019 with slight decrease in size. May represent proteinaceous or hemorrhagic tissue in pancreatitis, or less likely indolent neuroendocrine tumor per radiology interpretation. Outpatient follow up for possible EUS recommended after GI consulted in the emergency room. Code status:? Full code VTE prophylaxis:? Enoxaparin Dispo: Home in 1-2 days pernding alcohol withdrawal improvement COVID-19 COVID-19 status: Negative Time Spent With Patient Critical Care time: I spent a total of [] minutes of critical care time on this patient's care today; this time is exclusive of procedural time. Quality VTE Deep Vein Thrombosis/Pulmonary Embolism Present on Admission: No
[2022-02-19] MEDS: THIAMINE 100 MG TABLET PO (09:48)
[2022-02-19] MEDS: FOLIC ACID 1 MG TABLET PO (09:48)
[2022-02-19] MEDS: ENOXAPARIN 40 MG/0.4 ML SYRINGE SUBCUT (09:48)
[2022-02-19] MEDS: MULTIVITAMIN 1 TABLET 1 TAB PO (09:48)
[2022-02-19] MEDS: SERTRALINE 50 MG TABLET PO (09:50)
[2022-02-19] MEDS: cloNIDine 0.1 MG TABLET 0.2 MG PO (09:50)
[2022-02-19] MEDS: MAGNESIUM SULFATE 2 GM/50 ML PIGGYBACK IV (09:54)
[2022-02-19] MEDS: POTASSIUM CHLORIDE 20 MEQ TAB 40 MEQ PO (09:58)
--- NOTE | 2022-02-19 11:42 | CM.DPC ---
DCP Cont: Per MD, pt still actively having alcohol withdrawal and receiving Ativan and librium as well as IV dilaudid for acute pancreatitis pain. SW met bedside with pt and explained role and pt minimally able to participate in discussion due to medication and had difficulty remaining awake with eyes open but able to confirm information was still accurate from prior assessment. Pt does have hx of seizures due to detox. Patient reports starting his drinking in the morning My parents are having coffee and I'll have a beer, sometimes continues throughout the day, with the bulk of his drinking occurring during evening hours. Patient reports drinking between 5 and 14 beers daily. Patient denies regular use of any other substances and UDS+ only ETOH. Patient does experience severe withdrawal symptoms including anxiety, feeling itchy, seizures, and tremors. Patient was sober for 3 years after completing inpatient treatment in 2009. Pt has also been to [facility] for Inpt ETOH tx in August 2020 after admission to [facility] for withdrawal but states he left early ?because it wasn?t a good experience for me and all anyone did was just smoke cigarettes?. Pt denies any current ALBINO or MH tx. Patient reports he had an appointment with a counselor through [facility] in April,, but that he did not make this appointment. Patient attended treatment for alcohol use in 2009 at [facility] in [place], [place] and states this 28 day treatment facility ?does a great job with their tx?. Pt confirms he plans to attend [facility] Inpt Tx program again this coming Sat02/23/22. 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 Patient currently lives in a room in his parents' house and states that they are sick of me being drunk all the time. Pt states he is currently working and his employers are aware of his plan to enter 28 day ETOH tx program at the end of the week. Pt endorses audio hallucinations in the form of voices but reports the voices are not malicious or commanding and denies obsessions, paranoia or delusions. Pt denies any hallucinations or delusions when not actively having withdrawals . Patient is familiar with ALBINO tx process and states family does not provide transport for him to get into tx but that he takes a bus typically or sets up transport himself. Plan: SW to follow for ongoing alcohol withdrawal and improvement in pancreatitis towards plan of pt d/c to home and getting himself to Inpt ETOH tx at [facility] on Saturday02/23/22 this week. LUX Barr
[2022-02-19] MEDS: HYDROMORPHONE 0.5 MG INJ IV ×5 (14:03→22:12)
[2022-02-19] MEDS: METOCLOPRAMIDE 10 MG/2 ML INJ IV (16:11)
[2022-02-20] VITALS (8 sets, daily range): BP systolic 135–175; BP diastolic 83–114; PULSE 85–99; RESP 13–23; TEMP 36.9–37; O2SAT 94–97
[2022-02-20] MEDS: chlordiazePOXIDE 25 MG CAPSULE 50 MG PO ×2 (00:14→08:07)
[2022-02-20] MEDS: HYDROMORPHONE 0.5 MG INJ IV ×5 (00:14→11:55)
[2022-02-20] MEDS: LORazepam 2 MG/ML INJ IV ×3 (01:46→08:07)
[2022-02-20] MEDS: SODIUM CHLORIDE 0.9% 1,000 ML 200 ML IV (04:27)
[2022-02-20 07:36] LABS: Add Manual Diff / Slide Review NO; Basophils Absolute Auto 0 /uL (0-100); Basophils Percent Auto 0.2 % (0-2); Eosinophils Absolute Auto 100 /uL (0-450); Eosinophils Percent Auto 1.1 % (2-4); Hematocrit 32.3 % (41-53); Hemoglobin 11.3 g/dL (13.5-17.5); Lymphocytes Absolute Auto 800 /uL (1100-4500); Lymphocytes Percent Auto 15.6 % (25-40); Mean Corpuscular HGB Conc 35.1 % (30-36); Mean Corpuscular Hemoglobin 31.1 PG (26-34); Mean Corpuscular Volume 88.4 fL (80-100); Monocytes Absolute Auto 500 /uL (0-900); Monocytes Percent Auto 10.2 % (3-14); Neutrophils Absolute Auto 3600 /uL (1500-7000); Neutrophils Percent Auto 72.9 % (50-75); Platelet Count 130 X10^3/uL (150-400); Red Blood Cell Count 3.65 X10^6/uL (4.5-5.9); Red Cell Distribution Width 14.4 % (11.6-14.8)
[2022-02-20 07:49] LABS: Blood Urea Nitrogen 4 mg/dL (9-20); Calcium 8.3 mg/dL (8.4-10.2); Carbon Dioxide 26 mmol/L (22-32); Chloride 101 mmol/L (98-107); Estimated Glomerular Filt Rate > 60 mL/min (>60); Glucose 155 mg/dL (70-100); HEMOLYSIS < 15 (0-50); Potassium 3.4 mmol/L (3.4-5.1); Sodium 136 mmol/L (137-145)
--- NOTE | 2022-02-20 07:52 | P.PN_ITS ---
Exam Vital Signs (past 8 hours): - 02/20/22 00:00 02/20/22 01:54 02/20/22 03:13 Temperature 98.6 F Pulse Rate 99 H 92 H Respiratory Rate 21 18 Blood Pressure 174/94 H Pulse Oximetry 97 96 Oxygen Delivery Method Room Air Oxygen Flow Rate 0 02/20/22 04:00 02/20/22 05:30 02/20/22 06:00 Temperature 98.4 F Pulse Rate 97 H 94 H Respiratory Rate 23 16 Blood Pressure 135/83 166/107 H Pulse Oximetry 96 94 Oxygen Delivery Method Room Air Oxygen Flow Rate 0 Oxygen Delivery Method Room Air Oxygen Flow Rate 0 Narrative Exam Narrative: General:? Patient is well developed and well nourished, mildly ill appearing and pale. Slightly diaphoretic. HEENT:? Normocephalic, atraumatic, extraocular muscles intact, oral pharynx is clear and mucous membranes are moist. Neck: supple and symmetric, trachea is midline, no cervical adenopathy. Negative for JVD Chest:? Normal AP diameter and contour without kyphoscoliosis, no tachypnea, equal chest rise bilaterally. Lungs:? CTA b/l no wheezing rhonchi or rales. Cardio:?RRR no m/r/g. Abdomen: Soft, moderate tenderness most prominent in the epigastrium, mild distension. Musculoskeletal:? Muscle strength and tone are equal within normal limits, no deformity. Extremities: No edema or joint effusions. No cyanosis or clubbing. Skin:? Pale,? Warm to touch,dry and intact without rashes, ulcerations or petechiae.? Neuro:? Alert and orientated x3,? sensation to touch intact in all extremities, no gross deficits noted of cranial nerves. Mild tremulousness. Psych:? Patient has a well-kept appearance, appropriate affect, mental status at titude thought context and judgment are appropriate for age. Objective Labs Result Diagrams: 02/20/22 07:15 02/20/22 07:15 Labs: Laboratory Results - last 24 hr 02/20/22 02/20/22 07:15 07:15 WBC 5.0 RBC 3.65 L Hgb 11.3 L Hct 32.3 L MCV 88.4 MCH 31.1 MCHC 35.1 RDW 14.4 Plt Count 130 L Neut % (Auto) 72.9 Lymph % (Auto) 15.6 L [place] % (Auto) 10.2 Eos % (Auto) 1.1 L Baso % (Auto) 0.2 Neut # (Auto) 3600 Lymph # (Auto) 800 L [place] # (Auto) 500 Eos # (Auto) 100 Baso # (Auto) 0 Sodium 136 L Potassium 3.4 Chloride 101 Carbon Dioxide 26 BUN 4 L Creatinine 0.50 L Estimated GFR > 60 BUN/Creatinine Ratio 8.0 Glucose 155 H Calcium 8.3 L PFSH Medical History Alcohol withdrawal Alcoholism Anxiety Depression Pancreatitis Surgical History No history of previous surgery Family History (Updated 02/18/22 @ 15:24 by Nelson Grace DO) Mother No significant past medical history Father Alcohol abuse Social History household members: family Smoking Status: Never smoker alcohol intake: current substance use type: does not use Assessment & Plan Assessment & Plan narrative: Ishmael Lucas is a 41-year-old male with past medical history significant for depression, anxiety, and alcohol abuse with history of alcohol withdrawal, delirium tremens and seizure who is admitted with alcohol withdrawal and acute pancreatitis. 1. Acute alcohol withdrawal in setting of chronic alcohol dependence, present on admission.? Active. -Patient's last drink of alcohol was 4 days ago now. Patient reports history of alcohol withdrawal, delirium tremens and alcohol withdrawal seizure. -Continue CIWA protocol with lorazepam as needed per CIWA score. Started on librium 50 q6 hours and plan for taper over the next few days. Consider phenobarbital depending on progress, did well on prior admissions with phenobarbital as well. -Continue NS for now. IV thiamine ordered. -still requiring IV ativan and on librium 50mg q6h, will taper 2. Acute on chronic alcoholic pancreatitis. -MRI shows findings consistent with acute and chronic pancreatitis. -can start clears for now, continue symptom control with IV pain medications -continue IV fluids at 200cc/hr 3. Alcohol induced steatohepatitis, chronic, present on admission.? Active. -counseled on cessation 4. Depression and anxiety, present on admission. Continue home sertraline and seroquel nightly. 5. Hyperdense pancreatic lesion -outpatient follow up recommended. unclear etiology but has been present since 2019 with slight decrease in size. May represent proteinaceous or hemorrhagic tissue in pancreatitis, or less likely indolent neuroendocrine tumor per radiology interpretation. Outpatient follow up for possible EUS recommended after GI consulted in the emergency room. Code status:? Full code VTE prophylaxis:? Enoxaparin Dispo: Home in 1-2 days pernding alcohol withdrawal improvement COVID-19 COVID-19 status: Negative Time Spent With Patient Critical Care time: I spent a total of [] minutes of critical care time on this patient's care today; this time is exclusive of procedural time. Quality VTE Deep Vein Thrombosis/Pulmonary Embolism Present on Admission: No
[2022-02-20] MEDS: THIAMINE 100 MG TABLET PO (08:07)
[2022-02-20] MEDS: SODIUM CHLORIDE 0.9% FLUSH 10 ML IV (08:07)
[2022-02-20] MEDS: ONDANSETRON 4 MG/2 ML INJ IV (09:39)
--- NOTE | 2022-02-20 12:06 | PM.DS.1 ---
History of Present Illness History of Present Illness Date Patient Seen: 02/20/22 Time Patient Seen: 12:06 Chief complaint: Abd pain, alcohol withdraw Narrative: This is a 41-year-old male with a past medical history of alcohol abuse with severe features including DTs and prior seizures, pancreatitis, and anxiety depression who presented yesterday to the ER with 2 days of sharp epigastric pain, with radiation to the back. His last drink was at 10 AM. He drinks 4-6 24oz 8% beers a day on average. His abdominal pain started the evening before he stopped drinking. It has been worse with liquid and food intake. He was nauseous but denied vomiting. He may have had a dark stool, but nothing recent and denies hematochezia or hematemesis. He denies fever, chills, rash. In the emergency room, his imaging showed evidence of acute pancreatitis though his lipase was normal. There was a hyperdense lesion noted on initial CT. Recommended MRI and GI consultation prior to admission. He underwent MRI which again showed hyperdense lesion on the pancreas, GI was consulted who recommended outpatient follow up for EUS. FamHx: denies significant PMH in mother or father other than alcoholism in his father. After MRI, patient was admitted for alcohol withdrawal and acute pancreatitis. Currently, his pain improves with medications. He is mildly diaphoretic and shaky. He was started on librium this morning and is on CIWA protocol for EtOH withdrawal. He has mild pain with fluids but will continue clears on admission to the floor for now. Discharge Providers Provider Date of admission: 02/18/22 13:24 Discharge Date: 02/20/22 Primary care physician: Donal Rodgers MD Discharge provider: Jack Alvarenga DO Summary Hospital Course Discharge Diagnosis: 1. Acute alcohol withdrawal in setting of chronic alcohol dependence, present on admission.? Active. -Patient's last drink of alcohol was 4 days ago now. Patient reports history of alcohol withdrawal, delirium tremens and alcohol withdrawal seizure. -Continue CIWA protocol with lorazepam as needed per CIWA score. Started on librium 50 q6 hours. -IV thiamine ordered. -will taper librium to 25mg q8h at home for 3 days 2. Acute on chronic alcoholic pancreatitis. -MRI shows findings consistent with acute and chronic pancreatitis. -IV pain medications -received IV fluids at 200cc/hr -advanced diet and tolerating po intake 3. Alcohol induced steatohepatitis, chronic, present on admission.? Active. -counseled on cessation 4. Depression and anxiety, present on admission. Continue home sertraline and seroquel nightly. 5. Hyperdense pancreatic lesion -outpatient follow up recommended. unclear etiology but has been present since 2019 with slight decrease in size. May represent proteinaceous or hemorrhagic tissue in pancreatitis, or less likely indolent neuroendocrine tumor per radiology interpretation. Outpatient follow up for possible EUS recommended after GI consulted in the emergency room. Hospital Course: Ishmael Lucas is a 41-year-old male with past medical history significant for depression, anxiety, and alcohol abuse with history of alcohol withdrawal, delirium tremens and seizure who is admitted with alcohol withdrawal and acute pancreatitis. He received IV Ativan and Librium as well as pain medications for his pancreatitis which all improved until he was able to tolerate p.o. intake and ambulate normally. MRI of pancreas showed possible mass which will need outpatient GI f/u with referral from PCP. Time Spent with Patient Time spent: Greater than 30 minutes Exam Vital Signs (past 8 hours): - 02/20/22 05:30 02/20/22 06:00 02/20/22 08:00 Temperature 98.5 F Pulse Rate 94 H 98 H Respiratory Rate 16 18 Blood Pressure 166/107 H 175/114 H Pulse Oximetry 94 95 Oxygen Delivery Method Room Air Oxygen Flow Rate 0 0 02/20/22 08:27 Temperature Pulse Rate 85 Respiratory Rate 13 Blood Pressure Pulse Oximetry Oxygen Delivery Method Oxygen Flow Rate Oxygen Delivery Method Room Air Oxygen Flow Rate 0 Narrative Exam Narrative: GEN: no acute distress, appears more comfortable today HEENT: moist mucous membranes, PERRL NECK: trachea midline, no JVD CV: regular rate and rhythm, no murmurs PULM: clear bilaterally ABD: soft, mildly tender, nondistended, no organomegaly EXT: warm and well perfused with no edema NEURO: awake, alert, oriented, mildly tremulous Objective Labs Result Diagrams: 02/20/22 07:15 02/20/22 07:15 Labs: Laboratory Results - last 24 hr 02/20/22 02/20/22 02/20/22 07:15 07:15 07:15 WBC 5.0 RBC 3.65 L Hgb 11.3 L Hct 32.3 L MCV 88.4 MCH 31.1 MCHC 35.1 RDW 14.4 Plt Count 130 L Neut % (Auto) 72.9 Lymph % (Auto) 15.6 L [place] % (Auto) 10.2 Eos % (Auto) 1.1 L Baso % (Auto) 0.2 Neut # (Auto) 3600 Lymph # (Auto) 800 L [place] # (Auto) 500 Eos # (Auto) 100 Baso # (Auto) 0 Sodium 136 L Potassium 3.4 Chloride 101 Carbon Dioxide 26 BUN 4 L Creatinine 0.50 L Estimated GFR > 60 BUN/Creatinine Ratio 8.0 Glucose 155 H Calcium 8.3 L Magnesium 2.0 PFSH Medical History Alcohol withdrawal Alcoholism Anxiety Depression Pancreatitis Surgical History No history of previous surgery Family History (Updated 02/18/22 @ 15:24 by Nelson Grace DO) Mother No significant past medical history Father Alcohol abuse Social History household members: family Smoking Status: Never smoker alcohol intake: current substance use type: does not use Discharge Plan Discharge Plan Patient Disposition: Home Provider Discharge Comment: You were admitted for alcohol withdrawal and pancreatitis. These improved with medications. I've put you on 3 more days of librium for your withdrawals. Discharge orders & Medications Prescriptions: New chlordiazepoxide HCl 25 mg Capsule 25 mg PO Q8H 3 Days Qty: 9 0RF Continued clonidine HCl 0.2 mg tablet 0.2 mg PO DAILY PRN (Reason: Anxiety) quetiapine 50 mg Tablet 50 mg PO BEDTIME sertraline [Zoloft] 50 mg tablet 50 mg PO DAILY Follow up/Referrals: Donal Rodgers MD [Primary Care Provider] - 2 Weeks Visit Report/Discharge Packet Instructions: Acute Pancreatitis, Alcohol Withdrawal Discharge Data Primary Care Provider: Donal Rodgers Quality VTE Deep Vein Thrombosis/Pulmonary Embolism Present on Admission: No
--- NOTE | 2022-02-20 12:12 | PC.NURSE ---
Discharge Note Patient A&O to baseline, VSS, RA, no complaints of pain/discomfort. Patient agreeable to discharge plan. All questions/concerns addressed. PIV discontinued by patient. Patient able to dress self and pack all belongings. Discharge packet reviewed with patient, all questions/concerns addressed. Patient walked down by [employer] to meet ride.
== END 2022-02-20 12:05 | disposition home or self-care (01) | DRG 282 ==
LOC: ED 02-18 13:07 → AC 02-18 13:24
PROVIDERS: Emergency Medicine; Student in an Organized Health Care Education/Training Program; Admitting Provider Internal Medicine; Emergency Provider Emergency Medicine; PCP Family Medicine; Referring Provider Emergency Medicine; Visit Provider Internal Medicine
DX: K85.20 Alcohol induced acute pancreatitis without necrosis or infection (principal); F10.239 Alcohol dependence with withdrawal, unspecified; F32.A Depression, unspecified; F41.9 Anxiety disorder, unspecified; Y90.0 Blood alcohol level of less than 20 mg/100 ml; Z20.822 Contact with and (suspected) exposure to COVID-19
CPT/HCPCS: 36415; 74177; 74183; 76705; 80048; 80053; 80320; 81003; 81015; 83690; 83735; 85025; 85610; 87086; 87635; 96374; 96375; 96376; 99284; 99285; C9803; A9579; C9113; J1170; J1650; J2060; J2405; J2765; J3475; Q9967

== ENCOUNTER 2022-05-07 14:50 | Inpatient (IN) | payer OTHER, MEDICAID, SELFPAY ==
[2022-02-18 14:04] VITALS: BMI 30.5
[2022-05-07 14:55] VITALS: BP 137/90; PULSE 84; RESP 18; TEMP 36.6; O2SAT 98; BMI 29.6
[2022-05-07 15:29] LABS: Add Manual Diff / Slide Review NO; Basophils Absolute Auto 0 /uL (0-100); Basophils Percent Auto 0.3 % (0-2); Eosinophils Absolute Auto 100 /uL (0-450); Eosinophils Percent Auto 1.2 % (2-4); Hematocrit 40.6 % (41-53); Hemoglobin 14.2 g/dL (13.5-17.5); Lymphocytes Absolute Auto 1600 /uL (1100-4500); Lymphocytes Percent Auto 26.4 % (25-40); Mean Corpuscular Hemoglobin 30.9 PG (26-34); Mean Corpuscular Volume 88.1 fL (80-100); Monocytes Absolute Auto 300 /uL (0-900); Monocytes Percent Auto 4.6 % (3-14); Neutrophils Absolute Auto 4000 /uL (1500-7000); Neutrophils Percent Auto 67.5 % (50-75); Platelet Count 170 X10^3/uL (150-400); Red Blood Cell Count 4.61 X10^6/uL (4.5-5.9); Red Cell Distribution Width 15.4 % (11.6-14.8)
[2022-05-07 15:36] LABS: Alanine Aminotransferase 55 IU/L (<50); Albumin 4.9 g/dL (3.5-5.0); Alkaline Phosphatase 177 U/L (38-126); Aspartate Aminotransferase 79 IU/L (17-59); BUN Creatinine Ratio 12.9 (6-22); Bilirubin Total 1.2 mg/dL (0.2-1.3); Blood Urea Nitrogen 8 mg/dL (9-20); Calcium 9.1 mg/dL (8.4-10.2); Carbon Dioxide 26 mmol/L (22-32); Chloride 99 mmol/L (98-107); Estimated Glomerular Filt Rate > 60 mL/min (>60); Glucose 141 mg/dL (70-100); HEMOLYSIS < 15 (0-50); Lipase 92 U/L (23-300); Potassium 3.7 mmol/L (3.4-5.1); Sodium 143 mmol/L (137-145)
[2022-05-07 15:42] LABS: Albumin Globulin Ratio 0.8 (1.0-2.8)
[2022-05-07 15:43] LABS: Total Protein 10.9 g/dL (6.3-8.2)
[2022-05-07 15:58] LABS: Acetaminophen < 10 ug/mL (10-30); Ethanol (ETOH) 263 mg/dL; Salicylate < 1.0 mg/dL (<20)
--- NOTE | 2022-05-07 16:28 | DI.CT.S_ITS ---
PROCEDURE: CT ABDOMEN PELVIS W CON INDICATIONS: Epigastric pain; hx pancreatitis TECHNIQUE: After the administration of intravenous contrast, axial sections acquired from the lung bases to the pubic symphysis. Coronal and sagittal reformats were performed. For radiation dose reduction, the following was used: automated exposure control, adjustment of mA and/or kV according to patient size. COMPARISON: [facility], CT, CT ABDOMEN PELVIS WITH CONTRAST, 03/02/2022, 5:33. [facility], CT, CT ABDOMEN PELVIS W CON, 02/17/2022, 14:34. FINDINGS: Image quality: Excellent. Lung bases: Unremarkable. Heart: No significant findings. ABDOMEN: Liver: Liver is enlarged with moderate hepatic steatosis, no discrete hepatic lesion is seen. Gallbladder: Gallbladder is markedly distended. No calcified gallstone or gross gallbladder wall thickening. No pericholecystic fluid. Biliary ducts: Unremarkable. Pancreas: Enlarged pancreas with heterogeneous enhancement and significant peripancreatic fat stranding particularly adjacent to pancreatic head region is seen compatible with necrotizing pancreatitis. Previously described masslike hyperdensity involving pancreatic head region is again noted and is not significantly changed in size and appearance. Pancreatic duct is not distended. Small amount of peripancreatic fluid is seen, no discrete drainable fluid collection is noted. Spleen: Unremarkable. Adrenal Glands: Unremarkable. Kidneys and Ureters: Unremarkable. Stomach and Bowel: Stomach, small bowel loops, and colon are unremarkable. Appendix is visualized and is within normal limits. There is descending colon and sigmoid colon diverticulosis without CT evidence of acute diverticulitis. Peritoneum: No abnormal intraperitoneal fluid. No free air. Ventral Wall: No hernias. Abdominal Nodes: No retroperitoneal or mesenteric adenopathy by size criteria. Vessels: Aorta and inferior vena cava are normal in size. PELVIS: Pelvic Organs: Unremarkable. Bladder: Unremarkable. Pelvic Nodes: No enlarged lymph nodes. Miscellaneous: No hernias are seen. Bones: No suspicious bony lesions. No acute vertebral body compression fracture. IMPRESSION: 1. Inflammatory changes surrounding pancreas with heterogeneous enhancement concerning for necrotizing pancreatitis. No drainable peripancreatic fluid collection. Stable appearing lobulated hyperdensity in pancreatic head region and is of indeterminate etiology. Pancreatic head mass cannot be entirely excluded. 2. Distended gallbladder without CT evidence of acute cholecystitis. No biliary ductal dilatation. 3. Hepatomegaly and hepatic steatosis. 4. No bowel obstruction or abnormal bowel wall thickening. No free fluid or free air. Normal appendix. Sigmoid diverticulosis without CT evidence of acute diverticulitis. Dictated by: Caleb Nunez M.D. on 05/07/2022 at 16:56 Approved by: Caleb Nunez M.D. on 05/07/2022 at 17:02
[2022-05-07 16:29] LABS: Thyroid Stimulating Hormone 2.24 uIU/mL (0.47-4.68)
[2022-05-07 17:44] VITALS: BP 123/81; PULSE 78; RESP 18; O2SAT 99
[2022-05-07] MEDS: MORPHINE 4 MG/ML INJ IV ×2 (17:50→18:32)
[2022-05-07] MEDS: ONDANSETRON 4 MG/2 ML INJ IV ×2 (17:50→18:32)
[2022-05-07] MEDS: LORazepam 2 MG/ML INJ 1 MG IV ×2 (17:50→18:32)
[2022-05-07 17:55] LABS: UR Morphine/Opiate cutoff 300 Negative (Negative); Ur Creatinine Normal (Normal); Ur Specific Gravity Normal (Normal); Urine Amphetamines Negative (Negative); Urine Barbiturates Negative (Negative); Urine Benzodiazepines Negative (Negative); Urine Cocaine Negative (Negative); Urine MDMA Negative (Negative); Urine Methadone Negative (Negative); Urine Methamphetamines Negative (Negative); Urine Oxycodone Negative (Negative); Urine Phencyclidine Negative (Negative); Urine Tetrahydrocannabinol Negative (Negative); Urine Tricyclic Antidepressant Negative (Negative); Urine pH Normal (Normal)
--- NOTE | 2022-05-07 18:10 | ED.ABDPAIN ---
HPI - Abdominal Pain <Zulema Samuel PA-C - Last Filed: 05/07/22 19:30> General Chief Complaint: Abdominal Pain Stated Complaint: Pancreas pain, Pain when eating Time Seen by Provider: 05/07/22 15:21 Source: patient Mode of arrival: Ambulatory History of Present Illness HPI narrative: 41-year-old male with past medical history pancreatitis, alcohol abuse with withdrawal, anxiety, depression presents to the ED with 1 week of severe epigastric pain, nausea, vomiting. Patient states that he is having a hard time tolerating p.o. patient states that he is also in alcohol withdrawal since he has not been able to keep down his usual alcohol intake. Patient states that he drinks 8-10 cans of 24 oz beer daily. Patient states that he only had 2 of the cans today, since he was unable to keep down the drinks. Patient complains of alcohol withdrawal symptoms including shakes, anxiety, sweating, visual and auditory hallucinations. Patient denies seizures. Patient denies chest pain, shortness of breath, fever, chills, dysuria, lightheadedness, dizziness, syncope. Patient states that the epigastric pain is similar to the pain he usually has when he has a pancreatitis flare. Patient has been seen several times in our ED for both alcohol withdrawal and acute on chronic pancreatitis. 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 Patient states that he has since then seen a surgeon at [facility], is scheduled to have a procedure on May 16. Patient had also sought inpatient detox last January, following which he relapsed. Patient expresses the wish to detox again, states that this time he would like to try [facility], which is a outpatient detox facility. Patient expresses a desire to be sober, since his alcohol abuse has led to so many health problems. ? Related Data Home Medications Medication Instructions Recorded Confirmed quetiapine 50 mg tablet 50 mg PO BEDTIME 01/20/20 02/18/22 clonidine HCl 0.2 mg tablet 0.2 mg PO DAILY PRN Anxiety 01/10/22 02/18/22 sertraline 50 mg tablet (Zoloft) 50 mg PO DAILY 02/18/22 02/18/22 Allergies Allergy/AdvReac Type Severity Reaction Status Date / Time No Known Drug Allergies Allergy Verified 05/07/22 18:47 Review of Systems <Zulema Samuel PA-C - Last Filed: 05/07/22 19:30> Review of Systems ROS Unobtainable: All systems reviewed & are unremarkable except as noted in HPI and below Constitutional Constitutional: Denies chills, Denies fatigue, Denies fever(s), Denies frequent falls, Denies lethargy and Denies weakness Eyes Eyes: Denies change in vision, Denies eye discharge, Denies irritation and Denies loss of vision ENT Ears, Nose, Mouth, and Throat: Denies change in voice, Denies dizziness, Denies neck pain, Denies sore throat and Denies throat swelling Cardiovascular Cardiovascular: Denies chest pain, Denies irregular heart rhythm, Denies lightheadedness, Denies palpitations, Denies dyspnea, Denies dyspnea on exertion and Denies orthopnea Respiratory Respiratory: Denies cough, Denies dyspnea, Denies dyspnea on exertion and Denies wheezing Gastrointestinal Gastrointestinal: Reports abdominal pain, Denies change in bowel habits, Denies diarrhea, Reports nausea and Reports vomiting Genitourinary Genitourinary: Denies hematuria, Denies flank pain, Denies urinary incontinence and Denies urinary urgency Musculoskeletal Musculoskeletal: Denies back pain, Denies muscle weakness, Denies neck pain, Denies numbness and Denies tingling Integumentary/Breasts Skin/Breast: Denies pruritus, Denies erythema, Denies rash and Denies wounds Neurologic Neurologic: Denies behavioral changes, Denies confusion, Denies dizziness, Denies frequent falls, Denies loss of vision, Denies numbness, Denies convulsions, Denies seizure-like activity, Denies tingling, Reports tremor(s) and Denies weakness Psychiatric Psychiatric: Denies anxiety, Denies behavioral changes, Denies confusion, Denies depression, Denies homicidal ideation and Denies suicidal ideation Comments: Visual and auditory hallucinations Endocrine Endocrine: Denies fatigue, Denies flushing and Denies palpitations Hematologic/Lymphatic Hematologic/Lymphatic: Denies easy bruising Allergic/Immunologic Allergic/Immunologic: Denies urticaria, Denies throat swelling and Denies wheezing Patient History <Zulema Samuel PA-C - Last Filed: 05/07/22 19:30> Medical History Acute pancreatitis with uninfected necrosis Alcohol withdrawal Alcoholism Anxiety Depression Pancreatitis Surgical History No history of previous surgery Family History Mother No significant past medical history Father Alcohol abuse CVA (cerebral vascular accident) Sister Breast cancer Other Cancer Social History household members: family Smoking Status: Never smoker alcohol intake: current substance use type: does not use Smoking Status: Never smoker alcohol intake frequency: 3 or more drinks per day Alcohol type: beer Substance Use Type: does not use Exam <Zulema Samuel PA-C - Last Filed: 05/07/22 19:30> Narrative Exam Narrative: Const General:?cooperative, healthy appearing and comfortable HENMT Head:?normal to inspection Ears:?hearing grossly normal bilaterally Nose:?external nose normal Face and sinus:?normal facial exam and sinuses nontender Mouth:?oral mucosae normal Throat:?posterior oropharynx normal Eyes General:?appearance normal, both eyes and all related structures Neck Neck:?normal visual inspection and no lymphadenopathy noted Resp Effort & Inspection:?normal respiratory effort Auscultation:?clear to auscultation bilaterally Cardio Rate:?regular rate Rhythm:?regular rhythm GI Abdomen is soft, nondistended. Tender to palpation in the epigastric region. No CVA tenderness. Neuro General:?patient alert, patient awake and patient oriented x3; moderate hand tremor, no tongue fasciculations. CIWA score 15 Initial Vital Signs Initial Vital Signs: Vital Signs Temperature 97.9 F 05/07/22 14:55 Pulse Rate 84 05/07/22 14:55 Respiratory Rate 18 05/07/22 14:55 Blood Pressure 137/90 05/07/22 14:55 Pulse Oximetry 98 05/07/22 14:55 Oxygen Delivery Method 05/07/22 14:55 <Leilani Sharma DO - Last Filed: 05/10/22 08:04> Initial Vital Signs Initial Vital Signs: Vital Signs Temperature 97.9 F 05/07/22 14:55 Pulse Rate 84 05/07/22 14:55 Respiratory Rate 18 05/07/22 14:55 Blood Pressure 137/90 05/07/22 14:55 Pulse Oximetry 98 05/07/22 14:55 Oxygen Delivery Method 05/07/22 14:55 Course <Zulema Samuel PA-C - Last Filed: 05/07/22 19:30> Orders Ordered: Discontinued Medications Chlordiazepoxide HCl (Chlordiazepoxide 25 Mg Capsule) 50 mg PO NOW ONE Stop: 05/07/22 16:29 Last Admin: 05/07/22 18:26 Dose: Not Given Documented By: MIHAI Chlordiazepoxide HCl (Chlordiazepoxide 25 Mg Capsule) 25 mg PO TID [facility] Chlordiazepoxide HCl (Chlordiazepoxide 25 Mg Capsule) 50 mg PO QID [facility] Last Admin: 05/08/22 08:27 Dose: 50 mg Documented By: Admin: 05/07/22 23:38 Dose: Not Given Documented By: Admin: 05/07/22 21:14 Dose: 50 mg Documented By: Enoxaparin Sodium (Enoxaparin 40 Mg/0.4 Ml Syringe) 40 mg SUBCUT DAILY [facility] Last Admin: 05/08/22 08:27 Dose: 40 mg Documented By: CHLOE Folic Acid (Folic Acid 1 Mg Tablet) 1 mg PO DAILY [facility] Last Admin: 05/08/22 08:27 Dose: 1 mg Documented By: CHLOE Hydromorphone HCl (Hydromorphone 1 Mg Inj) 1 mg IV Q3H PRN PRN Reason: Pain, Severe (7-10) Last Admin: 05/08/22 11:55 Dose: 1 mg Documented By: JStephanieY Admin: 05/08/22 08:28 Dose: 1 mg Documented By: Admin: 05/08/22 04:31 Dose: 1 mg Documented By: Admin: 05/08/22 01:30 Dose: 1 mg Documented By: Admin: 05/07/22 21:47 Dose: 1 mg Documented By: Sodium Chloride (Normal Saline 0.9%) 1,000 mls @ 1,000 mls/hr IV BOLUS ONE Stop: 05/07/22 19:17 Last Admin: 05/07/22 19:02 Dose: 1,000 mls/hr Documented By: MIHAI Sodium Chloride (Normal Saline 0.9%) 1,000 mls @ 100 mls/hr IV CONT [facility] Last Admin: 05/08/22 06:26 Dose: 100 mls/hr Documented By: Infusion: 05/08/22 06:26 Dose: 100 mls/hr Documented By: Admin: 05/07/22 21:14 Dose: 100 mls/hr Documented By: Ketorolac Tromethamine (Ketorolac 30 Mg/Ml Vial) 30 mg IV Q6H PRN PRN Reason: Pain, Mild (1-3) Stop: 05/12/22 20:39 Last Admin: 05/08/22 10:39 Dose: 30 mg Documented By: Admin: 05/07/22 22:13 Dose: 30 mg Documented By: Lorazepam (Lorazepam 2 Mg/Ml Inj) 1 mg IV NOW ONE Stop: 05/07/22 16:40 Last Admin: 05/07/22 17:50 Dose: 1 mg Documented By: MIHAI Lorazepam (Lorazepam 2 Mg/Ml Inj) 1 mg IV NOW ONE Stop: 05/07/22 18:19 Last Admin: 05/07/22 18:32 Dose: 1 mg Documented By: MIHAI Lorazepam (Lorazepam 2 Mg/Ml Inj) 0 mg IV CIWAPRN PRN; Protocol PRN Reason: Alcohol Withdrawal Last Admin: 05/08/22 10:40 Dose: 1 mg Documented By: Admin: 05/08/22 03:30 Dose: 2 mg Documented By: Admin: 05/08/22 01:59 Dose: 2 mg Documented By: Admin: 05/08/22 01:26 Dose: 2 mg Documented By: Admin: 05/07/22 22:22 Dose: 2 mg Documented By: Admin: 05/07/22 21:13 Dose: 1 mg Documented By: Morphine Sulfate (Morphine 4 Mg/Ml Inj) 4 mg IV NOW ONE Stop: 05/07/22 16:30 Last Admin: 05/07/22 17:50 Dose: 4 mg Documented By: MIHAI Morphine Sulfate (Morphine 4 Mg/Ml Inj) 4 mg IV NOW ONE Stop: 05/07/22 18:19 Last Admin: 05/07/22 18:32 Dose: 4 mg Documented By: MIHAI Morphine Sulfate (Morphine 10 Mg/Ml Inj) 6 mg IV Q3H PRN PRN Reason: Pain, Moderate (4-6) Morphine Sulfate (Morphine 10 Mg/Ml Inj) 4 mg IV Q3H PRN PRN Reason: Pain, Moderate (4-6) Last Admin: 05/08/22 05:58 Dose: 4 mg Documented By: Multivitamins (Multivitamin 1 Tablet) 1 tab PO DAILY [facility] Last Admin: 05/08/22 08:27 Dose: 1 tab Documented By: CHLOE Naloxone HCl (Naloxone 0.4 Mg/Ml Vial) 0.2 mg IV Q2MIN PRN PRN Reason: Opiate Reversal Ondansetron HCl (Ondansetron 4 Mg Odt) 4 mg PO NOW PRN PRN Reason: Nausea And Vomiting Ondansetron HCl (Ondansetron 4 Mg/2 Ml Inj) 4 mg IV NOW PRN PRN Reason: Nausea And Vomiting Last Admin: 05/08/22 10:46 Dose: 4 mg Documented By: Admin: 05/08/22 02:00 Dose: 4 mg Documented By: Admin: 05/07/22 17:50 Dose: 4 mg Documented By: MIHAI Ondansetron HCl (Ondansetron 4 Mg/2 Ml Inj) 4 mg IV NOW ONE Stop: 05/07/22 18:19 Last Admin: 05/07/22 18:32 Dose: 4 mg Documented By: MIHAI Ondansetron HCl (Ondansetron 4 Mg/2 Ml Inj) 4 mg IV Q6HR PRN PRN Reason: Nausea And Vomiting Promethazine HCl (Promethazine 12.5 Mg Supp) 12.[address] Q6HR PRN PRN Reason: Nausea And Vomiting Thiamine HCl (Thiamine 100 Mg Tablet) 100 mg PO DAILY [facility] Stop: 05/11/22 09:01 Last Admin: 05/08/22 08:27 Dose: 100 mg Documented By: CHLOE Vital Signs Vital signs: Vital Signs - 8 hr 05/07/22 14:55 05/07/22 17:44 Temperature 97.9 F Pulse Rate 84 78 Respiratory Rate 18 18 Blood Pressure 137/90 123/81 Pulse Oximetry 98 99 Oxygen Delivery Method Room Air <Leilani Sharma DO - Last Filed: 05/10/22 08:04> Orders Ordered: Discontinued Medications Chlordiazepoxide HCl (Chlordiazepoxide 25 Mg Capsule) 50 mg PO NOW ONE Stop: 05/07/22 16:29 Last Admin: 05/07/22 18:26 Dose: Not Given Documented By: MIHAI Chlordiazepoxide HCl (Chlordiazepoxide 25 Mg Capsule) 25 mg PO TID [facility] Chlordiazepoxide HCl (Chlordiazepoxide 25 Mg Capsule) 50 mg PO QID [facility] Last Admin: 05/08/22 08:27 Dose: 50 mg Documented By: Admin: 05/07/22 23:38 Dose: Not Given Documented By: Admin: 05/07/22 21:14 Dose: 50 mg Documented By: Enoxaparin Sodium (Enoxaparin 40 Mg/0.4 Ml Syringe) 40 mg SUBCUT DAILY [facility] Last Admin: 05/08/22 08:27 Dose: 40 mg Documented By: EM Folic Acid (Folic Acid 1 Mg Tablet) 1 mg PO DAILY [facility] Last Admin: 05/08/22 08:27 Dose: 1 mg Documented By: EM Hydromorphone HCl (Hydromorphone 1 Mg Inj) 1 mg IV Q3H PRN PRN Reason: Pain, Severe (7-10) Last Admin: 05/08/22 11:55 Dose: 1 mg Documented By: Admin: 05/08/22 08:28 Dose: 1 mg Documented By: Admin: 05/08/22 04:31 Dose: 1 mg Documented By: Admin: 05/08/22 01:30 Dose: 1 mg Documented By: Admin: 05/07/22 21:47 Dose: 1 mg Documented By: Sodium Chloride (Normal Saline 0.9%) 1,000 mls @ 1,000 mls/hr IV BOLUS ONE Stop: 05/07/22 19:17 Last Admin: 05/07/22 19:02 Dose: 1,000 mls/hr Documented By: MIHAI Sodium Chloride (Normal Saline 0.9%) 1,000 mls @ 100 mls/hr IV CONT [facility] Last Admin: 05/08/22 06:26 Dose: 100 mls/hr Documented By: Infusion: 05/08/22 06:26 Dose: 100 mls/hr Documented By: Admin: 05/07/22 21:14 Dose: 100 mls/hr Documented By: Ketorolac Tromethamine (Ketorolac 30 Mg/Ml Vial) 30 mg IV Q6H PRN PRN Reason: Pain, Mild (1-3) Stop: 05/12/22 20:39 Last Admin: 05/08/22 10:39 Dose: 30 mg Documented By: Admin: 05/07/22 22:13 Dose: 30 mg Documented By: Lorazepam (Lorazepam 2 Mg/Ml Inj) 1 mg IV NOW ONE Stop: 05/07/22 16:40 Last Admin: 05/07/22 17:50 Dose: 1 mg Documented By: MIHAI Lorazepam (Lorazepam 2 Mg/Ml Inj) 1 mg IV NOW ONE Stop: 05/07/22 18:19 Last Admin: 05/07/22 18:32 Dose: 1 mg Documented By: MIHAI Lorazepam (Lorazepam 2 Mg/Ml Inj) 0 mg IV CIWAPRN PRN; Protocol PRN Reason: Alcohol Withdrawal Last Admin: 05/08/22 10:40 Dose: 1 mg Documented By: Admin: 05/08/22 03:30 Dose: 2 mg Documented By: Admin: 05/08/22 01:59 Dose: 2 mg Documented By: Admin: 05/08/22 01:26 Dose: 2 mg Documented By: Admin: 05/07/22 22:22 Dose: 2 mg Documented By: Admin: 05/07/22 21:13 Dose: 1 mg Documented By: Morphine Sulfate (Morphine 4 Mg/Ml Inj) 4 mg IV NOW ONE Stop: 05/07/22 16:30 Last Admin: 05/07/22 17:50 Dose: 4 mg Documented By: MIHAI Morphine Sulfate (Morphine 4 Mg/Ml Inj) 4 mg IV NOW ONE Stop: 05/07/22 18:19 Last Admin: 05/07/22 18:32 Dose: 4 mg Documented By: MIHAI Morphine Sulfate (Morphine 10 Mg/Ml Inj) 6 mg IV Q3H PRN PRN Reason: Pain, Moderate (4-6) Morphine Sulfate (Morphine 10 Mg/Ml Inj) 4 mg IV Q3H PRN PRN Reason: Pain, Moderate (4-6) Last Admin: 05/08/22 05:58 Dose: 4 mg Documented By: Multivitamins (Multivitamin 1 Tablet) 1 tab PO DAILY [facility] Last Admin: 05/08/22 08:27 Dose: 1 tab Documented By: CHLOE Naloxone HCl (Naloxone 0.4 Mg/Ml Vial) 0.2 mg IV Q2MIN PRN PRN Reason: Opiate Reversal Ondansetron HCl (Ondansetron 4 Mg Odt) 4 mg PO NOW PRN PRN Reason: Nausea And Vomiting Ondansetron HCl (Ondansetron 4 Mg/2 Ml Inj) 4 mg IV NOW PRN PRN Reason: Nausea And Vomiting Last Admin: 05/08/22 10:46 Dose: 4 mg Documented By: Admin: 05/08/22 02:00 Dose: 4 mg Documented By: Admin: 05/07/22 17:50 Dose: 4 mg Documented By: MIHAI Ondansetron HCl (Ondansetron 4 Mg/2 Ml Inj) 4 mg IV NOW ONE Stop: 05/07/22 18:19 Last Admin: 05/07/22 18:32 Dose: 4 mg Documented By: MIHAI Ondansetron HCl (Ondansetron 4 Mg/2 Ml Inj) 4 mg IV Q6HR PRN PRN Reason: Nausea And Vomiting Promethazine HCl (Promethazine 12.5 Mg Supp) 12.[address] Q6HR PRN PRN Reason: Nausea And Vomiting Thiamine HCl (Thiamine 100 Mg Tablet) 100 mg PO DAILY [facility] Stop: 05/11/22 09:01 Last Admin: 05/08/22 08:27 Dose: 100 mg Documented By: CHLOE Vital Signs Vital signs: Vital Signs - 8 hr 05/07/22 14:55 05/07/22 17:44 Temperature 97.9 F Pulse Rate 84 78 Respiratory Rate 18 18 Blood Pressure 137/90 123/81 Pulse Oximetry 98 99 Oxygen Delivery Method Room Air MDM - Abdominal Pain <Zulema Samuel PA-C - Last Filed: 05/07/22 19:30> Lab Data Result diagrams: 05/08/22 05:51 05/08/22 05:51 Labs: Lab Results 05/07/22 05/07/22 05/07/22 Range/Units 15:05 15:05 15:05 WBC 6.0 (4.5-11.0) X10^3/uL RBC 4.61 (4.5-5.9) X10^6/uL Hgb 14.2 (13.5-17.5) g/dL Hct 40.6 L (41-53) % MCV 88.1 (80-100) fL MCH 30.9 (26-34) PG MCHC 35.0 (30-36) % RDW 15.4 H (11.6-14.8) % Plt Count 170 (150-400) X10^3/uL Neut % (Auto) 67.5 (50-75) % Lymph % (Auto) 26.4 (25-40) % [place] % (Auto) 4.6 (3-14) % Eos % (Auto) 1.2 L (2-4) % Baso % (Auto) 0.3 (0-2) % Neut # (Auto) 4000 (5569-9265) /uL Lymph # (Auto) 1600 (6297-7676) /uL [place] # (Auto) 300 (0-900) /uL Eos # (Auto) 100 (0-450) /uL Baso # (Auto) 0 (0-100) /uL Sodium 143 (137-145) mmol/L Potassium 3.7 (3.4-5.1) mmol/L Chloride 99 (98-107) mmol/L Carbon Dioxide 26 (22-32) mmol/L BUN 8 L (9-20) mg/dL Creatinine 0.62 L (0.66-1.25) mg/dL Estimated GFR > 60 (>60) mL/min BUN/Creatinine Ratio 12.9 (6-22) Glucose 141 H (70-100) mg/dL Calcium 9.1 (8.4-10.2) mg/dL Total Bilirubin 1.2 (0.2-1.3) mg/dL AST 79 H (17-59) IU/L ALT 55 H (<50) IU/L Alkaline Phosphatase 177 H (38-126) U/L Total Protein 10.9 H (6.3-8.2) g/dL Albumin 4.9 (3.5-5.0) g/dL Globulin 6.0 H (1.7-4.1) g/dL Albumin/Globulin Ratio 0.8 L (1.0-2.8) Lipase 92 (23-300) U/L TSH 2.24 (0.47-4.68) uIU/mL Free T4 1.10 (0.78-2.19) ng/dL Salicylates (<20) mg/dL U Opiates 300ng/mL cut (Negative) Ur Oxycodone Screen (Negative) Urine Methadone Screen (Negative) Acetaminophen (10-30) ug/mL Ur Barbiturates Screen (Negative) U Tricyclic Antidepress (Negative) Ur Phencyclidine Scrn (Negative) Ur Amphetamines Screen (Negative) U Methamphetamines Scrn (Negative) Ur MDMA Scrn (Ecstasy) (Negative) U Benzodiazepines Scrn (Negative) Urine Cocaine Screen (Negative) U Marijuana (THC) Screen (Negative) Ethyl Alcohol ( - 10) mg/dL 05/07/22 05/07/22 Range/Units 15:05 15:06 WBC (4.5-11.0) X10^3/uL RBC (4.5-5.9) X10^6/uL Hgb (13.5-17.5) g/dL Hct (41-53) % MCV (80-100) fL MCH (26-34) PG MCHC (30-36) % RDW (11.6-14.8) % Plt Count (150-400) X10^3/uL Neut % (Auto) (50-75) % Lymph % (Auto) (25-40) % [place] % (Auto) (3-14) % Eos % (Auto) (2-4) % Baso % (Auto) (0-2) % Neut # (Auto) (7506-0420) /uL Lymph # (Auto) (1618-4749) /uL [place] # (Auto) (0-900) /uL Eos # (Auto) (0-450) /uL Baso # (Auto) (0-100) /uL Sodium (137-145) mmol/L Potassium (3.4-5.1) mmol/L Chloride (98-107) mmol/L Carbon Dioxide (22-32) mmol/L BUN (9-20) mg/dL Creatinine (0.66-1.25) mg/dL Estimated GFR (>60) mL/min BUN/Creatinine Ratio (6-22) Glucose (70-100) mg/dL Calcium (8.4-10.2) mg/dL Total Bilirubin (0.2-1.3) mg/dL AST (17-59) IU/L ALT (<50) IU/L Alkaline Phosphatase (38-126) U/L Total Protein (6.3-8.2) g/dL Albumin (3.5-5.0) g/dL Globulin (1.7-4.1) g/dL Albumin/Globulin Ratio (1.0-2.8) Lipase (23-300) U/L TSH (0.47-4.68) uIU/mL Free T4 (0.78-2.19) ng/dL Salicylates < 1.0 (<20) mg/dL U Opiates 300ng/mL cut Negative (Negative) Ur Oxycodone Screen Negative (Negative) Urine Methadone Screen Negative (Negative) Acetaminophen < 10 (10-30) ug/mL Ur Barbiturates Screen Negative (Negative) U Tricyclic Antidepress Negative (Negative) Ur Phencyclidine Scrn Negative (Negative) Ur Amphetamines Screen Negative (Negative) U Methamphetamines Scrn Negative (Negative) Ur MDMA Scrn (Ecstasy) Negative (Negative) U Benzodiazepines Scrn Negative (Negative) Urine Cocaine Screen Negative (Negative) U Marijuana (THC) Screen Negative (Negative) Ethyl Alcohol 263 H ( - 10) mg/dL Point of care testing: Urine Dip Bedside Urine Glucose Negative Bedside Urine Bilirubin - Negative Bedside Urine Ketone - Negative Urine Specific [place] 1.005 Bedside Urine Occult Blood - Negative Bedside Urine pH 6.0 Bedside Urine Protein - Negative Bedside Urine Urobilinogen - Negative Bedside Urine Nitrite - Negative Bedside Urine Leukocytes - Negative Esterase MDM Narrative Medical decision making narrative: 41-year-old male with past medical history pancreatitis, alcohol abuse with withdrawal, anxiety, depression presents to the ED with 1 week of severe epigastric pain, nausea, vomiting. Concern for acute on chronic pancreatitis versus necrotizing pancreatitis versus other intra-abdominal etiology versus alcohol withdrawal versus other tox versus other. Obtained labs, lipase, lactate, UA, urine drug screen, COVID test, CT abdomen pelvis. Labs, urine tests without acute findings. CT abdomen pelvis shows inflammatory changes surrounding the pancreas with heterogenous enhancement concerning for necrotizing pancreatitis. Dr. Lozano from surgery was consulted, she recommends admission and she will consult, with management likely being medical. Hospitalist Dr. Ziegler was consulted, she accepted the patient for inpatient admission. Patient was given IV fluids, Zofran, morphine for pain control. Ativan for alcohol withdrawal, given CIWA score of 15. Patient is unable to tolerate p.o.. Patient remained stable in the ED. Corroborating data:n/a Data collected from:?patient ? Medical records reviewed:??yes ? Differential considered:??as above ? Exam documented above, pertinent findings include:? Epigastric tenderness to palpation; CIWA score 15 ? Lab Test results independently reviewed as above. Pertinent findings:none ? Independently reviewed EKG as above: n/a ? Imaging studies independently reviewed:yes ? Consultations: Dr. Lozano from surgery as described above ? Treatments: As described above ? Re-evaluations: Patient remained stable ? Discussion: Discussed disposition with patient, patient verbalized understanding ? Diagnosis: Acute pancreatitis, alcohol withdrawal ? Disposition: Admission as stated above <Leilani Sharma, DO - Last Filed: 05/10/22 08:04> Lab Data Labs: Lab Results 05/07/22 05/07/22 05/07/22 Range/Units 15:05 15:05 15:05 WBC 6.0 (4.5-11.0) X10^3/uL RBC 4.61 (4.5-5.9) X10^6/uL Hgb 14.2 (13.5-17.5) g/dL Hct 40.6 L (41-53) % MCV 88.1 (80-100) fL MCH 30.9 (26-34) PG MCHC 35.0 (30-36) % RDW 15.4 H (11.6-14.8) % Plt Count 170 (150-400) X10^3/uL Neut % (Auto) 67.5 (50-75) % Lymph % (Auto) 26.4 (25-40) % [place] % (Auto) 4.6 (3-14) % Eos % (Auto) 1.2 L (2-4) % Baso % (Auto) 0.3 (0-2) % Neut # (Auto) 4000 (2389-9783) /uL Lymph # (Auto) 1600 (5372-3463) /uL [place] # (Auto) 300 (0-900) /uL Eos # (Auto) 100 (0-450) /uL Baso # (Auto) 0 (0-100) /uL Sodium 143 (137-145) mmol/L Potassium 3.7 (3.4-5.1) mmol/L Chloride 99 (98-107) mmol/L Carbon Dioxide 26 (22-32) mmol/L BUN 8 L (9-20) mg/dL Creatinine 0.62 L (0.66-1.25) mg/dL Estimated GFR > 60 (>60) mL/min BUN/Creatinine Ratio 12.9 (6-22) Glucose 141 H (70-100) mg/dL Calcium 9.1 (8.4-10.2) mg/dL Total Bilirubin 1.2 (0.2-1.3) mg/dL AST 79 H (17-59) IU/L ALT 55 H (<50) IU/L Alkaline Phosphatase 177 H (38-126) U/L Total Protein 10.9 H (6.3-8.2) g/dL Albumin 4.9 (3.5-5.0) g/dL Globulin 6.0 H (1.7-4.1) g/dL Albumin/Globulin Ratio 0.8 L (1.0-2.8) Lipase 92 (23-300) U/L TSH 2.24 (0.47-4.68) uIU/mL Free T4 1.10 (0.78-2.19) ng/dL Salicylates (<20) mg/dL U Opiates 300ng/mL cut (Negative) Ur Oxycodone Screen (Negative) Urine Methadone Screen (Negative) Acetaminophen (10-30) ug/mL Ur Barbiturates Screen (Negative) U Tricyclic Antidepress (Negative) Ur Phencyclidine Scrn (Negative) Ur Amphetamines Screen (Negative) U Methamphetamines Scrn (Negative) Ur MDMA Scrn (Ecstasy) (Negative) U Benzodiazepines Scrn (Negative) Urine Cocaine Screen (Negative) U Marijuana (THC) Screen (Negative) Ethyl Alcohol ( - 10) mg/dL 05/07/22 05/07/22 Range/Units 15:05 15:06 WBC (4.5-11.0) X10^3/uL RBC (4.5-5.9) X10^6/uL Hgb (13.5-17.5) g/dL Hct (41-53) % MCV (80-100) fL MCH (26-34) PG MCHC (30-36) % RDW (11.6-14.8) % Plt Count (150-400) X10^3/uL Neut % (Auto) (50-75) % Lymph % (Auto) (25-40) % [place] % (Auto) (3-14) % Eos % (Auto) (2-4) % Baso % (Auto) (0-2) % Neut # (Auto) (8649-9807) /uL Lymph # (Auto) (6737-3937) /uL [place] # (Auto) (0-900) /uL Eos # (Auto) (0-450) /uL Baso # (Auto) (0-100) /uL Sodium (137-145) mmol/L Potassium (3.4-5.1) mmol/L Chloride (98-107) mmol/L Carbon Dioxide (22-32) mmol/L BUN (9-20) mg/dL Creatinine (0.66-1.25) mg/dL Estimated GFR (>60) mL/min BUN/Creatinine Ratio (6-22) Glucose (70-100) mg/dL Calcium (8.4-10.2) mg/dL Total Bilirubin (0.2-1.3) mg/dL AST (17-59) IU/L ALT (<50) IU/L Alkaline Phosphatase (38-126) U/L Total Protein (6.3-8.2) g/dL Albumin (3.5-5.0) g/dL Globulin (1.7-4.1) g/dL Albumin/Globulin Ratio (1.0-2.8) Lipase (23-300) U/L TSH (0.47-4.68) uIU/mL Free T4 (0.78-2.19) ng/dL Salicylates < 1.0 (<20) mg/dL U Opiates 300ng/mL cut Negative (Negative) Ur Oxycodone Screen Negative (Negative) Urine Methadone Screen Negative (Negative) Acetaminophen < 10 (10-30) ug/mL Ur Barbiturates Screen Negative (Negative) U Tricyclic Antidepress Negative (Negative) Ur Phencyclidine Scrn Negative (Negative) Ur Amphetamines Screen Negative (Negative) U Methamphetamines Scrn Negative (Negative) Ur MDMA Scrn (Ecstasy) Negative (Negative) U Benzodiazepines Scrn Negative (Negative) Urine Cocaine Screen Negative (Negative) U Marijuana (THC) Screen Negative (Negative) Ethyl Alcohol 263 H ( - 10) mg/dL Point of care testing: Urine Dip Bedside Urine Glucose Negative Bedside Urine Bilirubin - Negative Bedside Urine Ketone - Negative Urine Specific [place] 1.005 Bedside Urine Occult Blood - Negative Bedside Urine pH 6.0 Bedside Urine Protein - Negative Bedside Urine Urobilinogen - Negative Bedside Urine Nitrite - Negative Bedside Urine Leukocytes - Negative Esterase Discharge Plan Departure Patient Disposition: Admitted As Inpatient Clinical Impression: Pancreatitis, Alcohol withdrawal Admit Date/Time: 05/07/22 18:21 Admit Provider: Amber Ziegler <Leilani Sharma DO - Last Filed: 05/10/22 08:04> Cosign ED Attending Christopher Attestation: I was immediately available in the department for consultation. Documentation has been reviewed. I agree with assessment and plan.
[2022-05-07 18:38] VITALS: BP 130/80; PULSE 81; RESP 18; O2SAT 97
[2022-05-07 18:53] VITALS: BMI 29.6
[2022-05-07 18:57] LABS: COVID19 -Nasal RAPID Negative (Negative)
[2022-05-07] MEDS: SODIUM CHLORIDE 0.9% 1,000 ML 1000 ML IV (19:02)
[2022-05-07 19:10] VITALS: BP 147/92; PULSE 95; RESP 16; TEMP 36.5; O2SAT 96
[2022-05-07] MEDS: LORazepam 2 MG/ML INJ IV ×2 (21:13→22:22)
[2022-05-07] MEDS: SODIUM CHLORIDE 0.9% 1,000 ML 100 ML IV (21:14)
[2022-05-07] MEDS: chlordiazePOXIDE 25 MG CAPSULE 50 MG PO (21:14)
[2022-05-07] MEDS: HYDROMORPHONE 1 MG INJ IV (21:47)
[2022-05-07 22:05] LABS: Magnesium 1.8 mg/dL (1.6-2.3)
--- NOTE | 2022-05-07 22:05 | P.HP_ITS ---
History of Present Illness History of Present Illness Date Patient Seen: 05/07/22 Time Patient Seen: 21:45 Chief complaint: Pancreas pain, Pain when eating Narrative: Ishmael Ahmadiis a 41-year-old male with a past medical history of alcohol abuse with severe symptoms including DTs and prior seizures, pancreatitis, and anxiety and depression who presented yesterday to the ER with 2 days of sharp epigastric pain, with radiation to the back. States he has been shaky to the point where he can not work. He is also had the sweats. He is due to undergo surgery at [facility] on May 16 to remove a cyst in his pancreas. He denies fevers sweats or chills, he is nauseous and does have midepigastric abdominal pain that radiates to his back, denies dysuria diarrhea or constipation. States that he is able to quit drinking ?on a dime? states that he wants to be able to go back to college to learn a scale. CT of the abdomen and pelvis ordered in the ED, reported inflammatory changes around the pancreas concerning for necrotizing pancreatitis. They did not see any fluid collection and has a stable appearing lobulated hypodensity in the pancreatic head with a mass not being entirely excluded. His gallbladder is also distended and has hepatomegaly and hepatic steatosis. He is afebrile, blood pressure 147/92 heart rate 95 respiratory rate 16 oxygen saturation of 96% on room air he weighs 92 kg with a BMI of 29.6. CBC is unremarkable, creatinine is 0.62 with a normal EGFR glucose 141 AST 79 ALT 55 alk-phos 177 triglycerides are 340 lipase is 92 TSH 2.24 with a free T4 of 1.10 alcohol level was 263 and COVID-19 PCR is negative. Patient History Medical History (Updated 05/08/22 @ 01:24 by FROILAN Gómez) Acute pancreatitis with uninfected necrosis Alcohol withdrawal Alcoholism Anxiety Depression Pancreatitis Surgical History No history of previous surgery Family & Social History Family History (Updated 05/08/22 @ 01:25 by FROILAN Gómez) Mother No significant past medical history Father Alcohol abuse CVA (cerebral vascular accident) Sister Breast cancer Other Cancer Social History: household members family Prior Living Arrangements House Safety & Behavioral: Feels Safe in Current Yes Environment Been Physically Hurt or No Threatened By a Person Tobacco & Substance use: Tobacco type cannabis/marijuana Smoking Status Never smoker alcohol intake current alcohol intake frequency 3 or more drinks per day Substance Use Type does not use Meds Home Medications and Allergies Home Medications Medication Instructions Recorded Confirmed Type quetiapine 50 mg tablet 50 mg PO BEDTIME 01/20/20 02/18/22 History clonidine HCl 0.2 mg tablet 0.2 mg PO DAILY PRN Anxiety 01/10/22 02/18/22 Hist ory sertraline 50 mg tablet (Zoloft) 50 mg PO DAILY 02/18/22 02/18/22 History Allergies Allergy/AdvReac Type Severity Reaction Status Date / Time No Known Drug Allergies Allergy Verified 05/07/22 18:47 Review of Systems Review of Systems ROS: Yes All systems reviewed with the patient and are negative except as otherwise documented Exam Vital Signs (past 8 hours): - 05/07/22 14:55 05/07/22 17:44 05/07/22 18:38 Temperature 97.9 F Pulse Rate 84 78 81 Respiratory Rate 18 18 18 Blood Pressure 137/90 123/81 130/80 Pulse Oximetry 98 99 97 Oxygen Delivery Method Room Air Oxygen Flow Rate 05/07/22 19:10 Temperature 97.7 F Pulse Rate 95 H Respiratory Rate 16 Blood Pressure 147/92 H Pulse Oximetry 96 Oxygen Delivery Method Oxygen Flow Rate 0 Oxygen Delivery Method Room Air Oxygen Flow Rate 0 Narrative Exam Narrative: Gen: Alert, oriented, well-developed 47 y.o. male, mildly distressed HEENT: normocephalic, atraumatic, conjunctiva clear, sclera non-icteric, oral mucosa pink and moist Neck: supple, full ROM, no JVD, trachea is midline Resp: Lungs CTA, non-labored breathing CV: RRR, no murmur or rubs Abd: soft, non-tender, normoactive BTs Skin: Mild generalized jaundice, no lesions or rashes, dry and intact Neuro: Alert and oriented X 4 w/no focal deficits. Speech clear and coherent. Extremities: moves all 4 extremities, is ambulatory, negative [place]?s sign Psyche: normal mood and affect. Objective Labs Result Diagrams: 05/07/22 15:05 05/07/22 15:05 Labs: Laboratory Results - last 24 hr 05/07/22 05/07/22 05/07/22 15:05 15:05 15:05 WBC 6.0 RBC 4.61 Hgb 14.2 Hct 40.6 L MCV 88.1 MCH 30.9 MCHC 35.0 RDW 15.4 H Plt Count 170 Neut % (Auto) 67.5 Lymph % (Auto) 26.4 [place] % (Auto) 4.6 Eos % (Auto) 1.2 L Baso % (Auto) 0.3 Neut # (Auto) 4000 Lymph # (Auto) 1600 [place] # (Auto) 300 Eos # (Auto) 100 Baso # (Auto) 0 Sodium 143 Potassium 3.7 Chloride 99 Carbon Dioxide 26 BUN 8 L Creatinine 0.62 L Estimated GFR > 60 BUN/Creatinine Ratio 12.9 Glucose 141 H Calcium 9.1 Total Bilirubin 1.2 AST 79 H ALT 55 H Alkaline Phosphatase 177 H Total Protein 10.9 H Albumin 4.9 Globulin 6.0 H Albumin/Globulin Ratio 0.8 L Lipase 92 TSH 2.24 Free T4 1.10 Salicylates U Opiates 300ng/mL cut Ur Oxycodone Screen Urine Methadone Screen Acetaminophen Ur Barbiturates Screen U Tricyclic Antidepress Ur Phencyclidine Scrn Ur Amphetamines Screen U Methamphetamines Scrn Ur MDMA Scrn (Ecstasy) U Benzodiazepines Scrn Urine Cocaine Screen U Marijuana (THC) Screen Ethyl Alcohol SARS-CoV-2 (PCR) 05/07/22 05/07/22 05/07/22 15:05 15:06 18:34 WBC RBC Hgb Hct MCV MCH MCHC RDW Plt Count Neut % (Auto) Lymph % (Auto) [place] % (Auto) Eos % (Auto) Baso % (Auto) Neut # (Auto) Lymph # (Auto) [place] # (Auto) Eos # (Auto) Baso # (Auto) Sodium Potassium Chloride Carbon Dioxide BUN Creatinine Estimated GFR BUN/Creatinine Ratio Glucose Calcium Total Bilirubin AST ALT Alkaline Phosphatase Total Protein Albumin Globulin Albumin/Globulin Ratio Lipase TSH Free T4 Salicylates < 1.0 U Opiates 300ng/mL cut Negative Ur Oxycodone Screen Negative Urine Methadone Screen Negative Acetaminophen < 10 Ur Barbiturates Screen Negative U Tricyclic Antidepress Negative Ur Phencyclidine Scrn Negative Ur Amphetamines Screen Negative U Methamphetamines Scrn Negative Ur MDMA Scrn (Ecstasy) Negative U Benzodiazepines Scrn Negative Urine Cocaine Screen Negative U Marijuana (THC) Screen Negative Ethyl Alcohol 263 H SARS-CoV-2 (PCR) Negative Assessment & Plan Assessment & Plan narrative: Ishmael Lucas is admitted for further treatment and management of a noninfectious necrotizing acute pancreatitis and alcohol withdrawal. Noninfectious necrotizing acute pancreatitis, acute, present on admission * Frequent pain control * Will need to contact [facility] GI service to confirm whether the patient is scheduled for surgery there on May 16. Acute alcohol withdrawal, present on admission * CIWA protocol his CIWA scores have been as high as 15 * Seizure precaution * Folic acid, thiamine and multivitamin * Librium taper starting at 50 mg p.o. q.i.d. Other independent historians: None Discussion of results, plan of care with independent HCP/other ED provider Reviewed outside records: Ordered VTE Prophylaxis: Wells risk score 0 x Enoxaparin 40 mg subQ once daily Bilateral SCDs Patient is admitted to the inpatient service due to the severity of disease, risks of further disease progression and this stay is expected to exceed 2 mi dnights. FEN: IV fluids: NS at 100 ml/hour, diet: clears, labs: CBC, C/BMP, liver enzymes, Mag, PT/INR Consultants General surgery following care and involvement in the patient?s care is appreciated. Dispo: unknown at this time Code status: Full as discussed with the patient who did not identify his surrogate and POA. Advanced care planning 0 minutes. [X] I have utilized all available immediate resources to obtain, update, or review of the patient's current medications VTE Deep Vein Thrombosis/Pulmonary Embolism Present on Admission: No MIPS - Admit I confirm the patient?s Advance Care Plan is present, Code status is documented, Surrogate decision maker is in patient?s record: Yes MIPS - DC The patient has current or prior documentation of left ventricular ejection fraction (LVEF) less than 40%, or moderate or severely depressed left ventricular systolic function.: No COVID-19 COVID-19 status: Negative Result date/Date tested (Pos, Neg/Pending): 05/07/22 Quality VTE Deep Vein Thrombosis/Pulmonary Embolism Present on Admission: No
[2022-05-07 22:06] LABS: Triglycerides 340 mg/dL (35-150)
[2022-05-07] MEDS: KETOROLAC 30 MG/ML VIAL IV (22:13)
[2022-05-08] MEDS: LORazepam 2 MG/ML INJ IV ×4 (01:26→10:40)
[2022-05-08] MEDS: HYDROMORPHONE 1 MG INJ IV ×4 (01:30→11:55)
[2022-05-08] MEDS: ONDANSETRON 4 MG/2 ML INJ IV ×2 (02:00→10:46)
[2022-05-08 02:13] VITALS: BP 117/71; PULSE 89; RESP 18; TEMP 35.7; O2SAT 95
--- NOTE | 2022-05-08 03:51 | PC.NURSE ---
Pt here with pancreatitis and etoh withdrawals. Pt ciwa goes up to 15 and once ativan 2 mg ivp is given, ciwa goes down to 2 however it only last for like 30 minutes before ciwa goes back up. Pt also getting hydromorphone 1 mg ivp for pain and at times in conjuction with ativan.
[2022-05-08 04:00] VITALS: PULSE 65; RESP 16
[2022-05-08] MEDS: MORPHINE 10 MG/ML INJ 4 MG IV (05:58)
[2022-05-08 06:12] LABS: INR 1.3 (0.9-1.3); Prothrombin Time 14.7 SECONDS (10.1-12.7)
[2022-05-08 06:14] LABS: Add Manual Diff / Slide Review NO; Basophils Absolute Auto 0 /uL (0-100); Basophils Percent Auto 0.3 % (0-2); Eosinophils Absolute Auto 100 /uL (0-450); Eosinophils Percent Auto 2.6 % (2-4); Hematocrit 35.8 % (41-53); Hemoglobin 11.9 g/dL (13.5-17.5); Lymphocytes Absolute Auto 900 /uL (1100-4500); Lymphocytes Percent Auto 35.5 % (25-40); Mean Corpuscular HGB Conc 33.3 % (30-36); Mean Corpuscular Hemoglobin 29.8 PG (26-34); Mean Corpuscular Volume 89.5 fL (80-100); Monocytes Absolute Auto 100 /uL (0-900); Monocytes Percent Auto 5.3 % (3-14); Neutrophils Absolute Auto 1500 /uL (1500-7000); Neutrophils Percent Auto 56.3 % (50-75); Platelet Count 79 X10^3/uL (150-400); Red Cell Distribution Width 15.6 % (11.6-14.8); White Blood Cell Count 2.6 X10^3/uL (4.5-11.0)
[2022-05-08 06:22] LABS: Alanine Aminotransferase 45 IU/L (<50); Albumin 3.9 g/dL (3.5-5.0); Albumin Globulin Ratio 0.8 (1.0-2.8); Alkaline Phosphatase 150 U/L (38-126); Aspartate Aminotransferase 76 IU/L (17-59); BUN Creatinine Ratio 16.1 (6-22); Bilirubin Total 1.1 mg/dL (0.2-1.3); Bilirubin Unconjugated 0.5 mg/dL (0.0-1.1); Blood Urea Nitrogen 9 mg/dL (9-20); Calcium 7.8 mg/dL (8.4-10.2); Carbon Dioxide 27 mmol/L (22-32); Chloride 106 mmol/L (98-107); Estimated Glomerular Filt Rate > 60 mL/min (>60); Globulin 4.8 g/dL (1.7-4.1); Glucose 109 mg/dL (70-100); HEMOLYSIS < 15 (0-50); Potassium 3.9 mmol/L (3.4-5.1); Sodium 142 mmol/L (137-145); Total Protein 8.7 g/dL (6.3-8.2)
[2022-05-08] MEDS: SODIUM CHLORIDE 0.9% 1,000 ML 100 ML IV (06:26)
--- NOTE | 2022-05-08 06:28 | PM.CN ---
History of Present Illness Consult details Date Patient Seen: 05/08/22 Time Patient Seen: 06:28 Chief complaint: Pancreas pain, Pain when eating Reason for consult: Evaluate for necrotizing pancreatitis, abdominal pain and unable to eat. Requesting provider: Lori Smith Narrative: 41-year-old male with known pancreatic mass, acute and chronic pancreatitis, alcohol addiction. Presenting to the ED with abdominal pain and report of unable to keep things down for the last several days. In fact unable to drink enough alcohol to keep himself out of withdrawal. Currently showing overt signs of alcohol withdrawal. CT scan reading was concerning for potential necrotizing pancreatitis. With normal lipase and relatively stable labs otherwise. My reading of the CT as well as the 1 done in 02/17 the findings are somewhat similar. ED provider was able to elicit information that the pancreatic mass is to be addressed surgically on May 16. However I do not have the exact facility at this time. Meds Home Medications and Allergies Home Medications Medication Instructions Recorded Confirmed Type quetiapine 50 mg tablet 50 mg PO BEDTIME 01/20/20 02/18/22 History clonidine HCl 0.2 mg tablet 0.2 mg PO DAILY PRN Anxiety 01/10/22 02/18/22 History sertraline 50 mg tablet (Zoloft) 50 mg PO DAILY 02/18/22 02/18/22 History Allergies Allergy/AdvReac Type Severity Reaction Status Date / Time No Known Drug Allergies Allergy Verified 05/07/22 18:47 Review of Systems Review of Systems ROS: Yes unobtainable due to mental status Exam Vital Signs (past 8 hours): - 05/08/22 02:13 05/08/22 04:00 Temperature 96.3 F L Pulse Rate 89 65 Respiratory Rate 18 16 Blood Pressure 117/71 Pulse Oximetry 95 Oxygen Flow Rate 0 Oxygen Delivery Method Room Air Oxygen Flow Rate 0 Narrative Exam Narrative: Patient agitated, sedated, going through alcohol withdrawal such that his interview is difficult. Const General: in distress and disheveled Nutritional Appearance: overweight Orientation: confused Limitations: altered mental status HENMT Head: normal to inspection, normocephalic and atraumatic Ears: hearing grossly normal bilaterally Face and sinus: normal facial exam Eyes Periorbital: periorbital findings normal Sclera: sclerae normal Neck Neck: trachea midline Chest Chest: normal inspection of the chest Resp Effort & Inspection: normal respiratory effort Cardio Rate: regular rate Rhythm: regular rhythm GI Palpation: soft and tender (Midepigastric tenderness, no palpable masses. Not distended.) Skin General: elasticity normal Neuro General: moves all extremities and no focal motor deficits Cognition: abnormal cognition Motor: no movement abnormalities noted Extrem General: capillary refill normal and no joint enlargement Psych Appearance: well kempt and disheveled Speech and Movement: agitated and restless Judgment: poor Objective Labs Result Diagrams: 05/07/22 15:05 05/08/22 05:51 Labs: Laboratory Results - last 24 hr 05/07/22 05/07/22 05/07/22 15:05 15:05 15:05 WBC 6.0 RBC 4.61 Hgb 14.2 Hct 40.6 L MCV 88.1 MCH 30.9 MCHC 35.0 RDW 15.4 H Plt Count 170 Neut % (Auto) 67.5 Lymph % (Auto) 26.4 [place] % (Auto) 4.6 Eos % (Auto) 1.2 L Baso % (Auto) 0.3 Neut # (Auto) 4000 Lymph # (Auto) 1600 [place] # (Auto) 300 Eos # (Auto) 100 Baso # (Auto) 0 Sodium 143 Potassium 3.7 Chloride 99 Carbon Dioxide 26 BUN 8 L Creatinine 0.62 L Estimated GFR > 60 BUN/Creatinine Ratio 12.9 Glucose 141 H Calcium 9.1 Magnesium Total Bilirubin 1.2 Conjugated Bilirubin Unconjugated Bilirubin AST 79 H ALT 55 H Alkaline Phosphatase 177 H Total Protein 10.9 H Albumin 4.9 Globulin 6.0 H Albumin/Globulin Ratio 0.8 L Triglycerides Lipase 92 TSH 2.24 Free T4 1.10 Salicylates U Opiates 300ng/mL cut Ur Oxycodone Screen Urine Methadone Screen Acetaminophen Ur Barbiturates Screen U Tricyclic Antidepress Ur Phencyclidine Scrn Ur Amphetamines Screen U Methamphetamines Scrn Ur MDMA Scrn (Ecstasy) U Benzodiazepines Scrn Urine Cocaine Screen U Marijuana (THC) Screen Ethyl Alcohol SARS-CoV-2 (PCR) 05/07/22 05/07/22 05/07/22 15:05 15:06 18:34 WBC RBC Hgb Hct MCV MCH MCHC RDW Plt Count Neut % (Auto) Lymph % (Auto) [place] % (Auto) Eos % (Auto) Baso % (Auto) Neut # (Auto) Lymph # (Auto) [place] # (Auto) Eos # (Auto) Baso # (Auto) Sodium Potassium Chloride Carbon Dioxide BUN Creatinine Estimated GFR BUN/Creatinine Ratio Glucose Calcium Magnesium Total Bilirubin Conjugated Bilirubin Unconjugated Bilirubin AST ALT Alkaline Phosphatase Total Protein Albumin Globulin Albumin/Globulin Ratio Triglycerides Lipase TSH Free T4 Salicylates < 1.0 U Opiates 300ng/mL cut Negative Ur Oxycodone Screen Negative Urine Methadone Screen Negative Acetaminophen < 10 Ur Barbiturates Screen Negative U Tricyclic Antidepress Negative Ur Phencyclidine Scrn Negative Ur Amphetamines Screen Negative U Methamphetamines Scrn Negative Ur MDMA Scrn (Ecstasy) Negative U Benzodiazepines Scrn Negative Urine Cocaine Screen Negative U Marijuana (THC) Screen Negative Ethyl Alcohol 263 H SARS-CoV-2 (PCR) Negative 05/07/22 05/07/22 05/08/22 21:24 21:24 05:51 WBC RBC Hgb Hct MCV MCH MCHC RDW Plt Count Neut % (Auto) Lymph % (Auto) [place] % (Auto) Eos % (Auto) Baso % (Auto) Neut # (Auto) Lymph # (Auto) [place] # (Auto) Eos # (Auto) Baso # (Auto) Sodium 142 Potassium 3.9 Chloride 106 Carbon Dioxide 27 BUN 9 Creatinine 0.56 L Estimated GFR > 60 BUN/Creatinine Ratio 16.1 Glucose 109 H Calcium 7.8 L Magnesium 1.8 Total Bilirubin 1.1 Conjugated Bilirubin 0.0 Unconjugated Bilirubin 0.5 AST 76 H ALT 45 Alkaline Phosphatase 150 H Total Protein 8.7 H Albumin 3.9 Globulin 4.8 H Albumin/Globulin Ratio 0.8 L Triglycerides 340 H Lipase TSH Free T4 Salicylates U Opiates 300ng/mL cut Ur Oxycodone Screen Urine Methadone Screen Acetaminophen Ur Barbiturates Screen U Tricyclic Antidepress Ur Phencyclidine Scrn Ur Amphetamines Screen U Methamphetamines Scrn Ur MDMA Scrn (Ecstasy) U Benzodiazepines Scrn Urine Cocaine Screen U Marijuana (THC) Screen Ethyl Alcohol SARS-CoV-2 (PCR) [facility] Medical History Acute pancreatitis with uninfected necrosis Alcohol withdrawal Alcoholism Anxiety Depression Pancreatitis Surgical History No history of previous surgery Family History Mother No significant past medical history Father Alcohol abuse CVA (cerebral vascular accident) Sister Breast cancer Other Cancer Social History household members: family Tobacco & Substance Use Smoking Status: Never smoker alcohol intake: current substance use type: does not use Assessment & Plan Assessment & Plan narrative: Impression: No evidence of small-bowel obstruction or gastric outlet obstruction. Inflammatory changes around the pancreas as well as the mass in the head of the pancreas are fairly unchanged from CT of 02/17. Lipase is normal. Vital signs relatively stable with a heart rate of 65. All consistent with no necrotizing pancreatitis. Active alcohol withdrawal Plan: A supportive care. No surgical intervention required at this time. Should address nutrition early if he is truly being evaluated for surgery later this month. COVID-19 COVID-19 status: Negative Time Spent With Patient Critical Care time: I spent a total of [] minutes of critical care time on this patient's care today; this time is exclusive of procedural time.
[2022-05-08 08:00] VITALS: BP 141/82; PULSE 95; RESP 21; TEMP 36.8; O2SAT 95
[2022-05-08] MEDS: MULTIVITAMIN 1 TABLET 1 TAB PO (08:27)
[2022-05-08] MEDS: chlordiazePOXIDE 25 MG CAPSULE 50 MG PO (08:27)
[2022-05-08] MEDS: ENOXAPARIN 40 MG/0.4 ML SYRINGE SUBCUT (08:27)
[2022-05-08] MEDS: FOLIC ACID 1 MG TABLET PO (08:27)
[2022-05-08] MEDS: THIAMINE 100 MG TABLET PO (08:27)
[2022-05-08] MEDS: KETOROLAC 30 MG/ML VIAL IV (10:39)
--- NOTE | 2022-05-08 10:56 | CM.DANOTE ---
DCP: Case received, EMR reviewed and met with patient. Introduced self and role. Was able to get some history from patient regarding living situation, as well as alcohol use and prior admissions. DCP assessment completed with information currently available. Patient is a 41 year old male who admitted yesterday evening to the care of the hospitalist team. PCP: Dr. Rodgers. Payer: confirmed: [employer] Patient came to the hospital via private vehicle for a week of epigastric pain. Patient has history of pancreatitis, alcohol abuse. He has been here before with similar symptoms. Patient had been having difficulties with tolerating p.o. food/fluids. Notes indicate that patient drinks approximately 8-10 cans of 24oz beer daily, and is in alcohol withdrawal. Notes indicate from last EMPLOYEE COUNSELOR that patient had been at a facility last January, at a facility called [facility]. Patient's CIWA at 15. Patient had surgery consult, and is here for noninfectious necrotizing acute pancreatitis and alcohol withdrawal. Met with patient in his room. He was sitting up in bed, having some clear liquids. Noted tremor in his lower extremity. Patient is alert and oriented. Confirmed that he resides in [place], stays with his parents. 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 Asked him about resources. Asked him if he was interested in inpatient versus outpatient rehab, and mentioned [facility]. Patient stated, he is not eligible for [facility], due to his seizure history. He is interested in AA. Asked him if he had a sponsor, and stated, he was reaching out to someone. 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 As mentioned above, patient is residing with parents. P: DCP to continue to follow. Will be available for additional resources for patient upon discharge. Kelly Bliss RN/Ct Scan Tech Discharge Planning/Care Management CM Discharge Assessment Start: 05/08/22 10:49 Freq: Status: Active Protocol: Document 05/08/22 10:50 (Rec: 05/08/22 10:53 [id number]) Discharge Planning Assessment Assigned Music Store Manager Kelly Bliss RN/Ct Scan Tech Advance Directives? No Advance Directives on File No History Provided By Patient,Medical Record Prior Living Arrangements House Household Members family Comment Patient is staying with his parents. Type of transporation used prior to Drives own vehicle admit Independent with ADL's Yes Is patient alert and oriented? Yes Caregiver for Another No Comment No DME. Pt fully independent with ADLs. Patient/Family Preference Drug/Alcohol Rehab Comment Patient is not interested in inpatient rehab, is open to AA . Barriers to Discharge Yes Comment ETOH w/d, CIWA, pancreatitis, chronic alcohol use Discharge Plan Home Transportation Arrangement Family Referrals Initiated None needed Additional Comment Patient seen by ED EMPLOYEE COUNSELOR within the last year (please see notes for details). Whiteboard Updated in Patient Room with Yes name and ext. # of Music Store Manager Review Status In Process Next Review Type Continued Stay Review
[2022-05-08 11:10] VITALS: PULSE 95; RESP 20
[2022-05-08 12:00] VITALS: BP 148/100; PULSE 101; RESP 22; TEMP 36.6; O2SAT 94
--- NOTE | 2022-05-08 14:01 | PC.NURSE ---
Addendum entered by Amena Gonsalez R.N. 05/08/22 14:04: IV access removed. Original Note: Day shift note: Patient left AMA, discussed importance of hospitalization and treatment. Signed AMA, verbalized understanding of hospitalization, however patient refused further treatment. Ambulated independently.
--- NOTE | 2022-05-08 17:05 | P.DS_ITS ---
History of Present Illness History of Present Illness Chief complaint: Pancreas pain, Pain when eating Narrative: 41-year-old male with a past medical history of alcohol abuse with severe symptoms including DTs and prior seizures, pancreatitis, and anxiety and depression who presented yesterday to the ER with 2 days of sharp epigastric pain, with radiation to the back.? States he has been shaky to the point where he can not work.? He is also had the sweats.? He is due to undergo surgery at [facility] on May 16 to remove a cyst in his pancreas.? He denies fevers sweats or chills, he is nauseous and does have midepigastric abdominal pain that radiates to his back, denies dysuria diarrhea or constipation.? States that he is able to quit drinking ?on a dime? states that he wants to be able to go back to college to learn a scale. CT of the abdomen and pelvis ordered in the ED, reported inflammatory changes around the pancreas concerning for necrotizing pancreatitis.? They did not see any fluid collection and has a stable appearing lobulated hypodensity in the pancreatic head with a mass not being entirely excluded.? His gallbladder is also distended and has hepatomegaly and hepatic steatosis.? He is afebrile, blood pressure 147/92 heart rate 95 respiratory rate 16 oxygen saturation of 96% on room air he weighs 92 kg with a BMI of 29.6.? 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 Abnormal mass in head of pancreas 3. Acute alcohol withdrawal Event Producer: Dr. Gely Lozano Hospital Course: Patient was admitted for acute pancreatitis. Initially the treatment we started was for necrotizing pancreatitis based on CT findings. However when Dr. Lozano reviewed patient's prior imaging she noted that the inflammatory changes on current study were similar to the previous study and did not think this was true necrotizing pancreatitis. Patient additionally has an abnormal mass in head of pancreas and has an appointment with specialist scheduled on May 16 up in [place]. Unfortunately patient decided to leave against medical advice this morning before I had a chance to evaluate him. He did sign Against Medical Advice form with the RN and was told to wait until I could see him shortly but snuck out of the room. Time Spent with Patient Time spent: Less than 30 minutes Exam Vital Signs (past 8 hours): - 05/08/22 11:10 05/08/22 12:00 Temperature 97.8 F Pulse Rate 95 H 101 H Respiratory Rate 20 22 Blood Pressure 148/100 H Pulse Oximetry 94 Oxygen Flow Rate 0 Oxygen Delivery Method Room Air Oxygen Flow Rate 0 Objective Labs Result Diagrams: 05/08/22 05:51 05/08/22 05:51 Labs: Laboratory Results - last 24 hr 05/07/22 05/07/22 05/07/22 15:06 18:34 21:24 WBC RBC Hgb Hct MCV MCH MCHC RDW Plt Count Neut % (Auto) Lymph % (Auto) Gillespie % (Auto) Eos % (Auto) Baso % (Auto) Neut # (Auto) Lymph # (Auto) Gillespie # (Auto) Eos # (Auto) Baso # (Auto) PT INR Sodium Potassium Chloride Carbon Dioxide BUN Creatinine Estimated GFR BUN/Creatinine Ratio Glucose Calcium Magnesium Total Bilirubin Conjugated Bilirubin Unconjugated Bilirubin AST ALT Alkaline Phosphatase Total Protein Albumin Globulin Albumin/Globulin Ratio Triglycerides 340 H U Opiates 300ng/mL cut Negative Ur Oxycodone Screen Negative Urine Methadone Screen Negative Ur Barbiturates Screen Negative U Tricyclic Antidepress Negative Ur Phencyclidine Scrn Negative Ur Amphetamines Screen Negative U Methamphetamines Scrn Negative Ur MDMA Scrn (Ecstasy) Negative U Benzodiazepines Scrn Negative Urine Cocaine Screen Negative U Marijuana (THC) Screen Negative SARS-CoV-2 (PCR) Negative 05/07/22 05/08/22 05/08/22 21:24 05:51 05:51 WBC 2.6 L D RBC 4.00 L Hgb 11.9 L Hct 35.8 L MCV 89.5 MCH 29.8 MCHC 33.3 RDW 15.6 H Plt Count 79 L Neut % (Auto) 56.3 Lymph % (Auto) 35.5 Gillespie % (Auto) 5.3 Eos % (Auto) 2.6 Baso % (Auto) 0.3 Neut # (Auto) 1500 Lymph # (Auto) 900 L Gillespie # (Auto) 100 Eos # (Auto) 100 Baso # (Auto) 0 PT 14.7 H INR 1.3 Sodium Potassium Chloride Carbon Dioxide BUN Creatinine Estimated GFR BUN/Creatinine Ratio Glucose Calcium Magnesium 1.8 Total Bilirubin Conjugated Bilirubin Unconjugated Bilirubin AST ALT Alkaline Phosphatase Total Protein Albumin Globulin Albumin/Globulin Ratio Triglycerides U Opiates 300ng/mL cut Ur Oxycodone Screen Urine Methadone Screen Ur Barbiturates Screen U Tricyclic Antidepress Ur Phencyclidine Scrn Ur Amphetamines Screen U Methamphetamines Scrn Ur MDMA Scrn (Ecstasy) U Benzodiazepines Scrn Urine Cocaine Screen U Marijuana (THC) Screen SARS-CoV-2 (PCR) 05/08/22 05:51 WBC RBC Hgb Hct MCV MCH MCHC RDW Plt Count Neut % (Auto) Lymph % (Auto) Gillespie % (Auto) Eos % (Auto) Baso % (Auto) Neut # (Auto) Lymph # (Auto) Gillespie # (Auto) Eos # (Auto) Baso # (Auto) PT INR Sodium 142 Potassium 3.9 Chloride 106 Carbon Dioxide 27 BUN 9 Creatinine 0.56 L Estimated GFR > 60 BUN/Creatinine Ratio 16.1 Glucose 109 H Calcium 7.8 L Magnesium Total Bilirubin 1.1 Conjugated Bilirubin 0.0 Unconjugated Bilirubin 0.5 AST 76 H ALT 45 Alkaline Phosphatase 150 H Total Protein 8.7 H Albumin 3.9 Globulin 4.8 H Albumin/Globulin Ratio 0.8 L Triglycerides U Opiates 300ng/mL cut Ur Oxycodone Screen Urine Methadone Screen Ur Barbiturates Screen U Tricyclic Antidepress Ur Phencyclidine Scrn Ur Amphetamines Screen U Methamphetamines Scrn Ur MDMA Scrn (Ecstasy) U Benzodiazepines Scrn Urine Cocaine Screen U Marijuana (THC) Screen SARS-CoV-2 (PCR) [facility] Medical History Acute pancreatitis with uninfected necrosis Alcohol withdrawal Alcoholism Anxiety Depression Pancreatitis Surgical History No history of previous surgery Family History Mother No significant past medical history Father Alcohol abuse CVA (cerebral vascular accident) Sister Breast cancer Other Cancer Social History household members: family Smoking Status: Never smoker alcohol intake: current substance use type: does not use Discharge Plan Discharge Plan Patient Disposition: Left Against Medical Advice Discharge orders & Medications Prescriptions: Continued clonidine HCl 0.2 mg tablet 0.2 mg PO DAILY PRN (Reason: Anxiety) quetiapine 50 mg Tablet 50 mg PO BEDTIME sertraline [Zoloft] 50 mg tablet 50 mg PO DAILY Follow up/Referrals: Donal Rodgers MD [Primary Care Provider] - Visit Report/Discharge Packet Stand Alone Forms: Patient Portal/API, Stroke Signs & Symptoms Discharge Data Primary Care Provider: Donal Rodgers Quality VTE Deep Vein Thrombosis/Pulmonary Embolism Present on Admission: No
== END 2022-05-08 13:17 | disposition left against medical advice (07) | DRG 282 ==
LOC: ED 15:21 → AC 18:22
PROVIDERS: Emergency Medicine; Nurse Practitioner Family; Admitting Provider Neuromusculoskeletal Medicine, Sports Medicine; Emergency Provider Student in an Organized Health Care Education/Training Program; PCP Family Medicine; Referring Provider Student in an Organized Health Care Education/Training Program; Visit Provider Neuromusculoskeletal Medicine, Sports Medicine
DX: K85.90 Acute pancreatitis without necrosis or infection, unspecified (principal); F10.239 Alcohol dependence with withdrawal, unspecified; K86.1 Other chronic pancreatitis; F41.9 Anxiety disorder, unspecified; Y90.8 Blood alcohol level of 240 mg/100 ml or more; Z20.822 Contact with and (suspected) exposure to COVID-19; Z53.29 Procedure and treatment not carried out because of patient's decision for other reasons
CPT/HCPCS: 36415; 74177; 80048; 80053; 80076; 80305; 80320; 80329; 81003; 83690; 83735; 84439; 84443; 84478; 85025; 85610; 87635; 96374; 96375; 96376; 99232; 99284; C9803; G0480; J1170; J1650; J1885; J2060; J2270; J2405; Q9967

== ENCOUNTER 2022-05-10 13:08 | Emergency (ER) | payer OTHER, MEDICAID, SELFPAY ==
[2022-05-10] VITALS (9 sets, daily range): BP systolic 129–138; BP diastolic 81–92; PULSE 77–83; RESP 12–18; TEMP 36.6; O2SAT 95–100; BMI 28.8
--- NOTE | 2022-05-10 14:13 | ED.ALCOHOL ---
HPI - Alcohol <Cr Moses PA-C - Last Filed: 05/10/22 16:09> General Chief Complaint: Toxicology Problem Stated Complaint: Pancreas inflamed, Can't eat/drink Time Seen by Provider: 05/10/22 13:37 Source: patient Mode of arrival: Ambulatory History of Present Illness HPI narrative: This is a 41-year-old male presents to the emergency department due to alcohol withdrawal symptoms. Patient states that he ?just wants to stop drinking?. He also states that his chronic pancreatitis is increasing with increased nausea. Patient denies any fears, URI symptoms, chest pain, shortness of breath, seizures, loss consciousness, or any other concerning signs or symptoms. He states that he last drank at 10:00 a.m. this morning but ?not a lot?. He reports having mild withdrawal symptoms such as nausea vomiting with some sweating. On record review patient was last seen here 2 days ago new to sharp epigastric pain as well as alcohol withdrawal symptoms. Patient is scheduled to have a pancreatic cyst removed at [facility] on May 16, 6 days from now. Patient was admitted for acute pancreatitis with concerns for necrotizing pancreatitis based on CT that was ordered. General surgery was consulted and general surgery did not suspect that this was true necrotizing pancreatitis as the findings were similar to previous CT. Patient eventually left against medical advice. Patient has a past medical history of alcohol abuse,, severe alcohol withdrawal, , pancreatitis, anxiety, and depression. Related Data Home Medications Medication Instructions Recorded Confirmed quetiapine 50 mg tablet 50 mg PO BEDTIME 01/20/20 02/18/22 clonidine HCl 0.2 mg tablet 0.2 mg PO DAILY PRN Anxiety 01/10/22 02/18/22 sertraline 50 mg tablet (Zoloft) 50 mg PO DAILY 02/18/22 02/18/22 Previous Rx's Medication Instructions Recorded chlordiazepoxide HCl 25 mg capsule See Rx Instructions .Route 05/10/22 .COMPLEX #20 caps oxycodone 5 mg tablet 5 mg PO BID PRN pain 5 days #10 05/10/22 tabs Allergies Allergy/AdvReac Type Severity Reaction Status Date / Time No Known Drug Allergies Allergy Verified 05/07/22 18:47 Review of Systems <Cr Moses PA-C - Last Filed: 05/10/22 16:09> Review of Systems Narrative: GENERAL: Reports shakiness HEENT: Denies sinus pain, ear pain, sore throat, difficulty swallowing, dizziness. RESPIRATORY: Denies dyspnea, cough, wheezing, hemoptysis, sputum. CARDIOVASCULAR: Denies chest pain, palpitations, orthopnea, edema, GASTROINTESTINAL: Reports abdominal pain, nausea, denies diarrhea, constipation, melena. : Denies dysuria, frequency, incontinence, hematuria, urinary retention. MUSCULOSKELETAL: denies weakness, joint pain, or bony pain SKIN: Denies rash, skin lesions, or other NEUROLOGIC: Denies weakness, headache, numbness, change in speech, confusion, seizures, incoordination. PSYCHIATRIC: No concerning psychosocial issues. 12 point review of systems is negative except for those stated above Patient History <Cr Moses PA-C - Last Filed: 05/10/22 16:09> Medical History Acute pancreatitis with uninfected necrosis Alcohol withdrawal Alcoholism Anxiety Depression Pancreatitis Surgical History No history of previous surgery Family History Mother No significant past medical history Father Alcohol abuse CVA (cerebral vascular accident) Sister Breast cancer Other Cancer Social History household members: family Smoking Status: Never smoker alcohol intake: current substance use type: does not use Smoking Status: Never smoker alcohol intake frequency: 3 or more drinks per day Alcohol type: beer Substance Use Type: does not use Exam <Cr Moses PA-C - Last Filed: 05/10/22 16:09> Narrative Exam Narrative: GENERAL: Well-developed patient, in mild distress. No acute diaphoresis HEAD: Atraumatic. Normocephalic. EYES: Pupils equal round and reactive. Extraocular motions intact. No scleral icterus. No injection or drainage. ENT: Nose without bleeding, purulent drainage. Throat without erythema, tonsillar hypertrophy or exudate. Airway patent. NECK: Trachea midline. Non tender CARDIOVASCULAR: Regular rate and rhythm without murmurs, gallops, or rubs. RESPIRATORY: Clear to auscultation. Breath sounds equal bilaterally. No wheezes, rales, or rhonchi. GASTROINTESTINAL: Mild epigastric tenderness to palpation EXTREMITIES: No edema or joint tenderness. BACK: Nontender without deformity or crepitance. No flank tenderness. NEURO: AOx3. SKIN: No rash or erythema of visible areas Initial Vital Signs Initial Vital Signs: Vital Signs Temperature 97.9 F 05/10/22 13:15 Pulse Rate 81 05/10/22 13:15 Respiratory Rate 18 05/10/22 13:15 Blood Pressure 138/92 H 05/10/22 13:15 Pulse Oximetry 100 05/10/22 13:15 Oxygen Delivery Method 05/10/22 13:15 <Leilani Sharma DO - Last Filed: 05/11/22 07:54> Initial Vital Signs Initial Vital Signs: Vital Signs Temperature 97.9 F 05/10/22 13:15 Pulse Rate 81 05/10/22 13:15 Respiratory Rate 18 05/10/22 13:15 Blood Pressure 138/92 H 05/10/22 13:15 Pulse Oximetry 100 05/10/22 13:15 Oxygen Delivery Method 05/10/22 13:15 Course <Cr Moses PA-C - Last Filed: 05/10/22 16:09> Orders Ordered: Discontinued Medications Folic Acid (Folic Acid 0.4 Mg Tablet) 0.4 mg PO NOW ONE Stop: 05/10/22 14:30 Last Admin: 05/10/22 14:59 Dose: 0.4 mg Documented By: LIDIA Sodium Chloride (Normal Saline 0.9%) 1,000 mls @ 1,000 mls/hr IV BOLUS ONE Stop: 05/10/22 15:28 Last Infusion: 05/10/22 16:09 Dose: 0 mls/hr Documented By: Admin: 05/10/22 14:46 Dose: 1,000 mls/hr Documented By: LIDIA Lorazepam (Lorazepam 2 Mg/Ml Inj) 0.5 mg IV NOW ONE Stop: 05/10/22 14:30 Last Admin: 05/10/22 14:58 Dose: 0.5 mg Documented By: LIDIA Morphine Sulfate (Morphine 4 Mg/Ml Inj) 4 mg IV NOW ONE Stop: 05/10/22 14:30 Last Admin: 05/10/22 14:45 Dose: 4 mg Documented By: LIDIA Morphine Sulfate (Morphine 4 Mg/Ml Inj) 4 mg IV NOW ONE Stop: 05/10/22 15:47 Last Admin: 05/10/22 16:13 Dose: 4 mg Documented By: LIDIA Ondansetron HCl (Ondansetron 4 Mg/2 Ml Inj) 4 mg IV NOW ONE Stop: 05/10/22 14:30 Last Admin: 05/10/22 14:45 Dose: 4 mg Documented By: LIDIA Thiamine HCl (Thiamine 100 Mg Tablet) 100 mg PO NOW ONE Stop: 05/10/22 14:30 Last Admin: 05/10/22 15:01 Dose: 100 mg Documented By: LIDIA Vital Signs Vital signs: Vital Signs - 8 hr 05/10/22 13:15 05/10/22 13:38 05/10/22 14:00 Temperature 97.9 F Pulse Rate 81 77 77 Respiratory Rate 18 Blood Pressure 138/92 H Pulse Oximetry 100 96 97 Oxygen Delivery Method Room Air Room Air Room Air 05/10/22 14:22 05/10/22 14:22 05/10/22 14:30 Temperature Pulse Rate 83 Respiratory Rate Blood Pressure 130/83 129/83 Pulse Oximetry 97 Oxygen Delivery Method Room Air 05/10/22 14:30 05/10/22 15:00 05/10/22 15:00 Temperature Pulse Rate 81 80 Respiratory Rate 17 Blood Pressure 130/81 Pulse Oximetry 97 96 Oxygen Delivery Method Room Air Room Air 05/10/22 15:30 05/10/22 15:30 Temperature Pulse Rate 77 Respiratory Rate 16 Blood Pressure 129/81 Pulse Oximetry 98 Oxygen Delivery Method Room Air <Leilani Sharma DO - Last Filed: 05/11/22 07:54> Orders Ordered: Discontinued Medications Folic Acid (Folic Acid 0.4 Mg Tablet) 0.4 mg PO NOW ONE Stop: 05/10/22 14:30 Last Admin: 05/10/22 14:59 Dose: 0.4 mg Documented By: LIDIA Sodium Chloride (Normal Saline 0.9%) 1,000 mls @ 1,000 mls/hr IV BOLUS ONE Stop: 05/10/22 15:28 Last Infusion: 05/10/22 16:09 Dose: 0 mls/hr Documented By: Admin: 05/10/22 14:46 Dose: 1,000 mls/hr Documented By: LIDIA Lorazepam (Lorazepam 2 Mg/Ml Inj) 0.5 mg IV NOW ONE Stop: 05/10/22 14:30 Last Admin: 05/10/22 14:58 Dose: 0.5 mg Documented By: LIDIA Morphine Sulfate (Morphine 4 Mg/Ml Inj) 4 mg IV NOW ONE Stop: 05/10/22 14:30 Last Admin: 05/10/22 14:45 Dose: 4 mg Documented By: LIDIA Morphine Sulfate (Morphine 4 Mg/Ml Inj) 4 mg IV NOW ONE Stop: 05/10/22 15:47 Last Admin: 05/10/22 16:13 Dose: 4 mg Documented By: LIDIA Ondansetron HCl (Ondansetron 4 Mg/2 Ml Inj) 4 mg IV NOW ONE Stop: 05/10/22 14:30 Last Admin: 05/10/22 14:45 Dose: 4 mg Documented By: LIDIA Thiamine HCl (Thiamine 100 Mg Tablet) 100 mg PO NOW ONE Stop: 05/10/22 14:30 Last Admin: 05/10/22 15:01 Dose: 100 mg Documented By: LIDIA Vital Signs Vital signs: Vital Signs - 8 hr 05/10/22 13:15 05/10/22 13:38 05/10/22 14:00 Temperature 97.9 F Pulse Rate 81 77 77 Respiratory Rate 18 Blood Pressure 138/92 H Pulse Oximetry 100 96 97 Oxygen Delivery Method Room Air Room Air Room Air 05/10/22 14:22 05/10/22 14:22 05/10/22 14:30 Temperature Pulse Rate 83 Respiratory Rate Blood Pressure 130/83 129/83 Pulse Oximetry 97 Oxygen Delivery Method Room Air 05/10/22 14:30 05/10/22 15:00 05/10/22 15:00 Temperature Pulse Rate 81 80 Respiratory Rate 17 Blood Pressure 130/81 Pulse Oximetry 97 96 Oxygen Delivery Method Room Air Room Air 05/10/22 15:30 05/10/22 15:30 Temperature Pulse Rate 77 Respiratory Rate 16 Blood Pressure 129/81 Pulse Oximetry 98 Oxygen Delivery Method Room Air MDM - Alcohol <Cr Moses PA-C - Last Filed: 05/10/22 16:09> Lab Data Result diagrams: 05/10/22 14:12 05/10/22 14:12 Labs: Lab Results 05/10/22 05/10/22 05/10/22 Range/Units 14:12 14:12 14:12 WBC 5.5 (4.5-11.0) X10^3/uL RBC 4.13 L (4.5-5.9) X10^6/uL Hgb 12.7 L (13.5-17.5) g/dL Hct 36.6 L (41-53) % MCV 88.7 (80-100) fL MCH 30.7 (26-34) PG MCHC 34.7 (30-36) % RDW 15.4 H (11.6-14.8) % Plt Count 90 L (150-400) X10^3/uL Neut % (Auto) 75.8 H (50-75) % Lymph % (Auto) 18.6 L (25-40) % [place] % (Auto) 4.2 (3-14) % Eos % (Auto) 1.2 L (2-4) % Baso % (Auto) 0.2 (0-2) % Neut # (Auto) 4100 (4398-2660) /uL Lymph # (Auto) 1000 L (3627-3950) /uL [place] # (Auto) 200 (0-900) /uL Eos # (Auto) 100 (0-450) /uL Baso # (Auto) 0 (0-100) /uL Sodium 139 (137-145) mmol/L Potassium 3.5 (3.4-5.1) mmol/L Chloride 99 (98-107) mmol/L Carbon Dioxide 21 L (22-32) mmol/L BUN 5 L (9-20) mg/dL Creatinine 0.56 L (0.66-1.25) mg/dL Estimated GFR > 60 (>60) mL/min BUN/Creatinine Ratio 8.9 (6-22) Glucose 128 H (70-100) mg/dL Calcium 8.9 (8.4-10.2) mg/dL Total Bilirubin 2.8 H (0.2-1.3) mg/dL AST 130 H (17-59) IU/L ALT 81 H (<50) IU/L Alkaline Phosphatase 228 H D (38-126) U/L Total Protein 10.0 H (6.3-8.2) g/dL Albumin 4.6 (3.5-5.0) g/dL Globulin 5.4 H (1.7-4.1) g/dL Albumin/Globulin Ratio 0.9 L (1.0-2.8) TSH 0.355 L D (0.47-4.68) uIU/mL Free T4 0.98 (0.78-2.19) ng/dL Salicylates < 1.0 (<20) mg/dL U Opiates 300ng/mL cut (Negative) Ur Oxycodone Screen (Negative) Urine Methadone Screen (Negative) Acetaminophen < 10 (10-30) ug/mL Ur Barbiturates Screen (Negative) U Tricyclic Antidepress (Negative) Ur Phencyclidine Scrn (Negative) Ur Amphetamines Screen (Negative) U Methamphetamines Scrn (Negative) Ur MDMA Scrn (Ecstasy) (Negative) U Benzodiazepines Scrn (Negative) Urine Cocaine Screen (Negative) U Marijuana (THC) Screen (Negative) Ethyl Alcohol 208 H ( - 10) mg/dL 05/10/22 Range/Units 14:24 WBC (4.5-11.0) X10^3/uL RBC (4.5-5.9) X10^6/uL Hgb (13.5-17.5) g/dL Hct (41-53) % MCV (80-100) fL MCH (26-34) PG MCHC (30-36) % RDW (11.6-14.8) % Plt Count (150-400) X10^3/uL Neut % (Auto) (50-75) % Lymph % (Auto) (25-40) % [place] % (Auto) (3-14) % Eos % (Auto) (2-4) % Baso % (Auto) (0-2) % Neut # (Auto) (5159-1466) /uL Lymph # (Auto) (6744-6040) /uL [place] # (Auto) (0-900) /uL Eos # (Auto) (0-450) /uL Baso # (Auto) (0-100) /uL Sodium (137-145) mmol/L Potassium (3.4-5.1) mmol/L Chloride (98-107) mmol/L Carbon Dioxide (22-32) mmol/L BUN (9-20) mg/dL Creatinine (0.66-1.25) mg/dL Estimated GFR (>60) mL/min BUN/Creatinine Ratio (6-22) Glucose (70-100) mg/dL Calcium (8.4-10.2) mg/dL Total Bilirubin (0.2-1.3) mg/dL AST (17-59) IU/L ALT (<50) IU/L Alkaline Phosphatase (38-126) U/L Total Protein (6.3-8.2) g/dL Albumin (3.5-5.0) g/dL Globulin (1.7-4.1) g/dL Albumin/Globulin Ratio (1.0-2.8) TSH (0.47-4.68) uIU/mL Free T4 (0.78-2.19) ng/dL Salicylates (<20) mg/dL U Opiates 300ng/mL cut Negative (Negative) Ur Oxycodone Screen Negative (Negative) Urine Methadone Screen Negative (Negative) Acetaminophen (10-30) ug/mL Ur Barbiturates Screen Negative (Negative) U Tricyclic Antidepress Negative (Negative) Ur Phencyclidine Scrn Negative (Negative) Ur Amphetamines Screen Negative (Negative) U Methamphetamines Scrn Negative (Negative) Ur MDMA Scrn (Ecstasy) Negative (Negative) U Benzodiazepines Scrn Positive H (Negative) Urine Cocaine Screen Negative (Negative) U Marijuana (THC) Screen Negative (Negative) Ethyl Alcohol ( - 10) mg/dL Urine Dip Bedside Urine Glucose Negative Bedside Urine Bilirubin - Negative Bedside Urine Ketone - Negative Urine Specific [place] 1.005 Bedside Urine Occult Blood - Negative Bedside Urine pH 6.0 Bedside Urine Protein - Negative Bedside Urine Urobilinogen - Negative Bedside Urine Nitrite - Negative Bedside Urine Leukocytes - Negative Esterase MDM Narrative Medical decision making narrative: MDM * differential diagnosis includes but not limited to alcohol intoxication, alcohol withdrawal, acute pancreatitis, chronic pancreatitis, acute on chronic pancreatitis * Prior records reviewed: Please see above in HPI * My lab interpretation: Lab work remarkable for no acute abnormalities. Showed very mild anemia which is chronic, mildly elevated creatinine which also similar to 2 days ago. TSH decreased but free T4 within normal limits. * My imgaing interpretation: None obtained * Clinical Decision Rules/Scores evaluated: Initial CIWA score of 9 * Independent discussions with: None ED Course: This is a 41-year-old male presents emergency department due to mild alcohol withdrawal symptoms as well as an exacerbation of his chronic pancreatitis. Patient's pancreatitis pain was managed here in the emergency department and recommend he follow-up with his primary care provider and chronic pain management provider. Patient showed very mild symptoms of alcohol withdrawal although he states that he drank earlier this morning. Ativan given and a prescription for Librium will be given. He is well aware of the [facility] alcohol detox program here in and [place] in states that he will go on Saturday for further treatment and care. Patient also has a surgery scheduled in 6 days at [facility] for removal of pancreatic cyst as noted above in the record review. Shared Decision Making: Discussed the plan with the patient and patient is agreeable Social Considerations: Patient has extensive history of alcohol abuse Disposition: Discharged to home <Leilani Sharma, - Last Filed: 05/11/22 07:54> Lab Data Labs: Lab Results 05/10/22 05/10/22 05/10/22 Range/Units 14:12 14:12 14:12 WBC 5.5 (4.5-11.0) X10^3/uL RBC 4.13 L (4.5-5.9) X10^6/uL Hgb 12.7 L (13.5-17.5) g/dL Hct 36.6 L (41-53) % MCV 88.7 (80-100) fL MCH 30.7 (26-34) PG MCHC 34.7 (30-36) % RDW 15.4 H (11.6-14.8) % Plt Count 90 L (150-400) X10^3/uL Neut % (Auto) 75.8 H (50-75) % Lymph % (Auto) 18.6 L (25-40) % [place] % (Auto) 4.2 (3-14) % Eos % (Auto) 1.2 L (2-4) % Baso % (Auto) 0.2 (0-2) % Neut # (Auto) 4100 (1511-2233) /uL Lymph # (Auto) 1000 L (4916-8695) /uL [place] # (Auto) 200 (0-900) /uL Eos # (Auto) 100 (0-450) /uL Baso # (Auto) 0 (0-100) /uL Sodium 139 (137-145) mmol/L Potassium 3.5 (3.4-5.1) mmol/L Chloride 99 (98-107) mmol/L Carbon Dioxide 21 L (22-32) mmol/L BUN 5 L (9-20) mg/dL Creatinine 0.56 L (0.66-1.25) mg/dL Estimated GFR > 60 (>60) mL/min BUN/Creatinine Ratio 8.9 (6-22) Glucose 128 H (70-100) mg/dL Calcium 8.9 (8.4-10.2) mg/dL Total Bilirubin 2.8 H (0.2-1.3) mg/dL AST 130 H (17-59) IU/L ALT 81 H (<50) IU/L Alkaline Phosphatase 228 H D (38-126) U/L Total Protein 10.0 H (6.3-8.2) g/dL Albumin 4.6 (3.5-5.0) g/dL Globulin 5.4 H (1.7-4.1) g/dL Albumin/Globulin Ratio 0.9 L (1.0-2.8) TSH 0.355 L D (0.47-4.68) uIU/mL Free T4 0.98 (0.78-2.19) ng/dL Salicylates < 1.0 (<20) mg/dL U Opiates 300ng/mL cut (Negative) Ur Oxycodone Screen (Negative) Urine Methadone Screen (Negative) Acetaminophen < 10 (10-30) ug/mL Ur Barbiturates Screen (Negative) U Tricyclic Antidepress (Negative) Ur Phencyclidine Scrn (Negative) Ur Amphetamines Screen (Negative) U Methamphetamines Scrn (Negative) Ur MDMA Scrn (Ecstasy) (Negative) U Benzodiazepines Scrn (Negative) Urine Cocaine Screen (Negative) U Marijuana (THC) Screen (Negative) Ethyl Alcohol 208 H ( - 10) mg/dL 05/10/22 Range/Units 14:24 WBC (4.5-11.0) X10^3/uL RBC (4.5-5.9) X10^6/uL Hgb (13.5-17.5) g/dL Hct (41-53) % MCV (80-100) fL MCH (26-34) PG MCHC (30-36) % RDW (11.6-14.8) % Plt Count (150-400) X10^3/uL Neut % (Auto) (50-75) % Lymph % (Auto) (25-40) % [place] % (Auto) (3-14) % Eos % (Auto) (2-4) % Baso % (Auto) (0-2) % Neut # (Auto) (6259-5903) /uL Lymph # (Auto) (7347-8855) /uL [place] # (Auto) (0-900) /uL Eos # (Auto) (0-450) /uL Baso # (Auto) (0-100) /uL Sodium (137-145) mmol/L Potassium (3.4-5.1) mmol/L Chloride (98-107) mmol/L Carbon Dioxide (22-32) mmol/L BUN (9-20) mg/dL Creatinine (0.66-1.25) mg/dL Estimated GFR (>60) mL/min BUN/Creatinine Ratio (6-22) Glucose (70-100) mg/dL Calcium (8.4-10.2) mg/dL Total Bilirubin (0.2-1.3) mg/dL AST (17-59) IU/L ALT (<50) IU/L Alkaline Phosphatase (38-126) U/L Total Protein (6.3-8.2) g/dL Albumin (3.5-5.0) g/dL Globulin (1.7-4.1) g/dL Albumin/Globulin Ratio (1.0-2.8) TSH (0.47-4.68) uIU/mL Free T4 (0.78-2.19) ng/dL Salicylates (<20) mg/dL U Opiates 300ng/mL cut Negative (Negative) Ur Oxycodone Screen Negative (Negative) Urine Methadone Screen Negative (Negative) Acetaminophen (10-30) ug/mL Ur Barbiturates Screen Negative (Negative) U Tricyclic Antidepress Negative (Negative) Ur Phencyclidine Scrn Negative (Negative) Ur Amphetamines Screen Negative (Negative) U Methamphetamines Scrn Negative (Negative) Ur MDMA Scrn (Ecstasy) Negative (Negative) U Benzodiazepines Scrn Positive H (Negative) Urine Cocaine Screen Negative (Negative) U Marijuana (THC) Screen Negative (Negative) Ethyl Alcohol ( - 10) mg/dL Urine Dip Bedside Urine Glucose Negative Bedside Urine Bilirubin - Negative Bedside Urine Ketone - Negative Urine Specific [place] 1.005 Bedside Urine Occult Blood - Negative Bedside Urine pH 6.0 Bedside Urine Protein - Negative Bedside Urine Urobilinogen - Negative Bedside Urine Nitrite - Negative Bedside Urine Leukocytes - Negative Esterase Discharge Plan Departure Patient Disposition: Home Clinical Impression: Alcohol withdrawal, Chronic pancreatitis Instructions: DI for Pancreatitis, DI for Alcohol Use Disorder Activity Restrictions/Additional Instructions: Thank you for coming to the [facility] Emergency Department today. As discussed please follow-up with the [facility] program as they will be able to manage your alcohol withdrawal symptoms. You have told me that our there open in the should be open Saturday to see you. Please follow through with the surgery planned for you on the at [facility] as well. The librium prescribed should help with your alcohol withdrawal symptoms. The medications should help with the pancreatitis pain please follow-up with your primary care provider in chronic pain management services available here only and a [facility] for long-term management of this pain. I hope you feel better soon. Prescriptions: New chlordiazepoxide HCl 25 mg capsule See Rx Instructions .ROUTE .COMPLEX Qty: 20 0RF Rx Instructions: 50 mg every 8 hours for two days, then decrease to 25 mg every 8 hours for two days, then 25mg every 8 hours as needed for alcohol withdrawal symptoms oxycodone 5 mg tablet 5 mg PO BID PRN (Reason: pain) 5 Days Qty: 10 0RF No Action clonidine HCl 0.2 mg tablet 0.2 mg PO DAILY PRN (Reason: Anxiety) quetiapine 50 mg Tablet 50 mg PO BEDTIME sertraline [Zoloft] 50 mg tablet 50 mg PO DAILY Referrals: Donal Rodgers MD [Primary Care Provider] - Stand Alone Forms: Patient Portal/API, Work Release Note <Leilani Sharma DO - Last Filed: 05/11/22 07:54> [facility] Attending Kjature Attestation: I was immediately available in the department for consultation. Documentation has been reviewed. I agree with assessment and plan.
[2022-05-10 14:28] LABS: Add Manual Diff / Slide Review NO; Basophils Absolute Auto 0 /uL (0-100); Basophils Percent Auto 0.2 % (0-2); Eosinophils Absolute Auto 100 /uL (0-450); Eosinophils Percent Auto 1.2 % (2-4); Hematocrit 36.6 % (41-53); Hemoglobin 12.7 g/dL (13.5-17.5); Lymphocytes Absolute Auto 1000 /uL (1100-4500); Lymphocytes Percent Auto 18.6 % (25-40); Mean Corpuscular HGB Conc 34.7 % (30-36); Mean Corpuscular Hemoglobin 30.7 PG (26-34); Mean Corpuscular Volume 88.7 fL (80-100); Monocytes Absolute Auto 200 /uL (0-900); Monocytes Percent Auto 4.2 % (3-14); Neutrophils Absolute Auto 4100 /uL (1500-7000); Neutrophils Percent Auto 75.8 % (50-75); Platelet Count 90 X10^3/uL (150-400); Red Blood Cell Count 4.13 X10^6/uL (4.5-5.9); Red Cell Distribution Width 15.4 % (11.6-14.8); White Blood Cell Count 5.5 X10^3/uL (4.5-11.0)
[2022-05-10] MEDS: ONDANSETRON 4 MG/2 ML INJ IV (14:45)
[2022-05-10] MEDS: MORPHINE 4 MG/ML INJ IV ×2 (14:45→16:13)
[2022-05-10] MEDS: SODIUM CHLORIDE 0.9% 1,000 ML 1000 ML IV (14:46)
[2022-05-10 14:51] LABS: Acetaminophen < 10 ug/mL (10-30); Alanine Aminotransferase 81 IU/L (<50); Albumin 4.6 g/dL (3.5-5.0); Albumin Globulin Ratio 0.9 (1.0-2.8); Alkaline Phosphatase 228 U/L (38-126); Aspartate Aminotransferase 130 IU/L (17-59); BUN Creatinine Ratio 8.9 (6-22); Bilirubin Total 2.8 mg/dL (0.2-1.3); Blood Urea Nitrogen 5 mg/dL (9-20); Calcium 8.9 mg/dL (8.4-10.2); Carbon Dioxide 21 mmol/L (22-32); Chloride 99 mmol/L (98-107); Estimated Glomerular Filt Rate > 60 mL/min (>60); Ethanol (ETOH) 208 mg/dL; Globulin 5.4 g/dL (1.7-4.1); Glucose 128 mg/dL (70-100); HEMOLYSIS < 15 (0-50); Potassium 3.5 mmol/L (3.4-5.1); Salicylate < 1.0 mg/dL (<20); Sodium 139 mmol/L (137-145)
[2022-05-10 14:53] LABS: UR Morphine/Opiate cutoff 300 Negative (Negative); Ur Creatinine Normal (Normal); Ur Specific Gravity Normal (Normal); Urine Amphetamines Negative (Negative); Urine Barbiturates Negative (Negative); Urine Benzodiazepines Positive (Negative); Urine Cocaine Negative (Negative); Urine MDMA Negative (Negative); Urine Methadone Negative (Negative); Urine Methamphetamines Negative (Negative); Urine Oxycodone Negative (Negative); Urine Phencyclidine Negative (Negative); Urine Tetrahydrocannabinol Negative (Negative); Urine Tricyclic Antidepressant Negative (Negative); Urine pH Normal (Normal)
[2022-05-10] MEDS: LORazepam 2 MG/ML INJ 0.5 MG IV (14:58)
[2022-05-10] MEDS: FOLIC ACID 0.4 MG TABLET PO (14:59)
[2022-05-10] MEDS: THIAMINE 100 MG TABLET PO (15:01)
[2022-05-10 15:11] LABS: Free T4, Direct Thyroxine 0.98 ng/dL (0.78-2.19)
[2022-05-10 15:25] LABS: Thyroid Stimulating Hormone 0.355 uIU/mL (0.47-4.68)
== END 2022-05-10 16:37 | disposition home or self-care (01) ==
PROVIDERS: Emergency Medicine; Emergency Provider Physician Assistant Medical; PCP Family Medicine
DX: F10.239 Alcohol dependence with withdrawal, unspecified (principal); Y90.7 Blood alcohol level of 200-239 mg/100 ml; K86.1 Other chronic pancreatitis; D64.9 Anemia, unspecified; R79.89 Other specified abnormal findings of blood chemistry; R10.13 Epigastric pain
CPT/HCPCS: 36415; 80053; 80305; 80320; 80329; 81003; 84439; 84443; 85025; 96361; 96374; 96375; 96376; 99284; G0480; J2060; J2270; J2405

== ENCOUNTER 2025-02-19 12:35 | Inpatient (IN) | payer OTHER, MEDICAID, SELFPAY ==
[2025-02-19] VITALS (33 sets, daily range): BP systolic 71–145; BP diastolic 41–80; PULSE 75–116; RESP 16–24; TEMP 36.7–37.6; O2SAT 89–98; BMI 29.0; BMI 31.8
[2025-02-19] MEDS: THIAMINE 100 MG in SODIUM CHLORIDE 0.9% 100 ML 404 MG IV (13:37)
[2025-02-19 13:41] LABS: INR 1.7 (0.9-1.3); Prothrombin Time 19.5 SECONDS (9.4-12.5)
[2025-02-19 13:42] LABS: Hematocrit 24.7 % (41-53); Hemoglobin 8.8 g/dL (13.5-17.5); Lymphocytes Absolute Auto 1000 /uL (1100-4500); Mean Corpuscular HGB Conc 35.4 % (30-36); Mean Corpuscular Hemoglobin 33.2 PG (26-34); Mean Corpuscular Volume 93.8 fL (80-100); Platelet Count 38 X10^3/uL (150-400)
[2025-02-19 13:43] LABS: PTT Partial Thromboplastin Tim 43 SECONDS (25.1-36.5)
[2025-02-19 13:45] LABS: Alanine Aminotransferase 34 IU/L (<50); Albumin 3.6 g/dL (3.5-5.0); Albumin Globulin Ratio 0.7 (1.0-2.8); Alkaline Phosphatase 99 U/L (38-126); Blood Urea Nitrogen 4 mg/dL (9-20); Calcium 7.6 mg/dL (8.4-10.2); Carbon Dioxide 23 mmol/L (22-32); Chloride 106 mmol/L (98-107); Estimated Glomerular Filt Rate > 60 mL/min (>60); Globulin 5.4 g/dL (1.7-4.1); Glucose 124 mg/dL (70-99); HEMOLYSIS < 15 (0-50); Lactate (Lactic Acid) 3.5 mmol/L (0.7-2.1); Lipase 137 U/L (23-300); Magnesium 1.3 mg/dL (1.6-2.3); Potassium 3.3 mmol/L (3.4-5.1); Sodium 141 mmol/L (137-145); Total Protein 9.0 g/dL (6.3-8.2)
[2025-02-19] MEDS: SODIUM CHLORIDE 0.9% 1,000 ML 1000 ML IV ×2 (13:48→17:45)
[2025-02-19 14:06] LABS: Add Manual Diff / Slide Review SLIDE REVIEW
[2025-02-19 14:09] LABS: Anisocytosis 1+; Microcytosis 1+
--- NOTE | 2025-02-19 14:23 | ED.GENADULT ---
HPI - General Adult General Chief complaint: Toxicology Problem Stated complaint: Alcohol Withdrawals, Confusion Time Seen by Provider: 02/19/25 13:26 Source: patient and other Mode of arrival: Wheelchair History of Present Illness HPI narrative: 44-year-old gentleman with a long history of alcohol use disorder presents requesting help with detox. He typically drinks at least 8 hurricane size beers regularly yesterday had only 2 and was having increasing tremors and beginning to hear and see things. This morning he had 1 drink because symptoms were so severe. He comes in today and states that he is willing to stay in the hospital to get through detox and would actually like to go to inpatient rehab. Related Data Home Medications ?Medication ?Instructions ?Recorded ?Confirmed quetiapine 50 mg tablet 50 mg PO BEDTIME 01/20/20 02/18/22 clonidine HCl 0.2 mg tablet 0.2 mg PO DAILY PRN Anxiety 01/10/22 02/18/22 sertraline 50 mg tablet (Zoloft) 50 mg PO DAILY 02/18/22 02/18/22 Previous Rx's ?Medication ?Instructions ?Recorded chlordiazepoxide HCl 25 mg capsule See Rx Instructions .Route 05/10/22 .COMPLEX #20 caps Allergies Allergy/AdvReac Type Severity Reaction Status Date / Time No Known Drug Allergies Allergy Verified 02/19/25 13:03 Review of Systems Review of Systems Narrative: Pertinent positive and negative findings as per HPI Patient History Medical History Acute pancreatitis with uninfected necrosis Anxiety Depression Alcoholism Alcohol withdrawal Pancreatitis Surgical History No history of previous surgery Family History Mother No significant past medical history Father Alcohol abuse CVA (cerebral vascular accident) Sister Breast cancer Other Cancer Social History household members: family alcohol intake: current substance use type: does not use alcohol intake frequency: 3 or more drinks per day Alcohol type: beer Exam Initial Vital Signs Initial Vital Signs: Vital Signs Temperature 99.7 F H 02/19/25 13:03 Pulse Rate 116 H 02/19/25 13:03 Respiratory Rate 18 02/19/25 13:03 Blood Pressure 145/80 H 02/19/25 13:03 Pulse Oximetry 97 02/19/25 13:03 Oxygen Delivery Method Room Air 02/19/25 13:03 General: Chronically ill-appearing, appears fatigued, smells of alcohol HEENT: Moist mucous membranes, normal sclera with reactive pupils, Respiratory: Lungs are clear to auscultation, no wheezing no rales no rhonchi. Full and symmetrical air movement Cardiac: Tachycardic but otherwise Regular rate and rhythm no murmurs no bruits Abdomen: Soft, nontender, no obvious liver enlargement or tenderness in the left upper quadrant Skin: Warm and dry, Neurologic: Tremulous, auditory hallucinations, Extremities: No trauma, Psych: Cooperative, actively withdrawing, CIWA score is 21 Course Orders Ordered: ED Orders 02/19/25 13:25 Complete Blood Count AUTO DIFF Stat Comprehensive Metabolic Panel Stat Lactate (Lactic Acid) Stat Lipase Stat Magnesium Stat PT [Prothrombin Time INR] Stat PTT Partial Thromboplastin Marlo Stat 02/19/25 14:04 urine tox [Urine Drug Screen, Rapid] Stat Sodium Chloride (Normal Saline 0.9%) 1,000 mls @ 1,000 mls/hr IV BOLUS ONE Stop: 02/19/25 14:29 Last Admin: 02/19/25 13:48 Dose: 1,000 mls/hr Documented By: MIHAI Lorazepam (Lorazepam 2 Mg/Ml Inj) 0 mg IV CIWAPRN PRN; Protocol PRN Reason: Alcohol Withdrawal Last Admin: 02/19/25 14:11 Dose: 2 mg Documented By: Admin: 02/19/25 13:36 Dose: 2 mg Documented By: MIHAI Lorazepam (Lorazepam 1 Mg Tablet) 0 mg PO CIWAPRN PRN; Protocol PRN Reason: Alcohol Withdrawal Multivitamins (Multivitamin 1 Tablet) 1 tab PO DAILY KAYLA Thiamine HCl (Thiamine 100 Mg Tablet) 100 mg PO DAILY KAYLA Stop: 02/23/25 09:01 Discontinued Medications Thiamine HCl 100 mg/ Sodium (Chloride) 101 mls @ 404 mls/hr IV NOW ONE Stop: 02/19/25 13:30 Last Infusion: 02/19/25 14:09 Dose: Infused Documented By: Admin: 02/19/25 13:37 Dose: 404 mls/hr Documented By: MIHAI Phenobarbital (Phenobarbital 65 Mg/Ml Vial) 260 mg IV NOW ONE Stop: 02/19/25 13:30 Last Admin: 02/19/25 13:35 Dose: 260 mg Documented By: MIHAI Vital Signs Vital signs: Vital Signs - 8 hr 02/19/25 13:03 Temperature 99.7 F H Pulse Rate 116 H Respiratory Rate 18 Blood Pressure 145/80 H Pulse Oximetry 97 Oxygen Delivery Method Room Air Medical Decision Making Lab Data 02/19/25 13:25 02/19/25 13:25 Labs: Lab Results 02/19/25 02/19/25 Range/Units 13:10 13:25 WBC 3.4 L (4.5-11.0) X10^3/uL RBC 2.64 L (4.5-5.9) X10^6/uL Hgb 8.8 L (13.5-17.5) g/dL Hct 24.7 L (41-53) % MCV 93.8 (80-100) fL MCH 33.2 (26-34) PG MCHC 35.4 (30-36) % RDW 15.6 H (11.6-14.8) % Plt Count 38 L (150-400) X10^3/uL Neut % (Auto) 60.3 (50-75) % Lymph % (Auto) 29.5 (25-40) % [place] % (Auto) 6.4 (3-14) % Eos % (Auto) 3.7 (2-4) % Baso % (Auto) 0.1 (0-2) % Neut # (Auto) 2100 (8631-0727) /uL Lymph # (Auto) 1000 L (8034-0438) /uL [place] # (Auto) 200 (0-900) /uL Eos # (Auto) 100 (0-450) /uL Baso # (Auto) 0 (0-100) /uL RBC Morphology See below Anisocytosis 1+ H Microcytosis 1+ H PT 19.5 H (9.4-12.5) SECONDS INR 1.7 H (0.9-1.3) APTT 43 H (25.1-36.5) SECONDS Sodium 141 (137-145) mmol/L Potassium 3.3 L (3.4-5.1) mmol/L Chloride 106 (98-107) mmol/L Carbon Dioxide 23 (22-32) mmol/L BUN 4 L (9-20) mg/dL Creatinine 0.53 L (0.66-1.25) mg/dL Estimated GFR > 60 (>60) mL/min BUN/Creatinine Ratio 7.5 (6-22) Glucose 124 H (70-99) mg/dL POC Whole Bld Glucose 111 H (70-99) mg/dL Lactate 3.5 H (0.7-2.1) mmol/L Calcium 7.6 L (8.4-10.2) mg/dL Magnesium 1.3 L (1.6-2.3) mg/dL Total Bilirubin 3.2 H (0.2-1.3) mg/dL AST 103 H (17-59) IU/L ALT 34 (<50) IU/L Alkaline Phosphatase 99 (38-126) U/L Total Protein 9.0 H (6.3-8.2) g/dL Albumin 3.6 (3.5-5.0) g/dL Globulin 5.4 H (1.7-4.1) g/dL Albumin/Globulin Ratio 0.7 L (1.0-2.8) Lipase 137 (23-300) U/L Urine Dip Bedside Urine Glucose Negative Bedside Urine Bilirubin - Negative Bedside Urine Ketone - Negative Urine Specific [place] 1.005 Bedside Urine Occult Blood - Negative Bedside Urine pH 8.0 Bedside Urine Protein - Negative Bedside Urine Urobilinogen - Negative Bedside Urine Nitrite - Negative Bedside Urine Leukocytes - Negative Esterase Point of care testing: Urine Dip Bedside Urine Glucose Negative Bedside Urine Bilirubin - Negative Bedside Urine Ketone - Negative Urine Specific [place] 1.005 Bedside Urine Occult Blood - Negative Bedside Urine pH 8.0 Bedside Urine Protein - Negative Bedside Urine Urobilinogen - Negative Bedside Urine Nitrite - Negative Bedside Urine Leukocytes - Negative Esterase MDM Narrative Medical decision making narrative: CC: Alcohol withdrawal Complicating co-morbidities: Alcohol use disorder, seizures with alcohol withdrawal in the past Data collected from: patient Medical records reviewed: Discharge summary May 08 2022 for alcohol withdrawal is reviewed Differential considered: Alcohol withdrawal, sepsis, liver failure, electrolyte abnormalities Exam documented above, pertinent findings include: Patient has a CIWA score of 21, significantly tremulous, cooperative, anxious. Exam does not suggest bacterial pneumonia, rhonchi, wheezing or an acute surgical abdomen Lab Test results independently reviewed as above. Pertinent findings: CBC shows pancytopenia with a white count of 3.4, hemoglobin of 8.8 and platelets at 38 Chemistries are notable for potassium at 3.3, normal creatinine, lactate is elevated at 3.5, calcium is low as 7.6 magnesium is low at 1.3 Liver studies: Total bilirubin is elevated at 3.2, AST of 103 which is less than it was in April, ALT and alk-phos are within normal limits. Total protein is slightly elevated it has been so in the past Question lesion studies protime is elevated at 19.5, INR is elevated at 1.7 Urine does not suggest infection U tox is positive for benzodiazepines Treatments: 260 mg of phenobarbital, 100 mg of IV thiamine, fluid Discussion: 44-year-old gentleman with history of alcohol use disorder presents requesting help with alcohol detox. Initial CIWA score is 21. Significant electrolyte abnormalities including low potassium, magnesium and calcium. Lactic acid is elevated I do not suspect sepsis. He does have pancytopenia with white count, hemoglobin and platelets all low with no signs of active bleeding. Did have a nice discussion with the patient regarding hospitalization and discharge Discharge Plan Departure Patient Disposition: Admitted As Inpatient Clinical Impression: Alcohol withdrawal delirium, Alcohol use disorder, Acquired pancytopenia, Hypomagnesemia, Acute hypokalemia Admit Date/Time: 02/19/25 14:41 Admit Provider: Daren Paige
[2025-02-19 14:49] LABS: Ethanol (ETOH) 331 mg/dL (<10)
[2025-02-19 14:56] LABS: Ur Specific Gravity Normal (Normal); Urine Tetrahydrocannabinol Negative (Negative)
[2025-02-19 14:57] LABS: UR Morphine/Opiate cutoff 300 Negative (Negative); Urine MDMA Negative (Negative); Urine Methamphetamines Negative (Negative); Urine Tricyclic Antidepressant Negative (Negative)
[2025-02-19 15:12] LABS: Reflexed Lactate in 2 Hours Y
[2025-02-19 15:28] LABS: Lactate 2HR (Lactic Acid Rflx) 3.0 mmol/L (0.7-2.1)
--- NOTE | 2025-02-19 15:43 | PC.NURSE ---
Nurse to Nurse [facility] ICU 230. Aware last Ativan @ 1415. Last CIWA 17.
[2025-02-19] MEDS: MAGNESIUM SULFATE 2 GM/50 ML PIGGYBACK IV (15:45)
--- NOTE | 2025-02-19 15:48 | PC.ADMIT ---
[address] Admission Note: Admitted from the ED via stretcher. Moved to new bed via slide board. Patient snoring upon arrival. Wakes with stimulation. Able to identify they were in a new room and that they were in the hospital. Unable to answer any other orientation or admission questions with coherent responses. No IV medications infusing upon arrival. 3L on Oxymask, O2 95%, all other vitals stable. 2G Mag in 50mL ordered, started after arrival. Infusing at 25mL/hr not 150mL/hr due to IV pump programming. Provider notified. The patient,Ishmael Lucas,44 y/o, was given written information regarding hospital policies, unit procedures and contact persons. Patient's smoking status: . Vital Signs - 8 hr 02/19/25 12:56 02/19/25 13:00 02/19/25 13:03 Temperature 99.7 F H Pulse Rate 111 H 110 H 116 H Respiratory Rate 18 Blood Pressure 145/80 H Pulse Oximetry 97 98 97 Oxygen Delivery Method Room Air Oxygen Flow Rate 02/19/25 13:26 02/19/25 13:26 02/19/25 13:30 Temperature Pulse Rate 107 H Respiratory Rate Blood Pressure 129/71 126/71 Pulse Oximetry 95 Oxygen Delivery Method Oxygen Flow Rate 02/19/25 13:30 02/19/25 14:00 02/19/25 14:07 Temperature Pulse Rate 102 H 107 H 104 H Respiratory Rate 16 19 Blood Pressure Pulse Oximetry 95 97 93 Oxygen Delivery Method Oxygen Flow Rate 02/19/25 14:07 02/19/25 14:15 02/19/25 14:15 Temperature Pulse Rate 103 H Respiratory Rate 19 Blood Pressure 117/60 109/59 L Pulse Oximetry 89 L Oxygen Delivery Method Oximask Oxygen Flow Rate 3 02/19/25 14:30 02/19/25 14:30 02/19/25 14:45 Temperature Pulse Rate 101 H Respiratory Rate 20 Blood Pressure 106/56 L 107/58 L Pulse Oximetry 93 Oxygen Delivery Method Oximask Oxygen Flow Rate 3 02/19/25 14:45 02/19/25 15:00 02/19/25 15:00 Temperature Pulse Rate 105 H 106 H Respiratory Rate 22 22 Blood Pressure 104/59 L Pulse Oximetry 91 92 Oxygen Delivery Method Oximask Oxygen Flow Rate 3 02/19/25 15:15 02/19/25 15:15 Temperature Pulse Rate 103 H Respiratory Rate 18 Blood Pressure 109/62 Pulse Oximetry 97 Oxygen Delivery Method Oxygen Flow Rate
--- NOTE | 2025-02-19 15:53 | DIET.CONS ---
Dietary Consultation Note Admission Date: 02/19/2025 14:41 Assessment: 44 y M admitted for alcohol withdrawal. Dietitian consulted for alcohol. Pt with JUAN FRANCISCO 17. EMR reviewed. Typically drinks at least 8 hurricane size beers regularly. Likely poor energy/protein intake. Will f/u for full assessment when able. Ht: 170.18 cm Wt: 83.915 kg BMI: 29.6 UBW: 86 kg in 2022 Last BM: () MNA: Yovanny Score: 20 Diet: 02/19/25 Dinner General (Regular) Diet Diet Modifications: Food Texture: Level 7 - Regular Liquid Consistency: Level 0 - Thin Labs: RBC 2.64 X10^6/uL (4.5-5.9) L 02/19/25 13:25 Hgb 8.8 g/dL (13.5-17.5) L 02/19/25 13:25 Hct 24.7 % (41-53) L 02/19/25 13:25 Creatinine 0.53 mg/dL (0.66-1.25) L 02/19/25 13:25 Lactate 3.0 mmol/L (0.7-2.1) H 02/19/25 15:11 Electronically Signed by: Padma Mcduffie 02/19/25 15:53 Clinical Dietitian [address] [id number]
[2025-02-19] MEDS: dexmedeTOMIDine in 0.9 % NaCL 400 MCG/100 ML PLAST..BAG IV (15:59)
[2025-02-19] MEDS: SODIUM CHLORIDE 0.9% 1,000 ML 100 ML IV ×2 (15:59→21:24)
--- NOTE | 2025-02-19 16:04 | PM.HP.1 ---
History of Present Illness History of Present Illness Date Patient Seen: 02/19/25 Chief complaint: Alcohol Withdrawals, Confusion Narrative: Patient was a 44-year-old male with a known history of severe alcohol use disorder who presented to the ED today asking for help with detoxification. The patient presented with evidence of early withdrawal including tremors and hallucinations. He usually drinks 8 large beers a day and had 2 yesterday and 1 this morning. The patient began to have increased agitation was treated with phenobarbital and benzodiazepine in the ED. He was transferred to the ICU where he was somnolent but breathing comfortably. S: Patient was quite sedated, OxyMask is on. He was not really able to answer questions but will open his eyes and track. ROS: Not obtainable due to sedation. O: NAD, somnolent, arousable, and calm. Normocephalic skull, EOMI, anicteric sclera, symmetric pupils. Oropharynx unremarkable, no droop. Neck supple, midline trachea, no adenopathy. Lungs clear, normal rate and effort. Heart regular, no murmur gallop or rub. Abdomen is soft, non distended and non tender. Extremities are notable for 1 to 2+ edema. Skin is free of rash or lesions. Joints are not swollen or deformed. IMAGING: NONE. A/P: 1. Acute alcohol withdrawal, active. 2. Severe alcohol use disorder, active. 3. History of alcohol-induced pancreatitis, not active. 4. Anxiety and depression, active. 5. Pancytopenia related to alcohol toxicity, active. 6. Hypomagnesemia PLAN: -CIWA protocol, thiamine. -Precedex drip for agitation. -phenobarbital 130 Q 8 for 2 additional doses. -replete magnesium, check phosphate Anticipate 3 midnights in the hospital, supports inpatient status. Full resuscitation. DVT prophylaxis: We will avoid heparin given his relative thrombocytopenia. [facility] Medical History Acute pancreatitis with uninfected necrosis Anxiety Depression Alcoholism Alcohol withdrawal Pancreatitis Surgical History No history of previous surgery Family History Mother No significant past medical history Father Alcohol abuse CVA (cerebral vascular accident) Sister Breast cancer Other Cancer Social History household members: family alcohol intake: current substance use type: does not use Meds Home Medications and Allergies Home Medications ?Medication ?Instructions ?Recorded ?Confirmed ?Type quetiapine 50 mg tablet 50 mg PO BEDTIME 01/20/20 02/18/22 History clonidine HCl 0.2 mg tablet 0.2 mg PO DAILY PRN Anxiety 01/10/22 02/18/22 History sertraline 50 mg tablet (Zoloft) 50 mg PO DAILY 02/18/22 02/18/22 History chlordiazepoxide HCl 25 mg capsule See Rx Instructions .Route 05/10/22 Rx .COMPLEX #20 caps Allergies Allergy/AdvReac Type Severity Reaction Status Date / Time No Known Drug Allergies Allergy Verified 02/19/25 13:03 Exam Vital Signs (past 8 hours): - 02/19/25 12:56 02/19/25 13:00 02/19/25 13:03 Temperature 99.7 F H Pulse Rate 111 H 110 H 116 H Respiratory Rate 18 Blood Pressure 145/80 H Pulse Oximetry 97 98 97 Oxygen Delivery Method Room Air Oxygen Flow Rate 02/19/25 13:26 02/19/25 13:26 02/19/25 13:30 Temperature Pulse Rate 107 H Respiratory Rate Blood Pressure 129/71 126/71 Pulse Oximetry 95 Oxygen Delivery Method Oxygen Flow Rate 02/19/25 13:30 02/19/25 14:00 02/19/25 14:07 Temperature Pulse Rate 102 H 107 H 104 H Respiratory Rate 16 19 Blood Pressure Pulse Oximetry 95 97 93 Oxygen Delivery Method Oxygen Flow Rate 02/19/25 14:07 02/19/25 14:15 02/19/25 14:15 Temperature Pulse Rate 103 H Respiratory Rate 19 Blood Pressure 117/60 109/59 L Pulse Oximetry 89 L Oxygen Delivery Method Oximask Oxygen Flow Rate 3 02/19/25 14:30 02/19/25 14:30 02/19/25 14:45 Temperature Pulse Rate 101 H Respiratory Rate 20 Blood Pressure 106/56 L 107/58 L Pulse Oximetry 93 Oxygen Delivery Method Oximask Oxygen Flow Rate 3 02/19/25 14:45 02/19/25 15:00 02/19/25 15:00 Temperature Pulse Rate 105 H 106 H Respiratory Rate 22 22 Blood Pressure 104/59 L Pulse Oximetry 91 92 Oxygen Delivery Method Oximask Oxygen Flow Rate 3 02/19/25 15:15 02/19/25 15:15 Temperature Pulse Rate 103 H Respiratory Rate 18 Blood Pressure 109/62 Pulse Oximetry 97 Oxygen Delivery Method Oxygen Flow Rate Oxygen Delivery Method Oximask Oxygen Flow Rate 3 Objective Labs 02/19/25 13:25 02/19/25 13:25 Labs: Laboratory Results - last 24 hr 02/19/25 02/19/25 02/19/25 13:05 13:10 13:25 WBC 3.4 L RBC 2.64 L Hgb 8.8 L Hct 24.7 L MCV 93.8 MCH 33.2 MCHC 35.4 RDW 15.6 H Plt Count 38 L Neut % (Auto) 60.3 Lymph % (Auto) 29.5 [place] % (Auto) 6.4 Eos % (Auto) 3.7 Baso % (Auto) 0.1 Neut # (Auto) 2100 Lymph # (Auto) 1000 L [place] # (Auto) 200 Eos # (Auto) 100 Baso # (Auto) 0 RBC Morphology See below Anisocytosis 1+ H Microcytosis 1+ H PT 19.5 H INR 1.7 H APTT 43 H Sodium 141 Potassium 3.3 L Chloride 106 Carbon Dioxide 23 BUN 4 L Creatinine 0.53 L Estimated GFR > 60 BUN/Creatinine Ratio 7.5 Glucose 124 H POC Whole Bld Glucose 111 H Lactate 3.5 H Calcium 7.6 L Magnesium 1.3 L Total Bilirubin 3.2 H AST 103 H ALT 34 Alkaline Phosphatase 99 Total Protein 9.0 H Albumin 3.6 Globulin 5.4 H Albumin/Globulin Ratio 0.7 L Lipase 137 U Opiates 300ng/mL cut Ur Oxycodone Screen Urine Methadone Screen Ur Barbiturates Screen U Tricyclic Antidepress Ur Phencyclidine Scrn Ur Amphetamines Screen U Methamphetamines Scrn Ur MDMA Scrn (Ecstasy) U Benzodiazepines Scrn Urine Cocaine Screen U Marijuana (THC) Screen Urine pH Urine Specific [place] Ethyl Alcohol 331 H Ur Creatinine 02/19/25 02/19/25 14:02 15:11 WBC RBC Hgb Hct MCV MCH MCHC RDW Plt Count Neut % (Auto) Lymph % (Auto) [place] % (Auto) Eos % (Auto) Baso % (Auto) Neut # (Auto) Lymph # (Auto) [place] # (Auto) Eos # (Auto) Baso # (Auto) RBC Morphology Anisocytosis Microcytosis PT INR APTT Sodium Potassium Chloride Carbon Dioxide BUN Creatinine Estimated GFR BUN/Creatinine Ratio Glucose POC Whole Bld Glucose Lactate 3.0 H Calcium Magnesium Total Bilirubin AST ALT Alkaline Phosphatase Total Protein Albumin Globulin Albumin/Globulin Ratio Lipase U Opiates 300ng/mL cut Negative Ur Oxycodone Screen Negative Urine Methadone Screen Negative Ur Barbiturates Screen Negative U Tricyclic Antidepress Negative Ur Phencyclidine Scrn Negative Ur Amphetamines Screen Negative U Methamphetamines Scrn Negative Ur MDMA Scrn (Ecstasy) Negative U Benzodiazepines Scrn Positive H Urine Cocaine Screen Negative U Marijuana (THC) Screen Negative Urine pH Normal Urine Specific [place] Normal Ethyl Alcohol Ur Creatinine Normal Assessment & Plan Time-Based Coding :: 40 min spent with patient and on the chart (including review of chart, obtaining history, exam, reviewing outside data, placing orders, documenting exam and treatment plan, and counseling patient) on 02/19. Quality MIPS - Admit I confirm the patient?s Advance Care Plan is present, Code status is documented, Surrogate decision maker is in patient?s record [If Yes, STOP here]: Yes MIPS - Meds 'Current medications' to include all prescriptions, [id number] products, herbals, cannabis/cannabidiol products, and vitamin/mineral/dietary (nutritional) supplements. I have utilized all available resources to obtain, update, or review the patient?s current medications. [If Yes, STOP here]: Yes
[2025-02-19 16:51] LABS: Phosphorous 3.6 mg/dL (2.5-4.5)
[2025-02-19 18:10] LABS: MRSA (Nasal) PCR NOT DETECTED (Not Detect)
--- NOTE | 2025-02-19 18:35 | PC.NURSE ---
Addendum entered by Hakan Gan RN 02/19/25 18:59: Per Dr. Paige: repeat 1L NS bolus if pressure not improved after first two liters. Original Note: 1728 - BP 71/41, Precedex stopped. Dr. Paige notified, 1L NS bolus ordered. Repeat bolus if blood pressure not improved. Patient rousable to voice, touch, and painful stimuli, O2 96% on 3L oxymask.
[2025-02-19] MEDS: SODIUM CHLORIDE 0.9% 500 ML 1000 ML IV ×2 (18:46→20:20)
[2025-02-20] VITALS (42 sets, daily range): BP systolic 100–147; BP diastolic 55–86; PULSE 92–122; RESP 14–32; TEMP 36.6–37.6; O2SAT 91–99
[2025-02-20 05:19] LABS: Hematocrit 25.3 % (41-53); Hemoglobin 8.9 g/dL (13.5-17.5); Lymphocytes Absolute Auto 600 /uL (1100-4500); Mean Corpuscular HGB Conc 35.2 % (30-36); Mean Corpuscular Hemoglobin 33.2 PG (26-34); Mean Corpuscular Volume 94.3 fL (80-100)
[2025-02-20 05:26] LABS: Magnesium 1.6 mg/dL (1.6-2.3)
[2025-02-20 05:36] LABS: Add Manual Diff / Slide Review SLIDE REVIEW; Platelet Count 22 X10^3/uL (150-400)
[2025-02-20 05:41] LABS: Alanine Aminotransferase 28 IU/L (<50); Albumin 2.9 g/dL (3.5-5.0); Albumin Globulin Ratio 0.6 (1.0-2.8); Alkaline Phosphatase 90 U/L (38-126); Blood Urea Nitrogen 5 mg/dL (9-20); Calcium 6.9 mg/dL (8.4-10.2); Carbon Dioxide 22 mmol/L (22-32); Chloride 111 mmol/L (98-107); Estimated Glomerular Filt Rate > 60 mL/min (>60); Globulin 4.7 g/dL (1.7-4.1); Glucose 110 mg/dL (70-99); HEMOLYSIS < 15 (0-50); Potassium 3.4 mmol/L (3.4-5.1); Sodium 141 mmol/L (137-145); Total Protein 7.6 g/dL (6.3-8.2)
[2025-02-20 05:56] LABS: Anisocytosis 1+; Microcytosis 1+
[2025-02-20] MEDS: SODIUM CHLORIDE 0.9% 1,000 ML 100 ML IV ×2 (06:31→15:36)
[2025-02-20] MEDS: PANTOPRAZOLE DR 40 MG TABLET PO (06:42)
--- NOTE | 2025-02-20 08:25 | P.PN_ITS ---
Subjective Subjective Date Patient Seen: 02/20/25 Interval history: This is a 44-year-old male with a known history of severe alcohol use disorder who presented to the ED asking for help with detoxification. The patient presented with evidence of early withdrawal including tremors and hallucinations. He usually drinks 8 large beers a day and had 2 yesterday and 1 this morning. The patient began to have increased agitation was treated with phenobarbital and benzodiazepine in the ED. He was transferred to the ICU where he was somnolent but breathing comfortably. 02/19: Patient was quite sedated, OxyMask is on. He was not really able to answer questions but will open his eyes and track. 02/20: The hemoglobin is 8.9. The white blood count has dropped 1.5. The platelets today are 22 and when rechecked several hours later are up to 24, down from 38 yesterday. His right elbow remains quite bruised and swollen. An x-ray will be done. The INR is 1.7. The bilirubin is 2.3. His alcohol level on presentation was 331. The AST is 92. He tells me that he was hospitalized for alcohol withdrawal, total of 15 days in [place], [facility] this month. O: NAD, quite talkative and interactive. Fully oriented. Normocephalic skull Neck supple, midline trachea Lungs clear, normal rate and effort. Heart regular, no murmur gallop or rub. Abdomen is soft, non distended and non tender. Extremities are notable for right elbow area bruising and swelling Skin is free of rash or lesions. Joints are not swollen or deformed. No ankle edema. IMAGING: NONE. A/P: 1. Acute alcohol withdrawal, active. 2. Severe alcohol use disorder, active. 3. History of alcohol-induced pancreatitis, not active. 4. Anxiety and depression, active. 5. Severe Pancytopenia related to alcohol toxicity, active. 6. Hypomagnesemia PLAN: -CIWA protocol, thiamine. -Precedex drip for agitation stopped due to hypotension. -phenobarbital 130 Q 8 for 2 additional doses. Resumed 02/20 -replete magnesium, check phosphate -transfer platelets continue to trend down Full resuscitation. DVT prophylaxis: We will avoid heparin given his severe thrombocytopenia. Exam Vital Signs (past 8 hours): - 02/20/25 00:26 02/20/25 01:00 02/20/25 01:26 Temperature Pulse Rate 101 H 92 H 105 H Respiratory Rate 20 16 16 Blood Pressure 102/66 105/81 107/58 L Pulse Oximetry 94 Oxygen Flow Rate 02/20/25 02:00 02/20/25 03:00 02/20/25 03:26 Temperature Pulse Rate 101 H 97 H 109 H Respiratory Rate 16 16 18 Blood Pressure 111/65 103/58 L 103/58 L Pulse Oximetry 96 91 Oxygen Flow Rate 02/20/25 04:00 02/20/25 05:00 02/20/25 06:00 Temperature 98.3 F Pulse Rate 111 H Respiratory Rate 20 16 16 Blood Pressure 100/55 L 115/59 L 113/58 L Pulse Oximetry 96 92 93 Oxygen Flow Rate 4 02/20/25 06:28 Temperature Pulse Rate 101 H Respiratory Rate 19 Blood Pressure 113/58 L Pulse Oximetry Oxygen Flow Rate Oxygen Delivery Method Oximask Oxygen Flow Rate 4 Objective Labs 02/20/25 12:00 02/20/25 05:02 Labs: Laboratory Results - last 24 hr 02/19/25 02/19/25 02/19/25 13:05 13:10 13:25 WBC 3.4 L RBC 2.64 L Hgb 8.8 L Hct 24.7 L MCV 93.8 MCH 33.2 MCHC 35.4 RDW 15.6 H Plt Count 38 L Neut % (Auto) 60.3 Lymph % (Auto) 29.5 [place] % (Auto) 6.4 Eos % (Auto) 3.7 Baso % (Auto) 0.1 Neut # (Auto) 2100 Lymph # (Auto) 1000 L [place] # (Auto) 200 Eos # (Auto) 100 Baso # (Auto) 0 Platelet Estimate RBC Morphology See below Anisocytosis 1+ H Microcytosis 1+ H PT 19.5 H INR 1.7 H APTT 43 H Sodium 141 Potassium 3.3 L Chloride 106 Carbon Dioxide 23 BUN 4 L Creatinine 0.53 L Estimated GFR > 60 BUN/Creatinine Ratio 7.5 Glucose 124 H POC Whole Bld Glucose 111 H Lactate 3.5 H Calcium 7.6 L Phosphorus 3.6 Magnesium 1.3 L Total Bilirubin 3.2 H AST 103 H ALT 34 Alkaline Phosphatase 99 Total Protein 9.0 H Albumin 3.6 Globulin 5.4 H Albumin/Globulin Ratio 0.7 L Lipase 137 Nasal Screen MRSA (PCR) U Opiates 300ng/mL cut Ur Oxycodone Screen Urine Methadone Screen Ur Barbiturates Screen U Tricyclic Antidepress Ur Phencyclidine Scrn Ur Amphetamines Screen U Methamphetamines Scrn Ur MDMA Scrn (Ecstasy) U Benzodiazepines Scrn Urine Cocaine Screen U Marijuana (THC) Screen Urine pH Urine Specific [place] Ethyl Alcohol 331 H Ur Creatinine 02/19/25 02/19/25 02/19/25 14:02 15:11 15:50 WBC RBC Hgb Hct MCV MCH MCHC RDW Plt Count Neut % (Auto) Lymph % (Auto) [place] % (Auto) Eos % (Auto) Baso % (Auto) Neut # (Auto) Lymph # (Auto) [place] # (Auto) Eos # (Auto) Baso # (Auto) Platelet Estimate RBC Morphology Anisocytosis Microcytosis PT INR APTT Sodium Potassium Chloride Carbon Dioxide BUN Creatinine Estimated GFR BUN/Creatinine Ratio Glucose POC Whole Bld Glucose Lactate 3.0 H Calcium Phosphorus Magnesium Total Bilirubin AST ALT Alkaline Phosphatase Total Protein Albumin Globulin Albumin/Globulin Ratio Lipase Nasal Screen MRSA (PCR) Not detected U Opiates 300ng/mL cut Negative Ur Oxycodone Screen Negative Urine Methadone Screen Negative Ur Barbiturates Screen Negative U Tricyclic Antidepress Negative Ur Phencyclidine Scrn Negative Ur Amphetamines Screen Negative U Methamphetamines Scrn Negative Ur MDMA Scrn (Ecstasy) Negative U Benzodiazepines Scrn Positive H Urine Cocaine Screen Negative U Marijuana (THC) Screen Negative Urine pH Normal Urine Specific [place] Normal Ethyl Alcohol Ur Creatinine Normal 02/20/25 05:02 WBC 1.8 L* RBC 2.68 L Hgb 8.9 L Hct 25.3 L MCV 94.3 MCH 33.2 MCHC 35.2 RDW 15.6 H Plt Count 22 L* Neut % (Auto) 55.2 Lymph % (Auto) 36.2 [place] % (Auto) 5.7 Eos % (Auto) 2.6 Baso % (Auto) 0.3 Neut # (Auto) 1000 L Lymph # (Auto) 600 L [place] # (Auto) 100 Eos # (Auto) 0 Baso # (Auto) 0 Platelet Estimate Decreased on smear RBC Morphology See below Anisocytosis 1+ H Microcytosis 1+ H PT INR APTT Sodium 141 Potassium 3.4 Chloride 111 H Carbon Dioxide 22 BUN 5 L Creatinine 0.46 L Estimated GFR > 60 BUN/Creatinine Ratio 10.9 Glucose 110 H POC Whole Bld Glucose Lactate Calcium 6.9 L Phosphorus Magnesium 1.6 Total Bilirubin 2.3 H AST 92 H ALT 28 Alkaline Phosphatase 90 Total Protein 7.6 Albumin 2.9 L Globulin 4.7 H Albumin/Globulin Ratio 0.6 L Lipase Nasal Screen MRSA (PCR) U Opiates 300ng/mL cut Ur Oxycodone Screen Urine Methadone Screen Ur Barbiturates Screen U Tricyclic Antidepress Ur Phencyclidine Scrn Ur Amphetamines Screen U Methamphetamines Scrn Ur MDMA Scrn (Ecstasy) U Benzodiazepines Scrn Urine Cocaine Screen U Marijuana (THC) Screen Urine pH Urine Specific [place] Ethyl Alcohol Ur Creatinine PFSH Medical History Acute pancreatitis with uninfected necrosis Anxiety Depression Alcoholism Alcohol withdrawal Pancreatitis Surgical History No history of previous surgery Family History Mother No significant past medical history Father Alcohol abuse CVA (cerebral vascular accident) Sister Breast cancer Other Cancer Social History household members: family alcohol intake: current substance use type: does not use Assessment & Plan Time-Based Coding :: [TOTAL MINUTES] spent with patient and on the chart (including review of chart, obtaining history, exam, reviewing outside data, placing orders, documenting exam and treatment plan, and counseling patient) on [DATE].
[2025-02-20] MEDS: MAGNESIUM CHLORIDE 64 MG TABLET 128 MG PO (09:43)
[2025-02-20] MEDS: POTASSIUM CHLORIDE 20 MEQ TAB 40 MEQ PO (09:43)
[2025-02-20 12:22] LABS: Hematocrit 24.5 % (41-53); Hemoglobin 8.6 g/dL (13.5-17.5); Lymphocytes Absolute Auto 600 /uL (1100-4500); Mean Corpuscular HGB Conc 35.0 % (30-36); Mean Corpuscular Hemoglobin 32.8 PG (26-34); Mean Corpuscular Volume 93.6 fL (80-100)
[2025-02-20 12:26] LABS: Platelet Count 24 X10^3/uL (150-400)
[2025-02-20 12:27] LABS: Add Manual Diff / Slide Review SLIDE REVIEW
[2025-02-20 12:35] LABS: Microcytosis 1+
--- NOTE | 2025-02-20 12:38 | CM.DANOTE ---
Initial DCP Assessment Note. Review EMR and PT Interview. Met with patient at bedside to discuss discharge needs.PT is alert x 4 sitting up in bed. Independent. Lives with brotherOnofre. Recent 15 days stay at [facility] for the same issue. 2 yr ago patient was at [place], [place]. Patient request to return to that facility for Detox. Payor:[facility] PCP: Summary & Plan:?44 y/o male arrived to the ED requesting Detox. Last drink 3 days ago. His brother, Onofre, drove him to the hospital. Admitted INPT. Dx.Alcohol WIthdrawal. Plan: IVF, Asvance Diet as Tolerated. Precedex gtt, PT eval. DC to rehab when improved. 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 Rogders Insurance [facility] Advance Directives? No Advance Directives No on File History Provided By Patient,Medical Record Household Members family Type of Relies on Others transporation used prior to admit Comment brotherOnofre Independent with ADL Yes 's Is patient alert and Yes oriented? Needs Assistance Home Chores / Shopping With Patient/Family Drug/Alcohol Rehab Preference Barriers to Yes Discharge Comment ETOH w/d, CIWA, pancreatitis, chronic alcohol use Discharge Plan Home Transportation Family Arrangement Referrals Initiated Other Additional Comment Patient seen by ED [employer]IST within the last year (please see notes for details). 02/15/2025 PT requested Outpatient Detox: [facility] in [place]. He has been there twice in the past. Review Status In Process Please Provide Date 02/20/25 Initial DC Assessment Was Performed Next Review Type Continued Stay Review
--- NOTE | 2025-02-20 14:37 | DI.RAD.S_ITS ---
PROCEDURE: XR ELBOW RT MIN 3V INDICATIONS: Elbow trauma and swelling TECHNIQUE: 3 views of the elbow were acquired. COMPARISON: None. FINDINGS: Bones: No fractures or dislocations. No suspicious bony lesions. A moderate enthesophyte is seen along the posterior aspect of the olecranon. Soft tissues: There is a moderate elbow joint effusion. No suspicious soft tissue calcifications. IMPRESSION: Moderate joint effusion, yet without a focal acute bony abnormality. If it would be helpful for clinical management decision making, please consider a dedicated elbow MRI for further evaluation (assuming that there is no contraindication). Dictated by: José Miguel Pearce M.D. on 02/20/2025 at 14:21 Approved by: José Miguel Pearce M.D. on 02/20/2025 at 14:22
[2025-02-21] VITALS (65 sets, daily range): BP systolic 120–147; BP diastolic 62–79; PULSE 93–128; RESP 12–29; TEMP 37.1–38.1; O2SAT 91–99
[2025-02-21] MEDS: SODIUM CHLORIDE 0.9% 1,000 ML 100 ML IV ×2 (01:17→14:39)
[2025-02-21 05:25] LABS: Alanine Aminotransferase 26 IU/L (<50); Albumin 2.9 g/dL (3.5-5.0); Albumin Globulin Ratio 0.6 (1.0-2.8); Alkaline Phosphatase 82 U/L (38-126); Blood Urea Nitrogen 3 mg/dL (9-20); Calcium 7.1 mg/dL (8.4-10.2); Carbon Dioxide 23 mmol/L (22-32); Chloride 103 mmol/L (98-107); Estimated Glomerular Filt Rate > 60 mL/min (>60); Globulin 4.8 g/dL (1.7-4.1); Glucose 109 mg/dL (70-99); HEMOLYSIS < 15 (0-50); Magnesium 1.3 mg/dL (1.6-2.3); Potassium 2.9 mmol/L (3.4-5.1); Sodium 130 mmol/L (137-145); Total Protein 7.7 g/dL (6.3-8.2)
[2025-02-21 05:28] LABS: Hematocrit 23.7 % (41-53); Hemoglobin 8.5 g/dL (13.5-17.5); Mean Corpuscular HGB Conc 35.9 % (30-36); Mean Corpuscular Hemoglobin 33.4 PG (26-34); Mean Corpuscular Volume 93.0 fL (80-100)
[2025-02-21 05:30] LABS: Add Manual Diff / Slide Review YES
[2025-02-21 05:53] LABS: Anisocytosis 1+; Eosinophils Percent Manual 4.0 % (2-4); Lymphocytes Percent Manual 25.0 % (25-45); Microcytosis 1+; Monocytes Percent Manual 6.0 % (2-11); Neutrophils Absolute Manual 845 /uL (3000-5900); Segmented Neutrophils Percent 65.0 % (38-70); Total Cells Counted 100
[2025-02-21 06:00] LABS: Platelet Count 18 X10^3/uL (150-400)
[2025-02-21] MEDS: MAGNESIUM SULFATE 4 GM/100 ML PIGGYBACK IV (07:56)
[2025-02-21] MEDS: POTASSIUM CHLORIDE IN WATER 10 MEQ/100 ML PIGGYBACK 100 MEQ IV ×7 (07:56→19:56)
--- NOTE | 2025-02-21 08:18 | P.PN_ITS ---
Subjective Subjective Date Patient Seen: 02/21/25 Time Patient Seen: 08:18 Interval history: This is a 44-year-old male with a known history of severe alcohol use disorder who presented to the ED asking for help with detoxification. The patient presented with evidence of early withdrawal including tremors and hallucinations. He usually drinks 8 large beers a day and had 2 yesterday and 1 this morning. The patient began to have increased agitation was treated with phenobarbital and benzodiazepine in the ED. He was transferred to the ICU where he was somnolent but breathing comfortably. 02/19: Patient was quite sedated, OxyMask is on. He was not really able to answer questions but will open his eyes and track. 02/20: The hemoglobin is 8.9. The white blood count has dropped 1.5. The platelets today are 22 and when rechecked several hours later are up to 24, down from 38 yesterday. His right elbow remains quite bruised and swollen. An x-ray will be done. The INR is 1.7. The bilirubin is 2.3. His alcohol level on presentation was 331. The AST is 92. He tells me that he was hospitalized for alcohol withdrawal, total of 15 days in [place] this month. 02/21: The potassium was 2.9 early this morning and was supplemented with 30 mEq, subsequently rising to 3.1 which was again supplemented with 40 more mEq. The platelets were 18 and so a transfusion was ordered. Since they were coming from a long distance away they were not given before the next blood draw which came back at 19. We will give the 1 dose of IV platelets before the next platelets are drawn. He began having some bleeding in his mouth that he attributes to a broken molar. No other signs of bleeding. The hemoglobin is stable at 8.5. The white blood count is 1.3. The magnesium level was 1.3 so an additional 4 g will be given. Given his alcohol-related depletion of magnesium this is likely to remain an ongoing problem. Today remains somewhat sedated on the addition of routine low-dose phenobarbital. The INR is high at 2.1. O: NAD, somewhat sluggish/slurred/sedated. Fully oriented. Normocephalic skull. Blood slow oozing on both sides of the mouth. Difficult to say which side is bleeding and the exact location. Neck supple, midline trachea Lungs clear, normal rate and effort. Bilateral trace ankle edema. Heart regular, no murmur gallop or rub. Abdomen is soft, non distended and non tender. Extremities are notable for right elbow area bruising and swelling Skin is free of rash or lesions. Joints are not swollen or deformed. No ankle edema. IMAGING: NONE. A/P: 1. Acute alcohol withdrawal, active. 2. Severe alcohol use disorder, active. 3. History of alcohol-induced pancreatitis, not active. 4. Anxiety and depression, active. 5. Severe Pancytopenia related to alcohol toxicity, active. 6. Hypomagnesemia 8. Oral oozing PLAN: -CIWA protocol, thiamine. -Precedex drip for agitation stopped due to hypotension. -phenobarbital 130 Q 8 for 2 additional doses. Resumed 65 mg q.8 hours on 02/20 -replete magnesium and potassium -continue thiamine -platelet transfusion today -call about transfer as platelets continue to trend down and he now has intraoral bleeding. Full resuscitation. DVT prophylaxis: We will avoid heparin given his severe thrombocytopenia. Exam Vital Signs (past 8 hours): - 02/21/25 00:30 02/21/25 01:00 02/21/25 01:00 Temperature Pulse Rate 105 H 113 H Respiratory Rate 18 16 Blood Pressure 120/65 120/65 Pulse Oximetry 97 96 Oxygen Flow Rate 4 02/21/25 01:00 02/21/25 01:04 02/21/25 01:30 Temperature Pulse Rate 98 H 98 H 106 H Respiratory Rate 21 16 12 Blood Pressure 120/68 Pulse Oximetry 93 97 Oxygen Flow Rate 02/21/25 02:00 02/21/25 02:00 02/21/25 02:01 Temperature Pulse Rate 98 H 101 H 105 H Respiratory Rate 16 22 21 Blood Pressure 131/74 Pulse Oximetry 93 96 96 Oxygen Flow Rate 0 02/21/25 02:01 02/21/25 02:30 02/21/25 03:00 Temperature Pulse Rate 100 H 94 H Respiratory Rate 20 16 Blood Pressure 122/73 125/70 Pulse Oximetry 96 93 Oxygen Flow Rate 02/21/25 03:00 02/21/25 03:15 02/21/25 03:15 Temperature Pulse Rate 96 H 97 H Respiratory Rate 19 22 Blood Pressure 126/70 Pulse Oximetry 94 92 Oxygen Flow Rate 02/21/25 03:30 02/21/25 04:00 02/21/25 04:00 Temperature 99 F Pulse Rate 100 H 107 H 103 H Respiratory Rate 19 18 15 Blood Pressure 144/73 H Pulse Oximetry 95 94 97 Oxygen Flow Rate 0 02/21/25 04:00 02/21/25 04:30 02/21/25 05:00 Temperature Pulse Rate 93 H 97 H Respiratory Rate 21 20 Blood Pressure 142/73 H 127/67 Pulse Oximetry 94 95 Oxygen Flow Rate 02/21/25 05:00 02/21/25 05:00 02/21/25 05:30 Temperature Pulse Rate 100 H 112 H Respiratory Rate 20 22 Blood Pressure 124/67 Pulse Oximetry 95 Oxygen Flow Rate 02/21/25 06:00 02/21/25 06:00 02/21/25 06:03 Temperature Pulse Rate 96 H 96 H 97 H Respiratory Rate 16 23 24 Blood Pressure 125/66 Pulse Oximetry 96 94 95 Oxygen Flow Rate 02/21/25 06:03 02/21/25 06:30 02/21/25 06:45 Temperature Pulse Rate 95 H 100 H Respiratory Rate 25 H 18 Blood Pressure 125/66 Pulse Oximetry 91 Oxygen Flow Rate 02/21/25 07:00 02/21/25 07:00 02/21/25 07:30 Temperature Pulse Rate 100 H 100 H Respiratory Rate 20 20 Blood Pressure 129/69 Pulse Oximetry 97 96 Oxygen Flow Rate 02/21/25 07:38 02/21/25 08:13 Temperature 99.1 F 99.3 F Pulse Rate Respiratory Rate Blood Pressure Pulse Oximetry Oxygen Flow Rate Oxygen Delivery Method Room Air Oxygen Flow Rate 0 Objective Labs 02/21/25 12:42 02/21/25 07:35 Labs: Laboratory Results - last 24 hr 02/20/25 02/21/25 12:00 04:39 WBC 1.5 L* 1.3 L* RBC 2.62 L 2.55 L Hgb 8.6 L 8.5 L Hct 24.5 L 23.7 L MCV 93.6 93.0 MCH 32.8 33.4 MCHC 35.0 35.9 RDW 15.4 H 15.4 H Plt Count 24 L* 18 L* Neut % (Auto) 53.2 Not Reportable Lymph % (Auto) 36.4 Not Reportable [place] % (Auto) 7.2 Not Reportable Eos % (Auto) 2.8 Not Reportable Baso % (Auto) 0.4 Not Reportable Neut # (Auto) 800 L Lymph # (Auto) 600 L Not Reportable [place] # (Auto) 100 Not Reportable Eos # (Auto) 0 Baso # (Auto) 0 Not Reportable Total Counted 100 Seg Neutrophils % 65.0 Lymphocytes % (Manual) 25.0 Monocytes % (Manual) 6.0 Eosinophils % (Manual) 4.0 Neutrophils # (Manual) 845 L Platelet Estimate Decreased on smear Decreased on smear RBC Morphology See below See below Anisocytosis 1+ H Microcytosis 1+ H 1+ H Sodium 130 L D Potassium 2.9 L Chloride 103 Carbon Dioxide 23 BUN 3 L Creatinine 0.42 L Estimated GFR > 60 BUN/Creatinine Ratio 7.1 Glucose 109 H Calcium 7.1 L Magnesium 1.3 L Total Bilirubin 3.9 H AST 79 H ALT 26 Alkaline Phosphatase 82 Total Protein 7.7 Albumin 2.9 L Globulin 4.8 H Albumin/Globulin Ratio 0.6 L PFSH Medical History Acute pancreatitis with uninfected necrosis Anxiety Depression Alcoholism Alcohol withdrawal Pancreatitis Surgical History No history of previous surgery Family History Mother No significant past medical history Father Alcohol abuse CVA (cerebral vascular accident) Sister Breast cancer Other Cancer Social History household members: family alcohol intake: current substance use type: does not use Assessment & Plan Time-Based Coding :: [TOTAL MINUTES] spent with patient and on the chart (including review of chart, obtaining history, exam, reviewing outside data, placing orders, documenting exam and treatment plan, and counseling patient) on [DATE].
--- NOTE | 2025-02-21 08:26 | PC.NURSE ---
Addendum entered by Adelita Helton RN 02/21/25 18:38: 24hr urine collection ordered. Pt educated on purpose and procedure. Pt proceeded to urinate directly into toilet and BSC. Redirected and reeducated pt on use of measurement container. Pt incont x3 in bed. Provider updated on collection process. Mouth continuing to slowly ooze blood, provider notified. Pt able to brush teeth and rinse with set up. Up to chair for dinner. Care ongoing. Original Note: Day shift: Pt A&Ox3, unsure of date. Bleeding from mouth. Pt assisted into standing position to use urinal, tremulous but able to follow directions and steady with FWW. Pt brushed teeth and swish/spit, several clots from mouth. Upon inspection, left lower 6th tooth broken, pt states broke a molar. Unsure of when. pt then stated he bit his tongue. Blood slowly oozing from mouth. Provider Dr. Cooper updated on pt condition. VS WDL. Care ongoing.
[2025-02-21 09:03] LABS: Blood Urea Nitrogen 3 mg/dL (9-20); Calcium 7.2 mg/dL (8.4-10.2); Carbon Dioxide 21 mmol/L (22-32); Chloride 102 mmol/L (98-107); Estimated Glomerular Filt Rate > 60 mL/min (>60); Glucose 110 mg/dL (70-99); HEMOLYSIS 27 (0-50); Magnesium 1.3 mg/dL (1.6-2.3); Potassium 3.1 mmol/L (3.4-5.1); Sodium 131 mmol/L (137-145)
[2025-02-21 09:11] LABS: INR 2.1 (0.9-1.3); Prothrombin Time 22.9 SECONDS (9.4-12.5)
[2025-02-21 09:14] LABS: PTT Partial Thromboplastin Tim 37 SECONDS (25.1-36.5)
[2025-02-21 12:50] LABS: Hematocrit 25.7 % (41-53); Hemoglobin 9.2 g/dL (13.5-17.5); Mean Corpuscular HGB Conc 35.7 % (30-36); Mean Corpuscular Hemoglobin 33.3 PG (26-34); Mean Corpuscular Volume 93.4 fL (80-100)
[2025-02-21 12:53] LABS: Platelet Count 19 X10^3/uL (150-400)
[2025-02-21 15:29] LABS: Alanine Aminotransferase 30 IU/L (<50); Albumin 3.1 g/dL (3.5-5.0); Albumin Globulin Ratio 0.6 (1.0-2.8); Alkaline Phosphatase 80 U/L (38-126); Blood Urea Nitrogen 4 mg/dL (9-20); Calcium 7.3 mg/dL (8.4-10.2); Carbon Dioxide 22 mmol/L (22-32); Chloride 101 mmol/L (98-107); Estimated Glomerular Filt Rate > 60 mL/min (>60); Globulin 5.0 g/dL (1.7-4.1); Glucose 222 mg/dL (70-99); HEMOLYSIS < 15 (0-50); Potassium 3.2 mmol/L (3.4-5.1); Sodium 131 mmol/L (137-145); Total Protein 8.1 g/dL (6.3-8.2)
--- NOTE | 2025-02-21 18:54 | DI.RAD.S_ITS ---
PROCEDURE: XR CHEST 1V INDICATIONS: Fever TECHNIQUE: One view of the chest was acquired. COMPARISON: [facility], CR, XR CHEST 1V, 07/21/2018, 14:36. FINDINGS: Surgical changes and devices: None. Lungs and pleura: Lungs are clear. No pleural effusions or pneumothorax. Mediastinum: Mediastinal contours appear normal. Heart size is normal. Bones and chest wall: No suspicious bony lesions. Overlying soft tissues appear unremarkable. IMPRESSION: No acute cardiopulmonary abnormality is seen. Dictated by: Otoniel Payne M.D. on 02/21/2025 at 19:19 Approved by: Otoniel Payne M.D. on 02/21/2025 at 19:20
[2025-02-21] MEDS: levoFLOXacin 500 MG/100 ML PIGGYBACK 100 MG IV (19:54)
--- NOTE | 2025-02-21 20:22 | PC.NURSE ---
report given to Marya OLIVEIRA at [facility]. Ambulance expected at 2129
== END 2025-02-21 21:30 | disposition short-term general hospital (02) | DRG 775 ==
LOC: ED 13:26 → AC 14:42 → ICU 15:06
PROVIDERS: Family Medicine; Internal Medicine; Admitting Provider Hospitalist; Emergency Provider Emergency Medicine; PCP Family Medicine; Referring Provider Emergency Medicine; Visit Provider Hospitalist
DX: F10.931 Alcohol use, unspecified with withdrawal delirium (principal); D61.818 Other pancytopenia; E83.42 Hypomagnesemia; F41.9 Anxiety disorder, unspecified; F32.A Depression, unspecified; K13.79 Other lesions of oral mucosa; S50.01XA Contusion of right elbow, initial encounter; X58.XXXA Exposure to other specified factors, initial encounter; Y90.8 Blood alcohol level of 240 mg/100 ml or more
CPT/HCPCS: 36415; 36430; 71045; 73080; 80048; 80053; 80305; 80320; 81003; 82962; 83605; 83690; 83735; 84100; 85007; 85025; 85027; 85610; 85730; 86900; 86901; 87797; 94762; 96361; 96365; 96375; 99284; J1956; J2060; J2560; J3475; J7030; J7040; J7050; P9035